=== PATIENT | female | born 1955 | race Two or more races ===

== ENCOUNTER 2020-09-06 08:04 | Outpatient (REF) | payer OTHER, SELFPAY ==
[2020-09-06 08:43] LABS: MANUAL DIFF FLAG NO
[2020-09-06 08:47] LABS: Basophils Percent Auto 0.6 % (0-2); Eosinophils Absolute Auto 0.3 X10*3/uL (0.0-0.4); Eosinophils Percent Auto 6.9 % (0-4); Hematocrit 36.6 % (37-47); Hemoglobin 11.8 g/dl (12.0-16.0); Imm Gran Abs Auto 0.01 X10*3/uL (0.00-0.03); Imm Gran Pct Auto 0.2 % (0.0-0.4); Immature Retic Fraction 4.6 % (3.0-15.9); Lymphocytes Absolute Auto 1.9 X10*3/uL (1.2-4.9); Mean Corpuscular HGB Conc 32.2 g/dl (31.0-35.0); Mean Corpuscular Hemoglobin 29.6 pg (27.0-33.0); Mean Corpuscular Volume 91.7 fL (80-98); Mean Platelet Volume 10.8 fL (9.4-12.3); Monocytes Absolute Auto 0.5 X10*3/uL (0.1-1.2); Monocytes Percent Auto 10.7 % (2-11); Neutrophils Percent Auto 41.6 % (45-73); Platelet Count 240 X10*3/uL (160-400); Red Blood Count 3.99 X10*6/uL (4.20-5.50); Red Cell Distribution Width 13.8 % (11.0-16.0); Reticulocyte Percent 1.2 % (0.5-1.8); Reticulocytes Absolute 0.046 X10*6/uL (0.026-0.095); White Blood Count 4.8 X10*3/uL (4.8-10.8)
[2020-09-06 09:09] LABS: Iron 84 mcg/dL (30-160); Percent Iron Saturation 24 % (15-50); Total Iron Binding Capacity 346 mcg/dL (228-428); Unsaturated Iron Binding 262 ug/dL
[2020-09-06 09:29] LABS: Ferritin 17 ng/mL (10-250)
== END 2020-09-06 08:05 | disposition home or self-care (01) ==
LOC: HO.LAB 08:04
PROVIDERS: Visit Provider Internal Medicine
DX: Z00.00 Encounter for general adult medical examination without abnormal findings (principal); D64.9 Anemia, unspecified
CPT/HCPCS: 36415; 82728; 83540; 85025; 85045

== ENCOUNTER 2021-01-22 08:38 | Outpatient (REF) | payer OTHER, SELFPAY | END 2021-01-22 08:39 | disposition home or self-care (01) | LOC: HO.LAB 08:38 | PROVIDERS: Visit Provider Internal Medicine | DX: Z20.822 Contact with and (suspected) exposure to COVID-19 (principal) | CPT/HCPCS: C9803; U0003; U0005 ==

== ENCOUNTER 2021-03-20 09:09 | Emergency (ER) | payer OTHER, SELFPAY ==
--- NOTE | ~2021-03-20 | CT_ITS ---
EXAMINATION: CT HEAD WITHOUT CONTRAST CLINICAL INFORMATION: Headache, right eye vision changes COMPARISON: None TECHNIQUE: Contiguous axial imaging was performed from the skull base to vertex without intravenous administration of contrast. This CT examination was performed using dose optimization techniques as appropriate, variously including the following: *Automated exposure control *Adjustment of mA and/or kV according to patient size (this includes techniques or standardized protocols for targeted exams where dose is matched to indication/reason for exam; i.e. extremities or head) *Use of iterative reconstruction technique DLP: 540 mGy-cm FINDINGS: There is no evidence of acute intracranial hemorrhage or territorial infarction. No abnormal mass effect or midline shift is seen. Broderick to white matter differentiation is well preserved. No extra-axial fluid collections are identified. The ventricles are normal in size. There is no abnormal attenuation within the brain parenchyma. The osseous structures and soft tissues are normal. The mastoid air cells and visualized portions of the paranasal sinuses are well aerated. CT/CT head/brain wo con IMPRESSION: No acute intracranial process seen.
[2021-03-20 09:37] VITALS: BP 141/71; PULSE 60; RESP 15; TEMP 36.6; O2SAT 99; BMI 41.6
[2021-03-20 09:56] LABS: MANUAL DIFF FLAG NO
[2021-03-20 10:05] LABS: Basophils Percent Auto 0.2 % (0-2); Eosinophils Absolute Auto 0.1 X10*3/uL (0.0-0.4); Eosinophils Percent Auto 2.7 % (0-4); Hematocrit 36.5 % (37-47); Hemoglobin 11.6 g/dl (12.0-16.0); Imm Gran Abs Auto 0.01 X10*3/uL (0.00-0.03); Imm Gran Pct Auto 0.2 % (0.0-0.4); Lymphocytes Percent Auto 37.5 % (20-40); Mean Corpuscular HGB Conc 31.8 g/dl (31.0-35.0); Mean Corpuscular Hemoglobin 28.4 pg (27.0-33.0); Mean Corpuscular Volume 89.2 fL (80-98); Mean Platelet Volume 10.6 fL (9.4-12.3); Monocytes Absolute Auto 0.5 X10*3/uL (0.1-1.2); Monocytes Percent Auto 9.3 % (2-11); Neutrophils Absolute Auto 2.7 X10*3/uL (2.0-8.3); Neutrophils Percent Auto 50.1 % (45-73); Platelet Count 255 X10*3/uL (160-400); Red Blood Count 4.09 X10*6/uL (4.20-5.50); Red Cell Distribution Width 14.6 % (11.0-16.0); White Blood Count 5.3 X10*3/uL (4.8-10.8)
[2021-03-20 10:22] VITALS: BP 157/76; PULSE 51; RESP 16; O2SAT 100
[2021-03-20 10:23] LABS: Anion Gap 9 (12-20); Blood Urea Nitrogen 14 mg/dL (9-16); Calcium 8.9 mg/dL (8.4-10.2); Carbon Dioxide 27 mmol/L (22-29); Chloride 108 mmol/L (96-108); Creatinine Clr Calc Pharmacy 89.3; Estimated Glomerular Filt Rate > 60; Glucose Random 89 mg/dL (60-115); Potassium 4.1 mmol/L (3.3-5.1); Sodium 140 mmol/L (135-145)
[2021-03-20 10:51] LABS: Erythrocyte Sedimentation Rate 9 MM/HR (0-20)
--- NOTE | 2021-03-20 11:42 | ED_ITS ---
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 She reports she has associated lightheadedness/headache to the right temporal aspect of her head. She reports that the lightheadedness/he adache and vision changes has been persistent since yesterday. She denies any trauma. She is not on any blood thinners. She reports this has never happened in the past. chief complaint: vision change Onset (ago): day(s) (2) Onset description: gradual Duration: constant Location: right eye Eye Symptoms: blurry vision Mechanism: none Severity: moderate Associated symptoms: none Treatments Prior to Arrival: none Related Data Home Medications Medication Instructions Recorded Confirmed calcium carbonate 500 mg calcium 1,000 mg PO DAILY 09/09/20 02/06/21 (1,250 mg) tablet cholecalciferol (vitamin D3) 25 25 mcg PO DAILY 09/09/20 02/06/21 mcg (1,000 unit) capsule cyanocobalamin (vitamin B-12) 1,000 mcg PO DAILY 09/09/20 02/06/21 1,000 mcg capsule Previous Rx's Medication Instructions Recorded meloxicam 15 mg tablet 15 mg PO DAILY #90 tab 02/06/21 omeprazole 20 mg capsule,delayed 20 mg PO DAILY #90 cap 02/06/21 release albuterol sulfate 90 mcg/actuation 2 puff PO Q4H PRN #6.7 g 03/08/21 aerosol inhaler Allergies Allergy/AdvReac Type Severity Reaction Status Date / Time morphine [MORPHINE] Allergy Unknown VOMITING Verified 08/30/20 14:03 AND SHAKING Review of Systems Review of Systems: Constitutional : No fevers, no chills, No changes in activity, No lethargy, No recent prior head injury, No agitation, No increased fussiness ENT/Mouth : No Ear Pain, No Nasal discharge/drainage Eyes: Positive Vision changes/blurry/decreased vision, No Eye Pain, No Swelling, No Redness, No Foreign Body, No Photophobia, no discharge, no drainage, no itching, no eyelid edema, no contact lens uses, no recent welding, no bleeding Cardiovascular : No Chest Pain, No SOB Respiratory : No Cough Gastrointestinal : No Nausea, No Vomiting, No abdominal Pain Genitourinary : No Dysuria, No Urinary Frequency, No Urinary Incontinence, No Urgency, No Flank Pain Musculoskeletal : No joint pain, No neck stiffness, No back pain/injury Skin : No lacerations Neuro : Positive headache/lightheadedness, No unsteady gait, No Paresthesias, No Loss of Consciousness, No altered mental status, No dizziness Denies past medical history of HIV, recent trauma, coagulopathy, recent spinal/ epidural procedure, new medication, URI symptoms, close contacts with similar symptoms, tick bite, or known CO2 exposure. Yes all other systems are reviewed and are negative PMFSH Past Medical History Attestation statement: The following information was validated with the patient. Medical History Asthma COVID-19 GERD (gastroesophageal reflux disease) Obesity Osteoarthritis Osteopenia Syphilis Vitamin B12 deficiency Vitamin D deficiency Surgical History H/O gastric bypass History of abdominoplasty History of appendectomy History of section History of cholecystectomy Family History Family History Father No problems noted. Mother No problems noted. Social History Social History Advance Directives: No Advance Directives Information Provided: No Patient : No Physical Exam Vital Signs: Vital Signs: Last Vital Signs Temp 98 F 03/20/21 09:37 Pulse 84 03/20/21 11:54 Resp 16 03/20/21 11:54 BP 136/69 03/20/21 11:54 Pulse Ox 100 03/20/21 11:54 Body Mass Index 41.6 vital signs have been reviewed as normal and appeared to be correct. Blood pressure hypertensive 141/71. Heart rate normal. Respiration rate normal. Temperature normal. Oxygen saturation normal. Appearance: Alert. Oriented X3. No acute distress. Head: Normal external exam. Normocephalic. Atraumatic. No Bragg signs noted. No raccoon eyes noted Eyes: PERRLA. EOMI. Conjunctiva are normal. Cornea are normal. Funduscopic exam within normal limits. Sclera normal. Eyelids normal. No papilledema noted. Anterior chamber normal. No photophobia noted. Pressure to right eye is 12. Pressure to left eye is 10. Visual acuity to right eye 20/50. Visual acuity to left eye 20/40. ENT: EAC normal. TM's Normal. Pharynx normal. Uvula midline. Moist mucous membranes. Neck: Normal inspection. Neck supple. FROM. No adenopathy. Thyroid Normal. No meningeal signs. No neck mass noted. CVS: Normal heart rate and rhythm. Heart sound normal. No murmurs noted. Pulses normal throughout. Respiratory: No respiratory distress. Painless inspiration. Breath sounds normal. Back: Full range of motion noted. Skin: Skin warm and dry. Normal skin color. Normal skin turgor. No rashes/ lesions/lacerations noted. Extremities: No lower extremity edema. Extremities exhibit normal range of motion. Extremities nontender. Neuro: Oriented X 3. No motor deficit. No sensory deficit. Reflexes normal. 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 She reports she has associated lightheadedness/headache to the right temporal aspect of her head. She reports that the lightheaded ness/headache and vision changes has been persistent since yesterday. She denies any trauma. She is not on any blood thinners. She reports this has never happened in the past. - labs obtained which include a CBC, ESR and a chemistry which were all within normal limits. - CT scan of brain without contrast within normal limits no acute processes were noted. - therefore consulted with [address] [place] [address] ophthalmology and they are willing to see the patient today for further evaluation treatment at 13:10. Will fax over the paperwork to [phone] and patient will go directly to [address] [place] [address] drive at this time. Patient understands agrees with this plan. MDM - Eye Problem Medical Records Attestation: I reviewed the patient's medical records. Lab Data Attestation: I reviewed the patient's lab results. Result diagrams: 03/20/21 09:52 03/20/21 09:52 Labs: Lab Results 03/20/21 03/20/21 03/20/21 Range/Units 09:52 09:52 09:52 WBC 5.3 (4.8-10.8) X10*3/uL RBC 4.09 L (4.20-5.50) X10*6/uL Hgb 11.6 L (12.0-16.0) g/dl Hct 36.5 L (37-47) % MCV 89.2 (80-98) fL MCH 28.4 (27.0-33.0) pg MCHC 31.8 (31.0-35.0) g/dl RDW 14.6 (11.0-16.0) % Plt Count 255 (160-400) X10*3/uL MPV 10.6 (9.4-12.3) fL Immature Gran % (Auto) 0.2 (0.0-0.4) % Neut % (Auto) 50.1 (45-73) % Lymph % (Auto) 37.5 (20-40) % Storey % (Auto) 9.3 (2-11) % Eos % (Auto) 2.7 (0-4) % Baso % (Auto) 0.2 (0-2) % Lymph # (Auto) 2.0 (1.2-4.9) X10*3/uL Storey # (Auto) 0.5 (0.1-1.2) X10*3/uL Eos # (Auto) 0.1 (0.0-0.4) X10*3/uL Baso # (Auto) 0.0 (0.0-0.2) X10*3/uL Abs Immat Gran (auto) 0.01 (0.00-0.03) X10*3/uL Absolute Neuts (auto) 2.7 (2.0-8.3) X10*3/uL Absolute Nucleated RBC 0.000 (0.0-0.012) X10*3/uL Nucleated RBC % (auto) 0.0 (0.0-0.2) /100WBC ESR 9 (0-20) MM/HR Sodium 140 (135-145) mmol/L Potassium 4.1 (3.3-5.1) mmol/L Chloride 108 (96-108) mmol/L Carbon Dioxide 27 (22-29) mmol/L Anion Gap 9 L (12-20) BUN 14 (9-16) mg/dL Creatinine 0.69 (0.5-1.4) mg/dL Estim Creat Clear Calc 89.3 Estimated GFR > 60 Random Glucose 89 (60-115) mg/dL Calcium 8.9 (8.4-10.2) mg/dL Imaging Data CT scan of brain without contrast: Attestation: I personally reviewed and interpreted this imaging study as follows: Radiologist's impression: FINDINGS: There is no evidence of acute intracranial hemorrhage or territorial infarction. No abnormal mass effect or midline shift is seen. Broderick to white matter differentiation is well preserved. No extra-axial fluid collections are identified. The ventricles are normal in size. There is no abnormal attenuation within the brain parenchyma. The osseous structures and soft tissues are normal. The mastoid air cells and visualized portions of the paranasal sinuses are well aerated. CT/CT head/brain wo con IMPRESSION: No acute intracranial process seen. Critical Care Time Critical Care Time Critical Care Time: Yes Total Critical Care Time: 60 Attestation: I personally attest to this time spent taking care of the patient Discharge Plan Discharge Clinical Impression: Changes in vision Patient Disposition: Home, Self-Care Instructions: Blurred Vision (ED) Additional Instructions: Please go directly to [address] on [address] 1st [address] ophthalmology you have an appointment at 01:10 this afternoon. Go directly there from here. Do not miss this appointment. Por favor, vaya directamente a [address] en el 1er piso de oftalmolog?a que tiene kiki angela a la 01:10 de esta tarde. Ir directamente all? desde aqu?. No te pierdas esta angela. Prescriptions: No Action albuterol sulfate 90 mcg/actuation HFA aerosol inhaler 2 puff PO Q4H PRN (Reason: bronchospasm) Qty: 6.7 RF: 0 calcium carbonate [Calcium 500] 500 mg calcium (1,250 mg) tablet 1,000 mg PO DAILY RF: 0 cholecalciferol (vitamin D3) 25 mcg (1,000 unit) capsule 25 mcg PO DAILY RF: 0 cyanocobalamin (vitamin B-12) 1,000 mcg capsule 1,000 mcg PO DAILY RF: 0 omeprazole 20 mg capsule,delayed release(DR/EC) 20 mg PO DAILY Qty: 90 RF: 2 meloxicam [Mobic] 15 mg tablet 15 mg PO DAILY Qty: 90 RF: 1 Print Language: Burmese
[2021-03-20 11:54] VITALS: BP 136/69; PULSE 84; RESP 16; O2SAT 100
[2021-03-20] MEDS: Acetaminophen 325 MG TABLET 975 MG PO (11:54)
== END 2021-03-20 12:28 | disposition home or self-care (01) ==
PROVIDERS: Emergency Provider Emergency Medicine Emergency Medical Services; PCP Internal Medicine
DX: H53.8 Other visual disturbances (principal); R51.9 Headache, unspecified
CPT/HCPCS: 36415; 70450; 80048; 85025; 85652; 99284

== ENCOUNTER 2021-05-06 09:11 | Outpatient (REF) | payer OTHER, SELFPAY | END 2021-05-06 09:12 | disposition home or self-care (01) | LOC: HO.LAB 09:11 | PROVIDERS: PCP Internal Medicine; Visit Provider Internal Medicine | DX: Z20.822 Contact with and (suspected) exposure to COVID-19 (principal) | CPT/HCPCS: C9803; U0003; U0005 ==

== ENCOUNTER 2021-05-22 09:13 | Outpatient (REF) | payer OTHER, SELFPAY ==
--- NOTE | ~2021-05-22 | MM_ITS ---
EXAMINATION: MM SCREENING DIGITAL BREAST TOMOSYNTHESIS, BILATERAL CLINICAL INFORMATION: Screening. Asymptomatic. The lifetime risk of breast cancer based on the Tyrer-Cuzick Model is 4%. COMPARISON: Mammography: 05/16/2020, outside mammography 07/19/2019, 07/12/2018 ([place]). TECHNIQUE: Digital breast tomosynthesis is performed in both the craniocaudal and mediolateral oblique views along with computer-aided detection (CAD). Synthesized 2D images are generated from the tomosynthesis. FINDINGS: There are scattered areas of fibroglandular density (ACR BI-RADS breast composition Category b). There are no significant masses, abnormal calcifications, or other abnormalities. Scattered bilateral fibroglandular asymmetries in the anterior breasts was unable from prior studies. No developing density. The skin contours are smooth. No significant changes. MM/MM tomosynthesis screening BI IMPRESSION: No mammographic evidence of malignancy. ASSESSMENT: BI-RADS 2: Benign RECOMMENDATION: Routine annual mammography screening. This patient's information was entered into a reminder system with a target due date for their next mammogram.
== END 2021-05-22 09:14 | disposition home or self-care (01) ==
LOC: HO.MAMMO 09:13
PROVIDERS: Visit Provider Internal Medicine
DX: Z12.31 Encounter for screening mammogram for malignant neoplasm of breast (principal)
CPT/HCPCS: 77063; 77067

== ENCOUNTER 2021-05-24 08:07 | Outpatient (REF) | payer OTHER, SELFPAY ==
[2021-05-24 08:55] LABS: MANUAL DIFF FLAG NO
[2021-05-24 09:00] LABS: Basophils Percent Auto 0.2 % (0-2); Eosinophils Absolute Auto 0.2 X10*3/uL (0.0-0.4); Eosinophils Percent Auto 3.3 % (0-4); Hematocrit 39.2 % (37-47); Hemoglobin 12.3 g/dl (12.0-16.0); Imm Gran Abs Auto 0.01 X10*3/uL (0.00-0.03); Imm Gran Pct Auto 0.2 % (0.0-0.4); Immature Retic Fraction 6.9 % (3.0-15.9); Lymphocytes Absolute Auto 2.4 X10*3/uL (1.2-4.9); Lymphocytes Percent Auto 36.3 % (20-40); Mean Corpuscular HGB Conc 31.4 g/dl (31.0-35.0); Mean Corpuscular Hemoglobin 28.6 pg (27.0-33.0); Mean Corpuscular Volume 91.2 fL (80-98); Mean Platelet Volume 11.1 fL (9.4-12.3); Monocytes Absolute Auto 0.7 X10*3/uL (0.1-1.2); Monocytes Percent Auto 10.1 % (2-11); Neutrophils Absolute Auto 3.3 X10*3/uL (2.0-8.3); Neutrophils Percent Auto 49.9 % (45-73); Platelet Count 295 X10*3/uL (160-400); Red Cell Distribution Width 15.3 % (11.0-16.0); Retic HGB Equivalent 32.3 pg (30.0-35.0); Reticulocyte Percent 1.2 % (0.5-1.8); White Blood Count 6.6 X10*3/uL (4.8-10.8)
[2021-05-24 09:08] LABS: Glucose Urine UA NEG (NEG); Leukocyte Esterase Urine TRACE (NEG); Nitrite Urine NEG (NEG); PH 6.5 (5.0-8.0); Specific Gravity - Urine 1.015 (1.005-1.025); Urine Blood TRACE (NEG); Urine Ketones NEG (NEG); Urine Protein NEG (NEG-TRACE)
[2021-05-24 09:15] LABS: Appearance Urine HAZY; Color Urine YELLOW
[2021-05-24 09:19] LABS: Mucus Urine 1+ /LPF; RBC Urine 0-2 /HPF (0); Squamous Epithelial Cell Urine 1+ /LPF
[2021-05-24 09:24] LABS: Alanine Aminotransferase 22 U/L (0-31); Alkaline Phosphatase 77 U/L (39-117); Anion Gap 13 (12-20); Aspartate Amino Transferase 25 U/L (5-31); Bilirubin Total 0.5 mg/dL (0.0-1.0); Blood Urea Nitrogen 22 mg/dL (9-16); Calcium 8.9 mg/dL (8.4-10.2); Carbon Dioxide 27 mmol/L (22-29); Chloride 108 mmol/L (96-108); Cholesterol 147 mg/dL; Estimated Glomerular Filt Rate > 60; Glucose Random 88 mg/dL (60-115); HDL Cholesterol 52 mg/dL; Iron 59 mcg/dL (30-160); LDL Cholesterol Calculated 82 mg/dl; Percent Iron Saturation 16 % (15-50); Sodium 143 mmol/L (135-145); Total Iron Binding Capacity 363 mcg/dL (228-428); Triglycerides 66 mg/dL; Unsaturated Iron Binding 304 ug/dL
[2021-05-24 09:45] LABS: Erythrocyte Sedimentation Rate 7 MM/HR (0-20)
[2021-05-24 09:51] LABS: Free T4 (Free Thyroxine) 1.04 ng/dL (0.71-1.85); Thyroid Stimulating Hormone 0.39 uIU/mL (0.32-4.0); Vitamin D 25-OH Total 33.6 ng/mL (>30)
[2021-05-24 10:03] LABS: Ferritin 17 ng/mL (10-250)
[2021-05-24 14:19] LABS: Folate 7.3 ng/mL (> or = 4.0); Vitamin B12 1142 pg/mL (200-900)
== END 2021-05-24 08:08 | disposition home or self-care (01) ==
LOC: HO.LAB 08:07
PROVIDERS: PCP Internal Medicine; Visit Provider Internal Medicine
DX: R43.2 Parageusia (principal); K21.9 Gastro-esophageal reflux disease without esophagitis; E78.00 Pure hypercholesterolemia, unspecified
CPT/HCPCS: 36415; 80053; 80061; 81001; 82306; 82607; 82728; 82746; 83540; 84439; 84443; 85025; 85045; 85652

== ENCOUNTER 2022-05-29 08:49 | Outpatient (REF) | payer OTHER, SELFPAY ==
--- NOTE | ~2022-05-29 | MM_ITS ---
EXAMINATION: MM SCREENING DIGITAL BREAST TOMOSYNTHESIS, BILATERAL CLINICAL INFORMATION: Screening. Asymptomatic. The lifetime risk of breast cancer based on the Tyrer-Cuzick Model is 4%. COMPARISON: Mammography: May 22, 2021 and studies dating back to August 24, 2012 TECHNIQUE: Digital breast tomosynthesis is performed in both the craniocaudal and mediolateral oblique views along with computer-aided detection (CAD). Synthesized 2D images are generated from the tomosynthesis. FINDINGS: There are scattered areas of fibroglandular density (ACR BI-RADS breast composition Category b). There are no significant masses, abnormal calcifications, or other abnormalities. MM/MM tomosynthesis screening BI IMPRESSION: No mammographic evidence of malignancy. ASSESSMENT: BI-RADS 1: Negative RECOMMENDATION: Routine annual mammography screening. This patient's information was entered into a reminder system with a target due date for their next mammogram.
== END 2022-05-29 08:50 | disposition home or self-care (01) ==
LOC: HO.MAMMO 08:49
PROVIDERS: PCP Internal Medicine; Visit Provider Internal Medicine
DX: Z12.31 Encounter for screening mammogram for malignant neoplasm of breast (principal)
CPT/HCPCS: 77063; 77067

== ENCOUNTER 2022-10-13 09:11 | Outpatient (REF) | payer OTHER, SELFPAY ==
[2022-10-13 09:25] LABS: MANUAL DIFF FLAG NO
[2022-10-13 10:07] LABS: Basophils Percent Auto 0.3 % (0-2); Eosinophils Absolute Auto 0.2 X10*3/uL (0.0-0.4); Eosinophils Percent Auto 2.8 % (0-4); Hematocrit 38.3 % (37.0-47.0); Hemoglobin 12.1 g/dl (12.0-16.0); Imm Gran Abs Auto 0.01 X10*3/uL (0.00-0.03); Imm Gran Pct Auto 0.2 % (0.0-0.4); Lymphocytes Absolute Auto 2.1 X10*3/uL (1.2-4.9); Lymphocytes Percent Auto 32.1 % (20-40); Mean Corpuscular HGB Conc 31.6 g/dl (31.0-35.0); Mean Corpuscular Hemoglobin 28.7 pg (27.0-33.0); Mean Corpuscular Volume 90.8 fL (80.0-98.0); Mean Platelet Volume 10.6 fL (9.4-12.3); Monocytes Absolute Auto 0.5 X10*3/uL (0.1-1.2); Monocytes Percent Auto 7.8 % (2-11); Neutrophils Absolute Auto 3.6 x10*3/uL (2.0-8.3); Neutrophils Percent Auto 56.8 % (45-73); Platelet Count 244 X10*3/uL (160-400); Red Blood Count 4.22 X10*6/uL (4.20-5.50); Red Cell Distribution Width 14.6 % (11.0-16.0); White Blood Count 6.4 X10*3/uL (4.8-10.8)
[2022-10-13 12:07] LABS: Folate 7.3 ng/mL (> or = 4.0); Vitamin B12 > 2000 pg/mL (200-900)
[2022-10-13 13:17] LABS: Alanine Aminotransferase 15 U/L (0-31); Albumin Level 4.2 g/dL (3.5-5.0); Alkaline Phosphatase 75 U/L (39-117); Anion Gap 10 (12-20); Aspartate Amino Transferase 24 U/L (5-31); Bilirubin Total 0.9 mg/dL (0.0-1.0); Blood Urea Nitrogen 22 mg/dL (9-16); Calcium 9.2 mg/dL (8.4-10.2); Carbon Dioxide 28 mmol/L (22-29); Chloride 109 mmol/L (96-108); Cholesterol 165 mg/dL; Estimated Glomerular Filt Rate > 60; Glucose Random 90 mg/dL (60-115); HDL Cholesterol 66 mg/dL; LDL Cholesterol Calculated 91 mg/dl; Sodium 142 mmol/L (135-145); Triglycerides 44 mg/dL
[2022-10-13 13:41] LABS: Free T4 (Free Thyroxine) 0.99 ng/dL (0.71-1.85); Thyroid Stimulating Hormone 0.44 uIU/mL (0.32-4.0)
== END 2022-10-13 09:12 | disposition home or self-care (01) ==
LOC: HO.LAB 09:11
PROVIDERS: PCP Internal Medicine; Visit Provider Internal Medicine
DX: E78.00 Pure hypercholesterolemia, unspecified (principal); Z98.84 Bariatric surgery status
CPT/HCPCS: 36415; 80053; 80061; 82607; 82746; 84439; 84443; 85025

== ENCOUNTER 2022-11-04 13:44 | Outpatient (REF) | payer OTHER, SELFPAY ==
--- NOTE | ~2022-11-04 | MM_ITS ---
EXAMINATION: BONE DENSITOMETRY CLINICAL INDICATION: Age-related osteoporosis without current pathological fracture. COMPARISON: Baseline BD dated 05/16/2020. TECHNIQUE: Using a Transbiomed DXA System (software version: 13.1) manufactured by [employer], dual-energy x-ray absorptiometry was performed of the lumbar spine and left hip. The images are of good technical quality. Summary results are attached. FINDINGS: AP SPINE L1-L4: Current: BMD 0.993 g/cm2, Z-score -1.1, T-score -1.6, osteopenia, 4.2% increase from baseline (<5% change is not significant). Baseline: BMD 0.953 g/cm2. LEFT FEMUR, NECK: Current: BMD 0.906 g/cm2, Z-score -0.2, T-score -0.9, normal. Baseline: BMD 0.804 g/cm2. LEFT FEMUR, TOTAL: Current: BMD 0.872 g/cm2, Z-score -0.7, T-score -1.1, osteopenia, 14.3% increase from baseline (<5% change is not significant). Baseline: BMD 0.763 g/cm2. IDENTIFIED RISK FACTORS: History of adult fracture. Secondary osteoporosis (part of stomach removed). Menopause. HISTORY OF FRACTURE: Wrist. MEDICATIONS: Calcium supplement and/or multivitamin. Vitamin D. MM/XR DEXA axial skeleton IMPRESSION: 1. DIAGNOSIS: Osteopenia based on the lowest T-score value of -1.6 in the lumbar spine applying World Health Organization criteria. 2. 10-YEAR FRACTURE RISK PREDICTION, FRAX: Major osteoporotic fracture (clinical spine, forearm, hip or shoulder) 6.6%. Hip fracture 0.4%. 3. Treatment Recommendations: NOF guidelines recommend consideration for treatment in postmenopausal women and men age 50 and older presenting with the following: -A hip or vertebral (clinical or morphometric) fracture. -T-score less than or equal to -2.5 at the femoral neck or spine after appropriate evaluation to exclude secondary causes. -Low bone mass at the hip or spine and a 10-year fracture probability by FRAX of greater than or equal to 3% for hip fracture or greater than or equal to 20% for major osteoporotic fracture based on the [place] adapted WHO algorithm. 4. Other Recommendations: All treatment decisions require clinical judgment and consideration of individual patient factors, including patient preferences, comorbidities, previous drug use, risk factors not captured in the FRAX model (e.g. frailty, falls, vitamin D deficiency, increased bone turnover, interval significant decline in bone density) and possible under or overestimation of fracture risk by FRAX. Additional medical evaluation for secondary cause of low bone mineral density may be appropriate. FUTURE SCAN RECOMMENDATION: People with diagnosed cases of osteoporosis or at high risk for fracture should have regular bone mineral density tests. For patients eligible for Medicare, routine testing is allowed once every 2 years. The testing frequency can be increased to one year for patients who have rapidly progressing disease, those who are receiving or discontinuing medical therapy to restore bone mass, or have additional risk factors.
== END 2022-11-04 13:45 | disposition home or self-care (01) ==
LOC: HO.MAMMO 13:44
PROVIDERS: PCP Internal Medicine; Visit Provider Internal Medicine
DX: Z13.820 Encounter for screening for osteoporosis (principal); Z78.0 Asymptomatic menopausal state; M81.0 Age-related osteoporosis without current pathological fracture
CPT/HCPCS: 77080

== ENCOUNTER 2023-04-20 10:39 | Outpatient (AMB) | payer OTHER, SELFPAY ==
[2023-04-20 10:43] VITALS: BP 116/78; PULSE 58; O2SAT 99; BMI 42.8
--- NOTE | 2023-04-20 10:43 | A.OFFPC_ITS ---
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 Required: No Accompanied by: Self / Same As Patient Allergies morphine [MORPHINE] Allergy (Unknown, Verified 04/20/23 10:43) VOMITING AND SHAKING Medication List - Last Reconciled 04/20/23 by Harry Chun MD albuterol sulfate 90 mcg/actuation 2 puffs PO Q4H PRN calcium carbonate (Calcium 500) 1,000 mg PO DAILY cholecalciferol (vitamin D3) 25 mcg PO DAILY cyanocobalamin (vitamin B-12) 1,000 mcg orally once a week; melatonin 20 mg PO DAILY meloxicam 15 mg PO DAILY omeprazole 20 mg PO DAILY Tobacco use date assessed: 04/20/23 Fall risk assessment: No Falls in past year Last assessed Fall Risk: 04/20/23 Dental Screening Dental Screen Date: 04/20/23 Did you have a dental visit in the last 12 months?: No Did you have a dental problem in the last 6 months where you did not have access to dental care?: No Was dental information given to patient?: No HPI OA, gerd HPI Details 67-year-old obese female with GERD asthma osteoarthritis osteoporosis patient has a history of gastric bypass coming in for follow-up. Last seen in October 2022. Colonoscopy is up-to-date mammogram is due next month bone density done in October. [facility] Medical History (Updated 04/20/23 @ 11:11 by Harry Chun MD) Age-related osteoporosis without current pathological fracture Asthma COVID-19 GERD (gastroesophageal reflux disease) Obesity Osteoarthritis Osteopenia Syphilis Vitamin B12 deficiency Vitamin D deficiency Surgical History H/O gastric bypass History of abdominoplasty History of appendectomy History of section History of cholecystectomy Family History Father No problems noted. Mother No problems noted. Social History (Updated 10/21/22 @ 11:26 by Harry Chun MD) Housing: Apartment Alcohol intake: current Patient Tobacco Use Status: Never used Tobacco e-Cigarette/Vaping Use: Never Used Second Hand Smoke Exposure: No service: No Current occupational status: employed Cognitive needs: No Hearing needs: No Vision needs: Yes Questionnaire PHQ-9 Over the last 2 weeks, how often have you been bothered by any of the following problems? 1. Little interest or pleasure in doing things: not at all 2. Feeling down, depressed, or hopeless: not at all 3. Trouble falling or staying asleep, or sleeping too much: not at all 4. Feeling tired or having little energy: not at all 5. Poor appetite or overeating: not at all 6. Feeling bad about yourself - or that you are a failure or have let yourself or your family down: not at all 7. Trouble concentrating on things, such as reading the newspaper or watching television: not at all 8. Moving or speaking so slowly that other people could have noticed. Or the opposite - being so fidgety or restless that you have been moving around a lot more than usual: not at all 9. Thoughts that you would be better off or of hurting yourself in some way: not at all Total score: 0 Depression Screening Interpretation: Negative Source: Developed by Drs. Timbo Nazario, Ivanna Sol, Kip العراقي and colleagues, with an educational jai from [employer]. Thrive Questionnaire Date Thrive assessed: 04/20/23 I am a: Patient What is your living situation today?: I have a steady place to live Within the past 12 months, did the food you bought not last and you didn't have the money to get more?: Never true Within the past 12 months, did you worry whether your food would run out before you got money to buy more?: Never true Do you have trouble paying for medicines?: No Do you have trouble getting transportation to medical appointments?: No Do you have trouble paying your heating and electricity bill?: No Do you have trouble taking care of your child, family member or friend?: No Do you have trouble with day-to-day activities such as bathing, preparing meals, shopping, managing finances, etc.?: No Are you currently unemployed and looking for a job?: No Are you interested in more education?: No Currently or been in a relationship where the following occur: no concerns reported AUDIT C Alcohol Use Questionnaire (AUDIT-C) 1. How often do you have a drink containing alcohol?: Monthly or less 2. How many drinks containing alcohol do you have on a typical day when you are drinking?: 1 or 2 3. How often do you have six or more drinks on one occasion?: Never Total Score: 1 DANY-7 AMB Questionnaire DANY-7 Date DANY - 7 assessed: 04/20/23 Feeling nervous, anxious, or on edge: 0 = Not at all Not being able to stop or control worryin = Not at all Worrying too much about different things: 0 = Not at all Trouble relaxin = Not at all Being so restless that it is hard to sit still: 0 = Not at all Becoming easily annoyed or irritable: 0 = Not at all Feeling afraid as if something awful might happen: 0 = Not at all Total DANY-7 score (0-4 normal; 5-9 mild; 10-14 moderate; 15-21 severe): 0 Source: Developed by Drs. Timbo Nazario, Ivanna Sol, Kip العراقي and colleagues, with an educational jai from [employer]. Physical exam (Primary Care) Vital Signs: Last Vital Signs Pulse 58 04/20/23 10:43 BP 116/78 04/20/23 10:43 Pulse Ox 99 04/20/23 10:43 Oxygen Delivery Method Room Air 04/20/23 10:43 BMI result Body Mass Index 42.8 Tobacco/Smoking Status: Tobacco use Status Tobacco use date assessed 04/20/23 04/20/23 10:46 Patient Tobacco Use Status Never used Tobacco 04/20/23 10:46 Tobacco use type 06/11/21 10:31 e-Cigarette/Vaping Use Never Used 04/20/23 10:46 PHQ-9: PHQ-9 Score PHQ-9: Total score 0 04/20/23 10:46 Depression Screening Interpretation: Negative Thrive Assessment: Date of Thrive Assessment Date Thrive assessed 04/20/23 04/20/23 10:46 Currently or been in a relationship where the following occur: no concerns reported Const General: alert; No acute distress Eyes Conjunctivae: conjunctivae normal Resp Auscultation: clear to auscultation bilaterally Cardio Rate: regular rate Rhythm: regular rhythm GI Inspection: Yes normal to inspection Extrem General: Yes normal to inspection and No edema Assessment and Plan Assessment & Plan (1) Osteopenia: Comment: October 2022 Code(s): M85.80 - Other specified disorders of bone density and structure, unspecified site Plan: Bone density October 2022. Discussed about calcium and vitamin-D (2) H/O gastric bypass: Comment: 2002 Code(s): Z98.84 - Bariatric surgery status (3) Obesity: Code(s): E66.9 - Obesity, unspecified Qualifiers: Obesity type: due to excess calories Obesity classification: adult class 3 (BMI >= 40) Serious obesity comorbidity presence: with serious comorbidity Body mass index: BMI 40.0-44.9 Qualified Code(s): E66.01 - Morbid (severe) obesity due to excess calories; Z68.41 - Body mass index [BMI]40.0- 44.9, adult Plan: Diet and exercise (4) Asthma: Code(s): J45.909 - Unspecified asthma, uncomplicated Qualifiers: Asthma severity: mild Asthma persistence: intermittent Asthma complication type: uncomplicated Qualified Code(s): J45.20 - Mild intermittent asthma, uncomplicated Plan: Continue with inhaler as needed (5) GERD (gastroesophageal reflux disease): Code(s): K21.9 - Gastro-esophageal reflux disease without esophagitis Qualifiers: Esophagitis presence: without esophagitis Qualified Code(s): K21.9 - Gastro-esophageal reflux disease without esophagitis Plan: Avoid the foods that causes that usually spicy foods, tomato products, juices, coffee, soda and foods that your sensitive to. After eating do not lie down, allow 3-4 hours before in lie down. And keep the head of bed above 30 degrees to avoid the acid from going up. (6) Insomnia: Code(s): G47.00 - Insomnia, unspecified Medications: New melatonin 5 mg PO .QD 30 caps 0RF trazodone 25 mg (1/2 x 50 mg) PO BEDTIME PRN 30 tabs 0RF sleep G47.00 - Insomnia, unspecified Discontinued melatonin Discontinued Reason: Change Referral Type 20 mg PO DAILY Coding Level of Care Code Est Pt Level 4 (25251) Diagnoses Osteopenia M85.80 H/O gastric bypass Z98.84 Obesity E66.01; Z68.41 Obesity type: due to excess calories Obesity classification: adult class 3 (BMI >= 40) Serious obesity comorbidity presence: with serious comorbidity Body mass index: BMI 40.0-44.9 Asthma J45.20 Asthma severity: mild Asthma persistence: intermittent Asthma complication type: uncomplicated GERD (gastroesophageal reflux disease) K21.9 Esophagitis presence: without esophagitis Insomnia G47.00
== END 2023-04-20 11:18 | disposition home or self-care (01) ==
PROVIDERS: Visit Provider Internal Medicine
DX: J45.20 Mild intermittent asthma, uncomplicated (principal); E66.01 Morbid (severe) obesity due to excess calories; Z68.41 Body mass index [BMI] 40.0-44.9, adult; Z98.84 Bariatric surgery status; M85.80 Other specified disorders of bone density and structure, unspecified site; K21.9 Gastro-esophageal reflux disease without esophagitis; G47.00 Insomnia, unspecified
CPT/HCPCS: 99214

== ENCOUNTER → 2023-06-08 10:59 | Outpatient (BNVA) | payer MEDICARE, SELFPAY | PROVIDERS: PCP Internal Medicine; Visit Provider Physician Assistant Surgical ==

== ENCOUNTER 2023-07-15 10:55 | Outpatient (AMB) | payer OTHER, SELFPAY ==
--- NOTE | 2023-07-15 10:57 | MHC.OFFVISWM ---
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 Operative report scanned into her chart. Pre op weight was 410 lbs and lowest weight was 150 lbs. Started regaining weight about 4 years ago from changing her eating habits. She lives alone. 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 Will vomit if eats too much. She wakes at: 5am, bed at 11 pm Breakfast: 6am coffee 1 large with cream no sugar 9:30 am - 2 eggs with 2 toast dry, more coffee Lunch: 1pm - restaurant soup with Sprite Dinner: 7 pm - 1 serving spoon of rice and beans, 1 pork chop. Vegetables once per week. Sweetened Iced tea After dinner: 9- 10 pm - yogurt or OJ or fruit Other snacks: snack bars and fruit at 2pm. Liquids: Drink soda and fruit juice and sweetened drinks every day Alcohol intake: weekends 2-3 beers 2 d/ week, tobacco: none, marijuana: none Exercise:no gym membership, has treadmill and elliptical at home, last used 6 months ago. Last mammogram: up to date Last pap smear: not anymore control method: post menopausal SONIA: 0 ESS:4 GERD: m21 QOL:98 [facility] Medical History (Updated 07/15/23 @ 11:13 by Mitali Garcia PA-C) Age-related osteoporosis without current pathological fracture Osteopenia COVID-19 Vitamin D deficiency Vitamin B12 deficiency Syphilis Obesity Asthma GERD (gastroesophageal reflux disease) Osteoarthritis Surgical History (Updated 07/15/23 @ 11:23 by Mitali Garcia PA-C) Hx of cholecystectomy Hx of gastric bypass Hx of section History of abdominoplasty H/O gastric bypass History of section History of appendectomy History of cholecystectomy Family History Father No problems noted. Mother No problems noted. Social History (System 06/08/23 @ 12:29 by Emi Valencia) Housing: Apartment Alcohol intake: current Alcohol intake frequency: holidays/special occasions only Patient Tobacco Use Status: Never used Tobacco e-Cigarette/Vaping Use: Never Used Second Hand Smoke Exposure: No service: No Current occupational status: employed Cognitive needs: No Hearing needs: No Vision needs: Yes Physical Exam Vital Signs: Last Vital Signs Temp 97.2 F 07/15/23 11:05 Pulse 70 07/15/23 11:05 BP 135/63 07/15/23 11:05 Pulse Ox 99 07/15/23 11:05 Oxygen Delivery Method Room Air 07/15/23 11:05 BMI result Body Mass Index 43.5 Const General: cooperative, no acute distress and well developed Nutritional Appearance: obese Orientation/consciousness: patient oriented x3 HEENT Head: Yes normal to inspection Neck Neck: Yes normal visual inspection Thyroid: Thyroid normal Resp Effort & Inspection: normal respiratory effort Auscultation: clear to auscultation bilaterally Cardio Rate: regular rate Rhythm: regular rhythm Heart sounds: S1 normal heart sound present, S2 normal heart sound present and no murmurs GI Inspection: No distended, Yes incision (well healed mid abd U inciison and panniculectomy incisioan) and Yes obesity Palpation (GI): Soft to palpation, nontender and no guarding Skin General skin exam: no rashes or lesions noted and other (warm and dry) Wounds: no wounds Hair: normal Neuro General: patient oriented x3 Extrem General: Yes no pedal edema and Yes no calf tenderness Psych Attitude: cooperative Thought process: Normal thought process present Thought content: Normal thought content present Insight: Good insight present (Psych) Judgement: Good judgement present (Psych) Assessment & Plan Assessment & Plan (1) Morbid obesity: Code(s): E66.01 - Morbid (severe) obesity due to excess calories Plan: This is a 67 yo woman with morbid obesity s/p GBP who will start SWL program to prepare for bariatric surgery. Blood work, h pylori , CXR, ECG, Abd ULS and UGI have been ordered. She is being scheduled for RD and BH initial consultations. She will start SWL classes and watch at 3 classes before her next appt with Viola. Operative report in chart. 1. Adequate sleep of 7-8 hours per night discussed, 10 pm - 6am 2. Healthy meal plan - stop fst food, snacking and stop all sweetened drinks All meals/MR's need to take 20 minutes to complete coffee with 1% milk only 9am - 30 gram shake 1 pm - yogurt (no fruit, raisins, granola) or bar 4 pm- shake 7 pm- dinner of 3 oz (6 forks) lean protein, 3 oz (6 forks) vegetable, 1/2 serving fruit Exercise - treadmill at home daily. spped 2.5, incline 1-4 for 250 calories. Pt will purchase body composition analyzer (recommended list given to patient) and weight herself weekly. Next appt with me in 3 weeks. Text me with any questions and weekly weights. Patient is morbidly obese and is not considered stable at this time.?I spent a total of 60 minutes reviewing/updating records, examining the patient and counseling the patient on weight management as detailed above. (2) H/O gastric bypass: Comment: 2002 - open procedure Code(s): Z98.84 - Bariatric surgery status (3) GERD (gastroesophageal reflux disease): Code(s): K21.9 - Gastro-esophageal reflux disease without esophagitis Qualifiers: Esophagitis presence: without esophagitis Qualified Code(s): K21.9 - Gastro-esophageal reflux disease without esophagitis Coding Level of Care Code New Pt Level 5 (01201) Diagnoses Morbid obesity E66.01 H/O gastric bypass Z98.84 Gastroesophageal reflux disease without esophagitis K21.9 Esophagitis presence: without esophagitis
[2023-07-15 11:05] VITALS: BP 135/63; PULSE 70; TEMP 36.2; O2SAT 99; BMI 43.5
== END 2023-07-15 12:02 | disposition home or self-care (01) ==
LOC: HO.HBS 10:55
PROVIDERS: PCP Internal Medicine; Referring Provider Internal Medicine; Visit Provider Physician Assistant
DX: E66.01 Morbid (severe) obesity due to excess calories (principal); Z68.41 Body mass index [BMI] 40.0-44.9, adult; Z98.84 Bariatric surgery status; K21.9 Gastro-esophageal reflux disease without esophagitis
CPT/HCPCS: 99205

== ENCOUNTER → 2023-07-15 10:55 | Outpatient (BNVA) | payer OTHER, SELFPAY | PROVIDERS: PCP Internal Medicine; Referring Provider Internal Medicine; Visit Provider Physician Assistant ==

== ENCOUNTER 2023-07-18 13:08 | Emergency (ER) | payer OTHER, SELFPAY ==
[2023-07-18 13:14] VITALS: BP 141/85; PULSE 62; RESP 20; TEMP 36.6; O2SAT 98; BMI 43.7
--- NOTE | 2023-07-18 13:15 | ED.GENADULT ---
HPI - General Adult General Chief complaint: Abdominal Pain Stated complaint: Abd pain Time Seen by Provider: 07/18/23 13:50 Source: patient Mode of arrival: ambulatory Limitations: no limitations History of Present Illness HPI narrative: Patient is a 67-year-old female who presents emergency department for evaluation of epigastric pain with sudden onset this morning at 08:30 about 30 minutes after drinking her coffee and having a bagel. It radiates towards the belly button and she has associated nausea but no vomiting. She also endorses diarrhea with 4 episodes today 1st loose stools now watery and brown in color. Denies hematochezia or melena. She denies chest pain, shortness of breath, difficulty breathing, dysuria, urinary frequency/urgency/hesitancy. Related Data Home Medications Medication Instructions Recorded Confirmed calcium carbonate 500 mg calcium 1,000 mg PO DAILY 09/09/20 04/20/23 (1,250 mg) tablet (Calcium 500) cholecalciferol (vitamin D3) 25 25 mcg PO DAILY 09/09/20 04/20/23 mcg (1,000 unit) capsule cyanocobalamin (vitamin B-12) 1,000 mcg PO .COMPLEX 10/21/22 04/20/23 1,000 mcg capsule melatonin 5 mg capsule 5 mg PO BEDTIME 06/08/23 omeprazole 20 mg capsule,delayed 20 mg PO DAILY 06/08/23 release Previous Rx's Medication Instructions Recorded albuterol sulfate 90 mcg/actuation 2 puff PO Q4H PRN bronchospasm 03/08/21 aerosol inhaler #6.7 grams omeprazole 20 mg capsule,delayed 20 mg PO DAILY #90 caps 11/19/22 release meloxicam 15 mg tablet 15 mg PO DAILY #90 tabs 06/07/23 ondansetron 4 mg disintegrating 4 mg PO Q8H PRN nausea and 07/18/23 tablet vomiting #20 tabs tramadol 50 mg tablet 50 mg PO Q8H PRN severe pain 07/18/23 (scale score 7-10) #12 tabs Allergies Allergy/AdvReac Type Severity Reaction Status Date / Time morphine [MORPHINE] Allergy Unknown VOMITING Verified 07/15/23 11:01 AND SHAKING MORPHINE Allergy Mild Nausea and Uncoded 06/08/23 12:29 Vomiting Review of Systems Review of Systems: Yes all other systems are reviewed and are negative PMFSH Past Medical History Attestation statement: The following information was validated with the patient. Source: old records reviewed Medical History Arthritis Age-related osteoporosis without current pathological fracture Osteopenia COVID-19 Vitamin D deficiency Vitamin B12 deficiency Syphilis Obesity Asthma GERD (gastroesophageal reflux disease) Osteoarthritis Surgical History Hx of cholecystectomy Hx of gastric bypass Hx of section History of abdominoplasty H/O gastric bypass History of section History of appendectomy History of cholecystectomy Family History Family History Father No problems noted. Mother No problems noted. Social History Social History (System 06/08/23 @ 12:29 by Emi Valencia) Housing: Apartment Alcohol intake: current Alcohol intake frequency: holidays/special occasions only Patient Tobacco Use Status: Never used Tobacco Smoked in Last 30 Days: No e-Cigarette/Vaping Use: Never Used Second Hand Smoke Exposure: No Use of substances other than those prescribed or required for medical reasons: No Advance Directives: No Advance Directives Information Provided: Yes service: No Current occupational status: employed Cognitive needs: No Hearing needs: No Vision needs: Yes Physical Exam ED Vital Signs: Vital Signs - 24 hr 07/18/23 13:14 07/18/23 14:03 07/18/23 16:00 Temperature 97.8 F 97.6 F 98.0 F Pulse Rate 62 59 57 Respiratory Rate 20 18 16 Blood Pressure 141/85 H 146/85 H 111/49 L Pulse Oximetry 98 100 99 Oxygen Delivery Method Room Air Room Air Room Air 07/18/23 18:47 07/18/23 21:16 Temperature 98.2 F Pulse Rate 72 67 Respiratory Rate 16 16 Blood Pressure 129/56 L 122/54 L Pulse Oximetry 98 98 Oxygen Delivery Method Room Air Room Air BMI result Body Mass Index 43.7 Appearance: Alert.?Oriented to person, place and time. No acute distress.?Normal affect. Eyes: Pupils equal, round and reactive to light.? ENT: Pharynx normal.?? Neck: Normal inspection.? Neck supple.?? CVS: Heart sounds normal. Normal heart rate and rhythm.? Pulses normal.?? Respiratory: No respiratory distress.? Lung sounds clear to auscultation bilaterally?? Abdomen: Soft with diffuse upper abdominal tenderness upon light palpation and tenderness just above the umbilicus. No rigidity. No guarding. Normoactive bowel sounds. Skin: Skin warm and dry.? Normal skin color.? Extremities: No lower extremity edema.? Neuro: Moves all extremities spontaneously. Sensation intact bilaterally. . No focal neuro deficits. Ambulates with normal steady gait. Course Course Course Narrative: RME: 67 yold female presents to the ED For epigastrc abdominal pain with diarrhea. Patient states no fever or chills. patient states no recent trauam. labs, EKG ordered Reevaluation(s) Reevaluation #1: CBC reveals no leukocytosis or anemia. CMP is overall unremarkable. Lipase within normal limits. High sensitive troponin negative, EKG revealing sinus bradycardia with ventricular rate of 55, normal NH interval, QTC 419, elevation, ST depression, T-wave inversion. Urinalysis pending at this time. Patient to receive GI cocktail, CT of the abdomen and pelvis pending at this time. Time: 14:51 Reevaluation #2: She reports improvement in symptoms after receiving GI cocktail, not complete resolution. CT abdomen and pelvis with impression significant malrotation? (dilation per CT narrative) of CBD gallbladder and cystic duct with areas receiving narrowing in the mid segment and likely distally differential to include cholangitis or underlying pancreatic lesion with recommendations for ERCP or MRCP. There is also diffuse dilated small bowel loops and colon with air-fluid levels likely a generalized ileus without any identifiable transition point. Time: 16:10 Reevaluation #3: I consulted with GI, no indication for emergent ERCP or MRCP at this time, if pain is continued to be well managed she can follow up outpatient. Advised by nursing staff that she is endorsing persistent nausea, and increase in her abdominal pain. At this time will trial Zofran IV, and toradol IV. Will sign out to evening provider; Aliyah LANDEROS Time: 17:10 Additional Reevaluation(s): Patient reports pain is still somewhat present but significantly improved after receiving medication. Will discharge the patient with tramadol and Zofran and she will follow-up with GI as well as her previous bariatric surgeon. She has not yet provided a urine sample. However she has no lower abdominal pain or urinary discomfort, she would like to be discharged without providing urine sample which I feel is appropriate. I canceled the UA ordered Medications Administered Discontinued Medications Generic Name Dose Route Start Last Admin Trade Name Reginald PRN Reason Stop Dose Admin Iohexol 85 ml 07/18/23 15:42 07/18/23 15:42 Iohexol 350 Mg/Ml 100 Ml Infus..Btl IV 07/18/23 15:43 85 ml ONCE ONE Administration Ketorolac Tromethamine 30 mg 07/18/23 17:12 07/18/23 18:47 Ketorolac Tromethamine 30 Mg/Ml Vial IVPUSH 07/18/23 17:13 30 mg ONCE ONE Administration Lidocaine/Diphenhydr/Alum/Mg/Simeth 10 ml 07/18/23 15:03 07/18/23 15:43 Mag&Al/Sim/Diphenhyd/Lidocaine 10 Ml Oral.Susp PO 07/18/23 15:04 10 ml ONCE ONE Administration Protocol Ondansetron HCl 4 mg 07/18/23 17:12 07/18/23 18:47 Ondansetron Hcl 4 Mg/2 Ml Vial IVPUSH 07/18/23 17:13 4 mg ONCE ONE Administration Medical Decision Making Medical Decision Making [facility] Narrative: Patient is a 67-year-old female with past medical history of gastric bypass in 2003, GERD, asthma, osteoarthritis, anemia, obesity presenting to emergency department for evaluation of abdominal pain with nausea and diarrhea as per HPI. Abdominal examination with notable tenderness to the upper abdominal/periumbilical region which. Will obtain CBC to evaluate for leukocytosis/ anemia, CMP and lipase to evaluate for abnormal electrolytes /abnormal renal function/ abnormal hepatic/biliary function, EKG and troponin to evaluate for ischemia/ACS. CT of the abdomen and pelvis and Urinalysis. Differential Diagnosis Differential Diagnoses: The differential diagnosis associated with the presentation includes (Gastritis, PUD, cholecystitis, cholelithiasis, pancreatitis, diverticulitis, bowel obstruction) Admission/Observation Consideration of admission/observation: Escalation of care including admission/observation considered (Considered admission for abdominal pain, pending CT abdomen and pelvis for further determination acute etiology) Consult Healthcare Provider Management of the patient was discussed with: Oncology Physician (Gastroenterology) Lab Data [facility] Lab Attestation statement: I reviewed the patient's lab results. CBC is overall unremarkable, CMP overall unremarkable, lipase within normal limits. Troponin negative 07/18/23 13:27 07/18/23 13:27 Labs: Lab Results 07/18/23 Range/Units 13:27 WBC 8.1 (4.8-10.8) X10*3/uL RBC 4.55 (4.20-5.50) X10*6/uL Hgb 12.8 (12.0-16.0) g/dl Hct 40.0 (37.0-47.0) % MCV 87.9 (80.0-98.0) fL MCH 28.1 (27.0-33.0) pg MCHC 32.0 (31.0-35.0) g/dl RDW 16.2 H (11.0-16.0) % Plt Count 241 (160-400) X10*3/uL MPV 10.4 (9.4-12.3) fL Immature Gran % (Auto) 0.4 (0.0-0.4) % Neut % (Auto) 79.5 H (45-73) % Lymph % (Auto) 17.4 L (20-40) % Rosebud % (Auto) 2.3 (2-11) % Eos % (Auto) 0.2 (0-4) % Baso % (Auto) 0.2 (0-2) % Lymph # (Auto) 1.4 (1.2-4.9) X10*3/uL Rosebud # (Auto) 0.2 (0.1-1.2) X10*3/uL Eos # (Auto) 0.0 (0.0-0.4) X10*3/uL Baso # (Auto) 0.0 (0.0-0.2) X10*3/uL Abs Immat Gran (auto) 0.03 (0.00-0.03) X10*3/uL Absolute Neuts (auto) 6.4 (2.0-8.3) x10*3/uL Absolute Nucleated RBC 0.000 (0.0-0.012) X10*3/uL Nucleated RBC % (auto) 0.0 (0.0-0.2) /100WBC Sodium 141 (135-145) mmol/L Potassium 4.2 (3.3-5.1) mmol/L Chloride 109 H (96-108) mmol/L Carbon Dioxide 22 (22-29) mmol/L Anion Gap 14 (12-20) BUN 15 (9-16) mg/dL Creatinine 0.71 (0.5-1.4) mg/dL Estim Creat Clear Calc 87.0 Estimated GFR > 60 Random Glucose 106 (60-115) mg/dL Calcium 9.4 (8.4-10.2) mg/dL Total Bilirubin 0.8 (0.0-1.0) mg/dL AST 21 (5-31) U/L ALT 13 (0-31) U/L Alkaline Phosphatase 80 (39-117) U/L Troponin I High Sens < 2.7 (<3.5-17.0) ng/L Total Protein 7.5 (6.5-8.0) g/dL Albumin 4.2 (3.5-5.0) g/dL Lipase 15 (8-78) U/L Independent Interpretation I performed an independent interpretation of an: EKG Interpretation: Rate: 55 Rhythm:? Sinus bradycardia Normal P waves.? Normal JOBY.?? Normal QRS complex.?? ST T wave :??No ST elevation, no ST depression, qTC:419 The study has been interpreted contemporaneously by me. Radiology Impression Discussion of test interpretation with radiology: I have reviewed the radiologist's reading. Radiologist Impression: CT/CT abdomen pelvis w IV con IMPRESSION: Significant malrotation of CBD, gallbladder, cystic duct with with areas of CBD narrowing in the mid segment and likely distally. Differential diagnosis, cholangitis or underlying pancreatic lesion. Recommend ERCP or MRCP. Diffuse dilated small bowel loops and colon with air-fluid levels likely generalized ileus. No transition point seen No free air or free fluid. Small right renal cyst. External Record Review External record reviewed: Outpatient record and Prior outpatient labs Discharge Plan Discharge Clinical Impression: Abdominal pain Patient Disposition: Home, Self-Care Instructions: Abdominal Pain (ED) Additional Instructions: Your CT scan showed an abnormality of your common bile duct as it appears rotated with some degree of common bile duct narrowing This is likely the cause of your discomfort Return to the ER immediately you develop any fevers, severe, intractable pain or unable to tolerate any food or fluids You should have a liquid diet for the next 2 days until your pain improved Avoid spicy, greasy, fatty foods Follow-up with GI at the number provided You should also follow-up with General surgery if you cannot follow-up with your previous bariatric surgeon, you may follow-up with the general surgeon provided Prescriptions: New tramadol 50 mg tablet 50 mg PO Q8H PRN (Reason: severe pain (scale score 7-10)) Qty: 12 0RF ondansetron 4 mg tablet,disintegrating 4 mg PO Q8H PRN (Reason: nausea and vomiting) Qty: 20 0RF No Action albuterol sulfate 90 mcg/actuation HFA aerosol inhaler 2 puff PO Q4H PRN (Reason: bronchospasm) Qty: 6.7 0RF omeprazole 20 mg capsule,delayed release(DR/EC) 20 mg PO DAILY Qty: 90 2RF meloxicam 15 mg tablet 15 mg PO DAILY Qty: 90 1RF calcium carbonate [Calcium 500] 500 mg calcium (1,250 mg) tablet 1,000 mg PO DAILY cholecalciferol (vitamin D3) 25 mcg (1,000 unit) capsule 25 mcg PO DAILY cyanocobalamin (vitamin B-12) 1,000 mcg capsule 1,000 mcg PO .COMPLEX Rx Instructions: 1,000 mcg orally once a week; omeprazole 20 mg capsule,delayed release(DR/EC) 20 mg PO DAILY melatonin 5 mg capsule 5 mg PO BEDTIME Referrals: Kerwin Damian MD [Physician] - (malrotated CBD) Naomi Martinez MD [Physician] - (malrotated CBD) Interventions: ED Discharge Assessment Last Done: 07/18/23 21:17 Discharge Date/Time: 07/18/23 21:18
[2023-07-18 14:03] VITALS: BP 146/85; PULSE 59; RESP 18; TEMP 36.4; O2SAT 100
--- NOTE | 2023-07-18 14:35 | PC.NURSE ---
patient a&ox3, vss, pt c/o abd pain 10/, + bs in all quadrants- pt tender upon palp, labs and ekg previously performed, pt awaiting provider, warm blankets given, will continue to monitor
--- NOTE | 2023-07-18 15:39 | PC.NURSE ---
pt in ct will medicate upon their return
--- NOTE | 2023-07-18 15:44 | PC.NURSE ---
pt medicated per order
[2023-07-18 16:00] VITALS: BP 111/49; PULSE 57; RESP 16; TEMP 36.7; O2SAT 99
--- NOTE | 2023-07-18 16:01 | MHC.EDTECH ---
THIS PCT ASSUMED CARE OF PATIENT AT 1500 ,VITALS SIGN TAKEN ,PT AWARE WE NEED A URINE SAMPLE ,PT COMFORTABLE AT THIS TIME ,WILL CONTINUE TO MONITOR .
[2023-07-18 18:47] VITALS: BP 129/56; PULSE 72; RESP 16; TEMP 36.8; O2SAT 98
[2023-07-18 21:16] VITALS: BP 122/54; PULSE 67; RESP 16; O2SAT 98
== END 2023-07-18 21:18 | disposition home or self-care (01) ==
PROVIDERS: Emergency Provider Emergency Medicine; PCP Internal Medicine
DX: R10.13 Epigastric pain (principal); R11.0 Nausea; R00.1 Bradycardia, unspecified; Z79.899 Other long term (current) drug therapy
CPT/HCPCS: 36415; 74177; 80053; 83690; 84484; 85025; 93005; 96374; 96375; 99284; 99285; J1885; J2405; Q9967

== ENCOUNTER 2023-07-19 16:40 | Outpatient (AMB) | payer OTHER, SELFPAY ==
[2023-07-19 16:45] VITALS: BP 132/70; PULSE 56; O2SAT 100; BMI 43.5
--- NOTE | 2023-07-19 16:45 | MHC.PC.OV ---
Vital Signs 07/19/23 16:45 Height 5 ft 1 in Weight 230 lb BMI 43.5 BP 132/70 Blood Pressure Location Lt brachial Position Sitting Pulse 56 Pulse Source Pulse Oximeter Temp Source Skin Pulse Oximetry (%) 100 Oxygen Delivery Method Room Air Intake Visit Reasons: insomnia Student Financial Aid Manager Required: No Allergies morphine [MORPHINE] Allergy (Unknown, Verified 07/19/23 16:45) VOMITING AND SHAKING MORPHINE Allergy (Mild, Uncoded 07/19/23 16:45) Nausea and Vomiting Tobacco use date assessed: 07/19/23 Fall risk assessment: No Falls in past year Last assessed Fall Risk: 07/19/23 Dental Screening Dental Screen Date: 07/19/23 Did you have a dental visit in the last 12 months?: Yes Did you have a dental problem in the last 6 months where you did not have access to dental care?: No Was dental information given to patient?: Patient has dentist HPI insomnia HPI Details 67-year-old obese female with a history of gastric bypass osteopenia asthma GERD and insomnia last seen in April 2023. Patient's colonoscopy is up-to-date. Mammogram is due. Patient's bone density is up-to-date. Review of the notes patient was in the emergency room for abdominal pain epigastric radiating towards the belly button with nausea had diarrhea patient had a CT scan done.Significant malrotation of CBD, gallbladder, cystic duct with with areas of CBD narrowing in the mid segment and likely distally. Differential diagnosis, cholangitis or underlying pancreatic lesion. Recommend ERCP or MRCP. Diffuse dilated small bowel loops and colon with air-fluid levels likely generalized ileus. No transition point seen No free air or free fluid. Small right renal cyst. [facility] Medical History Arthritis Age-related osteoporosis without current pathological fracture Osteopenia COVID-19 Vitamin D deficiency Vitamin B12 deficiency Syphilis Obesity Asthma GERD (gastroesophageal reflux disease) Osteoarthritis Surgical History Hx of cholecystectomy Hx of gastric bypass Hx of section History of abdominoplasty H/O gastric bypass History of section History of appendectomy History of cholecystectomy Family History Father No problems noted. Mother No problems noted. Social History (System 06/08/23 @ 12:29 by Emi Valencia) Housing: Apartment Alcohol intake: current Alcohol intake frequency: holidays/special occasions only Patient Tobacco Use Status: Never used Tobacco e-Cigarette/Vaping Use: Never Used Second Hand Smoke Exposure: No service: No Current occupational status: employed Cognitive needs: No Hearing needs: No Vision needs: Yes Questionnaire Thrive Questionnaire Date Thrive assessed: 04/20/23 AUDIT C Alcohol Use Questionnaire (AUDIT-C) 1. How often do you have a drink containing alcohol?: Monthly or less 2. How many drinks containing alcohol do you have on a typical day when you are drinking?: 1 or 2 3. How often do you have six or more drinks on one occasion?: Never Total Score: 1 DANY-7 AMB Questionnaire DANY-7 Date DANY - 7 assessed: 04/20/23 Source: Developed by Drs. Timbo Nazario, Ivanna Sol, Kip العراقي and colleagues, with an educational jai from [employer]. Physical exam (Primary Care) Vital Signs: Last Vital Signs Pulse 56 07/19/23 16:45 BP 132/70 07/19/23 16:45 Pulse Ox 100 07/19/23 16:45 Oxygen Delivery Method Room Air 07/19/23 16:45 BMI result Body Mass Index 43.5 Tobacco/Smoking Status: Tobacco use Status Tobacco use date assessed 07/19/23 07/19/23 16:53 Patient Tobacco Use Status Never used Tobacco 07/19/23 16:53 Tobacco use type 06/11/21 10:31 e-Cigarette/Vaping Use Never Used 07/19/23 16:53 Thrive Assessment: Date of Thrive Assessment Date Thrive assessed 04/20/23 07/19/23 16:53 Const General: alert; No acute distress Eyes Conjunctivae: conjunctivae normal Resp Auscultation: clear to auscultation bilaterally Cardio Rate: regular rate Rhythm: regular rhythm GI Inspection: Yes normal to inspection Extrem General: Yes normal to inspection and No edema Assessment and Plan Assessment & Plan (1) Narrowing of bile duct after surgery: Code(s): K91.89 - Other postprocedural complications and disorders of digestive system; K83.1 - Obstruction of bile duct Plan: CT scan showing common bile duct narrowing today ER visit. ? GB still there as patient was told cholecystectomy (2) H/O gastric bypass: Comment: 2002 - open procedure Code(s): Z98.84 - Bariatric surgery status (3) Obesity: Code(s): E66.9 - Obesity, unspecified Qualifiers: Body mass index: BMI 40.0-44.9 Obesity classification: adult class 3 (BMI >= 40) Obesity type: due to excess calories Serious obesity comorbidity presence: with serious comorbidity Qualified Code(s): E66.01 - Morbid (severe) obesity due to excess calories; Z68.41 - Body mass index [BMI]40.0-44.9, adult Plan: Diet and exercise (4) GERD (gastroesophageal reflux disease): Code(s): K21.9 - Gastro-esophageal reflux disease without esophagitis Qualifiers: Esophagitis presence: without esophagitis Qualified Code(s): K21.9 - Gastro-esophageal reflux disease without esophagitis Plan: Avoid the foods that causes that usually spicy foods, tomato products, juices, coffee, soda and foods that your sensitive to. After eating do not lie down, allow 3-4 hours before in lie down. And keep the head of bed above 30 degrees to avoid the acid from going up. Orders: Referrals Gastroenterology Referral K83.1 - Obstruction of bile duct, K91.89 - Other postprocedural complications and disorders of digestive system Coding Level of Care Code Est Pt Level 4 (29386) Diagnoses Narrowing of bile duct after surgery K91.89; K83.1 H/O gastric bypass Z98.84 Class 3 severe obesity due to excess calories with serious comorbidity and body mass index (BMI) of 40.0 to 44.9 in adult E66.01; Z68.41 Body mass index: BMI 40.0-44.9 Obesity classification: adult class 3 (BMI >= 40) Obesity type: due to excess calories Serious obesity comorbidity presence: with serious comorbidity Gastroesophageal reflux disease without esophagitis K21.9 Esophagitis presence: without esophagitis
== END 2023-07-19 17:13 | disposition home or self-care (01) ==
PROVIDERS: PCP Internal Medicine; Visit Provider Internal Medicine
DX: K21.9 Gastro-esophageal reflux disease without esophagitis (principal); K83.1 Obstruction of bile duct; E66.01 Morbid (severe) obesity due to excess calories; Z68.41 Body mass index [BMI] 40.0-44.9, adult; K91.89 Other postprocedural complications and disorders of digestive system; Z98.84 Bariatric surgery status
CPT/HCPCS: 99214

== ENCOUNTER 2023-07-21 10:57 | Outpatient (AMB) | payer OTHER, SELFPAY ==
--- NOTE | 2023-07-21 11:09 | MHC.OFFVIS ---
Intake Intake Visit Reasons: Abnormality of common bile duct Intake Note: Patient here f/u ER visit Wednesday (3 days ago). Patient c/o severe pain on mid abd. Hasn't been able to have a bm X4d. Had CT scan. Was prescribed zofran for nausea and tramadol for pain. 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 Patient had extensive workup and there were abnormal anatomic findings on the CT scan. Immune at have been known at the time but 20 years ago patient had a gastro biliary pancreatic bypass surgery which would account for the ill appearing anatomy. In the meantime, patient is hungry, has limited her diet, and has been scared to take any intake. Patient was seen approximately week and half ago by the bariatric section of the hospital for scheduling of a gastric sleeve resection. Chart was reviewed patient evaluated. [facility] Medical History Arthritis Age-related osteoporosis without current pathological fracture Osteopenia COVID-19 Vitamin D deficiency Vitamin B12 deficiency Syphilis Obesity Asthma GERD (gastroesophageal reflux disease) Osteoarthritis Surgical History Hx of cholecystectomy Hx of gastric bypass Hx of section History of abdominoplasty H/O gastric bypass History of section History of appendectomy History of cholecystectomy Family History Father No problems noted. Mother No problems noted. Social History (Updated 07/21/23 @ 11:13 by JAKOB Hussein) Housing: Apartment Alcohol intake: current Alcohol intake frequency: holidays/special occasions only Patient Tobacco Use Status: Never used Tobacco e-Cigarette/Vaping Use: Never Used Second Hand Smoke Exposure: No service: No Current occupational status: employed Cognitive needs: No Hearing needs: No Vision needs: Yes Physical Exam Const Other: Very corpulent patient. GI Other: Show around incision. Very obese abdomen. Well-healed chevron incision. Assessment & Plan Assessment & Plan (1) Morbid obesity: Code(s): E66.01 - Morbid (severe) obesity due to excess calories (2) H/O gastric bypass: Comment: 2002 - open procedure Code(s): Z98.84 - Bariatric surgery status Plan I discussed with the patient and her daughter that the CT scan findings are consistent with her prior gastric pancreatic biliary diversion surgery. At present, there are no surgical interventions required. Patient can undertake the dietary recommendations by Bariatric Department. At present, no acute surgical issues. Patient will follow-up p.r.n.. All questions were answered. Coding Level of Care Code New Pt Level 4 (48510) Diagnoses Morbid obesity E66.01 H/O gastric bypass Z98.84
== END 2023-07-21 11:33 | disposition home or self-care (01) ==
PROVIDERS: PCP Internal Medicine; Visit Provider Surgery
DX: E66.01 Morbid (severe) obesity due to excess calories (principal); Z98.84 Bariatric surgery status
CPT/HCPCS: 99204

== ENCOUNTER → 2023-07-21 10:57 | Outpatient (BNVA) | payer OTHER, SELFPAY | PROVIDERS: PCP Internal Medicine; Visit Provider Surgery ==

== ENCOUNTER 2023-08-12 06:03 | Outpatient (REF) | payer MEDICARE, OTHER, SELFPAY ==
--- NOTE | ~2023-08-12 | XR_ITS ---
EXAMINATION: XR CHEST CLINICAL INFORMATION: Morbid (severe) obesity due to excess calories COMPARISON: None available. TECHNIQUE: 2 views of the chest were obtained. FINDINGS: No significant abnormality is noted involving the heart, lungs, mediastinum or soft tissues. There is mild elevation of the right hemidiaphragm. There is kyphosis with multilevel degenerative change of the thoracic spine. XR/XR chest 2V IMPRESSION: No acute cardiopulmonary disease.
[2023-08-12 06:21] LABS: MANUAL DIFF FLAG NO
[2023-08-12 06:55] LABS: Basophils Percent Auto 0.4 % (0-2); Eosinophils Absolute Auto 0.2 X10*3/uL (0.0-0.4); Eosinophils Percent Auto 3.9 % (0-4); Hematocrit 35.8 % (37.0-47.0); Hemoglobin 11.5 g/dl (12.0-16.0); Imm Gran Abs Auto 0.01 X10*3/uL (0.00-0.03); Imm Gran Pct Auto 0.2 % (0.0-0.4); Lymphocytes Percent Auto 40.9 % (20-40); Mean Corpuscular HGB Conc 32.1 g/dl (31.0-35.0); Mean Corpuscular Hemoglobin 28.2 pg (27.0-33.0); Mean Corpuscular Volume 87.7 fL (80.0-98.0); Monocytes Absolute Auto 0.6 X10*3/uL (0.1-1.2); Monocytes Percent Auto 11.2 % (2-11); Neutrophils Absolute Auto 2.1 x10*3/uL (2.0-8.3); Neutrophils Percent Auto 43.4 % (45-73); Platelet Count 230 X10*3/uL (160-400); Red Blood Count 4.08 X10*6/uL (4.20-5.50); Red Cell Distribution Width 15.9 % (11.0-16.0); White Blood Count 4.9 X10*3/uL (4.8-10.8)
[2023-08-12 07:06] LABS: Estimated Average Glucose 97 mg/dL
[2023-08-12 07:21] LABS: Alanine Aminotransferase 12 U/L (0-31); Albumin Level 3.6 g/dL (3.5-5.0); Alkaline Phosphatase 62 U/L (39-117); Anion Gap 9 (12-20); Aspartate Amino Transferase 19 U/L (5-31); Bilirubin Total 0.7 mg/dL (0.0-1.0); Blood Urea Nitrogen 16 mg/dL (9-16); C Reactive Protein < 0.10 mg/dL (< or = 0.50); Calcium 8.4 mg/dL (8.4-10.2); Carbon Dioxide 27 mmol/L (22-29); Chloride 112 mmol/L (96-108); Cholesterol 151 mg/dL (<200); Estimated Glomerular Filt Rate > 60; Glucose Random 85 mg/dL (60-115); HDL Cholesterol 60 mg/dL (>40); Iron 67 mcg/dL (30-160); LDL Cholesterol Calculated 80 mg/dL (<100); Percent Iron Saturation 23 % (15-50); Potassium 4.1 mmol/L (3.3-5.1); Sodium 144 mmol/L (135-145); Total Iron Binding Capacity 297 mcg/dL (228-428); Total Protein 6.4 g/dL (6.5-8.0); Triglycerides 58 mg/dL (<150); Unsaturated Iron Binding 230 ug/dL
[2023-08-12 07:52] LABS: Ferritin 13 ng/mL (10-250); TSH reflex Free T4 0.72 uIU/mL (0.32-4.0); Vitamin D 25-OH Total 38.3 ng/mL (>30)
[2023-08-12 07:56] LABS: Folate 7.7 ng/mL (> or = 4.0); Vitamin B12 1648 pg/mL (200-900)
[2023-08-12 07:58] LABS: Insulin 6 uU/mL (2-29)
--- NOTE | 2023-08-12 09:07 | ECG_ITS ---
Test Reason : pre op Blood Pressure : / mmHG Vent. Rate : 051 BPM Atrial Rate : 051 BPM P-R Int : 170 ms QRS Dur : 100 ms QT Int : 442 ms P-R-T Axes : 046 -25 032 degrees QTc Int : 407 ms Sinus bradycardia Intra-ventricular conduction delay Left axis deviation Abnormal ECG When compared with ECG of 18-JUL-2023 13:22, No significant change was found Referred By: Mitali Garcia Electronically Signed By:SHASTA MCKEON MD
[2023-08-13 17:49] LABS: Calcium (PTHI) 8.7 mg/dL (8.6-10.4); PTHI 72 pg/mL (16-77)
[2023-08-15 22:24] LABS: Zinc 39 mcg/dL (60-130)
[2023-08-17 00:47] LABS: Vitamin B1 12 nmol/L (8-30)
[2023-08-17 08:54] LABS: Vitamin A 40 mcg/dL (38-98)
== END 2023-08-12 06:04 | disposition home or self-care (01) ==
LOC: HO.XRAY 06:03
PROVIDERS: PCP Internal Medicine; Visit Provider Physician Assistant
DX: Z01.818 Encounter for other preprocedural examination (principal); E66.01 Morbid (severe) obesity due to excess calories; K21.9 Gastro-esophageal reflux disease without esophagitis; M18.0 Bilateral primary osteoarthritis of first carpometacarpal joints; E55.9 Vitamin D deficiency, unspecified; Z98.84 Bariatric surgery status; Z71.3 Dietary counseling and surveillance
CPT/HCPCS: 36415; 71046; 80053; 80061; 82306; 82607; 82728; 82746; 83036; 83525; 83540; 83970; 84425; 84443; 84590; 84630; 85025; 86140; 93005; 97802

== ENCOUNTER 2023-08-13 10:21 | Outpatient (AMB) | payer OTHER, SELFPAY ==
--- NOTE | 2023-08-13 10:36 | A.OFFVIS_ITS ---
Intake VS Expanded 08/13/23 10:42 BP 139/67 Blood Pressure Location Rt brachial Blood Pressure Position Sitting Pulse 68 Pulse Source Pulse Oximeter Temp 97.3 F Temperature Source Tympanic Pulse Oximetry 97 Oxygen Delivery Method Room Air Height 5 ft 1 in Weight 224 lb 12.8 oz BMI 42.5 Body Fat % 44.8 Body Fat Mass 100.8 Fat Free Mass 123.8 Visceral Fat Rating 16.0 Body Water % 39.0 Body Water Mass 87.6 Muscle Mass/Score 117.8 Basal Metabolic Rate/Score 1,723 Intake Visit Reasons: (OV) F/U SWL Allergies morphine [MORPHINE] Allergy (Unknown, Verified 08/13/23 10:47) VOMITING AND SHAKING MORPHINE Allergy (Mild, Uncoded 08/13/23 10:47) Nausea and Vomiting HPI HPI Comments History of Present Illness Details This is the patients second appt for revision of open GBP. Starting weight was 230.3 lbs on 07/15/23. TBWL is 5.5 lbs or 2.4% TBWL. Patient with her daughter Florencia. Seen in ED at [facility] on 07/18 for epigastirc pain and had abd CT done: LIVER, GALLBLADDER, AND BILIARY TREE: The liver is normal in size, shape, and attenuation. There is no focal hepatic lesion. There is significant dilation of common bile duct and moderate prominence of intrahepatic ducts. There is areas of mild narrowing in the mid mid to distal CBD and coronal image 46/7 and likely in the distal CBD at of pancreas. No radiopaque calculi seen. The gallbladder is distended with no radiopaque stones or wall thickening. GASTROINTESTINAL TRACT: There are multiple dilated proximal and mid small bowel loops with air-fluid levels. Also visualized is mild prominent fluid-filled: Likely generalized ileus. No free fluid or free air seen. Appendix is not seen. Few scattered diverticuli are seen in the sigmoid colon. Postsurgical sutures are seen along the lesser curvature of stomach with a small hiatal hernia. CT/CT abdomen pelvis w IV con IMPRESSION: Significant malrotation of CBD, gallbladder, cystic duct with with areas of CBD narrowing in the mid segment and likely distally. Differential diagnosis, cholangitis or underlying pancreatic lesion. Recommend ERCP or MRCP. Diffuse dilated small bowel loops and colon with air-fluid levels likely generalized ileus. No transition point seen No free air or free fluid. Small right renal cyst. Fleischner guidelines were followed. Had follow up with Dr Soriano on 07/21 - told to restart bariatric meal plan, and no treatment needed. Pt was also given an appointment with Dr Damian for follow up by her PCP. He ordered EGD and MRI of biliary tree Meal plan: coffee with 2 cream and no sugar 9:30 - Orgain powder with water, with pi neapple apple or other fruit at 12 pm 2pm - [place] bar 6pm - chicken and vegetable - not measur ing sometimes yogurt after dinner- Actvia 4d/wk - Treadmill - 2.5, incline 0, x 20 minutes, ?calories Pre op work up completed as follows: SWL classes - - never given access appts - 08/19 appts - needs follow up scheduled H pylori - not done yet Labs - anemia, low protien CXR -not read yet ECG - Sinus bradycardia Intra-ventricular conduction delay Left axis deviation Abnormal ECG When compared with ECG of 18-JUL-2023 13:22, No significant change was found Cards testing to be ordered--- ULS and UGI - 08/24 and 09/14 EGD scheduled for 09/17 - Dr Damian, will discuss with him and cancel if he is OK with this for Dr Freeman to do to assess pouch. I left a message for him in his office today. She is also scheduled for MRI of biliary tract. [facility] Medical History Arthritis Age-related osteoporosis without current pathological fracture Osteopenia COVID-19 Vitamin D deficiency Vitamin B12 deficiency Syphilis Obesity Asthma GERD (gastroesophageal reflux disease) Osteoarthritis Surgical History Hx of cholecystectomy Hx of gastric bypass Hx of section History of abdominoplasty H/O gastric bypass History of section History of appendectomy History of cholecystectomy Family History Father No problems noted. Mother No problems noted. Social History Housing: Apartment Alcohol intake: current Alcohol intake frequency: holidays/special occasions only Patient Tobacco Use Status: Never used Tobacco e-Cigarette/Vaping Use: Never Used Second Hand Smoke Exposure: No service: No Current occupational status: employed Cognitive needs: No Hearing needs: No Vision needs: Yes Physical Exam Vital Signs: Last Vital Signs Temp 97.3 F 08/13/23 10:42 Pulse 68 08/13/23 10:42 BP 139/67 08/13/23 10:42 Pulse Ox 97 08/13/23 10:42 Oxygen Delivery Method Room Air 08/13/23 10:42 BMI result Body Mass Index 42.5 Assessment & Plan Assessment & Plan (1) Morbid obesity: Code(s): E66.01 - Morbid (severe) obesity due to excess calories Plan: Not following our meal or exercise plans. Pt comes to all appts with her daughter, I am not sure that patient understands the meaning of our instudtctions. We reviewed the instructions from our first appt in both Greek and Wallisian and she was not able to repeat it back to me. I had her write them down this time. All upcoming appts reviewed with her. I have contacted Dr Damian regarding EGD - will be done by Dr Freeman once patient shows adherence to our plans and has progressive weight loss. Pt will have MRI of biliary tree. Given access to classes today, we will see if she is able to adhere to our plans. I told her again to start texting me weekly with her weights. Next appt with me in 3 weeks. Patient is morbidly obese and is not considered stable at this time. I spent 30 minutes in total with patient reviewing/updating records, examining the patient and counseling the patient on weight management as detailed above. (2) H/O gastric bypass: Comment: 2002 - open procedure Code(s): Z98.84 - Bariatric surgery status (3) Narrowing of bile duct after surgery: Code(s): K91.89 - Other postprocedural complications and disorders of digestive system; K83.1 - Obstruction of bile duct Orders: Orders CA echo transthorac w con Today E66.01 - Morbid (severe) obesity due to excess calories, K83.1 - Obstruction of bile duct, K91.89 - Other postprocedural complications and disorders of digestive system, Z98.84 - Bariatric surgery status NM cardiolite stress test Today E66.01 - Morbid (severe) obesity due to excess calories, K83.1 - Obstruction of bile duct, K91.89 - Other postprocedural complications and disorders of digestive system, Z98.84 - Bariatric surgery status CA lexiscan stress w isabel Today E66.01 - Morbid (severe) obesity due to excess calories, K83.1 - Obstruction of bile duct, K91.89 - Other postprocedural complications and disorders of digestive system, Z98.84 - Bariatric surgery status Medications: New psyllium mix into at least 8 oz of water or juice before administering 1 packet PO DAILY 30 ea 5RF iron,carbonyl-vitamin C 65 mg iron- 125 mg (Vitron-C) 1 tab PO BEDTIME 30 tabs 6RF Discontinued omeprazole Discontinued Reason: Patient Completed Course 20 mg PO DAILY 90 caps 2RF K21.9 - Gastro-esophageal reflux disease without esophagitis Coding Level of Care Code Est Pt Level 4 (38841) Diagnoses Morbid obesity E66.01 H/O gastric bypass Z98.84 Narrowing of bile duct after surgery K91.89; K83.1
[2023-08-13 10:42] VITALS: BP 139/67; PULSE 68; TEMP 36.3; O2SAT 97; BMI 42.5
== END 2023-08-13 13:43 | disposition home or self-care (01) ==
PROVIDERS: PCP Internal Medicine; Visit Provider Physician Assistant
DX: E66.01 Morbid (severe) obesity due to excess calories (principal); Z98.84 Bariatric surgery status; K91.89 Other postprocedural complications and disorders of digestive system; K83.1 Obstruction of bile duct
CPT/HCPCS: 99214

== ENCOUNTER → 2023-08-13 10:21 | Outpatient (BNVA) | payer OTHER, SELFPAY | PROVIDERS: PCP Internal Medicine; Visit Provider Physician Assistant ==

== ENCOUNTER 2023-08-19 09:52 | Outpatient (AMB) | payer OTHER, SELFPAY ==
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
== END 2023-08-19 11:04 | disposition home or self-care (01) ==
PROVIDERS: PCP Internal Medicine; Visit Provider Counselor Mental Health
DX: F50.9 Eating disorder, unspecified (principal)
CPT/HCPCS: 90791

== ENCOUNTER → 2023-08-19 09:52 | Outpatient (BNVA) | payer OTHER, SELFPAY | PROVIDERS: PCP Internal Medicine; Visit Provider Counselor Mental Health ==

== ENCOUNTER 2023-08-24 08:35 | Outpatient (REF) | payer OTHER, SELFPAY ==
--- NOTE | ~2023-08-24 | US_ITS ---
EXAMINATION: US COMPLETE ABDOMEN WITH LIVER ELASTOGRAPHY CLINICAL INFORMATION: Morbid obesity. COMPARISON: CT abdomen and pelvis dated 07/18/2023 and 07/12/2010. TECHNIQUE: Real-time imaging of the abdominal viscera. Noninvasive ultrasound liver fibrosis assessment is performed using Julieta ElastPQ point quantification shear wave elastography (2D-SWE) with a C5-2 MHz transducer. Multiple elastography samples are obtained. FINDINGS: PANCREAS: Largely obscured by overlapping bowel gas. ABDOMINAL AORTA: The proximal and distal aortic segments are normal in caliber. The mid segment is obscured by overlapping bowel gas. INFERIOR VENA CAVA: Visualized portions are normal. LIVER: The liver demonstrates normal size, contour and increased echogenicity. No focal lesion. There is mild to moderate intrahepatic biliary duct dilatation. The right lobe measures 13.7 cm in length. The left lobe measures 9.0 cm in length. Portal flow is towards the liver (hepatopetal). Shear wave liver elastography median stiffness is 1.57 m/s (reference: normal median stiffness is 1.3 m/s or less). IQR/median stiffness to assess sampling precision is 0.11 (reference: good quality data set is IQR/median stiffness of 0.15 or less). GALLBLADDER: There is ringdown artifact, consistent with adenomyomatosis. The gallbladder is physiologically distended without evidence of stones, sludge, polyps, wall thickening or pericholecystic fluid. COMMON BILE DUCT: Increased in caliber, measuring 2.2 cm in diameter. RIGHT KIDNEY: Normal. No hydronephrosis. No renal calculi or focal parenchymal lesions. The kidney measures 9.9 cm in maximum dimension. At the interpolar aspect, a 1.6 cm benign, simple cyst is seen, which requires no imaging follow-up. LEFT KIDNEY: Normal. No hydronephrosis. No renal calculi or focal parenchymal lesions. The kidney measures 10.1 cm in maximum dimension. SPLEEN: Normal. The spleen measures 8.7 cm in maximum dimension. FREE FLUID: None. US/US abdomen comp w elastography IMPRESSION: 1. There is generalized increase in hepatic echotexture, consistent with fatty infiltration or hepatocellular disease. Please correlate clinically. No focal hepatic mass or intrahepatic biliary dilatation is seen. 2. Liver elastography: In the absence of other known clinical signs, measurements rule out compensated advanced chronic liver disease. If there are known clinical signs, further testing may be needed for confirmation. 3. There is marked dilatation of the common bile duct to 2.2 cm. As well, there is mild to moderate intrahepatic biliary ductal dilatation. These are chronic findings which were seen on the CT examinations of 07/18/2023 and 07/12/2010. Please correlate with clinical findings. 4. 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 5. Technically limited ultrasound examination of the pancreas and abdominal great vessels. REFERENCE: Society of Radiologists in Ultrasound Liver Stiffness Thresholds (2019): LIVER STIFFNESS THRESHOLDS: *Liver Stiffness equal or less than 1.3 m/s: High probability of being normal. *Liver Stiffness less than 1.7 m/s: In the absence of other known clinical signs, rules out compensated advanced chronic liver disease. *Liver Stiffness 1.7-2.1 m/s: Suggestive of compensated advanced chronic liver disease but need further test for confirmation. *Liver Stiffness over 2.1 m/s: Rules in compensated advanced chronic liver disease. *Liver Stiffness over 2.4 m/s: Suggestive of clinically significant portal hypertension. QUALITY OF DATA SET: *IQR/Median value equal or less than 0.15 implies a quality data set. *IQR/Median value over 0.15 implies a poor quality data set. SIGNIFICANT CHANGE FROM PRIOR EXAM: Significant change if liver stiffness measurement is 10% or greater from prior exam. OTHER CONSIDERATIONS: The stage of liver fibrosis may be overestimated in the setting of acute hepatitis, liver inflammation, elevated liver function tests, hepatic vascular congestion, obstructive cholestasis, non-fasting state, and infiltrative diseases such as amyloidosis and lymphoma. In some patients with NAFLD, the liver stiffness thresholds for compensated advanced chronic liver disease may be lower. In causes other than viral hepatitis and NAFLD, liver stiffness thresholds are not well established.
== END 2023-08-24 08:36 | disposition home or self-care (01) ==
LOC: HO.US 08:35
PROVIDERS: PCP Internal Medicine; Visit Provider Physician Assistant
DX: E66.01 Morbid (severe) obesity due to excess calories (principal); K21.9 Gastro-esophageal reflux disease without esophagitis; Z98.84 Bariatric surgery status
CPT/HCPCS: 76705; 76981

== ENCOUNTER 2023-09-14 07:46 | Outpatient (REF) | payer OTHER, SELFPAY ==
--- NOTE | ~2023-09-14 | FL_ITS ---
EXAMINATION: XR FLUOROSCOPY UPPER GI WITH AIR CLINICAL INFORMATION: Preop evaluation prior to bariatric surgery. History of gastric bypass. COMPARISON: None TECHNIQUE: Fluoroscopic air contrast upper GI examination was performed utilizing standard techniques with thin and thick barium and effervescent granules. Numerous spot images were obtained. FINDINGS: Dual and single contrast images of the esophagus demonstrate normal caliber, contour, and mucosal pattern. No evidence of stricture, mass, or ulcerations identified. Nonpropulsive tertiary contractions are noted in the mid and distal esophagus A small type I hiatal hernia is present. Gastroesophageal reflux is seen up to the thoracic inlet. Dual contrast and single contrast images of the stomach demonstrated postsurgical changes consistent with previous history of a gastric bypass. The gastric pouch mucosa appears normal without any evidence of mass, ulcerations or other abnormality. The gastrojejunostomy is widely patent. Contrast freely passed from the pouch and into the alimentary limb. The imaged jejunum has a normal fold pattern and caliber. FLUOROSCOPY TIME: 3 minutes 49 seconds Number of Spot Images: 12 Number of Cine: 6 DOSE AREA PRODUCT: 2109 uGy-m2 (microgray-meter squared) FL/FL upper GI w air IMPRESSION: 1. Postsurgical changes consistent with prior gastric bypass 2. Small type I hiatal hernia 3. Presbyesophagus 4. Significant gastroesophageal reflux This procedure was performed by Jeremias Hernandez PA-C, and supervised by Dr. Gonzalez
== END 2023-09-14 07:47 | disposition home or self-care (01) ==
LOC: HO.XRAY 07:46
PROVIDERS: PCP Internal Medicine; Visit Provider Physician Assistant
DX: E66.01 Morbid (severe) obesity due to excess calories (principal); K21.9 Gastro-esophageal reflux disease without esophagitis; Z98.84 Bariatric surgery status
CPT/HCPCS: 74246

== ENCOUNTER → 2023-09-14 07:47 | Outpatient (BNV) | payer OTHER, SELFPAY | PROVIDERS: PCP Internal Medicine; Visit Provider Radiology Diagnostic Radiology | DX: E66.01 Morbid (severe) obesity due to excess calories (principal); K21.9 Gastro-esophageal reflux disease without esophagitis; Z01.818 Encounter for other preprocedural examination | CPT/HCPCS: 74246 ==

== ENCOUNTER 2023-09-16 09:56 | Outpatient (AMB) | payer OTHER, SELFPAY ==
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
== END 2023-09-16 10:45 | disposition home or self-care (01) ==
PROVIDERS: PCP Internal Medicine; Visit Provider Counselor Mental Health
DX: F43.20 Adjustment disorder, unspecified (principal)
CPT/HCPCS: 90837

== ENCOUNTER → 2023-09-16 09:56 | Outpatient (BNVA) | payer OTHER, SELFPAY | PROVIDERS: PCP Internal Medicine; Visit Provider Counselor Mental Health ==

== ENCOUNTER 2023-09-21 08:06 | Outpatient (REF) | payer MEDICARE, SELFPAY | END 2023-09-21 08:07 | disposition home or self-care (01) | LOC: HO.MRI 08:06 | PROVIDERS: PCP Internal Medicine; Visit Provider Internal Medicine Gastroenterology | DX: Z13.89 Encounter for screening for other disorder (principal) ==

== ENCOUNTER 2023-09-22 06:36 | Day surgery (SDC) | payer MEDICARE, OTHER, SELFPAY ==
--- NOTE | 2023-09-18 12:24 | MHC.SHP ---
Pre-Procedural Eval Section A Date of Service: 09/18/23 The patient is an INPATIENT: No The History & Physical has been completed within 30 days and I have reviewed it.: No Section B Chief Complaint: Bariatric surgery status Details of Present Illness: GERD Relevant Family History (Specify if Yes): No Relevant Social History: None Present Medications: None Medical History: No relevant PMH History of Previous Operations: Relevant previous surgery/procedure and date(s) (open gastric bypass) Allergies: Allergies Allergy/AdvReac Type Severity Reaction Status Date / Time morphine [MORPHINE] Allergy Unknown VOMITING Verified 08/13/23 10:47 AND SHAKING MORPHINE Allergy Mild Nausea and Uncoded 08/13/23 10:47 Vomiting Review of Systems Sugical H&P ROS: Negative: Constitution, Cardiovascular, Respiratory, Neurological, Psychiatric, Hem-Onc, Allergic/Immunologic, Gastrointestinal, Genitourinary, Musculoskeletal, Integumentary, Endocrine and Eyes/Ears/Nose/Throat Exam Surgical H&P Exam: Normal: HEENT, Normal: Heart, Normal: Lungs, Normal: Extremities, Normal: Abdomen, Normal: Skin and Normal: Neurological Plan Diagnosis/Plan: Unchanged (EGD to assess for esophagitis. Risks for perforation and bleeding were discussed with patient. She is in agreement with the plan) I have reviewed the history and physical and performed a pertinent physical examination on my patient. No changes have occurred unless specified. Time Spent With Patient Time: Total time managing care of this patient today ____ minutes.
[2023-09-22 07:38] VITALS: BMI 41.2
[2023-09-22 07:49] VITALS: BP 146/69; PULSE 52; RESP 16; TEMP 36.9; O2SAT 99
--- NOTE | 2023-09-22 07:57 | P.BOP_ITS ---
Brief Operative Note Date of Service: 09/22/23 Pre-op diagnosis: abdominal pain, s/p gastric bypass Post-op diagnosis: same Procedure: PROCEDURE DATE: ?09/22/2023 PREOPERATIVE DIAGNOSIS: abdominal pain, s/p gastric bypass POSTOPERATIVE DIAGNOSIS: ?Same as above. 1) Redundant gastric pouch, 2) small hiatal hernia PROCEDURE: [id number] with biopsies Surgeon: ?Alexx Duque M.D.. Ph.D. Professor Of Archaeology: ?None ? Anesthesia: IV sedation Estimated blood loss: ?Minimal FINDINGS AND PROCEDURE: ? OPERATIVE INDICATIONS: ?The patient is a 68 year old female known to me who underwent a laparoscopic gastric bypass elsewhere. The patient had inadequate weight loss so far and has GERD.? Based on this information I recommended an upper endoscopy to evaluate the patient's symptoms.? Risks and complications of the surgery were discussed with the patient in advance particularly the possibility of perforation or bleeding that may require surgical intervention. The patient understood the risks and was in agreement with the plan. ? PROCEDURE: After informed consent was obtained by the patient, the patient was ?transferred to the Operating Room and was placed in the supine position.? After successful induction of IV sedation, a mouth block was placed and the patient was placed in the left lateral decubitus position. An upper endoscopy was performed next, the oropharynx and esophagus appeared within the normal limits. There was a 2cm hiatal hernia.? The z-line was smooth. Two biopsies were obtained from the distal esophagus 2-3 cm proximal to the GE junction and two biopsies from the GE junction. The gastric pouch was entered. There was a proximal wider segment with mild to moderate lateral redundancy which was leading to a more narrow, tubular segment. the total length of the stephanie ch was 10cm (GEJ at 34cm and GJ anastomosis at 44cm). There was no gastritis and the gastrojejunostomy was patent. A biopsy was obtained from the gastric pouch. No significant bleeding was noted from any of the biopsy sites. There was no anastomotic ulcer.? At that point the scope was advanced into the proximal small intestine (proximal Francesco limb) to 50cm from incisors, which appeared to be normal as well. The Francesco limb and the pouch were decompressed and the scope was withdrawn from the patient's mouth. The patient was awaken and was transferred in stable condition to the Recovery Room for further care. I was present and performed all steps of the procedure. There were no residents to assist with this case. Alexx Duque M.D., Ph.D. Surgeon: Chalino Duque MD Anesthesia: MAC and other Was an Professor Of Archaeology used for this Procedure?: No Estimated blood loss (mL): 0 IV fluids (mL): 400 Urine output (mL): 0 Pathology: other (1) GEJ x2, distal esophagus x2, pouch x1) Condition: stable Disposition: PACU
[2023-09-22] MEDS: Lactated Ringers 1,000 ML 80 ML IVCONT (07:59)
--- NOTE | 2023-09-22 08:00 | HO.ANESPROP2 ---
Documented by User: Radha Richardson NP 09/21/23 10:27 HPI - Anesthesia Eval Consult details Narrative: 68yo F for Upper Endoscopy PMFSH Active Problems Active Problems: All Active Problems (Updated 09/10/23 @ 12:33 by Mitali Garcia PA-C) Common bile duct dilatation (Acute) Narrowing of bile duct after surgery (Acute) Morbid obesity (Acute) Insomnia (Acute) Annual physical exam (Acute) Dysgeusia (Acute) Anemia (Acute) History of abdominoplasty (Acute) Osteopenia (Acute) H/O gastric bypass (Acute) Osteoarthritis (Acute) Obesity (Acute) Asthma (Acute) GERD (gastroesophageal reflux disease) (Acute) Past Medical History Medical History Arthritis Age-related osteoporosis without current pathological fracture Osteopenia COVID-19 Vitamin D deficiency Vitamin B12 deficiency Syphilis Obesity Asthma GERD (gastroesophageal reflux disease) Osteoarthritis Family History Family History Father No problems noted. Mother No problems noted. Surgical History Surgical History Hx of cholecystectomy Hx of gastric bypass Hx of section History of abdominoplasty H/O gastric bypass History of section History of appendectomy History of cholecystectomy Social History Social History Housing: Apartment Alcohol intake: current Alcohol intake frequency: holidays/special occasions only Patient Tobacco Use Status: Never used Tobacco e-Cigarette/Vaping Use: Never Used Second Hand Smoke Exposure: No Use of substances other than those prescribed or required for medical reasons: No Are you DNR?: No Advance Directives: No Advance Directives Information Provided: Yes service: No Current occupational status: employed Cognitive needs: No Hearing needs: No Vision needs: Yes Meds Allergies Allergy/AdvReac Type Severity Reaction Status Date / Time morphine [MORPHINE] Allergy Unknown VOMITING Verified 08/13/23 10:47 AND SHAKING MORPHINE Allergy Mild Nausea and Uncoded 08/13/23 10:47 Vomiting Home Medications Medication Instructions Recorded Confirmed Last Taken Type calcium carbonate 500 mg calcium 1,000 mg PO DAILY 09/09/20 04/20/23 Unknown History (1,250 mg) tablet (Calcium 500) cholecalciferol (vitamin D3) 25 25 mcg PO DAILY 09/09/20 04/20/23 Unknown History mcg (1,000 unit) capsule cyanocobalamin (vitamin B-12) 1,000 mcg PO .COMPLEX 10/21/22 04/20/23 Unknown History 1,000 mcg capsule melatonin 5 mg capsule 5 mg PO BEDTIME 06/08/23 Unknown History omeprazole 20 mg capsule,delayed 20 mg PO DAILY 06/08/23 Unknown History release Exam Pertinent Lab Results Pertinent Lab Results: Laboratory Tests 08/12/23 06:18 WBC 4.9 Hgb 11.5 L Hct 35.8 L Plt Count 230 Sodium 144 Potassium 4.1 Chloride 112 H Carbon Dioxide 27 BUN 16 Creatinine 0.66 Narrative Narrative: EKG 08/2023 Vent. Rate : 051 BPM Atrial Rate : 051 BPM P-R Int : 170 ms QRS Dur : 100 ms QT Int : 442 ms P-R-T Axes : 046 -25 032 degrees QTc Int : 407 ms Sinus bradycardia Intra-ventricular conduction delay Left axis deviation Abnormal ECG When compared with ECG of 18-JUL-2023 13:22, No significant change was found Assessment and Plan Assessment Anesthesia Assessment: Chart Reviewed Documented by User: Viola Vazquez DO 09/22/23 08:15 FORMERLY [facility], [facility] Past Medical History Medical History Arthritis Age-related osteoporosis without current pathological fracture Osteopenia COVID-19 Vitamin D deficiency Vitamin B12 deficiency Syphilis Obesity Asthma GERD (gastroesophageal reflux disease) Osteoarthritis Family History Family History Father No problems noted. Mother No problems noted. Family history of problems with anesthesia: No Surgical History Surgical History Hx of cholecystectomy Hx of gastric bypass Hx of section History of abdominoplasty H/O gastric bypass History of section History of appendectomy History of cholecystectomy History of Problems with Anesthesia: No Social History Social History Housing: Apartment Alcohol intake: current Alcohol intake frequency: holidays/special occasions only Patient Tobacco Use Status: Never used Tobacco e-Cigarette/Vaping Use: Never Used Second Hand Smoke Exposure: No Use of substances other than those prescribed or required for medical reasons: No Are you DNR?: No Advance Directives: No Advance Directives Information Provided: Yes service: No Current occupational status: employed Cognitive needs: No Hearing needs: No Vision needs: Yes Meds Allergies Allergy/AdvReac Type Severity Reaction Status Date / Time morphine [MORPHINE] Allergy Unknown VOMITING Verified 08/13/23 10:47 AND SHAKING MORPHINE Allergy Mild Nausea and Uncoded 08/13/23 10:47 Vomiting Home Medications Medication Instructions Recorded Confirmed Last Taken Type calcium carbonate 500 mg calcium 1,000 mg PO DAILY 09/09/20 04/20/23 Unknown History (1,250 mg) tablet (Calcium 500) cholecalciferol (vitamin D3) 25 25 mcg PO DAILY 09/09/20 04/20/23 Unknown History mcg (1,000 unit) capsule cyanocobalamin (vitamin B-12) 1,000 mcg PO .COMPLEX 10/21/22 04/20/23 Unknown History 1,000 mcg capsule melatonin 5 mg capsule 5 mg PO BEDTIME 06/08/23 Unknown History omeprazole 20 mg capsule,delayed 20 mg PO DAILY 06/08/23 Unknown History release Exam Exam Date and Time: September 22, 2023 0758 Height,Weight and Vital Signs: Height 5 ft 1 in Weight 98.883 kg Vital Signs Temperature 98.4 F 09/22/23 07:49 Pulse Rate 52 09/22/23 07:49 Respiratory Rate 16 09/22/23 07:49 Blood Pressure 146/69 H 09/22/23 07:49 Pulse Oximetry 99 09/22/23 07:49 Oxygen Delivery Method Room Air 09/22/23 07:49 Temperature 98.4 F 09/22/23 07:49 Pulse Rate 52 09/22/23 07:49 Respiratory Rate 16 09/22/23 07:49 Blood Pressure 146/69 H 09/22/23 07:49 Pulse Oximetry 99 09/22/23 07:49 Oxygen Delivery Method Room Air 09/22/23 07:49 Airway Mallampati Class: I TM Dist: >3cm Neck ROM: Full Loose/Missing/Broken Teeth: No Heart: S1S2 Lungs: CTAB Assessment and Plan Assessment Anesthesia Assessment: Anesthesia Plan Discussed and Chart Reviewed Final Anesthetic Review Family History of Problems with Anesthesia: No History of Problems with Anesthesia: No NPO: Yes ASA Class: III Final Preanesthetic Review: No Changes in Pt Med Stat, Meds/Allgs Chart Reviewed, Consent Obtained/Reviewed and Anes Risks/Benef Reviewed Patient Risk: Low Procedure Risk: Low Anesthetic Plan Anesthetic Plan: MAC: and Agree w/ Assess. and Plan Disposition: Standard PACU
[2023-09-22 08:25] VITALS: BP 109/63; PULSE 63; RESP 23; TEMP 36.1; O2SAT 99
[2023-09-22 08:40] VITALS: BP 102/75; PULSE 50; RESP 16; TEMP 36.1; O2SAT 99
== END 2023-09-22 09:11 | disposition home or self-care (01) ==
PROVIDERS: PCP Internal Medicine; Visit Provider Surgery
PROC: 0DJ08ZZ Inspection of Upper Intestinal Tract, Via Natural or Artificial Opening Endoscopic (ICD-10-PCS; CPT 43235; principal; 2023-09-22 08:20)
DX: K91.89 Other postprocedural complications and disorders of digestive system (principal); R10.9 Unspecified abdominal pain; K83.1 Obstruction of bile duct; E66.01 Morbid (severe) obesity due to excess calories; Z68.41 Body mass index [BMI] 40.0-44.9, adult; K44.9 Diaphragmatic hernia without obstruction or gangrene; K21.9 Gastro-esophageal reflux disease without esophagitis; Z98.84 Bariatric surgery status; K57.30 Diverticulosis of large intestine without perforation or abscess without bleeding; M81.0 Age-related osteoporosis without current pathological fracture; J45.909 Unspecified asthma, uncomplicated; E55.9 Vitamin D deficiency, unspecified; A53.9 Syphilis, unspecified; Z88.5 Allergy status to narcotic agent; Z90.49 Acquired absence of other specified parts of digestive tract; Z79.899 Other long term (current) drug therapy
CPT/HCPCS: 43239; 88305; 88342; J2704

== ENCOUNTER → 2023-09-22 06:36 | Outpatient (BNV) | payer MEDICARE, SELFPAY | PROVIDERS: PCP Internal Medicine; Visit Provider Surgery | DX: K95.89 Other complications of other bariatric procedure (principal) | CPT/HCPCS: 43239 ==

== ENCOUNTER 2023-09-23 09:55 | Outpatient (AMB) | payer OTHER, SELFPAY ==
--- NOTE | 2023-09-23 10:08 | A.OFFVIS_ITS ---
Intake VS Expanded 09/23/23 10:23 BP 130/60 Blood Pressure Location Rt brachial Blood Pressure Position Sitting Pulse 63 Pulse Source Pulse Oximeter Temp 97.5 F Temperature Source Tympanic Pulse Oximetry 100 Oxygen Delivery Method Room Air Height 5 ft 1 in Weight 216 lb 6.4 oz BMI 40.9 Body Fat % 45.2 Body Fat Mass 97.6 Fat Free Mass 118.6 Visceral Fat Rating 16.0 Body Water % 38.7 Body Water Mass 83.8 Muscle Mass/Score 112.6 Basal Metabolic Rate/Score 1,651 Intake Visit Reasons: (OV) F/U SWL Allergies morphine [MORPHINE] Allergy (Unknown, Verified 09/23/23 10:25) VOMITING AND SHAKING MORPHINE Allergy (Mild, Uncoded 09/23/23 10:25) Nausea and Vomiting Medication List - Last Reconciled 09/23/23 by Mitali Garcia PA-C albuterol sulfate 90 mcg/actuation 2 puffs PO Q4H PRN calcium carbonate (Calcium 500) 1,000 mg PO DAILY cholecalciferol (vitamin D3) 25 mcg PO DAILY cyanocobalamin (vitamin B-12) 1,000 mcg orally once a week; iron,carbonyl-vitamin C 65 mg iron- 125 mg (Vitron-C) 1 tab PO BEDTIME melatonin 5 mg PO BEDTIME meloxicam 15 mg PO DAILY omeprazole 20 mg PO DAILY ondansetron 4 mg PO Q8H PRN psyllium 1 packet PO DAILY tramadol 50 mg PO Q8H PRN zinc gluconate 30 mg PO DAILY 90 days HPI HPI Comments History of Present Illness Details SWL follow up for revision of previous GBP. 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 Meal plan- 6am - coffee with cream 9am - 1boiled egg and Orgain powder with water 12 pm - Oikos yogurt 5pm - salad and chicken and shake 8pm - yogurt or fruit Exercise - treadmill 3 d/week, speed 3.0, 1-2 for 10 minutes interval 3 times, ? calories Pre op work up completed as follows: SWL classes - - never given access appts - 08/19, cleared by Lilli CONNELL appts - needs follow up scheduled --- H pylori - not needed had EGD yesterday Labs - anemia, low protein CXR -normal ECG - Sinus bradycardia Intra-ventricular conduction delay Left axis deviation Abnormal ECG When compared with ECG of 18-JUL-2023 13:22, No significant change was found Cards testing to be ordered---Oct 08 and October 14 ULS - fatty liver, R 13.7, L 9.0. There is marked dilatation of the common bile duct to 2.2 cm. As well, there is mild to moderate intrahepatic biliary ductal dilatation. These are chronic findings which were seen on the CT examinations of 07/18/2023 and 07/12/2010. Please correlat e with clinical findings. -- MRI scheduled for 09/21 - had panic attack and could not complete exam, MRCP ordered today with 0.5 mg Lorazepam prior. 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 UGI - type 1 HH, presbyesophagus, significant reflux EGD by Dr Freeman 09/22 - small HH, redundant gastric pouch, biopsies pending [facility] Medical History Arthritis Age-related osteoporosis without current pathological fracture Osteopenia COVID-19 Vitamin D deficiency Vitamin B12 deficiency Syphilis Obesity Asthma GERD (gastroesophageal reflux disease) Osteoarthritis Surgical History Hx of cholecystectomy Hx of gastric bypass Hx of section History of abdominoplasty H/O gastric bypass History of section History of appendectomy History of cholecystectomy Family History Father No problems noted. Mother No problems noted. Social History Housing: Apartment Alcohol intake: current Alcohol intake frequency: holidays/special occasions only Patient Tobacco Use Status: Never used Tobacco e-Cigarette/Vaping Use: Never Used Second Hand Smoke Exposure: No service: No Current occupational status: employed Cognitive needs: No Hearing needs: No Vision needs: Yes Assessment & Plan Assessment & Plan (1) Morbid obesity: Code(s): E66.01 - Morbid (severe) obesity due to excess calories Plan: Meal plan 6a coffee 2% milk 9am- shake only 12pm - yougrt 5pm - 8 forks each protein and veg 8pm- shake only Exercis e- treadmill 15 minutes bid 5 d/week. speed 3.0, incline 1-4 Will text me weekly weights. Cards and MRCP testing reviewed. Next aptp with me TV in 3 weeks. Patient is morbidly obese and is not considered stable at this time. I spent30 minutes in total with patient and her daughrterreviewing/updating records, examining the patient and counseling the patient on weight management as d etailed above. (2) Common bile duct dilatation: Code(s): K83.8 - Other specified diseases of biliary tract Plan see above Orders: Orders MR MRCP Today E66.01 - Morbid (severe) obesity due to excess calories, K83.1 - Obstruction of bile duct, K83.8 - Other specified diseases of biliary tract, K91.89 - Other postprocedural complications and disorders of digestive system, Z98.84 - Bariatric surgery status Medications: New lorazepam (Ativan) 1 hour before MRCP 0.5 mg PO ONCE PRN 1 tab 0RF anxiety Coding Level of Care Code Est Pt Level 4 (50532) Diagnoses Morbid obesity E66.01 Common bile duct dilatation K83.8
[2023-09-23 10:23] VITALS: BP 130/60; PULSE 63; TEMP 36.4; O2SAT 100; BMI 40.9
== END 2023-09-23 10:51 | disposition home or self-care (01) ==
PROVIDERS: PCP Internal Medicine; Visit Provider Physician Assistant
DX: E66.01 Morbid (severe) obesity due to excess calories (principal); K83.8 Other specified diseases of biliary tract
CPT/HCPCS: 99214

== ENCOUNTER → 2023-09-23 09:55 | Outpatient (BNVA) | payer OTHER, SELFPAY | PROVIDERS: PCP Internal Medicine; Visit Provider Physician Assistant ==

== ENCOUNTER 2023-09-30 10:10 | Outpatient (AMB) | payer OTHER, SELFPAY ==
--- NOTE | 2023-09-30 10:04 | A.OFFVIS_ITS ---
Intake Intake Visit Reasons: TV F/U SWL Costumed Character Entertainer Required: No Allergies morphine [MORPHINE] Allergy (Unknown, Verified 09/23/23 10:25) VOMITING AND SHAKING MORPHINE Allergy (Mild, Uncoded 09/23/23 10:25) Nausea and Vomiting HPI Nutrition Presentation Details [employer] weight 230# Reason for consult elevated BMI Diet Assmnt Details coffee - 2 cream and no sugar 9am shake Orgain 1 scoop with water mix es with 4 pieces of strawberries 2pm atkins bar 5-6pm meal 8pm shake SWL online classes: completed, scored well. Reviewed today but not sure if she understands. She declined the use of a hospital chief financial officer Dietary counseling reduction Diagnosis Nutrition problem #1 overweight/obesity As related to (etiology) #1 excess energy intake and physical inactivity As evidenced by (sign/symptom) #1 high BMI Monitoring/Goals Outcome progress progressing Learning/Education Readiness to learn good Stages of change action Educational materials provided Yes Most Recent Diabetes Results: No Data to Display FORMERLY [facility] Medical History Arthritis Age-related osteoporosis without current pathological fracture Osteopenia COVID-19 Vitamin D deficiency Vitamin B12 deficiency Syphilis Obesity Asthma GERD (gastroesophageal reflux disease) Osteoarthritis Surgical History Hx of cholecystectomy Hx of gastric bypass Hx of section History of abdominoplasty H/O gastric bypass History of section History of appendectomy History of cholecystectomy Family History Father No problems noted. Mother No problems noted. Social History Housing: Apartment Alcohol intake: current Alcohol intake frequency: holidays/special occasions only Patient Tobacco Use Status: Never used Tobacco e-Cigarette/Vaping Use: Never Used Second Hand Smoke Exposure: No service: No Current occupational status: employed Cognitive needs: No Hearing needs: No Vision needs: Yes Assessment & Plan Assessment & Plan (1) Morbid (severe) obesity due to excess calories: Code(s): E66.01 - Morbid (severe) obesity due to excess calories Plan Would benefit from more time in program and further reiteration of post op nutrition recs. would benefit from in office appt Telehealth Telehealth Location of provider rendering services: practice address Location of patient: address on file Patient Identification confirmed using: Name, : Yes Telehealth method: voice only Patient verbally consented to treatment: Yes Patient verbally consented to billing insurance company: Yes Patient informed of any privacy concerns related to visit: Yes Minutes spent on Phone/Video with Pt.: 15 Coding Level of Care Code Nutr Indiv Subseq (97148) Diagnoses Morbid (severe) obesity due to excess calories E66.01 Time Spent (min) 15
== END 2023-09-30 10:12 | disposition home or self-care (01) ==
LOC: HO.HBS 10:10
PROVIDERS: PCP Internal Medicine; Visit Provider Dietitian, Registered
DX: E66.01 Morbid (severe) obesity due to excess calories (principal)

== ENCOUNTER → 2023-09-30 10:10 | Outpatient (BNVA) | payer OTHER, SELFPAY | PROVIDERS: PCP Internal Medicine; Visit Provider Dietitian, Registered | DX: E66.01 Morbid (severe) obesity due to excess calories (principal); Z98.84 Bariatric surgery status; Z71.3 Dietary counseling and surveillance | CPT/HCPCS: 97803 ==

== ENCOUNTER → 2023-10-12 10:53 | Outpatient (REF) | payer OTHER, SELFPAY ==
--- NOTE | 2023-10-12 10:56 | CA_ITS ---
Transthoracic Echocardiogram Patient (Last, First, Middle): Shawna Chow, Gender: Female Date of : 1955 Age: 68 Procedure Date: 10/12/2023 Procedure Type: Transthoracic Echocardiogram Location: OP Height: 154.94 cm Weight: 95.26 kg BSA: 1.93 m2 Heart Rate: bpm BP: 130 / 80 mmHg Cloth Finishing Range Operator Chief: LUCRECIA Referring MD: Mitali Garcia PA-C Symptoms: E66.01 - Morbid (severe) obesity due to excess calories Study Quality: Adequate, contrast ECG Rhythm: Sinus Conclusions: - The left ventricular systolic function is normal. The visually estimated ejection fraction is between 55-60%. - No obvious valvular pathology seen on this study. Findings Procedure Information Contrast agent, definity, is being given per protocol without apparent complications. Left Ventricle Normal left ventricular cavity size. There is normal left ventricular wall thickness. The left ventricular systolic function is normal. The visually estimated ejection fraction is between 55-60%. There is no evidence of regional wall motion abnormalities. Diastolic function is normal for age. LV peak GLS -22.5%(normal). Right Ventricle Normal right ventricular cavity size. There is low normal right ventricular systolic function. Atria Both atria are normal in size. Aortic Valve There is a normal trileaflet aortic valve. There is no aortic valve stenosis. There is no aortic valve regurgitation. Mitral Valve The mitral valve appears normal. There is no mitral valve regurgitation. There is no mitral valve stenosis. Pulmonic Valve The pulmonic valve is likely normal. Tricuspid Valve Normal tricuspid valve structure. There is mild tricuspid valve regurgitation. There is no evidence of pulmonary hypertension. Great Vessels The asc aorta is normal in size. Venous The inferior vena cava is normal in size and collapses greater than 50% with inspiration. Pericardium/Pleural There is no evidence of pericardial effusion. Prior Study Comparison No significant change compared to prior study dated: 11/02/2007. Recommendations, Care & Conclusions No obvious valvular pathology seen on this study. Measurements 2D Linear Measurements IVSd: 0.86 0.6-0.9/0.6-1.0 cm LVIDd: 5.56 3.9-5.3/4.2-5.9 cm LVIDd Index: 2.88 2.4-3.2/2.2-3.1 cm/m2 LVIDs: 3.41 2.0-3.6 cm LVPWd: 1.02 0.7-1.1 cm LA Diam: 4.10 2.7-3.8/3.0-4.0 cm LAIDs Index: 2.12 1.5-2.3 cm/m2 LV Mass: 249.03 67-162/88-224 g LV Mass Index: 129.03 43-95/49-115 g/m2 LVOT Diam: 2.00 3.0+(-)1.3 cm 2D Systolic Function EF 4C: 61.40 >55% EF 2C: 58.90 >55% EF BiP: 60.00 >55% Mitral Valve MV Pk E: 0.69 MV PK A: 0.68 MV Decel Time: 236.00 E/A: 1.00 E'Lateral: 12.90 E'Medial: 7.83 E/E' Med: 8.80 E/E' Lat: 5.30 PHT: 69.00 MVA PHT: 3.19 Decel Screven: 2.92 Aortic Valve AoV Pk Jose Enrique: 1.23 AoV Mn Jose Enrique: 0.87 AoV VTI: 0.34 AoV Pk Grad: 6.00 Aov Mn Grad: 3.00 BRIANNA Cont.VTI: 2.20 LVOT LVOT Pk Jose Enriuqe: 0.86 LVOT Mn Jose Enrique: 0.61 LVOT VTI: 0.24 LVOT Pk Grad: 3.00 LVOT Mn Grad: 2.00 LVOT Diam: 2.00 LVOT Area: 3.14 Diastolic Function MV Pk E: 0.69 MV Pk A: 0.68 E/A: 1.00 E'Medial: 7.83 E/E' Med: 8.80 E' Laterial: 12.90 E/E' Lat: 5.30 Right Ventricle TAPSE (mm): 17.50 TVS' Jose Enrique: 9.79 Tricuspid Valve TR Pk Jose Enrique: 2.02 TR Pk Grad: 16.00 RA Press: 3.00 RVSP: 19.00 Great Vessels Aorta Sinus of Valsalva: 3.53 2.0-3.[address] Ridge: 2.83 1.7-3.4 cm Ao Asc: 3.60 2.1-3.4 cm Updated in Other Vendor System with Status of Final Niko Gill MD electronically signed on 10/12/2023 2:34:05 PM with status of Final
== END ==
LOC: HO.CARD 10:53
PROVIDERS: PCP Internal Medicine; Visit Provider Physician Assistant
DX: E66.01 Morbid (severe) obesity due to excess calories (principal); K91.89 Other postprocedural complications and disorders of digestive system; K83.1 Obstruction of bile duct; Z98.84 Bariatric surgery status
CPT/HCPCS: 93306; 93356; Q9957

== ENCOUNTER → 2023-10-12 10:56 | Outpatient (BNV) | payer OTHER, SELFPAY | PROVIDERS: PCP Internal Medicine; Visit Provider Internal Medicine | DX: I36.1 Nonrheumatic tricuspid (valve) insufficiency (principal) | CPT/HCPCS: 93306 ==

== ENCOUNTER 2023-10-13 09:15 | Outpatient (REF) | payer OTHER, SELFPAY | END 2023-10-13 09:16 | disposition home or self-care (01) | LOC: HO.HOSX 09:15 | PROVIDERS: PCP Internal Medicine; Visit Provider Physical Medicine & Rehabilitation | DX: Z13.89 Encounter for screening for other disorder (principal) ==

== ENCOUNTER 2023-10-13 09:15 | Outpatient (AMB) | payer OTHER, SELFPAY ==
--- NOTE | 2023-10-13 09:19 | MHC.OFFVIS ---
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 Pt states the pain and swelling started 2 months. Pt denies any known injury to the foot. Pt has tried ice and heat with no relief. Pt states when she elevates her leg it does go down a little but not much. Allergies morphine [MORPHINE] Allergy (Unknown, Verified 10/13/23 09:19) VOMITING AND SHAKING MORPHINE Allergy (Mild, Uncoded 10/13/23 09:19) Nausea and Vomiting Medication List - Last Reconciled 10/13/23 by Lissy Hernandez MD albuterol sulfate 90 mcg/actuation 2 puffs PO Q4H PRN calcium carbonate (Calcium 500) 1,000 mg PO DAILY cholecalciferol (vitamin D3) 25 mcg PO DAILY cyanocobalamin (vitamin B-12) 1,000 mcg orally once a week; iron,carbonyl-vitamin C 65 mg iron- 125 mg (Vitron-C) 1 tab PO BEDTIME lorazepam (Ativan) 0.5 mg PO ONCE PRN melatonin 5 mg PO BEDTIME meloxicam 15 mg PO DAILY omeprazole 20 mg PO DAILY ondansetron 4 mg PO Q8H PRN psyllium 1 packet PO DAILY zinc gluconate 30 mg PO DAILY 90 days HPI HPI Comments History of Present Illness Details Here with daughter. Mary gomez. Was previously seen by Rheumatology, Dr. Clark, 2-3 years ago, for same issue. Had injection. Does not remember the diagnosis. Was doing well until 3 months, started as swelling, medial foot. When she stands for a prolonged periods, the swelling gets worse. Then noticed bunion is new and says toes look different. Seem higher arched nowadays. Denies numbness. Denies weakness. Can't afford to miss work. Taking meloxicam daily for arthritis. Has history of gastritis. On Omeprazole. PFSH Medical History Arthritis Age-related osteoporosis without current pathological fracture Osteopenia COVID-19 Vitamin D deficiency Vitamin B12 deficiency Syphilis Obesity Asthma GERD (gastroesophageal reflux disease) Osteoarthritis Surgical History Hx of cholecystectomy Hx of gastric bypass Hx of section History of abdominoplasty H/O gastric bypass History of section History of appendectomy History of cholecystectomy Family History Father No problems noted. Mother No problems noted. Social History Housing: Apartment Alcohol intake: current Alcohol intake frequency: holidays/special occasions only Patient Tobacco Use Status: Never used Tobacco e-Cigarette/Vaping Use: Never Used Second Hand Smoke Exposure: No service: No Current occupational status: employed Cognitive needs: No Hearing needs: No Vision needs: Yes Review of Systems Const All systems reviewed & are unremarkable except as noted in HPI and below Physical Exam Constitutional: Patient appears to be in no acute distress, well nourished and well developed. MSK: Slightly warm left foot/ankle and swollen, compared to right. No redness. Tender posterior to left medial malleolus. None tender on lateral malleolus, Achillis tendon, plantar fascia. No calf tenderness. No ankle instability. No footdrop. Neurological: Neurologic examination of the upper and lower extremities was nonfocal with intact sensation, muscle stretch reflexes and without focal motor deficits . Carballo?s negative bilaterally. Babinski was down going bilaterally. Clonus was negative. Results Reviewed Results Reviewed: MM/XR DEXA axial skeleton IMPRESSION: 1. DIAGNOSIS: Osteopenia based on the lowest T-score value of -1.6 in the lumbar spine applying World Health Organization criteria. I reviewed records from the following: PCP Assessment & Plan Assessment & Plan (1) Ankle pain, left: Code(s): M25.572 - Pain in left ankle and joints of left foot Qualifiers: Chronicity: acute Qualified Code(s): M25.572 - Pain in left ankle and joints of left foot (2) Sprain involving medial aspect of ankle: Code(s): S93.429A - Sprain of deltoid ligament of unspecified ankle, initial encounter Qualifiers: Encounter type: initial encounter Laterality: left Qualified Code(s): S93.422A - Sprain of deltoid ligament of left ankle, initial encounter Plan Suspect she sustained a left medial ankle sprain. Sending for x-rays today but low suspicion for fracture. She says she cannot afford to be off work and she does not want any bulky braces. 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 Taught her how to Baldemar wrap in figure of 8. We are also giving her an ankle sock for support and to alternate with the Baldemar wrap. Elevate during lunch break, rest breaks and after work. Ice 3 times a day. Already on meloxicam. If not improved in 2 weeks, she may need to be off work and off her feet. Patient and daughter advised to call us. Assessment and plan discussed with patient, and patient was agreeable. All questions were answered thoroughly. Follow-up 4 weeks. Total of 45 minutes spent today including chart review, results review, history taking, physical examination, discussion of assessment and plan, and coordination of care. Lissy Hernandez MD, AMIE Board Certified, [place] [employer] and Rehabilitation (ABPMR) Board Certified, [place] Board [employer] Electrodiagnostic [employer] (ABEM) Orders: Orders XR foot LT 2V Today M25.572 - Pain in left ankle and joints of left foot Coding Level of Care Code New Pt Level 4 (92399) Diagnoses Acute left ankle pain M25.572 Chronicity: acute Sprain of left medial ankle joint, initial encounter S93.422A Encounter type: initial encounter Laterality: left
== END 2023-10-13 09:47 | disposition home or self-care (01) ==
PROVIDERS: PCP Internal Medicine; Visit Provider Physical Medicine & Rehabilitation
DX: M25.572 Pain in left ankle and joints of left foot (principal); S93.422A Sprain of deltoid ligament of left ankle, initial encounter
CPT/HCPCS: 99204

== ENCOUNTER → 2023-10-14 09:36 | Outpatient (REF) | payer OTHER, SELFPAY ==
--- NOTE | ~2023-10-14 | XR_ITS ---
EXAMINATION: XR FOOT, LEFT CLINICAL INFORMATION: Left ankle and foot pain. COMPARISON: None available. TECHNIQUE: AP, lateral, and oblique views of the left foot. FINDINGS: There is bony demineralization. No fracture, dislocation or left ankle joint effusion is seen. Boehler's angle is normal. There are small posterior and large plantar calcaneal spurs. There is degenerative change of the first tarsometatarsal joint. There is a mild metatarsus adductus and hallux valgus configuration. There is moderate bunion formation of the first metatarsal head. There is no focal soft tissue swelling, gas or foreign body. There are medial ankle soft tissue calcifications, which may be related to venous insufficiency. XR/XR foot LT 2V IMPRESSION: 1. No fracture, dislocation or left ankle joint effusion is seen. 2. There are calcaneal spurs. 3. There is degenerative change of the first tarsometatarsal joint. 4. There is moderate bunion formation.
== END ==
LOC: HO.CARD 09:36
PROVIDERS: Absent Provider Physical Medicine & Rehabilitation; PCP Internal Medicine; Visit Provider Physician Assistant
DX: E66.01 Morbid (severe) obesity due to excess calories (principal); K91.89 Other postprocedural complications and disorders of digestive system; K83.1 Obstruction of bile duct; M25.572 Pain in left ankle and joints of left foot; Z98.84 Bariatric surgery status
CPT/HCPCS: 73620; 78452; 93017; A9500; J0280; J2785

== ENCOUNTER → 2023-10-14 09:39 | Outpatient (BNV) | payer OTHER, SELFPAY | PROVIDERS: Absent Provider Physical Medicine & Rehabilitation; PCP Internal Medicine; Visit Provider Nurse Practitioner | DX: R94.31 Abnormal electrocardiogram [ECG] [EKG] (principal); R06.02 Shortness of breath | CPT/HCPCS: 78452; 93016; 93018 ==

== ENCOUNTER 2023-10-15 11:16 | Outpatient (AMB) | payer OTHER, SELFPAY ==
--- NOTE | 2023-10-15 10:04 | MHC.OFFVISWM ---
Intake VS Expanded 10/15/23 11:35 BP 147/71 H Blood Pressure Location Rt brachial Blood Pressure Position Sitting Pulse 56 Pulse Source Pulse Oximeter Temp 98.0 F Temperature Source Temporal Artery Scan Pulse Oximetry 100 Oxygen Delivery Method Room Air Height 5 ft 1 in Weight 209 lb 9.6 oz BMI 39.6 Body Fat % 45.6 Body Fat Mass 95.4 Fat Free Mass 114.0 Visceral Fat Rating 15.0 Body Water % 38.4 Body Water Mass 80.4 Muscle Mass/Score 108.2 Basal Metabolic Rate/Score 1,590 Intake Visit Reasons: TV F/U SWL Allergies morphine [MORPHINE] Allergy (Unknown, Verified 10/15/23 11:28) VOMITING AND SHAKING MORPHINE Allergy (Mild, Uncoded 10/13/23 09:19) Nausea and Vomiting HPI HPI Comments History of Present Illness Details SWL follow up for revision of previo us GBP. 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 7 lbs or 9 %. Breana l plan- 6:30 am - coffee with light cream 9am - Orgai n powder with wate r 12 pm - [place] yo gurt 2pm- half nicole le 5pm - - not breana suring portions sa lad and chicken 8 pm -shake Exercis e - Sprained her l eft ankle, wearing brace. treadmill 5 d/week, speed 3. 0, 0 incline for 1 5 minutes bid, gerry baldwin Pre op wor k up completed as follows: SWL class es - 03/18 appt s - 08/19, cleared by Lilli CONNELL appts - needs foll ow up scheduled -- - H pylori - not needed had EGD yes terday, no h pylor i on pathology Lab s - anemia, low pr otein CXR -normal ECG - Sinus bradyc ardia Intra-ventri cular conduction d elay Left axis dev iation Abnormal EC G When compared wi ECG of 023 13:22, No sign ificant change was found Cards test ing to be ordered- ECHO- normal, EF 55 - 60% Cardiac s tresstest today UL S - fatty liver, R 13.7, L 9.0. Th ere is marked dila tation of the comm on bile duct to 2. 2 cm. As well, the re is mild to mode rate intrahepatic biliary ductal dil atation. These are chronic findings which were seen on the CT examinatio ns of 07/18/2023 a nd 07/12/2010. Plea se correlate with clinical findings. -- MRI scheduled for 09/21 - had pa surinder attack and cou ld not complete ex am, MRCP ordered t марина with 0.5 mg L orazepam prior. 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 no evidence f or obstruction. R esults scanned int o chart. UGI - t ype 1 HH, presbyes ophagus, significa nt reflux EGD by Mignon Freeman 09/22 - small HH, redundant isa mima pouch, biopsie s pending [facility] Medical History Arthritis Age-related osteoporosis without current pathological fracture Osteopenia COVID-19 Vitamin D deficiency Vitamin B12 deficiency Syphilis Obesity Asthma GERD (gastroesophageal reflux disease) Osteoarthritis Surgical History Hx of cholecystectomy Hx of gastric bypass Hx of section History of abdominoplasty H/O gastric bypass History of section History of appendectomy History of cholecystectomy Family History Father No problems noted. Mother No problems noted. Social History Housing: Apartment Alcohol intake: former Patient Tobacco Use Status: Never used Tobacco e-Cigarette/Vaping Use: Never Used Second Hand Smoke Exposure: No service: No Current occupational status: employed Cognitive needs: No Hearing needs: No Vision needs: Yes Assessment & Plan Assessment & Plan (1) Obesity: Code(s): E66.9 - Obesity, unspecified Qualifiers: Obesity type: due to excess calories Obesity classification: adult class 3 (BMI >= 40) Serious obesity comorbidity presence: with serious comorbidity Body mass index: BMI 40.0-44.9 Qualified Code(s): E66.01 - Morbid (severe) obesity due to excess calories; Z68.41 - Body mass index [BMI]40.0-44.9, adult Plan: TBWL is now 9%, needs to finish SWL classes and have follow up Viola. She was reminded again to send me weekly weight electronically. Meal plan: 6am coffee with 2% milk 9am - shake 12pm - Zone bar 5 pm - 8 forks of protien and 8 forks vegetable (or 4 forks veg and 4 forks fruit) 8pm- second shake Exercise - treadmill - 7 days per week - 15 minutes bid - 150 calories Next appt with me in 3 weeks. Patient is morbidly obese and is not considered stable at this time. I spent 30 minutes in total with patient reviewing/updating records, examining the patient and counseling the patient on weight management as detailed above. (2) H/O gastric bypass: Comment: 2002 - open procedure Code(s): Z98.84 - Bariatric surgery status Plan see above Coding Level of Care Code Est Pt Level 4 (89857) Diagnoses Class 3 severe obesity due to excess calories with serious comorbidity and body mass index (BMI) of 40.0 to 44.9 in adult E66.01; Z68.41 Obesity type: due to excess calories Obesity classification: adult class 3 (BMI >= 40) Serious obesity comorbidity presence: with serious comorbidity Body mass index: BMI 40.0-44.9 H/O gastric bypass Z98.84
[2023-10-15 11:35] VITALS: BP 147/71; PULSE 56; TEMP 36.7; O2SAT 100; BMI 39.6
== END 2023-10-15 12:06 | disposition home or self-care (01) ==
PROVIDERS: PCP Internal Medicine; Visit Provider Physician Assistant
DX: E66.01 Morbid (severe) obesity due to excess calories (principal); Z68.41 Body mass index [BMI] 40.0-44.9, adult; Z98.84 Bariatric surgery status
CPT/HCPCS: 99214

== ENCOUNTER → 2023-10-15 11:16 | Outpatient (BNVA) | payer OTHER, SELFPAY | PROVIDERS: PCP Internal Medicine; Visit Provider Physician Assistant | DX: K83.8 Other specified diseases of biliary tract (principal); E66.01 Morbid (severe) obesity due to excess calories; K91.89 Other postprocedural complications and disorders of digestive system; K83.1 Obstruction of bile duct; Z98.84 Bariatric surgery status ==

== ENCOUNTER 2023-10-25 10:43 | Outpatient (AMB) | payer OTHER, SELFPAY ==
--- NOTE | 2023-10-25 10:56 | MHC.AMNUTRGE ---
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 consult elevated BMI Diet Assmnt Details coffee - 2 cream and no sugar 9am shake Orgain 1 scoop with water mixes with 4 pieces of strawberries 2pm atkins bar 5-6pm meal 8pm shake SWL online classes: completed, reviewed , seen w her daughter who asked questions Dietary counseling reduction Diagnosis Nutrition problem #1 overweight/obesity As related to (etiology) #1 excess energy intake and physical inactivity As evidenced by (sign/symptom) #1 high BMI Monitoring/Goals Outcome progress progressing Learning/Education Readiness to learn good Stages of change action Educational materials provided Yes Most Recent Diabetes Results: No Data to Display [facility] Medical History Arthritis Age-related osteoporosis without current pathological fracture Osteopenia COVID-19 Vitamin D deficiency Vitamin B12 deficiency Syphilis Obesity Asthma GERD (gastroesophageal reflux disease) Osteoarthritis Surgical History Hx of cholecystectomy Hx of section History of section History of appendectomy History of cholecystectomy Hx of gastric bypass History of abdominoplasty H/O gastric bypass Family History Father No problems noted. Mother No problems noted. Social History (Updated 10/15/23 @ 11:29 by Maryanen Sepulveda CMA) Housing: Apartment Alcohol intake: former Patient Tobacco Use Status: Never used Tobacco e-Cigarette/Vaping Use: Never Used Second Hand Smoke Exposure: No service: No Current occupational status: employed Cognitive needs: No Hearing needs: No Vision needs: Yes Assessment & Plan Assessment & Plan (1) Morbid obesity: Code(s): E66.01 - Morbid (severe) obesity due to excess calories Plan pt is cleared from a nutrition standpoint for bariatric surgery Coding Level of Care Code Nutr Indiv Subseq (76164) Diagnoses Morbid obesity E66.01 Time Spent (min) 15
== END 2023-10-25 13:29 | disposition home or self-care (01) ==
PROVIDERS: PCP Internal Medicine; Visit Provider Dietitian, Registered
DX: E66.01 Morbid (severe) obesity due to excess calories (principal)

== ENCOUNTER → 2023-10-25 10:43 | Outpatient (BNVA) | payer OTHER, SELFPAY | PROVIDERS: PCP Internal Medicine; Visit Provider Dietitian, Registered | DX: E66.01 Morbid (severe) obesity due to excess calories (principal); Z98.84 Bariatric surgery status; Z71.3 Dietary counseling and surveillance | CPT/HCPCS: 97803 ==

== ENCOUNTER 2023-10-28 09:56 | Outpatient (AMB) | payer OTHER, SELFPAY ==
[2023-10-28 10:05] VITALS: BP 138/70; PULSE 53; O2SAT 100; BMI 39.7
--- NOTE | 2023-10-28 10:05 | MHC.PC.OV ---
Vital Signs 10/28/23 10:05 Height 5 ft 1 in Weight 210 lb 0.4 oz BMI 39.7 BP 138/70 Blood Pressure Location Lt brachial Position Sitting Pulse 53 Pulse Source Pulse Oximeter Pulse Oximetry (%) 100 Oxygen Delivery Method Room Air Intake Visit Reasons: Annual Exam Intake Note: Patient is here today for a physical. 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 Allergies morphine [MORPHINE] Allergy (Unknown, Verified 10/28/23 10:40) VOMITING AND SHAKING MORPHINE Allergy (Mild, Uncoded 10/28/23 10:40) Nausea and Vomiting Medication List - Last Reconciled 10/28/23 by Harry Chun MD albuterol sulfate 90 mcg/actuation 2 puffs PO Q4H PRN calcium carbonate (Calcium 500) 1,000 mg PO DAILY cholecalciferol (vitamin D3) 25 mcg PO DAILY cyanocobalamin (vitamin B-12) 1,000 mcg orally once a week; iron,carbonyl-vitamin C 65 mg iron- 125 mg (Vitron-C) 1 tab PO BEDTIME melatonin 5 mg PO BEDTIME meloxicam 15 mg PO DAILY omeprazole 20 mg PO DAILY psyllium 1 packet PO DAILY zinc gluconate 30 mg PO DAILY 90 days Tobacco use date assessed: 10/28/23 Fall risk assessment: No Falls in past year Last assessed Fall Risk: 10/28/23 Dental Screening Dental Screen Date: 10/28/23 Did you have a dental visit in the last 12 months?: Yes Did you have a dental problem in the last 6 months where you did not have access to dental care?: No Was dental information given to patient?: Patient has dentist HPI Annual Exam HPI Details 68-year-old obese female with a history of gastric bypass GERD coming in for physical exam. Patient had a narrowing of the bile duct and concern about cholecystectomy. Colonoscopy was done in 2019, mammogram is due bone density up-to-date. Review of the notes had a stress test done nondiagnostic EKG. Patient also met with orthopedics October for the left ankle pain swelling x-ray requested can not use braces advise Baldemar wrap elevate legs on meloxicam patient was advised may need off of work. bypass revision 11/2023 Dr. Dougherty [facility] Medical History Arthritis Age-related osteoporosis without current pathological fracture Osteopenia COVID-19 Vitamin D deficiency Vitamin B12 deficiency Syphilis Obesity Asthma GERD (gastroesophageal reflux disease) Osteoarthritis Surgical History Hx of cholecystectomy Hx of section History of section History of appendectomy History of cholecystectomy Hx of gastric bypass History of abdominoplasty H/O gastric bypass Family History Father No problems noted. Mother No problems noted. Social History (Updated 10/15/23 @ 11:29 by Maryanne Sepulveda CMA) Housing: Apartment Alcohol intake: former Patient Tobacco Use Status: Never used Tobacco e-Cigarette/Vaping Use: Never Used Second Hand Smoke Exposure: No service: No Current occupational status: employed Cognitive needs: No Hearing needs: No Vision needs: Yes Questionnaire PHQ-9 Over the last 2 weeks, how often have you been bothered by any of the following problems? 1. Little interest or pleasure in doing things: not at all 2. Feeling down, depressed, or hopeless: not at all 3. Trouble falling or staying asleep, or sleeping too much: not at all 4. Feeling tired or having little energy: not at all 5. Poor appetite or overeating: not at all 6. Feeling bad about yourself - or that you are a failure or have let yourself or your family down: not at all 7. Trouble concentrating on things, such as reading the newspaper or watching television: not at all 8. Moving or speaking so slowly that other people could have noticed. Or the opposite - being so fidgety or restless that you have been moving around a lot more than usual: not at all 9. Thoughts that you would be better off or of hurting yourself in some way: not at all Total score: 0 Depression Screening Interpretation: Negative Depression Screening Done: Yes Source: Developed by Drs. Timbo Nazario, Ivanna Sol, Kip العراقي and colleagues, with an educational jai from [employer]. Thrive Questionnaire Date Thrive assessed: 10/28/23 I am a: Patient What is your living situation today?: I have a steady place to live Within the past 12 months, did the food you bought not last and you didn't have the money to get more?: Never true Within the past 12 months, did you worry whether your food would run out before you got money to buy more?: Never true Do you have trouble paying for medicines?: No Do you have trouble getting transportation to medical appointments?: No Do you have trouble paying your heating and electricity bill?: No Do you have trouble taking care of your child, family member or friend?: No Do you have trouble with day-to-day activities such as bathing, preparing meals, shopping, managing finances, etc.?: No Are you currently unemployed and looking for a job?: No Are you interested in more education?: No AUDIT C Alcohol Use Questionnaire (AUDIT-C) 1. How often do you have a drink containing alcohol?: Monthly or less 2. How many drinks containing alcohol do you have on a typical day when you are drinking?: 1 or 2 3. How often do you have six or more drinks on one occasion?: Never Total Score: 1 DANY-7 AMB Questionnaire DANY-7 Date DANY - 7 assessed: 10/28/23 Source: Developed by Drs. Timbo Nazario, Ivanna Sol, Kip العراقي and colleagues, with an educational jai from [employer]. Review of Systems Const Denies poor appetite and Denies weakness Eyes Denies no additional complaints ENT Reports Normal hearing present, Denies dizziness, Denies nasal congestion, Denies tinnitus and Denies sore throat Card Denies chest pain, Denies syncope, Denies rapid heart rate and Denies dyspnea Resp Denies cough and Denies dyspnea GI Denies change in stool character, Reports constipation, Denies diarrhea, Denies nausea and Denies vomiting Denies urinary frequency, Denies difficulty voiding and Denies dysuria Neuro Reports Normal hearing present, Denies confusion, Denies dizziness, Denies syncope and Denies weakness Psych Denies confusion Physical exam (Primary Care) Vital Signs: Last Vital Signs Pulse 53 10/28/23 10:05 BP 138/70 10/28/23 10:05 Pulse Ox 100 10/28/23 10:05 Oxygen Delivery Method Room Air 10/28/23 10:05 BMI result Body Mass Index 39.7 Tobacco/Smoking Status: Tobacco use Status Tobacco use date assessed 10/28/23 10/28/23 10:06 Patient Tobacco Use Status Never used Tobacco 10/28/23 10:06 Tobacco use type 06/11/21 10:31 e-Cigarette/Vaping Use Never Used 10/28/23 10:06 PHQ-9: PHQ-9 Score PHQ-9: Total score 0 10/28/23 10:42 Depression Screening Interpretation: Negative Thrive Assessment: Date of Thrive Assessment Date Thrive assessed 10/28/23 10/28/23 10:06 Const General: No confusion Orientation/consciousness: No confusion HENMT Head: Yes normocephalic Ears: external ears normal and TM's normal bilaterally Face and sinus: Yes normal facial exam Mouth: moist mucous membranes Throat: Yes tonsils normal Eyes Conjunctivae: conjunctivae normal Pupils: Equal, round and reactive pupils present and Pupil accommodation reflex normal Direct Ophthalmoscopy: normal light reflex Neck Neck: No lymphadenopathy Thyroid: Thyroid normal Chest Chest palpation & inspection: normal inspection of the chest Resp Effort & Inspection: normal respiratory effort and no audible wheezes Auscultation: clear to auscultation bilaterally, no crackles, no wheezes and lung sounds not diminished Cardio Rate: regular rate Rhythm: regular rhythm Peripheral pulses: radial pulses present and dorsalis pedis present GI Other: guaiac negative Palpation (GI): no masses Auscultation: normal bowel sounds and normoactive bowel sounds Skin General skin exam: no rashes or lesions noted Rashes: no rashes Neuro General: No confusion Cranial nerves: Yes Equal, round and reactive pupils present and Yes Normal hearing present Cognition (Neuro): normal cognition Gait exam (Neuro): Normal gait present Motor exam (neuro): 5/5 motor strength present throughout Deep tendon reflexes (DTR's): Right brachioradialis reflex intensity grade: 2+, Left brachioradialis reflex intensity grade: 2+, Right patellar reflex intensity grade: 2+ and Left patellar reflex intensity grade: 2+ Extrem General: No edema Assessment and Plan Assessment & Plan (1) Annual physical exam: Code(s): Z00.00 - Encounter for general adult medical examination without abnormal findings (2) H/O gastric bypass: Comment: 2002 - open procedure Code(s): Z98.84 - Bariatric surgery status Plan: Patient continue to follow-up with the bariatric surgeon (3) Obesity: Code(s): E66.9 - Obesity, unspecified Qualifiers: Obesity type: due to excess calories Obesity classification: adult class 3 (BMI >= 40) Serious obesity comorbidity presence: with serious comorbidity Body mass index: BMI 40.0-44.9 Qualified Code(s): E66.01 - Morbid (severe) obesity due to excess calories; Z68.41 - Body mass index [BMI]40.0-44.9, adult Plan: Diet and exercise continue to follow-up with weight management (4) Asthma: Code(s): J45.909 - Unspecified asthma, uncomplicated Qualifiers: Asthma severity: mild Asthma persistence: intermittent Asthma complication type: uncomplicated Qualified Code(s): J45.20 - Mild intermittent asthma, uncomplicated Plan: Continue with inhaler as needed (5) GERD (gastroesophageal reflux disease): Code(s): K21.9 - Gastro-esophageal reflux disease without esophagitis Qualifiers: Esophagitis presence: without esophagitis Qualified Code(s): K21.9 - Gastro-esophageal reflux disease without esophagitis Plan: Avoid the foods that causes that usually spicy foods, tomato products, juices, coffee, soda and foods that your sensitive to. After eating do not lie down, allow 3-4 hours before in lie down. And keep the head of bed above 30 degrees to avoid the acid from going up. (6) Sprain involving medial aspect of ankle: Code(s): S93.429A - Sprain of deltoid ligament of unspecified ankle, initial encounter Qualifiers: Encounter type: initial encounter Laterality: left Qualified Code(s): S93.422A - Sprain of deltoid ligament of left ankle, initial encounter Plan: Patient has seen orthopedics and has advised Baldemar bandage but if not getting better will need to be off of work. (7) Breast cancer screening by mammogram: Code(s): Z12.31 - Encounter for screening mammogram for malignant neoplasm of breast Orders: Orders MM tomosynthesis screening BI Today Z12.31 - Encounter for screening mammogram for malignant neoplasm of breast Coding Level of Care Code Est Pt Prev Care >65y(88607) Diagnoses Annual physical exam Z00.00 H/O gastric bypass Z98.84 Class 3 severe obesity due to excess calories with serious comorbidity and body mass index (BMI) of 40.0 to 44.9 in adult E66.01; Z68.41 Obesity type: due to excess calories Obesity classification: adult class 3 (BMI >= 40) Serious obesity comorbidity presence: with serious comorbidity Body mass index: BMI 40.0-44.9 Mild intermittent asthma without complication J45.20 Asthma severity: mild Asthma persistence: intermittent Asthma complication type: uncomplicated Gastroesophageal reflux disease without esophagitis K21.9 Esophagitis presence: without esophagitis Sprain of left medial ankle joint, initial encounter S93.422A Encounter type: initial encounter Laterality: left Breast cancer screening by mammogram Z12.31
== END 2023-10-28 11:24 | disposition home or self-care (01) ==
PROVIDERS: PCP Internal Medicine; Visit Provider Internal Medicine
DX: Z00.00 Encounter for general adult medical examination without abnormal findings (principal); Z98.84 Bariatric surgery status; E66.01 Morbid (severe) obesity due to excess calories; Z68.41 Body mass index [BMI] 40.0-44.9, adult; J45.20 Mild intermittent asthma, uncomplicated; K21.9 Gastro-esophageal reflux disease without esophagitis; S93.422A Sprain of deltoid ligament of left ankle, initial encounter; Z12.31 Encounter for screening mammogram for malignant neoplasm of breast
CPT/HCPCS: 99397

== ENCOUNTER 2023-11-04 10:27 | Outpatient (REF) | payer MEDICARE, SELFPAY | END 2023-11-04 10:28 | disposition home or self-care (01) | LOC: HO.MAMMO 10:27 | PROVIDERS: PCP Internal Medicine; Visit Provider Internal Medicine | DX: Z12.31 Encounter for screening mammogram for malignant neoplasm of breast (principal) | CPT/HCPCS: 77063; 77067 ==

== ENCOUNTER → 2023-11-04 10:45 | Outpatient (BNV) | payer MEDICARE, SELFPAY | PROVIDERS: PCP Internal Medicine; Visit Provider Radiology Diagnostic Radiology | DX: Z12.31 Encounter for screening mammogram for malignant neoplasm of breast (principal) | CPT/HCPCS: 77063; 77067 ==

== ENCOUNTER 2023-11-05 10:21 | Outpatient (AMB) | payer OTHER, SELFPAY ==
--- NOTE | 2023-11-05 10:33 | MHC.OFFVISWM ---
Intake VS Expanded 11/05/23 10:46 BP 133/74 Blood Pressure Location Rt brachial Blood Pressure Position Sitting Pulse 60 Pulse Source Pulse Oximeter Temp 98.3 F Temperature Source Temporal Artery Scan Pulse Oximetry 99 Oxygen Delivery Method Room Air Height 5 ft 1 in Weight 208 lb 3.2 oz BMI 39.3 Body Fat % 43.0 Body Fat Mass 89.6 Fat Free Mass 118.6 Visceral Fat Rating 14.0 Body Water % 40.3 Body Water Mass 83.8 Muscle Mass/Score 112.6 Basal Metabolic Rate/Score 1,637 Intake Visit Reasons: (TV) F/U SWL Allergies morphine [MORPHINE] Allergy (Unknown, Verified 11/05/23 10:44) VOMITING AND SHAKING MORPHINE Allergy (Mild, Uncoded 10/28/23 10:40) Nausea and Vomiting HPI HPI Comments History of Present Illness Details SWL follow up for revision of previous GBP. 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 Meal plan- 6:30 am - coffee with whole milk 9am - Orgain powder with water 1pm- yogurt 6 pm - 6-8 spoons of vegetables and (not measuring) chicken breast 8pm - Orgain shake Exercise -15 minutes bid - walking on treadmill - speed 2.2, incline 1 (ankle still in brace for 1 more week. - follow up on Nov 11). Pre op work up completed as follows: SWL classes - 05/18 appts - 08/19, cleared by Lilli CONNELL appts - needs follow up scheduled --cleared H pylori - not needed had EGD yesterday, no h pylori on pathology Labs - anemia, low protein CXR -normal ECG - Sinus bradycardia Intra-ventricular conduction delay Left axis deviation Abnormal ECG When compared with ECG of 18-JUL-2023 13:22,No significant change was found Cards testing- ECHO- normal, EF 55 - 60% Cardiac stress test ULS - fatty liver, R 13.7, L 9.0. There is marked dilatation of the common bile duct to 2.2 cm. Aswell, there is mild to moderate intrahepatic biliary ductal dilatation.These are chronic findings which were seen on the CT examinations of and 07/12/2010. Please correlate with clinical findings. -- MRI scheduledfor 09/21 - had panic attack and could not complete exam, MRCP ordered today with 0.5 mg Lorazepam prior. Procedure was done at [facility] - has chronic dilitation of bile ducts -no change since 2005. no evidence for obstruction. Results scanned into chart. UGI - type 1 HH, presbyesophagus, significant reflux EGD by Dr Freeman 09/22 - small HH, redundant gastric pouch, biopsies - no h pylori. She is a candidate for revision [facility] Medical History Arthritis Age-related osteoporosis without current pathological fracture Osteopenia COVID-19 Vitamin D deficiency Vitamin B12 deficiency Syphilis Obesity Asthma GERD (gastroesophageal reflux disease) Osteoarthritis Surgical History Hx of cholecystectomy Hx of section History of section History of appendectomy History of cholecystectomy Hx of gastric bypass History of abdominoplasty H/O gastric bypass Family History Father No problems noted. Mother No problems noted. Social History Housing: Apartment Alcohol intake: former Patient Tobacco Use Status: Never used Tobacco e-Cigarette/Vaping Use: Never Used Second Hand Smoke Exposure: No service: No Current occupational status: employed Cognitive needs: No Hearing needs: No Vision needs: Yes Physical Exam Vital Signs: Last Vital Signs Temp 98.3 F 11/05/23 10:46 Pulse 60 11/05/23 10:46 BP 133/74 11/05/23 10:46 Pulse Ox 99 11/05/23 10:46 Oxygen Delivery Method Room Air 11/05/23 10:46 BMI result Body Mass Index 39.3 Assessment & Plan Assessment & Plan (1) Obesity: Code(s): E66.9 - Obesity, unspecified Qualifiers: Body mass index: BMI 40.0-44.9 Obesity classification: adult class 3 (BMI >= 40) Obesity type: due to excess calories Serious obesity comorbidity presence: with serious comorbidity Qualified Code(s): E66.01 - Morbid (severe) obesity due to excess calories; Z68.41 - Body mass index [BMI]40.0-44.9, adult Plan: Pt has not lost any weight recently, I am not sure that she is an appropriate candidate for revision surgery. I spoke again today with the francia and her daughter (apps are set up as video - but she comes to office anyway). She is still not measuring meal well, does not know the names of the protien products that she uses and is still not texting me her weekly weights. We discussed all of this again, and that she must do all of these things in preparation for surgery. Exercise - increase exercise to 30 minutes bid, speed 3.0, can not use incline due to ankel brace. Hopefully, we be cleared next week by ortho. Cardiology referral due to some symptomatic changes during nuclear stress test. Next appt via video in 3 weeks, must send me weekly weights. Patient is obese and is not considered stable at this time. I spent 30 minutes in total with patient reviewing/updating records, examining the patient and counseling the patient on weight management as detailed above. (2) H/O gastric bypass: Comment: 2002 - open procedure Code(s): Z98.84 - Bariatric surgery status (3) Narrowing of bile duct after surgery: Code(s): K91.89 - Other postprocedural complications and disorders of digestive system; K83.1 - Obstruction of bile duct (4) GERD (gastroesophageal reflux disease): Code(s): K21.9 - Gastro-esophageal reflux disease without esophagitis Qualifiers: Esophagitis presence: without esophagitis Qualified Code(s): K21.9 - Gastro-esophageal reflux disease without esophagitis Plan see above Orders: Referrals Cardiology Referral E66.9 - Obesity, unspecified, R94.39 - Abnormal result of other cardiovascular function study, Z98.84 - Bariatric surgery status Coding Level of Care Code Est Pt Level 4 (60308) Diagnoses Class 3 severe obesity due to excess calories with serious comorbidity and body mass index (BMI) of 40.0 to 44.9 in adult E66.01; Z68.41 Body mass index: BMI 40.0-44.9 Obesity classification: adult class 3 (BMI >= 40) Obesity type: due to excess calories Serious obesity comorbidity presence: with serious comorbidity H/O gastric bypass Z98.84 Narrowing of bile duct after surgery K91.89; K83.1 Gastroesophageal reflux disease without esophagitis K21.9 Esophagitis presence: without esophagitis
[2023-11-05 10:46] VITALS: BP 133/74; PULSE 60; TEMP 36.8; O2SAT 99; BMI 39.3
== END 2023-11-05 12:59 | disposition home or self-care (01) ==
PROVIDERS: PCP Internal Medicine; Visit Provider Physician Assistant
DX: E66.01 Morbid (severe) obesity due to excess calories (principal); Z68.41 Body mass index [BMI] 40.0-44.9, adult; Z98.84 Bariatric surgery status; K91.89 Other postprocedural complications and disorders of digestive system; K83.1 Obstruction of bile duct; K21.9 Gastro-esophageal reflux disease without esophagitis
CPT/HCPCS: 99214

== ENCOUNTER → 2023-11-05 10:21 | Outpatient (BNVA) | payer OTHER, SELFPAY | PROVIDERS: PCP Internal Medicine; Visit Provider Physician Assistant ==

== ENCOUNTER 2023-11-11 09:03 | Outpatient (AMB) | payer OTHER, SELFPAY ==
[2023-11-11 09:09] VITALS: BMI 39.3
--- NOTE | 2023-11-11 09:09 | A.OFFVIS_ITS ---
Intake Vital Signs 11/11/23 09:09 Height 5 ft 1 in Weight 208 lb BMI 39.3 Intake Visit Reasons: ov- Left ankle pain/ Swelling Intake Note: Shawna 68 yr old female presents today for her follow up visit for her Left ankle pain/ Swelling. States since last seen, she has been wearing her josef wraps with good pain relief. 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 Was previously seen by Rheumatology, Dr. Clark, 2-3 years ago, for same issue. Had injection. Does not remember the diagnosis. Was doing well until 3-4 months, started as swelling, medial foot. When she stands for a prolonged periods, the swelling gets worse. Then noticed bunion is new and says toes look different. Seem higher arched nowadays. Denies numbness. Denies weakness. Can't afford to miss work. Taking meloxicam daily for arthritis. Has history of gastritis. On Omeprazole. Suspected she sustained a left medial ankle sprain. Placed on josef wrap, she didn't want to use boot as she cannot drive [employer] with it. Since she was last seen, she has been wearing the lace-up ankle brace. Feeling much better. Denies any pain. Swelling has gone down. She has continued to work with the braces. [facility] Medical History Arthritis Age-related osteoporosis without current pathological fracture Osteopenia COVID-19 Vitamin D deficiency Vitamin B12 deficiency Syphilis Obesity Asthma GERD (gastroesophageal reflux disease) Osteoarthritis Surgical History Hx of cholecystectomy Hx of section History of section History of appendectomy History of cholecystectomy Hx of gastric bypass History of abdominoplasty H/O gastric bypass Family History Father No problems noted. Mother No problems noted. Social History Housing: Apartment Alcohol intake: former Patient Tobacco Use Status: Never used Tobacco e-Cigarette/Vaping Use: Never Used Second Hand Smoke Exposure: No service: No Current occupational status: employed Cognitive needs: No Hearing needs: No Vision needs: Yes Physical Exam Vital Signs: BMI result Body Mass Index 39.3 Constitutional: Patient appears to be in no acute distress, well nourished and well developed. MSK: No more warmth or redness or tenderness. No more tenderness. No calf tenderness. No ankle instability. No footdrop. Able to stand on foot or heel without pain. Neurological: Neurologic examination of the upper and lower extremities was nonfocal with intact sensation, muscle stretch reflexes and without focal motor deficits . Carballo?s negative bilaterally. Babinski was down going bilaterally. Clonus was negative. Results Reviewed Results Reviewed: XR FOOT, LEFT CLINICAL INFORMATION: Left ankle and foot pain. COMPARISON: None available. TECHNIQUE: AP, lateral, and oblique views of the left foot. FINDINGS: There is bony demineralization. No fracture, dislocation or left ankle joint effusion is seen. Boehler's angle is normal. There are small posterior and large plantar calcaneal spurs. There is degenerative change of the first tarsometatarsal joint. There is a mild metatarsus adductus and hallux valgus configuration. There is moderate bunion formation of the first metatarsal head. There is no focal soft tissue swelling, gas or foreign body. There are medial ankle soft tissue calcifications, which may be related to venous insufficiency. XR/XR foot LT 2V IMPRESSION: 1. No fracture, dislocation or left ankle joint effusion is seen. 2. There are calcaneal spurs. 3. There is degenerative change of the first tarsometatarsal joint. 4. There is moderate bunion formation. Assessment & Plan Assessment & Plan (1) Sprain involving medial aspect of ankle: Code(s): S93.429A - Sprain of deltoid ligament of unspecified ankle, initial encounter Qualifiers: Encounter type: initial encounter Laterality: left Qualified Code(s): S93.422A - Sprain of deltoid ligament of left ankle, initial encounter (2) Bunion, left foot: Code(s): M21.612 - Bunion of left foot Plan Discussed x-ray images with patient and daughter. She has no pain on plantar fascia and despite calcaneal spur. She does have a bunion and she wants to see a buyer intern for this. Referral given. Left medial ankle sprain is much improved. Advised to continue lace-up ankle brace until she is completely pain-free. If symptoms or swelling return, she was advised to call and see me. Assessment and plan discussed with patient, and patient was agreeable. All questions were answered thoroughly. Follow-up as needed or if symptoms return. Lissy Hernandez MD, AMIE Board Certified, [place] Board [employer] and Rehabilitation (ABPMR) Board Certified, [place] Board [employer] Electrodiagnostic Medicine (ABEM) Lissy Hernandez MD, AMIE Board Certified, [place] [employer] and [employer] (ABPMR) Board Certified, [place] Board [employer] Electrodiagnostic [employer] (ABEM) Orders: Referrals Podiatry Referral M21.612 - Bunion of left foot Coding Level of Care Code Est Pt Level 3 (28007) Diagnoses Sprain of left medial ankle joint, initial encounter S93.422A Encounter type: initial encounter Laterality: left Bunion, left foot M21.612
== END 2023-11-11 09:28 | disposition home or self-care (01) ==
PROVIDERS: PCP Internal Medicine; Visit Provider Physical Medicine & Rehabilitation
DX: S93.422A Sprain of deltoid ligament of left ankle, initial encounter (principal); M21.612 Bunion of left foot
CPT/HCPCS: 99213

== ENCOUNTER → 2023-11-11 09:03 | Outpatient (BNVA) | payer OTHER, SELFPAY | PROVIDERS: PCP Internal Medicine; Visit Provider Physical Medicine & Rehabilitation ==

== ENCOUNTER 2023-11-26 10:00 | Outpatient (AMB) | payer OTHER, SELFPAY ==
--- NOTE | 2023-11-26 10:01 | MHC.OFFVISWM ---
Intake VS Expanded 11/26/23 10:03 Height 5 ft 1 in Weight 206 lb BMI 38.9 Intake Visit Reasons: (TV) F/U SWL Allergies morphine [MORPHINE] Allergy (Unknown, Verified 11/11/23 09:12) VOMITING AND SHAKING MORPHINE Allergy (Mild, Uncoded 11/11/23 09:12) Nausea and Vomiting HPI HPI Comments History of Present Illness Details SWL follow up for revision of previo us GBP. 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 3 lbs or 10.5%. M eal plan- 6:30 am - coffee with 2%m ilk, no sugar 9 am - Orgain powder w ith water 12 pm- y ogurt 5 pm - 8 for ks of vegetables a nd 8 forks chicken 8pm - Orgain sha ke Exercise - sti ll has ankle brace on. 15 minutes bi d - walking on deandre admill - speed 3.0 , incline 3 - does n't know calories burned. Pre op w ork up completed a s follows: SWL cla sses - 05/18 BH ap pts - 08/19, cleare d by Lilli Crow appts - needs fo llow up scheduled --cleared H pylor i - not needed had EGD yesterday, no h pylori on patho logy Labs - anemia , low protein CXR -normal ECG - Sinu s bradycardia Intr a-ventricular cond uction delay Left axis deviation Abn ormal ECG When com pared with ECG of 18-JUL-2023 13:22, No significant johana nge was found Car ds testing- ECHO- normal, EF 55 - 60 % Cardiac stress t est -Pharmacoloigc al stress test wit h Lexiscan injecti on while walking s lowly on the [employer] mill then tredmill stopped due to he art rate of 121 bp m and she marched in place, with mil d SOB, mo chest di scomfort, with iso lated PVC, with no rmotensive respons e injection, with nondiagnostic EKGs . Nuclear images p ending. Testreview ed with Dr. Tammy crow. On Nov 06 - Dr Beasley stated --The stress test is normal, Echo is also normal. She is low to intermed iate risk for surg marialuisa. ULS - fatty liver, R 13.7, L 9 .0. There is mar ked dilatation of the common bile du ct to 2.2 cm. Aswe ll, there is mild to moderate intrah epatic biliary du ctal dilatation.Th dorota are chronic fi ndings which were seen on the CT exa minations 3 and 07/12/2010. P lease correlate wi th clinical findin gs. -- MRI schedu led for 09/21 - recio d panic attack and could not complet e exam, MRCP re or dered today with 0 .5 mg Lorazepam pr ior. Procedure wa s done at [facility] - has chronic di litation of bile d ucts -no change si nce 2005. no evide nce for obstructio n. Results scanne d into chart. U GI - type 1 HH, pr esbyesophagus, sig nificant reflux EG D by Dr Freeman 09/22 - small HH, redundan t gastric pouch, b iopsies - no h pyl lisa. She is a cand idate for revision [facility] Medical History Arthritis Age-related osteoporosis without current pathological fracture Osteopenia COVID-19 Vitamin D deficiency Vitamin B12 deficiency Syphilis Obesity Asthma GERD (gastroesophageal reflux disease) Osteoarthritis Surgical History Hx of cholecystectomy Hx of section History of section History of appendectomy History of cholecystectomy Hx of gastric bypass History of abdominoplasty H/O gastric bypass Family History Father No problems noted. Mother No problems noted. Social History Housing: Apartment Alcohol intake: former Patient Tobacco Use Status: Never used Tobacco e-Cigarette/Vaping Use: Never Used Second Hand Smoke Exposure: No service: No Current occupational status: employed Cognitive needs: No Hearing needs: No Vision needs: Yes Assessment & Plan Assessment & Plan (1) Obesity: Code(s): E66.9 - Obesity, unspecified Qualifiers: Obesity type: due to excess calories Obesity classification: adult class 3 (BMI >= 40) Serious obesity comorbidity presence: with serious comorbidity Body mass index: BMI 40.0-44.9 Qualified Code(s): E66.01 - Morbid (severe) obesity due to excess calories; Z68.41 - Body mass index [BMI]40.0-44.9, adult Plan: Pt has now lost over 10% TBWL in preparation for revision of GBP approved by Dr Freeman via EGD. Pre op work up completed and patient now knows how to text her weights. Meal plan - stop yogurt and have Atkins bar - 16 g - instead. Exercise - treadmill 7 d/ week - speed 3.0, incline 3 - 20 minutes bid. Record calories burned and text me. Will have Cindy schedule appt with Dr Freeman for discussion of revision surgery. Patient is still obese and is not considered stable at this time. I spent 25 minutes in total speaking with the patient via video conference counseling , reviewing records and charting in patients chart. . (2) H/O gastric bypass: Comment: 2002 - open procedure Code(s): Z98.84 - Bariatric surgery status Plan: see above Telehealth Telehealth Location of provider rendering services: practice address Location of patient: address on file Patient Identification confirmed using: Name, : Yes Telehealth method: video Patient verbally consented to treatment: Yes Patient verbally consented to billing insurance company: Yes Patient informed of any privacy concerns related to visit: Yes Coding Level of Care Code Tele Est Pt Level 4 (69246) Diagnoses Class 3 severe obesity due to excess calories with serious comorbidity and body mass index (BMI) of 40.0 to 44.9 in adult E66.01; Z68.41 Obesity type: due to excess calories Obesity classification: adult class 3 (BMI >= 40) Serious obesity comorbidity presence: with serious comorbidity Body mass index: BMI 40.0-44.9 H/O gastric bypass Z98.84
[2023-11-26 10:03] VITALS: BMI 38.9
== END 2023-11-26 10:52 | disposition home or self-care (01) ==
LOC: HO.HBS 10:25
PROVIDERS: PCP Internal Medicine; Visit Provider Physician Assistant
DX: E66.01 Morbid (severe) obesity due to excess calories (principal); Z68.41 Body mass index [BMI] 40.0-44.9, adult; Z98.84 Bariatric surgery status
CPT/HCPCS: 99214

== ENCOUNTER → 2023-11-26 10:00 | Outpatient (BNVA) | payer OTHER, SELFPAY | PROVIDERS: PCP Internal Medicine; Visit Provider Physician Assistant | DX: E66.01 Morbid (severe) obesity due to excess calories (principal); Z68.41 Body mass index [BMI] 40.0-44.9, adult; Z98.84 Bariatric surgery status ==

== ENCOUNTER 2023-12-01 13:55 | Outpatient (AMB) | payer OTHER, SELFPAY ==
--- NOTE | 2023-12-01 13:57 | A.OFFVIS_ITS ---
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 Required: No Accompanied by: Son Allergies morphine [MORPHINE] Allergy (Unknown, Verified 12/01/23 14:00) VOMITING AND SHAKING MORPHINE Allergy (Mild, Uncoded 12/01/23 14:00) Nausea and Vomiting Medication List - Last Reconciled 12/01/23 by Niko Gill MD albuterol sulfate 90 mcg/actuation 2 puffs PO Q4H PRN calcium carbonate (Calcium 500) 1,000 mg PO DAILY cholecalciferol (vitamin D3) 25 mcg PO DAILY cyanocobalamin (vitamin B-12) 1,000 mcg orally once a week; iron,carbonyl-vitamin C 65 mg iron- 125 mg (Vitron-C) 1 tab PO BEDTIME melatonin 5 mg PO BEDTIME meloxicam 15 mg PO DAILY omeprazole 20 mg PO DAILY psyllium 1 packet PO DAILY zinc gluconate 30 mg PO DAILY 90 days HPI HPI Comments History of Present Illness Details Shawna is here for consultation regarding preoperative risk stratification for bariatric surgery. She states that she used to weigh more than 400 lb many years ago. Then she had gastric bypass surgery and lost lot of weight. Now there is a plan to go for surgery again. Patient herself does not have any cardiac history including coronary disease or myocardial infarction or cardiomyopathy. Within limits of her activity, she does not have any anginal- type symptoms or in fact anything cardiac sounding. She is already undergone cardiac workup including echocardiogram and stress test. Son is also here for the appointment. [facility] Medical History Arthritis Age-related osteoporosis without current pathological fracture Osteopenia COVID-19 Vitamin D deficiency Vitamin B12 deficiency Syphilis Obesity Asthma GERD (gastroesophageal reflux disease) Osteoarthritis Surgical History Hx of cholecystectomy Hx of section History of section History of appendectomy History of cholecystectomy Hx of gastric bypass History of abdominoplasty H/O gastric bypass Family History Father No problems noted. Mother No problems noted. Social History Housing: Apartment Alcohol intake: former Patient Tobacco Use Status: Never used Tobacco e-Cigarette/Vaping Use: Never Used Second Hand Smoke Exposure: No service: No Current occupational status: employed Cognitive needs: No Hearing needs: No Vision needs: Yes Review of Systems Const Denies chills, Denies daytime sleepiness, Denies fatigue, Denies fever(s), Denies frequent falls, Denies night sweats, Denies snoring, Denies weakness, Denies weight gain and Denies weight loss Eyes Denies loss of vision ENT Denies dizziness and Denies hearing loss Card Denies chest pain, Denies chest pain with activity, Denies syncope, Denies rapid heart rate, Denies edema, Denies claudication, Denies leg edema, Denies lightheadedness, Denies palpitations, Denies dyspnea, Denies dyspnea on exertion and Denies orthopnea Resp Denies cough, Denies excessive phlegm production, Denies dyspnea, Denies dyspnea on exertion, Denies snoring and Denies wheezing GI Denies abdominal pain, Denies hematochezia, Denies change in bowel habits, Denies change in stool character, Denies heartburn, Denies nausea and Denies vomiting Denies hematuria, Denies urinary frequency and Denies dysuria Musc Denies arthralgias, Denies muscle weakness, Denies numbness and Denies tingling Skin/Breast Denies nail changes and Denies rash Neuro Denies Abnormal speech present, Denies dizziness, Denies syncope, Denies frequent falls, Denies loss of vision, Denies memory loss, Denies numbness, Denies tingling and Denies weakness Psych Denies depression and Denies memory loss Endo Denies fatigue and Denies palpitations Aller/Immun Denies wheezing Physical Exam Vital Signs: Last Vital Signs Pulse 55 12/01/23 13:58 BP 128/80 12/01/23 13:58 BMI result Body Mass Index 38.3 Const General: comfortable and no acute distress Orientation/consciousness: patient oriented x3 HEENT Other: Unremarkable Head: Yes normal to inspection Neck Neck: Yes normal visual inspection Chest Chest palpation & inspection: normal inspection of the chest Resp Auscultation: clear to auscultation bilaterally Cardio Palpation: normal PMI Heart sounds: S1 normal heart sound present, S2 normal heart sound present, no gallops, no murmurs and no rubs GI Palpation (GI): Soft to palpation Back/Spine/Pelvis Other: unremarkable Skin General skin exam: no rashes or lesions noted Neuro General: patient oriented x3 Speech: No Abnormal speech present Extrem General: Yes normal to inspection Psych Mental Status: mental status grossly normal Assessment & Plan Assessment & Plan (1) Preoperative cardiovascular examination: Code(s): Z01.810 - Encounter for preprocedural cardiovascular examination (2) Morbid obesity: Code(s): E66.01 - Morbid (severe) obesity due to excess calories Plan EKG shows sinus bradycardia 51/Min; no ischemic findings and otherwise unremarkable. Echocardiogram with LVEF of 55-60%; normal peak global longitudinal strain; no significant valvular issues. Myocardial perfusion imaging study showed normal perfusion. Overall, low cardiac risk for bariatric surgery. May proceed. Coding Level of Care Code New Pt Level 3 (67370) Diagnoses Preoperative cardiovascular examination Z01.810 Morbid obesity E66.01
[2023-12-01 13:58] VITALS: BP 128/80; PULSE 55; BMI 38.3
== END 2023-12-01 14:14 | disposition home or self-care (01) ==
PROVIDERS: PCP Internal Medicine; Visit Provider Internal Medicine
DX: E66.01 Morbid (severe) obesity due to excess calories (principal); Z01.810 Encounter for preprocedural cardiovascular examination
CPT/HCPCS: 99203; 99213

== ENCOUNTER → 2023-12-01 13:55 | Outpatient (BNVA) | payer OTHER, SELFPAY | PROVIDERS: PCP Internal Medicine; Visit Provider Internal Medicine ==

== ENCOUNTER 2023-12-23 08:12 | Outpatient (AMB) | payer OTHER, SELFPAY ==
--- NOTE | 2023-12-23 16:47 | MHC.OFFVISWM ---
Intake VS Expanded 12/23/23 16:50 Height 5 ft 1 in Weight 202 lb 6 oz BMI 38.2 Body Fat % 51.8 Body Fat Mass 104.9 Fat Free Mass 97.6 Visceral Fat Rating 19 Body Water % 33 Body Water Mass 66.8 Basal Metabolic Rate/Score 1,519 Intake Visit Reasons: TV Consult/Transfer [facility] Allergies morphine [MORPHINE] Allergy (Unknown, Verified 12/23/23 16:54) VOMITING AND SHAKING MORPHINE Allergy (Mild, Uncoded 12/23/23 16:54) Nausea and Vomiting Medication List - Last Reconciled 12/23/23 by Chalino Duque MD albuterol sulfate 90 mcg/actuation 2 puffs PO Q4H PRN calcium carbonate (Calcium 500) 1,000 mg PO DAILY cholecalciferol (vitamin D3) 25 mcg PO DAILY cyanocobalamin (vitamin B-12) 1,000 mcg orally once a week; iron,carbonyl-vitamin C 65 mg iron- 125 mg (Vitron-C) 1 tab PO BEDTIME melatonin 5 mg PO BEDTIME meloxicam 15 mg PO DAILY omeprazole 20 mg PO DAILY psyllium 1 packet PO DAILY zinc gluconate 30 mg PO DAILY 90 days HPI TV Consult/Transfer [facility] HPI Details Start time: 4.02pm, End time: 5.02pm ?I spent 40 speaking with the patient on the phone plus an additional 20 minutes reviewing and updating records for a total of 60 minutes HPI Comments History of Present Illness Details Overall weight loss: 27.7lbs, or 12% TBWL Is doing 2 Orgain protein shakes, one Gabonese yogurt and one meal (8 forks of protein and 8 forks of salad or vegetables) Exercise: treadmill x4/wk for 100 calories PFSH Medical History Arthritis Age-related osteoporosis without current pathological fracture Osteopenia COVID-19 Vitamin D deficiency Vitamin B12 deficiency Syphilis Obesity Asthma GERD (gastroesophageal reflux disease) Osteoarthritis Surgical History Hx of cholecystectomy Hx of section History of section History of appendectomy History of cholecystectomy Hx of gastric bypass History of abdominoplasty H/O gastric bypass Family History Father No problems noted. Mother No problems noted. Social History Housing: Apartment Alcohol intake: former Patient Tobacco Use Status: Never used Tobacco e-Cigarette/Vaping Use: Never Used Second Hand Smoke Exposure: No service: No Current occupational status: employed Cognitive needs: No Hearing needs: No Vision needs: Yes Assessment & Plan Assessment & Plan (1) Obesity: Code(s): E66.9 - Obesity, unspecified Qualifiers: Obesity type: due to excess calories Obesity classification: adult class 3 (BMI >= 40) Serious obesity comorbidity presence: with serious comorbidity Body mass index: BMI 40.0-44.9 Qualified Code(s): E66.01 - Morbid (severe) obesity due to excess calories; Z68.41 - Body mass index [BMI]40.0-44.9, adult Plan: 1. Change nutritional plan to one Orgain protein shake (ONE scoop in 8oz water), another Orgain protein shake (2 scoops in water), one Gabonese yogurt and one meal (8 forks of protein and 8 forks of salad or vegetables) 2. Change treadmill with an incline of 2.0 and speed of 2.0. Increase incline by 1 every 3 min to a max incline of 8.0, stay 3min at 8.0 and then return to 2.0 and repeat same steps until calorie goal is met. Goal is to burn 2000 calories per week on exercise, which means either 300 calories daily. Try to do 2 sessions per day for 150 calories each. 3. Send me weight measurements weekly on Telehealth Telehealth Location of provider rendering services: practice address Location of patient: address on file Patient Identification confirmed using: Name, : Yes Telehealth method: voice only Patient verbally consented to treatment: Yes Patient verbally consented to billing insurance company: Yes Patient informed of any privacy concerns related to visit: Yes Minutes spent on Phone/Video with Pt.: 60 Coding Level of Care Code Tele Est Pt Level 5 (67577) Diagnoses Class 3 severe obesity due to excess calories with serious comorbidity and body mass index (BMI) of 40.0 to 44.9 in adult E66.01; Z68.41 Obesity type: due to excess calories Obesity classification: adult class 3 (BMI >= 40) Serious obesity comorbidity presence: with serious comorbidity Body mass index: BMI 40.0-44.9 Time Spent (min) 60
[2023-12-23 16:50] VITALS: BMI 38.2
== END 2023-12-23 17:03 | disposition home or self-care (01) ==
LOC: HO.HBS 08:12
PROVIDERS: PCP Internal Medicine; Visit Provider Surgery
DX: E66.01 Morbid (severe) obesity due to excess calories (principal); Z68.38 Body mass index [BMI] 38.0-38.9, adult; Z98.84 Bariatric surgery status
CPT/HCPCS: G2252

== ENCOUNTER → 2023-12-23 08:12 | Outpatient (BNVA) | payer OTHER, SELFPAY | PROVIDERS: PCP Internal Medicine; Visit Provider Surgery ==

== ENCOUNTER 2024-04-27 09:41 | Outpatient (AMB) | payer OTHER, SELFPAY ==
[2024-04-27 09:44] VITALS: BP 152/92; PULSE 77; O2SAT 98; BMI 38.0
--- NOTE | 2024-04-27 09:44 | MHC.PC.OV ---
Vital Signs 04/27/24 09:44 Height 5 ft 1 in Weight 201 lb BMI 38.0 BP 152/92 H Blood Pressure Location Lt brachial Position Sitting Pulse 77 Pulse Source Pulse Oximeter Pulse Oximetry (%) 98 Oxygen Delivery Method Room Air Intake Visit Reasons: gerd Intake Note: Patient stated that she had 2 cups of coffee before coming into the appt today. Allergies morphine [MORPHINE] Allergy (Unknown, Verified 04/27/24 09:44) VOMITING AND SHAKING MORPHINE Allergy (Mild, Uncoded 04/27/24 09:44) Nausea and Vomiting Medication List - Last Reconciled 04/27/24 by Harry Chun MD albuterol sulfate 90 mcg/actuation 2 puffs PO Q4H PRN calcium carbonate (Calcium 500) 1,000 mg PO DAILY cholecalciferol (vitamin D3) 25 mcg PO DAILY cyanocobalamin (vitamin B-12) 1,000 mcg orally once a week; iron,carbonyl-vitamin C 65 mg iron- 125 mg (Vitron-C) 1 tab PO BEDTIME melatonin 5 mg PO BEDTIME omeprazole 20 mg PO DAILY psyllium 1 packet PO DAILY tramadol 50 mg PO .QD PRN zinc gluconate 30 mg PO DAILY 90 days Tobacco use date assessed: 10/28/23 Fall risk assessment: No Falls in past year Last assessed Fall Risk: 04/27/24 Dental Screening Dental Screen Date: 10/28/23 HPI gerd HPI Details 68-year-old obese female with a history of gastric bypass asthma GERD coming in for follow-up. Last seen in October 2023. Patient is colonoscopy last done in 2017 10 years mammogram up-to-date 10/30/2023 bone density up-to-date 10/30/2022.. Patient continues to follow-up with weight management. Patient has met with Cardiology in November 2023 for preoperative risk stratification for bariatric surgery. EKG bradycardia at 51 echocardiogram EF 55-60 with normal global longitudinal strain no valvular issues. Myocardial perfusion normal. Low cardiac risk. Patient was seen by the Orthopedics also for the left ankle sprain which is doing better. Patient does have a bunion. [facility] Medical History Arthritis Age-related osteoporosis without current pathological fracture Osteopenia COVID-19 Vitamin D deficiency Vitamin B12 deficiency Syphilis Obesity Asthma GERD (gastroesophageal reflux disease) Osteoarthritis Surgical History Hx of cholecystectomy Hx of section History of section History of appendectomy History of cholecystectomy Hx of gastric bypass History of abdominoplasty H/O gastric bypass Family History Father No problems noted. Mother No problems noted. Social History Housing: Apartment Alcohol intake: former Patient Tobacco Use Status: Never used Tobacco e-Cigarette/Vaping Use: Never Used Second Hand Smoke Exposure: No service: No Current occupational status: employed Cognitive needs: No Hearing needs: No Vision needs: Yes Questionnaire PHQ-9 Over the last 2 weeks, how often have you been bothered by any of the following problems? 1. Little interest or pleasure in doing things: not at all 2. Feeling down, depressed, or hopeless: not at all 3. Trouble falling or staying asleep, or sleeping too much: not at all 4. Feeling tired or having little energy: not at all 5. Poor appetite or overeating: not at all 6. Feeling bad about yourself - or that you are a failure or have let yourself or your family down: not at all 7. Trouble concentrating on things, such as reading the newspaper or watching television: not at all 8. Moving or speaking so slowly that other people could have noticed. Or the opposite - being so fidgety or restless that you have been moving around a lot more than usual: not at all 9. Thoughts that you would be better off or of hurting yourself in some way: not at all Total score: 0 Depression Screening Interpretation: Negative Depression Screening Done: Yes Source: Developed by Drs. Timbo Nazario, Ivanna Sol, Kip العراقي and colleagues, with an educational jai from [email or web address]. Thrive Questionnaire Date Thrive assessed: 10/28/23 AUDIT C Alcohol Use Questionnaire (AUDIT-C) 1. How often do you have a drink containing alcohol?: Monthly or less 2. How many drinks containing alcohol do you have on a typical day when you are drinking?: 1 or 2 3. How often do you have six or more drinks on one occasion?: Never Total Score: 1 DANY-7 AMB Questionnaire DANY-7 Date DANY - 7 assessed: 10/28/23 Source: Developed by Drs. Timbo Nazario, Ivanna Sol, Kip العراقي and colleagues, with an educational jai from [email or web address]. Physical exam (Primary Care) Vital Signs: Last Vital Signs Pulse 77 04/27/24 09:44 BP 152/92 H 04/27/24 09:44 Pulse Ox 98 04/27/24 09:44 Oxygen Delivery Method Room Air 04/27/24 09:44 BMI result Body Mass Index 38.0 Tobacco/Smoking Status: Tobacco use Status Tobacco use date assessed 10/28/23 04/27/24 09:52 Patient Tobacco Use Status Never used Tobacco 04/27/24 09:52 Tobacco use type 12/01/23 10:17 e-Cigarette/Vaping Use Never Used 04/27/24 09:52 PHQ-9: PHQ-9 Score PHQ-9: Total score 0 04/27/24 09:52 Depression Screening Interpretation: Negative Thrive Assessment: Date of Thrive Assessment Date Thrive assessed 10/28/23 04/27/24 09:52 Const General: alert; No acute distress Eyes Conjunctivae: conjunctivae normal Resp Auscultation: clear to auscultation bilaterally Cardio Rate: regular rate Rhythm: regular rhythm GI Inspection: Yes normal to inspection Extrem General: Yes normal to inspection and No edema Assessment and Plan Assessment & Plan (1) H/O gastric bypass: Comment: 2002 - open procedure Code(s): Z98.84 - Bariatric surgery status Plan: Patient continues to follow-up with bariatric surgeon and planned another surgery. Did have cardiac risk stratification low risk has had extensive workup. (2) Obesity: Code(s): E66.9 - Obesity, unspecified Qualifiers: Obesity type: due to excess calories Obesity classification: adult class 3 (BMI >= 40) Serious obesity comorbidity presence: with serious comorbidity Body mass index: BMI 40.0-44.9 Qualified Code(s): E66.01 - Morbid (severe) obesity due to excess calories; Z68.41 - Body mass index [BMI]40.0-44.9, adult Plan: Continue with diet and exercise (3) Asthma: Code(s): J45.909 - Unspecified asthma, uncomplicated Qualifiers: Asthma severity: mild Asthma persistence: intermittent Asthma complication type: uncomplicated Qualified Code(s): J45.20 - Mild intermittent asthma, uncomplicated Plan: Continue with albuterol inhaler as needed (4) GERD (gastroesophageal reflux disease): Code(s): K21.9 - Gastro-esophageal reflux disease without esophagitis Qualifiers: Esophagitis presence: without esophagitis Qualified Code(s): K21.9 - Gastro-esophageal reflux disease without esophagitis Plan: Avoid the foods that causes that usually spicy foods, tomato products, juices, coffee, soda and foods that your sensitive to. After eating do not lie down, allow 3-4 hours before in lie down. And keep the head of bed above 30 degrees to avoid the acid from going up. (5) Ankle pain, left: Code(s): M25.572 - Pain in left ankle and joints of left foot Qualifiers: Chronicity: acute Qualified Code(s): M25.572 - Pain in left ankle and joints of left foot Plan: Patient has met with Orthopedics and conservative management. (6) Bunion, left foot: Code(s): M21.612 - Bunion of left foot (7) Blood pressure elevated without history of HTN: Code(s): R03.0 - Elevated blood-pressure reading, without diagnosis of hypertension Plan: continue to monitor. BP at home is good Orders: Orders Comprehensive Met. Panel 3 Months K2. - Gastro-esophageal reflux disease without esophagitis Vitamin B12 and Folate 3 Months K21. - Gastro-esophageal reflux disease without esophagitis Vitamin D 25-OH Total 3 Months K2. - Gastro-esophageal reflux disease without esophagitis Complete Blood Count Auto Diff 3 Months K21. - Gastro-esophageal reflux disease without esophagitis Free T4 (Free Thyroxine) 3 Months K21.9 - Gastro-esophageal reflux disease without esophagitis Thyroid Stimulating Hormone 3 Months K21.9 - Gastro-esophageal reflux disease without esophagitis Lipid Panel 3 Months E78.00 - Pure hypercholesterolemia, unspecified, K21.9 - Gastro-esophageal reflux disease without esophagitis Medications: Changed From tramadol 50 mg PO Q8H PRN 12 tabs 0RF severe pain (scale score 7-10) M89.49 - Other hypertrophic osteoarthropathy, multiple sites To tramadol 50 mg PO .QD PRN 30 tabs 1RF severe pain (scale score 7-10) M89.49 - Other hypertrophic osteoarthropathy, multiple sites Refilled albuterol sulfate 90 mcg/actuation 2 puffs PO Q4H PRN 6.7 grams 0RF bronchospasm M89.49 - Other hypertrophic osteoarthropathy, multiple sites omeprazole 20 mg PO DAILY 90 caps 3RF Discontinued meloxicam Discontinued Reason: Doctor's Order 15 mg PO DAILY 90 tabs 1RF M19.90 - Unspecified osteoarthritis, unspecified site Coding Level of Care Code Est Pt Level 4 (42480) Diagnoses H/O gastric bypass Z98.84 Class 3 severe obesity due to excess calories with serious comorbidity and body mass index (BMI) of 40.0 to 44.9 in adult E66.01; Z68.41 Obesity type: due to excess calories Obesity classification: adult class 3 (BMI >= 40) Serious obesity comorbidity presence: with serious comorbidity Body mass index: BMI 40.0-44.9 Mild intermittent asthma without complication J45.20 Asthma severity: mild Asthma persistence: intermittent Asthma complication type: uncomplicated Gastroesophageal reflux disease without esophagitis K21.9 Esophagitis presence: without esophagitis Acute left ankle pain M25.572 Chronicity: acute Bunion, left foot M21.612 Blood pressure elevated without history of HTN R03.0
== END 2024-04-27 10:13 | disposition home or self-care (01) ==
PROVIDERS: PCP Internal Medicine; Visit Provider Internal Medicine
DX: Z98.84 Bariatric surgery status (principal); E66.01 Morbid (severe) obesity due to excess calories; Z68.41 Body mass index [BMI] 40.0-44.9, adult; J45.20 Mild intermittent asthma, uncomplicated; K21.9 Gastro-esophageal reflux disease without esophagitis; M25.572 Pain in left ankle and joints of left foot; M21.612 Bunion of left foot; R03.0 Elevated blood-pressure reading, without diagnosis of hypertension
CPT/HCPCS: 99214

== ENCOUNTER 2024-07-15 07:37 | Outpatient (REF) | payer MEDICARE, SELFPAY ==
[2024-07-15 07:44] LABS: MANUAL DIFF FLAG NO
[2024-07-15 08:20] LABS: Basophils Percent Auto 0.8 % (0-2); Eosinophils Absolute Auto 0.2 X10*3/uL (0.0-0.4); Eosinophils Percent Auto 3.4 % (0-4); Hematocrit 35.9 % (37.0-47.0); Hemoglobin 11.5 g/dl (12.0-16.0); Lymphocytes Absolute Auto 2.3 X10*3/uL (1.2-4.9); Lymphocytes Percent Auto 43.5 % (20-40); Mean Corpuscular Hemoglobin 28.6 pg (27.0-33.0); Mean Corpuscular Volume 89.3 fL (80.0-98.0); Mean Platelet Volume 11.1 fL (9.4-12.3); Monocytes Absolute Auto 0.7 X10*3/uL (0.1-1.2); Monocytes Percent Auto 12.2 % (2-11); Neutrophils Absolute Auto 2.1 x10*3/uL (2.0-8.3); Neutrophils Percent Auto 40.1 % (45-73); Platelet Count 249 X10*3/uL (160-400); Red Blood Count 4.02 X10*6/uL (4.20-5.50); Red Cell Distribution Width 15.2 % (11.0-16.0); White Blood Count 5.3 X10*3/uL (4.8-10.8)
[2024-07-15 08:32] LABS: Alanine Aminotransferase 13 U/L (0-31); Albumin Level 3.9 g/dL (3.5-5.0); Alkaline Phosphatase 75 U/L (39-117); Anion Gap 11 (12-20); Aspartate Amino Transferase 20 U/L (5-31); Bilirubin Total 0.6 mg/dL (0.0-1.0); Blood Urea Nitrogen 28 mg/dL (9-16); Calcium 9.1 mg/dL (8.4-10.2); Carbon Dioxide 28 mmol/L (22-29); Chloride 110 mmol/L (96-108); Cholesterol 159 mg/dL (<200); Estimated Glomerular Filt Rate > 60; Glucose Random 85 mg/dL (60-115); HDL Cholesterol 66 mg/dL (>40); LDL Cholesterol Calculated 87 mg/dL (<100); Potassium 4.5 mmol/L (3.3-5.1); Sodium 144 mmol/L (135-145); Total Protein 7.1 g/dL (6.5-8.0); Triglycerides 34 mg/dL (<150)
[2024-07-15 08:49] LABS: Free T4 (Free Thyroxine) 1.01 ng/dL (0.71-1.85); Thyroid Stimulating Hormone 0.32 uIU/mL (0.32-4.0); Vitamin D 25-OH Total 39.6 ng/mL (>30)
[2024-07-15 09:00] LABS: Folate 6.5 ng/mL (> or = 4.0); Vitamin B12 737 pg/mL (200-900)
== END 2024-07-15 07:38 | disposition home or self-care (01) ==
LOC: HO.LAB 07:37
PROVIDERS: PCP Internal Medicine; Visit Provider Internal Medicine
DX: K21.9 Gastro-esophageal reflux disease without esophagitis (principal); E78.00 Pure hypercholesterolemia, unspecified
CPT/HCPCS: 36415; 80053; 80061; 82306; 82607; 82746; 84439; 84443; 85025

== ENCOUNTER 2024-07-27 10:25 | Outpatient (AMB) | payer OTHER, SELFPAY ==
[2024-07-27 10:30] VITALS: BP 130/72; PULSE 57; O2SAT 99; BMI 38.7
--- NOTE | 2024-07-27 10:30 | MHC.PC.OV ---
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 Allergies morphine [MORPHINE] Allergy (Unknown, Verified 07/27/24 10:30) VOMITING AND SHAKING MORPHINE Allergy (Mild, Uncoded 07/27/24 10:30) Nausea and Vomiting Medication List - Last Reconciled 07/27/24 by Bing Rivers PA-C albuterol sulfate 90 mcg/actuation 2 puffs PO Q4H PRN calcium carbonate (Calcium 500) 1,000 mg PO DAILY cholecalciferol (vitamin D3) 25 mcg PO DAILY cyanocobalamin (vitamin B-12) 1,000 mcg orally once a week; iron,carbonyl-vitamin C 65 mg iron- 125 mg (Vitron-C) 1 tab PO BEDTIME melatonin 5 mg PO BEDTIME omeprazole 20 mg PO DAILY psyllium 1 packet PO DAILY tramadol 50 mg PO .QD PRN zinc gluconate 30 mg PO DAILY 90 days Tobacco use date assessed: 10/28/23 Fall risk assessment: No Falls in past year Last assessed Fall Risk: 07/27/24 Dental Screening Dental Screen Date: 10/28/23 HPI 3 Month F/U HPI Details 68-year-old female with history of gastric bypass, asthma, GERD last seen by Dr. Chun coming in for follow up. 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 She still continues to have pain in the left ankle as well as diffuse joint pain. [facility] Medical History Arthritis Age-related osteoporosis without current pathological fracture Osteopenia COVID-19 Vitamin D deficiency Vitamin B12 deficiency Syphilis Obesity Asthma GERD (gastroesophageal reflux disease) Osteoarthritis Surgical History Hx of cholecystectomy Hx of section History of section History of appendectomy History of cholecystectomy Hx of gastric bypass History of abdominoplasty H/O gastric bypass Family History Father No problems noted. Mother No problems noted. Social History Housing: Apartment Alcohol intake: former Patient Tobacco Use Status: Never used Tobacco e-Cigarette/Vaping Use: Never Used Second Hand Smoke Exposure: No service: No Current occupational status: employed Cognitive needs: No Hearing needs: No Vision needs: Yes Questionnaire Thrive Questionnaire Date Thrive assessed: 10/28/23 AUDIT C Alcohol Use Questionnaire (AUDIT-C) 1. How often do you have a drink containing alcohol?: Monthly or less 2. How many drinks containing alcohol do you have on a typical day when you are drinking?: 1 or 2 3. How often do you have six or more drinks on one occasion?: Never Total Score: 1 DANY-7 AMB Questionnaire DANY-7 Date DANY - 7 assessed: 10/28/23 Source: Developed by Drs. Timbo Nazario, Ivanna Sol, Kip العراقي and colleagues, with an educational jai from [employer]. Review of Systems Const Denies body aches, Denies chills and Denies fever(s) Eyes Reports no additional complaints ENT Reports no additional complaints Card Denies chest pain, Denies leg edema, Denies lightheadedness and Denies dyspnea Resp Denies dyspnea GI Denies abdominal pain, Denies melena and Denies hematochezia Musc Details: Left ankle pain and diffuse joint pain Skin/Breast Reports system reviewed and no additional complaints, except as documented Physical exam (Primary Care) Vital Signs: Last Vital Signs Pulse 57 07/27/24 10:30 BP 130/72 07/27/24 10:30 Pulse Ox 99 07/27/24 10:30 Oxygen Delivery Method Room Air 07/27/24 10:30 BMI result Body Mass Index 38.7 Tobacco/Smoking Status: Tobacco use Status Tobacco use date assessed 10/28/23 07/27/24 10:31 Patient Tobacco Use Status Never used Tobacco 07/27/24 10:31 Tobacco use type 12/01/23 10:17 e-Cigarette/Vaping Use Never Used 07/27/24 10:31 Thrive Assessment: Date of Thrive Assessment Date Thrive assessed 10/28/23 07/27/24 10:31 Const General: cooperative, healthy appearing, comfortable and no acute distress Orientation/consciousness: patient oriented x3 HENMT Head: Yes normocephalic Ears: hearing grossly normal bilaterally General nose exam: Normal external nose present Eyes General: appearance normal, both eyes and all related structures Conjunctivae: conjunctivae normal Neck Neck: Yes full ROM and Yes no lymphadenopathy Resp Effort & Inspection: normal respiratory effort Auscultation: clear to auscultation bilaterally, no crackles, no rales, no rhonchi and no wheezes Cardio Rate: regular rate Rhythm: regular rhythm Skin General skin exam: no rashes or lesions noted Neuro General: patient oriented x3 Gait exam (Neuro): Normal gait present Extrem General: Yes normal to inspection, Yes full ROM and No edema Psych Affect: normal affect Attitude: cooperative Insight: Good insight present (Psych) Judgement: Good judgement present (Psych) Coding Level of Care Code Est Pt Level 3 (74209) Diagnoses Blood pressure elevated without history of HTN R03.0 Mild intermittent asthma without complication J45.20 Asthma complication type: uncomplicated Asthma persistence: intermittent Asthma severity: mild Gastroesophageal reflux disease without esophagitis K21.9 Esophagitis presence: without esophagitis Morbid obesity E66.01 Acute left ankle pain M25.572 Chronicity: acute Assessment & Plan Assessment & Plan (1) Blood pressure elevated without history of HTN: Code(s): R03.0 - Elevated blood-pressure reading, without diagnosis of hypertension Category: Medical Plan: Blood pressure normal today 130/72. Avoid salt intake and encourage healthy diet and regular exercise. (2) Asthma: Code(s): J45.909 - Unspecified asthma, uncomplicated Category: Medical Qualifiers: Asthma complication type: uncomplicated Asthma persistence: intermittent Asthma severity: mild Qualified Code(s): J45.20 - Mild intermittent asthma, uncomplicated Plan: Asthma currently controlled on present medications. Continue on present medication. Avoid triggers such as allergies. (3) GERD (gastroesophageal reflux disease): Code(s): K21.9 - Gastro-esophageal reflux disease without esophagitis Category: Medical Qualifiers: Esophagitis presence: without esophagitis Qualified Code(s): K21.9 - Gastro-esophageal reflux disease without esophagitis Plan: Avoid trigger foods such as citrus, tomato products, soda, caffeine, spicy foods and other foods that may be irritating to your stomach. Avoid laying flat 3-4 hours after eating and elevate the head of the bed 30 degrees to prevent acid from moving into the esophagus. (4) Morbid obesity: Code(s): E66.01 - Morbid (severe) obesity due to excess calories Category: Surgical Plan: Healthy diet and regular exercise is encouraged. History of gastric bypass. (5) Ankle pain, left: Code(s): M25.572 - Pain in left ankle and joints of left foot Category: Medical Qualifiers: Chronicity: acute Qualified Code(s): M25.572 - Pain in left ankle and joints of left foot Plan: Patient having chronic left ankle pain still in pain today. At last visit was given tramadol and advised to avoid NSAIDs. 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 Patient requesting meloxicam once again. Discussed with patient that NSAIDs increase the risk of bleed and ulceration and patient understands this risk. Discussed we will give her short supply of Celebrex to be used only for breakthrough pain and this medication will not be refilled. Plan This note was constructed using voice recognition software. While every effort has been made to ensure accuracy and manager medical affairs, still areas may have been included sometimes these areas may affect the content or meeting of the given symptoms. Total time spent caring for the patient today was 30 minutes. This includes time spent before the visit reviewing the chart, time spent during the visit, and time spent after the visit and documentation. Medications: New celecoxib 50 mg PO DAILY PRN 14 caps 0RF pain
== END 2024-07-27 10:52 | disposition home or self-care (01) ==
PROVIDERS: PCP Internal Medicine
DX: R03.0 Elevated blood-pressure reading, without diagnosis of hypertension (principal); E66.812 Obesity, class 2; Z68.38 Body mass index [BMI] 38.0-38.9, adult; J45.20 Mild intermittent asthma, uncomplicated; K21.9 Gastro-esophageal reflux disease without esophagitis; M25.572 Pain in left ankle and joints of left foot

== ENCOUNTER → 2024-07-27 10:25 | Outpatient (BNVA) | payer OTHER, SELFPAY | PROVIDERS: PCP Internal Medicine ==

== ENCOUNTER 2024-10-31 09:55 | Outpatient (AMB) | payer OTHER, SELFPAY ==
--- NOTE | 2024-10-31 10:15 | MHC.PC.OV ---
Vital Signs 10/31/24 10:16 Height 5 ft 1 in Weight 209 lb BMI 39.5 BP 136/84 Blood Pressure Location Lt brachial Position Sitting Pulse 57 Pulse Source Pulse Oximeter Pulse Oximetry (%) 96 Oxygen Delivery Method Room Air Intake Visit Reasons: Annual Exam Marketing Operations Consultant Required: No Accompanied by: Self / Same As Patient Allergies morphine [MORPHINE] Allergy (Unknown, Verified 10/31/24 10:17) VOMITING AND SHAKING MORPHINE Allergy (Mild, Uncoded 10/31/24 10:17) Nausea and Vomiting Medication List - Last Reconciled 10/31/24 by Harry Chun MD albuterol sulfate 90 mcg/actuation 2 puffs PO Q4H PRN calcium carbonate (Calcium 500) 1,000 mg PO DAILY celecoxib 50 mg PO DAILY PRN cholecalciferol (vitamin D3) 25 mcg PO DAILY cyanocobalamin (vitamin B-12) 1,000 mcg orally once a week; iron,carbonyl-vitamin C 65 mg iron- 125 mg (Vitron-C) 1 tab PO BEDTIME melatonin 5 mg PO BEDTIME omeprazole 20 mg PO DAILY psyllium 1 packet PO DAILY zinc gluconate 30 mg PO DAILY 90 days Tobacco use date assessed: 10/31/24 Fall risk assessment: No Falls in past year Last assessed Fall Risk: 10/31/24 Dental Screening Dental Screen Date: 10/31/24 Did you have a dental visit in the last 12 months?: Yes Did you have a dental problem in the last 6 months where you did not have access to dental care?: No Was dental information given to patient?: Patient has dentist HPI Annual Exam HPI Details The patient is a 69-year-old female presenting with osteoarthritis of the left ankle for which she has been experiencing persistent discomfort. The issue first became apparent following imaging that confirmed the presence of arthritis and a concurrent bunion. Pain management has been primarily through Celecoxib, which she reports as helpful but not curative. Tramadol was prescribed but discontinued due to adverse effects impacting her ability to drive. She infrequently uses Voltaren gel for pain relief. Anemia was identified in previous lab work, characterized by a hemoglobin count of 11.5 g/dL, slightly below the normal threshold, though the condition remains stable. 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 GERD symptoms are reportedly managed with Omeprazole, with occasional heartburn when dietary triggers are consumed. 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, which impacts hydration due to limited bathroom access during work hours - Occasionally consumes alcohol, approximately three times a year during holidays - Denies cigarette use - Reports driving as a hindrance to medication adherence - Musculoskeletal: Reports pain in the left ankle - Gastrointestinal: Denies nausea; reports heartburn with dietary triggers - Genitourinary: Reports waking up once at night to urinate - Dermatological: Denies rashes or lesions - Neurological: Denies changes in vision or hearing - General: Denies fatigue or fever - Labs: - Hemoglobin: 11.5 g/dL indicating mild anemia - BUN: 28 indicating dehydration PFSH Medical History (Updated 10/31/24 @ 10:42 by Harry Chun MD) Dysgeusia Arthritis Age-related osteoporosis without current pathological fracture Osteopenia COVID-19 Vitamin D deficiency Vitamin B12 deficiency Syphilis Obesity Asthma GERD (gastroesophageal reflux disease) Osteoarthritis Surgical History Hx of cholecystectomy Hx of section History of section History of appendectomy History of cholecystectomy Hx of gastric bypass History of abdominoplasty H/O gastric bypass Family History Father No problems noted. Mother No problems noted. Social History (Updated 10/31/24 @ 10:48 by Harry Chun MD) Housing: Apartment Alcohol intake: current Comment: holidays 2 beers Patient Tobacco Use Status: Never used Tobacco e-Cigarette/Vaping Use: Never Used Second Hand Smoke Exposure: No service: No Current occupational status: employed Cognitive needs: No Hearing needs: No Vision needs: Yes Questionnaire PHQ-9 Over the last 2 weeks, how often have you been bothered by any of the following problems? 1. Little interest or pleasure in doing things: not at all 2. Feeling down, depressed, or hopeless: not at all 3. Trouble falling or staying asleep, or sleeping too much: not at all 4. Feeling tired or having little energy: not at all 5. Poor appetite or overeating: not at all 6. Feeling bad about yourself - or that you are a failure or have let yourself or your family down: not at all 7. Trouble concentrating on things, such as reading the newspaper or watching television: not at all 8. Moving or speaking so slowly that other people could have noticed. Or the opposite - being so fidgety or restless that you have been moving around a lot more than usual: nearly every day 9. Thoughts that you would be better off or of hurting yourself in some way: not at all Total score: 3 Source: Developed by Drs. Timbo Nazario, Ivanna Sol, Kip العراقي and colleagues, with an educational jai from [employer]. Thrive Questionnaire Date Thrive assessed: 10/31/24 I am a: Patient What is your living situation today?: I choose not to answer this question Within the past 12 months, did the food you bought not last and you didn't have the money to get more?: I choose not to answer this question Within the past 12 months, did you worry whether your food would run out before you got money to buy more?: I choose not to answer this question Do you have trouble paying for medicines?: No Do you have trouble getting transportation to medical appointments?: Yes Do you have trouble paying your heating and electricity bill?: No Do you have trouble taking care of your child, family member or friend?: No Do you have trouble with day-to-day activities such as bathing, preparing meals, shopping, managing finances, etc.?: No Are you currently unemployed and looking for a job?: No Are you interested in more education?: No Please select the resources that you would like help with: None Currently or been in a relationship where the following occur: No concerns reported THRIVE Score: 1 AUDIT C Alcohol Use Questionnaire (AUDIT-C) 1. How often do you have a drink containing alcohol?: Monthly or less 2. How many drinks containing alcohol do you have on a typical day when you are drinking?: 1 or 2 3. How often do you have six or more drinks on one occasion?: Never Total Score: 1 DANY-7 AMB Questionnaire DANY-7 Date DANY - 7 assessed: 10/31/24 Feeling nervous, anxious, or on edge: 0 = Not at all Not being able to stop or control worryin = Not at all Worrying too much about different things: 0 = Not at all Trouble relaxin = Not at all Being so restless that it is hard to sit still: 0 = Not at all Becoming easily annoyed or irritable: 0 = Not at all Feeling afraid as if something awful might happen: 0 = Not at all Total DANY-7 score (0-4 normal; 5-9 mild; 10-14 moderate; 15-21 severe): 0 Source: Developed by Drs. Timbo Nazario, Ivanna Sol, Kip العراقي and colleagues, with an educational jai from [employer]. Review of Systems Const Denies poor appetite and Denies weakness Eyes Denies no additional complaints ENT Reports Normal hearing present, Denies dizziness, Denies nasal congestion, Denies tinnitus and Denies sore throat Card Denies chest pain, Denies syncope, Denies rapid heart rate and Denies dyspnea Resp Denies cough and Denies dyspnea GI Denies change in stool character, Reports constipation, Denies diarrhea, Denies nausea and Denies vomiting Denies urinary frequency, Denies difficulty voiding and Denies dysuria Neuro Reports Normal hearing present, Denies confusion, Denies dizziness, Denies syncope and Denies weakness Psych Denies confusion Physical exam (Primary Care) Vital Signs: Last Vital Signs Pulse 57 10/31/24 10:16 BP 136/84 10/31/24 10:16 Pulse Ox 96 10/31/24 10:16 Oxygen Delivery Method Room Air 10/31/24 10:16 BMI result Body Mass Index 39.5 Tobacco/Smoking Status: Tobacco use Status Tobacco use date assessed 10/31/24 10/31/24 10:23 Patient Tobacco Use Status Never used Tobacco 10/31/24 10:15 Tobacco use type 12/01/23 10:17 e-Cigarette/Vaping Use Never Used 10/31/24 10:15 PHQ-9: PHQ-9 Score PHQ-9: Total score 3 10/31/24 10:23 Thrive Assessment: Date of Thrive Assessment Date Thrive assessed 10/31/24 10/31/24 10:15 Currently or been in a relationship where the following occur: No concerns reported Const General: No confusion Orientation/consciousness: No confusion HENMT Head: Yes normocephalic Ears: external ears normal and TM's normal bilaterally Face and sinus: Yes normal facial exam Mouth: moist mucous membranes Throat: Yes tonsils normal Eyes Conjunctivae: conjunctivae normal Pupils: Equal, round and reactive pupils present and Pupil accommodation reflex normal Direct Ophthalmoscopy: normal light reflex Neck Neck: No lymphadenopathy Thyroid: Thyroid normal Chest Chest palpation & inspection: normal inspection of the chest Resp Effort & Inspection: normal respiratory effort and no audible wheezes Auscultation: clear to auscultation bilaterally, no crackles, no wheezes and lung sounds not diminished Cardio Rate: regular rate Rhythm: regular rhythm Peripheral pulses: radial pulses present and dorsalis pedis present GI Palpation (GI): no masses Auscultation: normal bowel sounds and normoactive bowel sounds Rectal Exam - Female: deferred Skin General skin exam: no rashes or lesions noted Rashes: no rashes Neuro General: No confusion Cranial nerves: Yes Equal, round and reactive pupils present and Yes Normal hearing present Cognition (Neuro): normal cognition Gait exam (Neuro): Normal gait present Motor exam (neuro): 5/5 motor strength present throughout Deep tendon reflexes (DTR's): Right brachioradialis reflex intensity grade: 2+, Left brachioradialis reflex intensity grade: 2+, Right patellar reflex intensity grade: 2+ and Left patellar reflex intensity grade: 2+ Extrem General: No edema Coding Level of Care Code Est Pt Prev Care >65y(58883) Diagnoses Annual physical exam Z00.00 Anemia, unspecified type D64.9 Anemia type: unspecified type Osteopenia M85.80 H/O gastric bypass Z98.84 Gastroesophageal reflux disease without esophagitis K21.9 Esophagitis presence: without esophagitis Mild intermittent asthma without complication J45.20 Asthma severity: mild Asthma persistence: intermittent Asthma complication type: uncomplicated Class 3 severe obesity due to excess calories with serious comorbidity and body mass index (BMI) of 40.0 to 44.9 in adult E66.01; Z68.41 Obesity type: due to excess calories Obesity classification: adult class 3 (BMI >= 40) Serious obesity comorbidity presence: with serious comorbidity Body mass index: BMI 40.0-44.9 Breast cancer screening by mammogram Z12. Acute left ankle pain M25.572 Chronicity: acute Assessment & Plan Assessment & Plan (1) Annual physical exam: Code(s): Z00.00 - Encounter for general adult medical examination without abnormal findings Category: Medical (2) Anemia: Code(s): D64.9 - Anemia, unspecified Category: Medical Qualifiers: Anemia type: unspecified type Qualified Code(s): D64.9 - Anemia, unspecified (3) Osteopenia: Comment: October 2022 Code(s): M85.80 - Other specified disorders of bone density and structure, unspecified site Category: Medical (4) H/O gastric bypass: Comment: 2002 - open procedure Code(s): Z98.84 - Bariatric surgery status Category: Surgical (5) GERD (gastroesophageal reflux disease): Code(s): K21.9 - Gastro-esophageal reflux disease without esophagitis Category: Medical Qualifiers: Esophagitis presence: without esophagitis Qualified Code(s): K21.9 - Gastro-esophageal reflux disease without esophagitis (6) Asthma: Code(s): J45.909 - Unspecified asthma, uncomplicated Category: Medical Qualifiers: Asthma severity: mild Asthma persistence: intermittent Asthma complication type: uncomplicated Qualified Code(s): J45.20 - Mild intermittent asthma, uncomplicated (7) Obesity: Code(s): E66.9 - Obesity, unspecified Category: Medical Qualifiers: Obesity type: due to excess calories Obesity classification: adult class 3 (BMI >= 40) Serious obesity comorbidity presence: with serious comorbidity Body mass index: BMI 40.0-44.9 Qualified Code(s): E66.01 - Morbid (severe) obesity due to excess calories; Z68.41 - Body mass index [BMI]40.0-44.9, adult (8) Breast cancer screening by mammogram: Code(s): Z12.31 - Encounter for screening mammogram for malignant neoplasm of breast Category: Medical (9) Ankle pain, left: Code(s): M25.572 - Pain in left ankle and joints of left foot Category: Medical Qualifiers: Chronicity: acute Qualified Code(s): M25.572 - Pain in left ankle and joints of left foot Plan - Continue Celecoxib for osteoarthritis pain management. - Recommend Voltaren gel for additional symptomatic relief. - Referral to podiatry for evaluation and management of bunion. - Ensure adequate hydration to address mild dehydration. - Continue surveillance of anemia through regular blood work. - Encourage adherence to GERD dietary modifications to mitigate symptom flare-ups. - Schedule mammogram and bone density screening as indicated. We reviewed the patient's current treatment plan for osteoarthritis, including ongoing use of Celecoxib, its benefits, and the addition of Voltaren gel for pain relief. Risks and benefits of medications were discussed, especially avoiding Tramadol due to adverse effects. We confirmed plans for consultation with podiatry regarding the bunion. The importance of hydration was emphasized to prevent further dehydration. Routine follow-up lab tests for anemia and subsequent management were also highlighted. Preventative screenings including mammography and bone density were addressed, ensuring the patient is aware of her due dates for these screenings. We revisited dietary habits impacting GERD management and ensured vaccination status was up to date. Follow-up discussions included instructions to contact the office with any arising concerns, especially regarding her pain management or medication side effects. - Continue taking Celecoxib as prescribed. - Apply Voltaren gel as directed for left ankle discomfort. - Maintain hydration, aiming for increased daily water intake. - Follow GERD dietary recommendations to prevent heartburn incidents. - Arrange scheduled mammogram and bone density test appointments. - Monitor for any new or worsening symptoms and report them promptly. Orders: Orders XR DEXA axial skeleton Today M81.0 - Age-related osteoporosis without current pathological fracture, M85.80 - Other specified disorders of bone density and structure, unspecified site Comprehensive Met. Panel 6 Months K21.9 - Gastro-esophageal reflux disease without esophagitis Thyroid Stimulating Hormone 6 Months K21.9 - Gastro-esophageal reflux disease without esophagitis Vitamin B12 and Folate 6 Months K21.9 - Gastro-esophageal reflux disease without esophagitis Complete Blood Count Auto Diff 6 Months K21.9 - Gastro-esophageal reflux disease without esophagitis Free T4 (Free Thyroxine) 6 Months K21.9 - Gastro-esophageal reflux disease without esophagitis Ferritin 6 Months K21.9 - Gastro-esophageal reflux disease without esophagitis Reticulocyte Count 6 Months K21.9 - Gastro-esophageal reflux disease without esophagitis Lipid Panel 6 Months E78.00 - Pure hypercholesterolemia, unspecified, K21.9 - Gastro-esophageal reflux disease without esophagitis Vitamin D 25-OH Total 6 Months K21.9 - Gastro-esophageal reflux disease without esophagitis IRON PROFILE 6 Months K21.9 - Gastro-esophageal reflux disease without esophagitis Referrals Podiatry Referral M25.572 - Pain in left ankle and joints of left foot
[2024-10-31 10:16] VITALS: BP 136/84; PULSE 57; O2SAT 96; BMI 39.5
--- OUTSIDE RECORDS SUMMARY | 2024-10-31 11:09 | XMS_ITS | Patient Health Record ---
Author Organization [facility] Address [address] [place] [address] Care Team Providers Care Learning And Development Manager Name Role Phone Harry Chun MD Primary Care Provider Unavailabl e Kerwin Damian Jr Unavailable ALLERGIES Allergen (clinical drug ingredient) Drug/Non Drug Allergy documented on EMR Reaction Allergy Type Onset Date Status morphine Morphine Unknown Drug Allergy Active REASON FOR REFERRAL No Information MEDICATIONS Medication SIG (Take, Route, Frequency, Duration) Notes Start Date End Date Status Meloxicam 15 MG TAKE 1 TABLET BY SHE TH DAILY Oral for 90 M1990,Unavailabl e Active traMADol HCl 50 MG Oral for 4 Active Ondansetron 4 MG DISSOLVE 1 TABLET ON THE TONGUE EVERY 8 HOURS NEEDED FOR NAUSEA OR VOMITING Oral for 6 Active Melatonin 5 MG Oral for 30 Act rogerio Omeprazole 20 MG Oral for 90 A ctive traZODone HCl 50 MG TAKE 1/2 TABLET BY MOUTH AT BEDTIME NEEDED FOR SLEEP Oral for 60 G4700,Unavailabl e Active IMMUNIZATIONS Vaccine Route Administration Date Status Comme nts Influenza Unknown 07/17/2023 Administered SOCIAL HISTORY Tobacco Use: Social History Observation Description Date Details (start date - stop date) Never Smoker NA - NA Sex Assigned At : Social History Observation Description Sex Assigned At Unknown Tobacco Use/Smoking Question Answer Notes Patient is a nonsmoker Alcohol Screen Question Answer Notes Did you have a drink contain ing alcohol in the past year? Yes How often did you have a dri nk containing alcohol in the past year? Monthly or less (1 point) How many drinks did you have on a typical day when you were drinking in the past year? 1 or 2 drinks (0 point) How often did you have 6 or more drinks on one occasion in the past year? 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 [address] [place] [address] [id number] BERRY LEE Self - patient is the insured MEDICAL (GENERAL) HISTORY Medical History History ICD Code Elevated body mass index Osteoarthritis Gastroesophageal reflux disease Osteoporosis History of syphilis Insomnia Colonoscopy several years ago, records a re not available Surgical History Surgery Date(Month/Year) Gastric bypass surgery section Appendectomy Panniculectomy
--- OUTSIDE RECORDS SUMMARY | 2024-10-31 11:09 | XMS_ITS ---
Author Organization [facility] Address [address] [place] [phone] Care Team Providers Care Teacher Drama Name Role Phone Harry Chun MD Primary Care Provider Kerwin Tang Jr REASON FOR VISIT MRI Encounters Encounter Location Date Provider Diagnosis [facility] [address] [place] [phone] 10/13/2023 Kerwin Damian Jr PLAN OF TREATMENT No Information
--- OUTSIDE RECORDS SUMMARY | 2024-10-31 11:09 | XMS_ITS ---
Author Organization [facility] Address [address] [place] [phone] Care Team Providers Care Men'S Golf Coach Name Role Phone Po Harry ROD Primary Care Provider Kerwin Tang Jr REASON FOR VISIT didn't do test Encounters Encounter Location Date Provider Diagnosis [facility] [address] [place] [phone] 09/21/2023 Kerwin Damian Jr PLAN OF TREATMENT No Information
--- OUTSIDE RECORDS SUMMARY | 2024-10-31 11:09 | XMS_ITS ---
Author Organization [facility] Address [address] [place] [address] Care Team Providers Care Terminal Worker Name Role Phone Po Harry ROD Primary Care Provider Kerwin Tang Jr [phone] REASON FOR VISIT mario, epigastric pain Encounters Encounter Location Date Provider Diagnosis [facility] [address] [place], [place] [phone] 2023 Kerwin Damian Jr PLAN OF TREATMENT No Information
== END 2024-10-31 11:03 | disposition home or self-care (01) ==
PROVIDERS: PCP Internal Medicine; Visit Provider Internal Medicine
DX: Z00.00 Encounter for general adult medical examination without abnormal findings (principal); E66.01 Morbid (severe) obesity due to excess calories; D64.9 Anemia, unspecified; Z68.41 Body mass index [BMI] 40.0-44.9, adult; M85.80 Other specified disorders of bone density and structure, unspecified site; Z98.84 Bariatric surgery status; K21.9 Gastro-esophageal reflux disease without esophagitis; J45.20 Mild intermittent asthma, uncomplicated; Z12.31 Encounter for screening mammogram for malignant neoplasm of breast; M25.572 Pain in left ankle and joints of left foot

== ENCOUNTER → 2024-10-31 09:55 | Outpatient (BNVA) | payer OTHER, SELFPAY | PROVIDERS: PCP Internal Medicine; Visit Provider Internal Medicine ==

== ENCOUNTER 2024-12-13 11:18 | Outpatient (REF) | payer OTHER, SELFPAY ==
--- NOTE | ~2024-12-13 | MM_ITS ---
EXAMINATION: DXA BONE DENSITY AXIAL HISTORY: Estrogen deficiency TECHNIQUE: Helpa Dual energy absorptiometry (DEXA) of the lumbar spine, total left hip, and femoral neck was performed. COMPARISON: Comparison is made with the prior examination dated 11/04/2022. FINDINGS: The bone mineral density of the lumbar spine is 0.939 with a T-score of -2.2, and a Z-score of -1.5. This represents a BMD change of -4.4% compared to the prior exam. This is statistically significant. The bone mineral density of the left total hip is 0.750 with a T-score of -2.0, and a Z-score of -1.4. This represents BMD change of -14.0% compared to the prior exam. This is statistically significant. The bone mineral density of the left femoral neck is 0.798 with a T-score of -1.7, and a Z-score of -0.8. This represents BMD change of -11.9% compared to the prior exam. FRACTURE RISK: The FRAX index suggests a ten year probability of major osteoporotic fracture of 8.5%, and of hip fracture 1.1%. MM/XR DEXA axial skeleton IMPRESSION: Based on bone mineral density, and according to World Health Organization (WHO) criteria, the diagnosis is consistent with osteopenia. All bone density values are in grams per centimeter squared (g/cm2). Statistically, 68% of repeat scans fall within 1 SD (+/- 0.010 g/cm2 for AP spine L1-L4) and 1 SD (+/- 0.012 g/cm2 for femur total) FRAX is a trademark of the [employer]'s [place] for Metabolic Bone Disease, a World Health Organization (WHO) Collaborating Center. Electronically signed by: Timbo Farris MD 12/15/2024 07:37 AM EST
--- OUTSIDE RECORDS SUMMARY | 2024-12-13 13:43 | XMS_ITS | Patient Health Record ---
Author Organization [facility] Address [address] [place] [address] Care Team Providers Care Weaver Hand Name Role Phone Harry Chun MD Primary Care Provider Unavailabl e Kerwin Damian Jr Unavailable Allergies Allergen (clinical drug ingredient) Drug/Non Drug Allergy documented on EMR Reaction Allergy Type Onset Date Status morphine Morphine Unknown Drug Allergy Active Reason For Referral No Information Medications Medication SIG (Take, Route, Frequency, Duration) Notes [...] SLEEP Oral for 60 G4700,Unavailabl e Active Immunizations Vaccine Route Administration Date Status Comme nts Influenza Unknown 07/17/2023 Administered Social History Tobacco Use: Social History Observation Description Date Details (start date - stop date) Never Smoker NA - NA Tobacco Use/Smoking Question Answer Notes Patient is [...] Never (0 point) Points 1 Interpretation Negative Problems Problem Type SNOMED Code ICD Code Onset Dates Problem Status W/U Status Risk Notes Problem 64693449 Epigastric pain (R10.13) Active confirmed Problem 399401138 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 [address] [place] [address] [id number] BERRY LEE Self - patient is the insured Medical (General) History Medical History History ICD Code Elevated body mass index Osteoarthritis Gastroesophageal reflux disease Osteoporosis History of syphilis Insomnia Colonoscopy several years ago, records a re not available Surgical History Surgery Date(Month/Year) Gastric bypass surgery section Appendectomy Panniculectomy
--- OUTSIDE RECORDS SUMMARY | 2024-12-13 13:43 | XMS_ITS ---
Author Organization [facility] Address [address] [place] [phone] Care Team Providers Care Engineering Test Specialist Name Role Phone Harry Chun MD Primary Care Provider Luis Damian Jr, Kerwin Cano REASON FOR VISIT didn't do test Encounters Encounter Location Date Provider Diagnosis [facility] [address] [place] [phone] 09/21/2023 Kerwin Damian Jr Plan Of Treatment No Information Progress Notes * ARUN LEEJASONOB: 6 (68 yo F)Acc No.[id number]:09/21/2023 Patient:?BERRY LEE :1955???Age:68 Y???Sex:Female Address:[address] [place] [phone] * true * Date:? Generated for Umesh grant/Toni/eTransmitting on:?12/13/2024 01:42 PM EST
--- OUTSIDE RECORDS SUMMARY | 2024-12-13 13:43 | XMS_ITS ---
Author Organization [facility] Address [address] [place] [address] Care Team Providers Care Park Services Specialist Name Role Phone Harry Chun MD Primary Care Provider Luis Damian Jr, Kerwin Cano REASON FOR VISIT mario, epigastric pain Encounters Encounter Location Date Provider Diagnosis [facility] [place] [facility] [address] [place] [id number] 2023 Kerwin Damian Jr Plan Of Treatment No Information Progress Notes * LETTY LEEOB: 6 (69 yo F)Acc No.[id number] EGD/MAC Patient:?BERRY LEE Provider:?Kerwin Damian MD :[id number]???Age:68 Y???Sex:Female D ate:2023 Address:[address] [place], [place] [id number] Pcp:Harry Chun MD Subjective: * Chief Complaints: * ???1. Mario, epigastric pain. * Medical History:? Objective: * Vitals:? Assessment: Plan: * Treatment: * * The named appointment provid er may or may not be the originator of this progress note, and it is not deemed complete until electronically signed by the appointment provider. Sign off status: Pending * Provider:?Kerwin Damian MD Date:?1 11/18/2022 Generated for Monicai rudy/Toni/eTransmitting on:?12/13/2024 01:42 PM EST
== END 2024-12-13 11:19 | disposition home or self-care (01) ==
LOC: HO.MAMMO 11:18
PROVIDERS: PCP Internal Medicine; Visit Provider Internal Medicine
DX: Z12.31 Encounter for screening mammogram for malignant neoplasm of breast (principal); M81.0 Age-related osteoporosis without current pathological fracture; M85.80 Other specified disorders of bone density and structure, unspecified site
CPT/HCPCS: 77063; 77067; 77080

== ENCOUNTER → 2024-12-13 11:30 | Outpatient (BNV) | payer OTHER, SELFPAY | PROVIDERS: PCP Internal Medicine; Visit Provider Radiology Diagnostic Radiology | DX: Z12.31 Encounter for screening mammogram for malignant neoplasm of breast (principal) | CPT/HCPCS: 77063; 77067 ==

== ENCOUNTER 2025-04-24 07:50 | Outpatient (REF) | payer OTHER, SELFPAY ==
--- OUTSIDE RECORDS SUMMARY | 2025-04-24 07:54 | XMS_ITS | Patient Health Record ---
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 [address] [place] [address] [id number] BERRY LEE Self - patient is the insured Medical (General) History Medical History History ICD Code Elevated body mass index Osteoarthritis Gastroesophageal reflux disease Osteoporosis History of syphilis Insomnia Colonoscopy several years ago, records a re not available Surgical History Surgery Date(Month/Year) Gastric bypass surgery section Appendectomy Panniculectomy
[2025-04-24 08:04] LABS: MANUAL DIFF FLAG NO
[2025-04-24 08:51] LABS: Hematocrit 37.8 % (37.0-47.0); Hemoglobin 11.8 g/dl (12.0-16.0); Imm Gran Abs Auto 0.01 X10*3/uL (0.00-0.03); Imm Gran Pct Auto 0.2 % (0.0-0.4); Lymphocytes Absolute Auto 1.9 X10*3/uL (1.2-4.9); Mean Corpuscular HGB Conc 31.2 g/dl (31.0-35.0); Mean Corpuscular Hemoglobin 27.5 pg (27.0-33.0); Mean Corpuscular Volume 88.1 fL (80.0-98.0); NRBC Abs Auto 0.000 X10*3/uL (0.0-0.012); NRBC Pct Auto 0.0 /100WBC (0.0-0.2); Platelet Count 261 X10*3/uL (160-400); Red Blood Count 4.29 X10*6/uL (4.20-5.50); Reticulocytes Absolute 0.055 X10*6/uL (0.026-0.095); White Blood Count 5.5 X10*3/uL (4.8-10.8)
[2025-04-24 09:25] LABS: Alanine Aminotransferase 16 U/L (0-31); Albumin Level 4.0 g/dL (3.5-5.0); Alkaline Phosphatase 82 U/L (39-117); Anion Gap 8 (12-20); Aspartate Amino Transferase 25 U/L (5-31); Blood Urea Nitrogen 22 mg/dL (9-16); Calcium 8.8 mg/dL (8.4-10.2); Carbon Dioxide 29 mmol/L (22-29); Chloride 112 mmol/L (96-108); Cholesterol 165 mg/dL (<200); Estimated Glomerular Filt Rate > 60; HDL Cholesterol 71 mg/dL (>40); Iron 88 mcg/dL (30-160); Percent Iron Saturation 26 % (15-50); Potassium 4.3 mmol/L (3.3-5.1); Sodium 145 mmol/L (135-145); Total Iron Binding Capacity 340 mcg/dL (228-428); Total Protein 6.9 g/dL (6.5-8.0); Triglycerides 41 mg/dL (<150); Unsaturated Iron Binding 252 ug/dL
[2025-04-24 09:44] LABS: Folate 8.6 ng/mL (> or = 4.0); Vitamin B12 828 pg/mL (200-900)
[2025-04-24 09:47] LABS: Ferritin 12 ng/mL (10-250); Free T4 (Free Thyroxine) 1.06 ng/dL (0.71-1.85); Thyroid Stimulating Hormone 0.57 uIU/mL (0.32-4.0)
== END 2025-04-24 07:51 | disposition home or self-care (01) ==
LOC: HO.LAB 07:50
PROVIDERS: PCP Internal Medicine; Visit Provider Internal Medicine
DX: K21.9 Gastro-esophageal reflux disease without esophagitis (principal); E78.00 Pure hypercholesterolemia, unspecified
CPT/HCPCS: 36415; 80053; 80061; 82306; 82607; 82728; 82746; 83540; 84439; 84443; 85025; 85045

== ENCOUNTER 2025-04-30 09:14 | Outpatient (AMB) | payer OTHER, SELFPAY ==
[2025-04-30 09:27] VITALS: BP 128/70; PULSE 75; TEMP 36.4; O2SAT 98; BMI 40.5
--- NOTE | 2025-04-30 09:27 | A.OFFPC_ITS ---
Vital Signs 04/30/25 09:27 Height 5 ft 1 in Weight 214 lb 4 oz BMI 40.5 BP 128/70 Blood Pressure Location Lt brachial Position Sitting Pulse 75 Pulse Source Pulse Oximeter Temp 97.5 F Temp Source Temporal Artery Scan Pulse Oximetry (%) 98 Oxygen Delivery Method Room Air Intake Visit Reasons: gerd, asthma Allergies morphine (MORPHINE) Allergy (Unknown, Verified 04/30/25 09:30) VOMITING AND SHAKING MORPHINE Allergy (Mild, Uncoded 04/30/25 09:30) Nausea and Vomiting Medication List - Last Reconciled 04/30/25 by Harry Chun MD albuterol sulfate 90 mcg/actuation 2 puffs PO Q4H PRN calcium carbonate (Calcium 500) 1,000 mg PO DAILY cholecalciferol (vitamin D3) 25 mcg PO DAILY cyanocobalamin (vitamin B-12) 1,000 mcg orally once a week; iron,carbonyl-vitamin C 65 mg iron- 125 mg (Vitron-C) 1 tab PO BEDTIME melatonin 5 mg PO BEDTIME omeprazole 20 mg PO DAILY psyllium 1 packet PO DAILY zinc gluconate 30 mg PO DAILY 90 days Tobacco use date assessed: 04/30/25 Fall risk assessment: No Falls in past year Last assessed Fall Risk: 04/30/25 Dental Screening Dental Screen Date: 04/30/25 Did you have a dental visit in the last 12 months?: Yes Did you have a dental problem in the last 6 months where you did not have access to dental care?: No Was dental information given to patient?: Patient has dentist [facility] Medical History Dysgeusia Arthritis Age-related osteoporosis without current pathological fracture Osteopenia COVID-19 Vitamin D deficiency Vitamin B12 deficiency Syphilis Obesity Asthma GERD (gastroesophageal reflux disease) Osteoarthritis Surgical History Hx of cholecystectomy Hx of section History of section History of appendectomy History of cholecystectomy Hx of gastric bypass History of abdominoplasty H/O gastric bypass Family History Father No problems noted. Mother No problems noted. Social History Housing: Apartment Alcohol intake: current Comment: holidays 2 beers Patient Tobacco Use Status: Never used Tobacco e-Cigarette/Vaping Use: Never Used Second Hand Smoke Exposure: No service: No Current occupational status: employed Cognitive needs: No Hearing needs: No Vision needs: Yes Questionnaire PHQ-9 Over the last 2 weeks, how often have you been bothered by any of the following problems? 1. Little interest or pleasure in doing things: not at all 2. Feeling down, depressed, or hopeless: not at all 3. Trouble falling or staying asleep, or sleeping too much: not at all 4. Feeling tired or having little energy: not at all 5. Poor appetite or overeating: not at all 6. Feeling bad about yourself - or that you are a failure or have let yourself or your family down: not at all 7. Trouble concentrating on things, such as reading the newspaper or watching television: not at all 8. Moving or speaking so slowly that other people could have noticed. Or the opposite - being so fidgety or restless that you have been moving around a lot more than usual: nearly every day 9. Thoughts that you would be better off or of hurting yourself in some way: not at all Total score: 3 Source: Developed by Drs. Timbo Nazario, Ivanna Sol, Kip العراقي and colleagues, with an educational jai from [employer]. Thrive Questionnaire Date Thrive assessed: 10/31/24 I am a: Patient What is your living situation today?: I choose not to answer this question Within the past 12 months, did the food you bought not last and you didn't have the money to get more?: I choose not to answer this question Within the past 12 months, did you worry whether your food would run out before you got money to buy more?: I choose not to answer this question Do you have trouble paying for medicines?: No Do you have trouble getting transportation to medical appointments?: Yes Do you have trouble paying your heating and electricity bill?: No Do you have trouble taking care of your child, family member or friend?: No Do you have trouble with day-to-day activities such as bathing, preparing meals, shopping, managing finances, etc.?: No Are you currently unemployed and looking for a job?: No Are you interested in more education?: No Please select the resources that you would like help with: None THRIVE Score: 1 AUDIT C Alcohol Use Questionnaire (AUDIT-C) 1. How often do you have a drink containing alcohol?: Monthly or less 2. How many drinks containing alcohol do you have on a typical day when you are drinking?: 1 or 2 3. How often do you have six or more drinks on one occasion?: Never Total Score: 1 DANY-7 AMB Questionnaire DANY-7 Date DANY - 7 assessed: 10/31/24 Feeling nervous, anxious, or on edge: 0 = Not at all Not being able to stop or control worryin = Not at all Worrying too much about different things: 0 = Not at all Trouble relaxin = Not at all Being so restless that it is hard to sit still: 0 = Not at all Becoming easily annoyed or irritable: 0 = Not at all Feeling afraid as if something awful might happen: 0 = Not at all Total DANY-7 score (0-4 normal; 5-9 mild; 10-14 moderate; 15-21 severe): 0 Source: Developed by Drs. Timbo Nazario, Ivanna Sol, Kip العراقي and colleagues, with an educational jai from [employer]. Physical exam (Primary Care) Vital Signs: Last Vital Signs Temp 97.5 F 04/30/25 09:27 Pulse 75 04/30/25 09:27 BP 128/70 04/30/25 09:27 Pulse Ox 98 04/30/25 09:27 Oxygen Delivery Method Room Air 04/30/25 09:27 BMI result Body Mass Index 40.5 Tobacco/Smoking Status: Tobacco use Status Tobacco use date assessed 04/30/25 04/30/25 09:32 Patient Tobacco Use Status Never used Tobacco 04/30/25 09:32 Tobacco use type 12/01/23 10:17 e-Cigarette/Vaping Use Never Used 04/30/25 09:32 PHQ-9: PHQ-9 Score PHQ-9: Total score 3 04/30/25 09:39 Thrive Assessment: Date of Thrive Assessment Date Thrive assessed 10/31/24 04/30/25 09:32 Const General: alert; No acute distress Eyes Conjunctivae: conjunctivae normal Resp Auscultation: clear to auscultation bilaterally Cardio Rate: regular rate Rhythm: regular rhythm GI Inspection: Yes normal to inspection Extrem General: Yes normal to inspection and No edema Coding Level of Care Code Est Pt Level 4 (35703) Complex EM visit Add On G2211 Diagnoses H/O gastric bypass Z98.84 Morbid obesity E66.01 Anemia, unspecified type D64.9 Anemia type: unspecified type Mild intermittent asthma without complication J45.20 Asthma complication type: uncomplicated Asthma persistence: intermittent Asthma severity: mild Gastroesophageal reflux disease without esophagitis K21.9 Esophagitis presence: without esophagitis Assessment & Plan Assessment & Plan (1) H/O gastric bypass: Comment: 2002 - open procedure Code(s): Z98.84 - Bariatric surgery status Category: Surgical Plan: Continue to follow-up with bariatric (2) Morbid obesity: Code(s): E66.01 - Morbid (severe) obesity due to excess calories Category: Surgical Plan: Diet and exercise (3) Anemia: Code(s): D64.9 - Anemia, unspecified Category: Medical Qualifiers: Anemia type: unspecified type Qualified Code(s): D64.9 - Anemia, unspecified Plan: Discussed the need of iron to help with blood count (4) Asthma: Code(s): J45.909 - Unspecified asthma, uncomplicated Category: Medical Qualifiers: Asthma complication type: uncomplicated Asthma persistence: intermittent Asthma severity: mild Qualified Code(s): J45.20 - Mild intermittent asthma, uncomplicated Plan: Patient on albuterol inhaler as needed (5) GERD (gastroesophageal reflux disease): Code(s): K21.9 - Gastro-esophageal reflux disease without esophagitis Category: Medical Qualifiers: Esophagitis presence: without esophagitis Qualified Code(s): K21.9 - Gastro-esophageal reflux disease without esophagitis Plan: Avoid the foods that causes that usually spicy foods, tomato products, juices, coffee, soda and foods that your sensitive to. After eating do not lie down, allow 3-4 hours before in lie down. And keep the head of bed above 30 degrees to avoid the acid from going up. Plan History of Present Illness The patient is a 69-year-old female presenting for a follow-up visit. The patient has a history of morbid obesity and has noted a 5-pound weight gain since October. She underwent gastric bypass surgery in 2002 and continues to follow up with bariatrics, focusing on diet and exercise. The patient has gastroesophageal reflux disease (GERD) and continues to manage it with Prilosec taken every morning. The patient has a history of asthma and uses an albuterol inhaler as needed. The patient has osteopenia, with the last bone density test in December 2024 showing a 4% decrease in spine density and a 14% decrease in hip density. Calcium and vitamin D are emphasized for bone health, and the patient is aware of medication options to strengthen bones, though they have potential side effects. The patient has mild anemia with a hemoglobin level of 11.8 g/dL and a hematocrit of 37.8%. Iron levels are low, with a ferritin level of 12 ng/mL, and the patient is advised to take Vitron C to aid in iron absorption. Health Maintenance - Mammogram up to date as of December 2024 - Last colonoscopy in 2016 Social History - Continues to follow up with bariatrics for weight management, focusing on diet and exercise Review of Systems - General: Reports 5-pound weight gain since October - Respiratory: Reports use of albuterol inhaler as needed - Gastrointestinal: Reports management of GERD with Prilosec Physical Exam Results - Labs: Hemoglobin 11.8 g/dL, Hematocrit 37.8%, Ferritin 12 ng/mL - Bone Density Test: 4% decrease in spine density, 14% decrease in hip density Plan The patient will continue to follow up with bariatrics for weight management, focusing on diet and exercise to address morbid obesity. For GERD, the patient will continue taking Prilosec daily. Asthma management includes the use of an albuterol inhaler as needed. For ost eopenia, the patient is advised to maintain calcium and vitamin D intake and consider medication options after consulting with a dentist due to potential side effects. The patient is advised to take Vitron C to improve iron absorption and address mild anemia. Follow-up is recommended in three months to reassess weight management and anemia status. Patient was informed and verbally consented to the use of an ambient scribe for clinic note documentation during this visit. Discussion Notes I discussed with the patient the importance of continuing with bariatric follow- up for weight management, emphasizing diet and exercise. We reviewed the management of GERD with Prilosec and the use of an albuterol inhaler for asthma as needed. For osteopenia, I explained the significance of calcium and vitamin D intake and the potential side effects of medications, recommending a dental consultation before starting any new medication. We also discussed the need for Vitron C to aid in iron absorption for mild anemia and planned a follow-up in three months to reassess her condition. Patient Instructions - Continue following up with bariatrics for weight management, focusing on diet and exercise. - Take Prilosec daily for GERD management. - Use albuterol inhaler as needed for asthma symptoms. - Maintain calcium and vitamin D intake for bone health. - Consider medication options for osteopenia after consulting with a dentist. - Take Vitron C to aid in iron absorption for anemia. - Schedule a follow-up appointment in three months. Medications: New tirzepatide (weight loss) (Zepbound) for 4 weeks 2.5 mg (0.5 mL) subcut QWEEK 2 mL 2RF E66.01 - Morbid (severe) obesity due to excess calories Refilled celecoxib 50 mg PO DAILY PRN 30 caps 0RF pain
--- OUTSIDE RECORDS SUMMARY | 2025-04-30 09:38 | XMS_ITS | Patient Health Record ---
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 [address] [place] [address] [phone] [id number] BERRY LEE Self - patient is the insured Medical (General) History Medical History History ICD Code Elevated body mass index Osteoarthritis Gastroesophageal reflux disease Osteoporosis History of syphilis Insomnia Colonoscopy several years ago, records a re not available Surgical History Surgery Date(Month/Year) Gastric bypass surgery section Appendectomy Panniculectomy
== END 2025-04-30 09:55 | disposition home or self-care (01) ==
LOC: HO.HMCH 09:15
PROVIDERS: PCP Internal Medicine; Visit Provider Internal Medicine
DX: D64.9 Anemia, unspecified (principal); E66.01 Morbid (severe) obesity due to excess calories; Z68.41 Body mass index [BMI] 40.0-44.9, adult; Z98.84 Bariatric surgery status; J45.20 Mild intermittent asthma, uncomplicated; K21.9 Gastro-esophageal reflux disease without esophagitis

== ENCOUNTER 2025-05-23 20:41 | Inpatient (IN) | payer MEDICARE, SELFPAY ==
--- NOTE | ~2025-05-23 | CT_ITS ---
CLINICAL HISTORY: pancratitis, hx antionette, gastric bypass CT abdomen and pelvis with contrast Comparison: US/SR - US ABDOMEN COMPLETE WITH LIVER ELASTOGRAPHY - 08/24/23 09:[address] - CT ABDOMEN PELVIS WITH IV CONTRAST - 07/18/23 15:32 EDT Findings: Small hiatal hernia. No consolidation or effusion. Distended gallbladder with wall thickening and pericholecystic fluid. Intrahepatic biliary duct dilatation and dilated CBD measuring up to 2.5 cm, previously 2.3 cm. Liver, pancreas, spleen, and adrenal glands are within normal limits. No hydronephrosis. Symmetric contrast enhancement of the kidneys. Right renal cyst. Status post gastric bypass. No bowel obstruction, pneumatosis or pneumoperitoneum. Colonic diverticulosis without acute inflammation. Mild wall thickening versus underdistention of the right hemicolon. Pelvic contents unremarkable. Degenerative changes of the spine. No acute fracture. IMPRESSION: Distended gallbladder with wall thickening and pericholecystic fluid concerning for acute cholecystitis. No evidence of pancreatitis. Dilated biliary ducts with CBD measuring up to 2.5 cm, slightly increased from prior. This document has been electronically signed by: Júnior Duckworth MD on 05/24/2025 01:04:45
--- NOTE | ~2025-05-23 | MR_ITS ---
EXAMINATION: MRCP HISTORY: Cholelithiasis COMPARISON: Correlation is made with CT scans of the abdomen dated 05/23/2025 and 07/18/2023. TECHNIQUE: Axial gradient echo in and out of phase T1, axial T2 and fat suppressed T2, and coronal haste T2 with fat saturation images were obtained through the abdomen. 3D MRCP Reconstructed images and thick slab imaging of the biliary tree were obtained. FINDINGS: There is no significant loss of signal intensity within the liver on opposed phase imaging to suggest steatosis. The gallbladder is distended and demonstrates layering intraluminal dense bile. There is mild gallbladder wall thickening and pericholecystic fluid. There is moderate to marked intrahepatic and extrahepatic biliary ductal dilatation. The common bile duct measures up to 2.7 cm in diameter. On the CT scan dated 07/18/2023, the common bile duct measures up to 2.4 cm in diameter. There is a focal narrowing of the common bile duct in the pancreatic head consistent with a stricture. No intraluminal filling defects are identified to suggest choledocholithiasis. The pancreatic duct in the body and tail are normal in caliber. There is mild prominence of the pancreatic duct in the pancreatic head. There is a 5 mm cystic focus in the pancreatic head. The spleen and adrenals are unremarkable. There is a 1.8 cm right renal cyst. A subcentimeter left renal cyst is noted. No retroperitoneal lymphadenopathy is identified in the upper abdomen. The visualized bones demonstrate normal marrow signal intensity. MR/MR MRCP IMPRESSION: 1. Distended gallbladder with intraluminal layering dense bile. Mild gallbladder wall thickening and pericholecystic fluid. If there is clinical concern for acute cholecystitis, HIDA scan could be performed. 2. Moderate to marked intra and extrahepatic biliary ductal dilatation, similar to prior studies. No evidence of choledocholithiasis. Focal stricture in the pancreatic head. This could be further evaluated with ERCP. Electronically signed by: Timbo Farris MD 05/24/2025 01:06 PM EDT
[2025-05-23 20:46] VITALS: BP 122/69; PULSE 68; RESP 20; TEMP 36.2; O2SAT 98; BMI 90.4
--- NOTE | 2025-05-23 20:47 | ED_ITS ---
HPI - General Adult General Chief complaint: Abdominal Pain Stated complaint: pancreatis, urine really dark Time Seen by Provider: 05/23/25 21:59 Source: patient Mode of arrival: ambulatory Limitations: no limitations History of Present Illness ED Provider: Dr. Karen Narvaez HPI narrative: Patient comes to the emergency room complaining of abdominal pain, distention, nausea, diarrhea. Patient states that yesterday she started having abdominal pain, which eventually got much worse. Patient was in the [place] when this happened. Patient went to the hospital and she was diagnosed with pancreatitis. They wanted to admit her in their hospital but patient declined, packed her suitcases and came [place] the [place]. Patient states this is the 1st time that she has pancreatitis. Patient denies heavy alcohol intake or template/triglyceride problems. Related Data Home Medications ?Medication ?Instructions ?Recorded ?Confirmed calcium carbonate (Calcium 500) 1,000 mg PO DAILY 08/1304/30/25 cholecalciferol (vitamin D3) 25 25 mcg PO DAILY 04/30/25 mcg (1,000 unit) capsule cyanocobalamin (vitamin B-12) 1,000 mcg PO .COMPLEX 04/30/25 1,000 mcg capsule melatonin 5 mg capsule 5 mg PO BEDTIME 06/08/23 Previous Rx's ?Medication ?Instructions ?Recorded iron,carbonyl 65 mg-vitamin C 125 1 tab PO BEDTIME #30 tabs 08/13/23 mg tablet,delayed release (Vitron-C) psyllium 1 packet PO DAILY #30 ea 12/31 zinc gluconate 30 mg tablet 30 mg PO DAILY 90 days #90 tabs 08/19/23 omeprazole 20 mg capsule,delayed 20 mg PO DAILY #90 ca ps 04/27/24 release albuterol sulfate 90 mcg/actuation 2 puff PO Q4H PRN b ronchospasm 09/29/24 aerosol inhaler #6.7 grams celecoxib 50 mg capsule 50 mg PO DAILY PRN pain #30 caps 04/30/25 tirzepatide (weight loss) 2.5 2.5 mg (0.5 mL) subcut Q WEEK #2 mL 04/30/25 mg/0.5 mL subcutaneous pen injector (Zepbound) Allergies Allergy/AdvReac Type Severity Reaction Status Date / Time morphine (MORPHINE) Allergy Unknown VOMITING Verified 05/23/25 20:51 AND SHAKING MORPHINE Allergy Mild Nausea and Uncoded 04/30/25 09:30 Vomiting Review of Systems 2 Review of Systems: Constitutional : No Weight loss, No Fever, No Chills, No Night Sweats, No Fatigue, No Malaise ENT/Mouth : No Hearing loss, No Ear Pain, No Nasal Congestion, No Sinus Pain, No Hoarseness, No sore throat, No Rhinorrhea, No Swallowing Difficulty Eyes: No Eye Pain, No Swelling, No Redness, No Foreign Body, No Discharge, No Vision Changes Cardiovascular : No Chest Pain, No SOB, No Dyspnea on Exertion, No Orthopnea, No Edema, No Palpitations Respiratory : No Cough, No Sputum, No Wheezing, No Smoke Exposure, No Dyspnea Gastrointestinal : Complaining of nausea, no vomiting, complaining of diarrhea and epigastric pain Genitourinary : no irregular bleeding, No Dysuria, No Urinary Frequency, No Hematuria, No Urinary Incontinence, No Urgency, No Flank Pain, No Urinary Flow Changes, No Hesitancy Musculoskeletal : No joint pain, No Myalgias, No Joint Swelling Skin : No Skin Lesions, No rash Neuro : No Weakness, No Numbness, No Paresthesias, No Loss of Consciousness, No Dizziness, No Headache Psych : No Anxiety/Panic, No Depression, No SI/HI/AH/VH, No Social Issues, Heme/Lymph: No Bruising, No Bleeding,No Lymphadenopathy Endocrine : No Polyuria, No Polydipsia, No Temperature Intolerance PMFSH Past Medical History Medical History Dysgeusia Arthritis Age-related osteoporosis without current pathological fracture Osteopenia COVID-19 Vitamin D deficiency Vitamin B12 deficiency Syphilis Obesity Asthma GERD (gastroesophageal reflux disease) Osteoarthritis Surgical History Hx of cholecystectomy Hx of section History of section History of appendectomy History of cholecystectomy Hx of gastric bypass History of abdominoplasty H/O gastric bypass Family History Family History Father No problems noted. Mother No problems noted. Social History Social History Housing: Apartment Alcohol intake: current Comment: holidays 2 beers Patient Tobacco Use Status: Never used Tobacco e-Cigarette/Vaping Use: Never Used Second Hand Smoke Exposure: No Advance Directives: Yes Advance Directives on File: Yes Advance Directives Date on File: 11/04/23 Do you have a plan to hurt others: No Plan service: No Current occupational status: employed Cognitive needs: No Hearing needs: No Vision needs: Yes Physical Exam ED Exam Exam: Appearance: Alert. Oriented X3. Patient's seems uncomfortable Eyes: Pupils equal, round and reactive to light. ENT: Pharynx normal. Neck: Normal inspection. Neck supple. No lymph nodes noted. No crepitus CVS: Normal heart rate and rhythm. Pulses normal. Normal S1 and S2 Respiratory: No respiratory distress. Breath sounds normal. No Wheezing. No rales Abdomen: Soft distended, tenderness to palpation in epigastric area, with mild rebound and guarding Skin: Skin warm and dry. Normal skin color. Normal skin turgor. Extremities: No lower extremity edema. No Lacerations. No Rash Neuro: Oriented X 3. No motor deficit. No sensory deficit. Moving all extremities. No slurred speech. CN 2 through 12 grossly intact Psych: calm, cooperative, normal affect Vital Signs: Vital Signs - 24 hr 05/23/25 20:46 05/23/25 23:39 Temperature 97.1 F Pulse Rate 68 Respiratory Rate 20 16 Blood Pressure 122/69 Pulse Oximetry 98 Oxygen Delivery Method Room Air BMI result Body Mass Index 90.4 Course Course Course Narrative: This is a rapid medical exam performed by Leslee Uriostegui NP: Additional HPI, ROS, PE not included below will be deferred to primary provider. Patient is a 69-year-old female with history of gastric bypass, cholecystectomy, GERD, asthma presenting to ED with abdominal pain and diarrhea. Presents with family who states that they just got off a 4 hour flight. Just returned from [facility], they wanted to admit her there for pancreatitis, had elevated amylase and lipase, but patient wanted to come home for treatment. Plan: Labs Medications Administered Discontinued Medications Generic Name Dose Route Start Last Admin Trade Name Freq PRN Reason Stop Dose Admin Hydromorphone HCl 0.5 mg 05/23/25 22:19 05/23/25 23:39 Hydromorphone Hcl 0.5 Mg/0.5 Ml Syringe IVPUSH 05/23/25 22:20 0.5 mg ONCE ONE Administration Protocol Sodium Chloride 2,000 mls @ 999 mls/hr 05/23/25 22:18 05/24/25 01:25 Ns IVCONT 05/24/25 00:18 Infused .Q2H1M ONE Infusion Iohexol 85 ml 05/23/25 23:35 05/23/25 23:35 Iohexol 350 Mg/Ml 100 Ml Infus..Btl IV 05/23/25 23:36 85 ml ONCE ONE Administration Ondansetron HCl 4 mg 05/23/25 23:06 05/23/25 23:39 Ondansetron Hcl 4 Mg/2 Ml Vial IVPUSH 05/23/25 23:07 4 mg ONCE ONE Administration Medical Decision Making Medical Decision Making [facility] Narrative: My interpretation of labs: Patient's hemoglobin hematocrit stable, white blood cell count 9.3, normal chemistry. LFTs are elevated, T bilirubin 4.3, AST 339, ALT 248, alk phos 212, triglycerides 34, lipase 1226. Patient has history of cholecystectomy and gastric bypass on it [facility] in 2002. Is likely the patient will need an ERCP or MRCP. In the meantime, we will start with a CT scan of the abdomen pelvis CT scan shows acute cholecystitis with no pancreatitis. Patient's lipase is elevated, patient lost had pancreatitis and epigastric pain. However, patient states that she has history of a cholecystectomy which was done in 2022 along with her gastric bypass. However, patient's CT scans shows that the gallbladder is there and now has acute cholecystitis along with pancreatitis Patient was made aware that her gallbladder is still present I discussed the patient with Dr. Ricks from the surgery team. Recommendations: Admit to medicine for ERCP I discussed the patient with Dr. Dominguez from the Medicine team, patient being admitted. Patient agrees with the above-mentioned plan Differential Diagnosis Differential Diagnoses: The differential diagnosis associated with the presentation includes (Pancreatitis, cholangitis, underlying pancreatic lesion) Admission/Observation Consideration of admission/observation: Escalation of care including admission/observation considered Consult Healthcare Provider Management of the patient was discussed with: Hospitalist and [employer] Att[employer] Lab Data MDM Lab Attestation statement: I reviewed the patient's lab results. 05/23/25 21:15 05/23/25 21:15 Labs: Lab Results 05/23/25 Range/Units 21:15 WBC 9.3 (4.8-10.8) X10*3/uL RBC 4.03 L (4.20-5.50) X10*6/uL Hgb 11.3 L (12.0-16.0) g/dl Hct 33.9 L (37.0-47.0) % MCV 84.1 (80.0-98.0) fL MCH 28.0 (27.0-33.0) pg MCHC 33.3 (31.0-35.0) g/dl RDW 15.9 (11.0-16.0) % Plt Count 188 D (160-400) X10*3/uL MPV 11.3 (9.4-12.3) fL Immature Gran % (Auto) Cancelled Neut % (Auto) Cancelled Lymph % (Auto) Cancelled [place] % (Auto) Cancelled Eos % (Auto) Cancelled Baso % (Auto) Cancelled Lymph # (Auto) Cancelled [place] # (Auto) Cancelled Eos # (Auto) Cancelled Baso # (Auto) Cancelled Abs Immat Gran (auto) Cancelled Absolute Neuts (auto) Cancelled Absolute Nucleated RBC 0.000 (0.0-0.012) X10*3/uL Nucleated RBC % (auto) 0.0 (0.0-0.2) /100WBC Neutrophils % (Manual) 58 (45-73) % Band Neutrophils % 22 H (3-5) % Lymphocytes % (Manual) 14 L (20-40) % Monocytes % (Manual) 5 (2-11) % Basophils % (Manual) 1 (0-2) % Abs Neuts (Manual) 7.4 (2.0-8.3) X10*3/uL Lymphocytes # (Manual) 1.3 (1.2-4.9) X10*3/uL Monocytes # (Manual) 0.5 (0.1-1.2) X10*3/uL Basophils # (Manual) 0.1 (0.0-0.2) X10*3/uL Platelet Estimate NORMAL (NORMAL) Plt Morphology Comment NORMAL RBC Morphology NOTED Ovalocytes 1+ (5-14) /OIF [place] Cells 1+ (0-2) /OIF PT 12.7 H (10.9-12.4) SEC INR 1.1 (0.9-1.1) Sodium 137 (135-145) mmol/L Potassium 4.3 (3.3-5.1) mmol/L Chloride 104 (96-108) mmol/L Carbon Dioxide 23 (22-29) mmol/L Anion Gap 14 (12-20) BUN 30 H (9-16) mg/dL Creatinine 0.99 (0.5-1.4) mg/dL Estim Creat Clear Calc 95.5 Estimated GFR 56 Random Glucose 98 (60-115) mg/dL Calcium 8.7 (8.4-10.2) mg/dL Magnesium 2.1 (1.6-2.6) mg/dL Total Bilirubin 4.3 H (0.0-1.0) mg/dL AST 339 H (5-31) U/L ALT 248 H (0-31) U/L Alkaline Phosphatase 212 H (39-117) U/L Total Protein 6.9 (6.5-8.0) g/dL Albumin 3.9 (3.5-5.0) g/dL Triglycerides 34 (<150) mg/dL Amylase 1329 H (28-100) U/L Lipase 1226 H (8-78) U/L Independent Interpretation I performed an independent interpretation of an: CT Scan Radiology Impression Discussion of test interpretation with radiology: I have reviewed the radiologist's reading. Radiologist Impression: Small hiatal hernia. No consolidation or effusion. Distended gallbladder with wall thickening and pericholecystic fluid. Intrahepatic biliary duct dilatation and dilated CBD measuring up to 2.5 cm, previously 2.3 cm. Liver, pancreas, spleen, and adrenal glands are within normal limits. No hydronephrosis. Symmetric contrast enhancement of the kidneys. Right renal cyst. Status post gastric bypass. No bowel obstruction, pneumatosis or pneumoperitoneum. Colonic diverticulosis without acute inflammation. Mild wall thickening versus underdistention of the right hemicolon. Pelvic contents unremarkable. Degenerative changes of the spine. No acute fracture. IMPRESSION: Distended gallbladder with wall thickening and pericholecystic fluid concerning for acute cholecystitis. No evidence of pancreatitis. Dilated biliary ducts with CBD measuring up to 2.5 cm, slightly increased from prior. Critical Care Time Critical Care Time Critical Care Time: Yes Total Critical Care Time: 60 Attestation: I have personally provided critical care time. Time includes review of lab data, radiology results, discussion with consultants, and monitoring for potential decompensation. Intervention performed as documented. Discharge Plan Discharge Clinical Impression: Acute cholecystitis, Pancreatitis Patient Disposition: Admitted As Inpatient Print Language: Indonesian
[2025-05-23 21:23] LABS: Hematocrit 33.9 % (37.0-47.0); Hemoglobin 11.3 g/dl (12.0-16.0); Mean Corpuscular HGB Conc 33.3 g/dl (31.0-35.0); Mean Corpuscular Hemoglobin 28.0 pg (27.0-33.0); Mean Corpuscular Volume 84.1 fL (80.0-98.0); NRBC Abs Auto 0.000 X10*3/uL (0.0-0.012); NRBC Pct Auto 0.0 /100WBC (0.0-0.2); Platelet Count 188 X10*3/uL (160-400); Red Blood Count 4.03 X10*6/uL (4.20-5.50); White Blood Count 9.3 X10*3/uL (4.8-10.8)
[2025-05-23 21:32] LABS: Amylase 1329 U/L (28-100)
[2025-05-23 21:42] LABS: Alanine Aminotransferase 248 U/L (0-31); Albumin Level 3.9 g/dL (3.5-5.0); Alkaline Phosphatase 212 U/L (39-117); Anion Gap 14 (12-20); Aspartate Amino Transferase 339 U/L (5-31); Blood Urea Nitrogen 30 mg/dL (9-16); Calcium 8.7 mg/dL (8.4-10.2); Carbon Dioxide 23 mmol/L (22-29); Chloride 104 mmol/L (96-108); Creatinine Clr Calc Pharmacy 95.5; Estimated Glomerular Filt Rate 56; INTERNATIONAL NORM RATIO 1.1 (0.9-1.1); Magnesium 2.1 mg/dL (1.6-2.6); Potassium 4.3 mmol/L (3.3-5.1); Prothrombin Time 12.7 SEC (10.9-12.4); Sodium 137 mmol/L (135-145); Total Protein 6.9 g/dL (6.5-8.0); Triglycerides 34 mg/dL (<150)
[2025-05-23 21:51] LABS: Neutrophils Percent Manual 58 % (45-73)
[2025-05-23 21:54] LABS: Band Neutrophils Percent 22 % (3-5); Basophils Abs Manual 0.1 X10*3/uL (0.0-0.2); Basophils Percent Manual 1 % (0-2); Lipase 1226 U/L (8-78); Lymphocytes Absolute Manual 1.3 X10*3/uL (1.2-4.9); Lymphocytes Percent Manual 14 % (20-40); Monocytes Absolute Manual 0.5 X10*3/uL (0.1-1.2); Monocytes Percent Manual 5 % (2-11); Neutrophils Absolute Manual 7.4 X10*3/uL (2.0-8.3); RBC Morphology NOTED
[2025-05-23 21:55] LABS: Burr Cells 1+ (0-2) /OIF; Ovalocytes 1+ (5-14) /OIF
[2025-05-23] MEDS: iohexoL 350 MG/ML 100 ML INFUS..BTL 85 ML IV (23:35)
[2025-05-23 23:39] VITALS: RESP 16
[2025-05-24 02:00] VITALS: BP 121/52; PULSE 62; O2SAT 99
--- NOTE | 2025-05-24 02:39 | PM.IMHP ---
History of Present Illness Date of Service: 05/24/25 Attending physician on admission: Ian Ames Chief Complaint: Abdominal pain Shawna Chow is a 69 years old woman with no significant past medical history presents to the emergency department complaining of severe epigastric pain that started yesterday. She described the pain as sharp without radiations. She has a associated nausea, nonbloody vomiting and a few episodes of diarrhea that resolved. She was recently on vacation [place]. She was seen in the emergency department and was told that she was having pancreatitis but she left against medical advice. Patient denied headache, chest pain, palpitations, dizziness, cough, fever or chills. She denied any acute urinary symptoms. Past surgical history is remarkable for C-sections x3, appendectomy and gastric bypass surgery. She denied alcohol abuse, however she drinks alcohol in occasions. She denied illicit drug use or tobacco smoking. She takes omeprazole for heartburn and takes Celebrex for arthritic pain. Patient had a colonoscopy in 2017 that showed diverticulitis and negative for cancer. In the ED, she was found to have stable vital signs. Blood workup showed no leukocytosis or lactic acidosis. He hemoglobin is 13.3 and platelets 188. There are no electrolyte imbalances. BUN is 30 and creatinine 0.99. LFTs, amylase and lipase are elevated. INR is 1.1. Abdomen pelvis CT scan with IV contrast showed distended gallbladder with wall thickening and pericolic fluid concerning for acute cholecystitis, no evidence of pancreatitis and dilated biliary ducts with CBD measuring 2.5 cm, slightly increased from prior. ED tx: NS 2 L bolus, Dilaudid 0.5 mg IV, Zofran 4 mg IV, Zosyn 3.375 g IV Review of Systems Review of Systems: All 12 systems were reviewed and normal except as noted in HPI. [facility] Medical History (Updated 05/24/25 @ 03:08 by Ian Ames MD) Dysgeusia Arthritis Age-related osteoporosis without current pathological fracture Osteopenia COVID-19 Vitamin D deficiency Vitamin B12 deficiency Syphilis Obesity Asthma GERD (gastroesophageal reflux disease) Osteoarthritis Family History Father No problems noted. Mother No problems noted. Surgical History (Updated 05/24/25 @ 03:08 by Ian Ames MD) Hx of section History of appendectomy History of cholecystectomy Hx of gastric bypass History of abdominoplasty H/O gastric bypass Social History Housing: Apartment Alcohol intake: current Comment: holidays 2 beers Patient Tobacco Use Status: Never used Tobacco e-Cigarette/Vaping Use: Never Used Second Hand Smoke Exposure: No Advance Directives: Yes Advance Directives on File: Yes Advance Directives Date on File: 11/04/23 Do you have a plan to hurt others: No Plan service: No Current occupational status: employed Cognitive needs: No Hearing needs: No Vision needs: Yes Meds Allergies Allergy/AdvReac Type Severity Reaction Status Date / Time morphine (MORPHINE) Allergy Unknown VOMITING Verified 05/23/25 20:51 AND SHAKING MORPHINE Allergy Mild Nausea and Uncoded 04/30/25 09:30 Vomiting Active Medications: Current Medications Enoxaparin Sodium (Enoxaparin Sodium 40 Mg/0.4 Ml Syringe) 40 mg SUBCUT Q24H YOBANI Lactated Ringer's (Lr) 1,000 mls @ 100 mls/hr IVCONT .Q10H YOBANI Stop: 05/24/25 12:44 Piperacillin Sod/Tazobactam (Sod 3.375 gm/ Sodium Chloride) 50 mls @ 100 mls/hr IV Q6H YOBANI Sodium Chloride (0.9 % Sodium Chloride Flush 3 Ml Syringe) 3 ml IVFLUSH QSHIFT YOBANI Home Medications ?Medication ?Instructions ?Recorded ?Confirmed ?Last Taken ?Type calcium carbonate (Calcium 500) 1,000 mg PO DAILY 09/09/20 04/30/25 Unknown History cholecalciferol (vitamin D3) 25 25 mcg PO DAILY 09/09/20 04/30/25 Unknown History mcg (1,000 unit) capsule cyanocobalamin (vitamin B-12) 1,000 mcg PO .COMPLEX 10/21/22 04/30/25 Unknown History 1,000 mcg capsule melatonin 5 mg capsule 5 mg PO BEDTIME 06/08/23 04/30/25 Unknown History Physical Exam Vital Signs and Narrative: Vital Signs: Last Vital Signs Temp 97.1 F 05/23/25 20:46 Pulse 62 05/24/25 02:00 Resp 16 05/23/25 23:39 BP 121/52 L 05/24/25 02:00 Pulse Ox 99 05/24/25 02:00 O2 Del Method Room Air 05/24/25 02:00 BMI result Body Mass Index 90.4 Constitutional - Awake and Alert, No apparent distress HEENT - PER, EOMI. Sclerae icterus. Heart - RRR, no murmurs Lung - Normal lung expansion, Normal respiratory effort, No respiratory distress, CTA bilaterally Abdomen - nondistended, epigastric tenderness to palpation without rebound or guarding. Increased bowel sounds. Extremities - no calf tenderness bilaterally, no swelling Musculoskeletal - Normal inspection, normal ROM Skin - Warm/Dry Neurological - Alert & oriented x3. Moving all extremities spontaneously. Normal speech. Psychological - Appropriate affect Results Labs 05/23/25 21:15 05/23/25 21:15 Labs: Laboratory Results - last 24 hr 05/23/25 05/24/25 21:15 01:58 MCV 84.1 MCH 28.0 MCHC 33.3 RDW 15.9 Plt Count 188 D MPV 11.3 Immature Gran % (Auto) Cancelled Neut % (Auto) Cancelled Lymph % (Auto) Cancelled [place] % (Auto) Cancelled Eos % (Auto) Cancelled Baso % (Auto) Cancelled Lymph # (Auto) Cancelled [place] # (Auto) Cancelled Eos # (Auto) Cancelled Baso # (Auto) Cancelled Abs Immat Gran (auto) Cancelled Absolute Neuts (auto) Cancelled Absolute Nucleated RBC 0.000 Nucleated RBC % (auto) 0.0 Neutrophils % (Manual) 58 Band Neutrophils % 22 H Lymphocytes % (Manual) 14 L Monocytes % (Manual) 5 Basophils % (Manual) 1 Abs Neuts (Manual) 7.4 Lymphocytes # (Manual) 1.3 Monocytes # (Manual) 0.5 Basophils # (Manual) 0.1 Platelet Estimate NORMAL Plt Morphology Comment NORMAL RBC Morphology NOTED Ovalocytes 1+ (5-14) Sai Cells 1+ (0-2) PT 12.7 H INR 1.1 Anion Gap 14 Estim Creat Clear Calc 95.5 Estimated GFR 56 Random Glucose 98 Lactic Acid 0.6 Calcium 8.7 Magnesium 2.1 Total Bilirubin 4.3 H AST 339 H ALT 248 H Alkaline Phosphatase 212 H Total Protein 6.9 Albumin 3.9 Triglycerides 34 Amylase 1329 H Lipase 1226 H Assessment and Plan (1) Pancreatitis: Qualifiers: Chronicity: acute Pancreatitis type: biliary Acute pancreatitis complication: unspecified Qualified Code(s): K85.10 - Biliary acute pancreatitis without necrosis or infection Status: Acute (2) GERD (gastroesophageal reflux disease): Qualifiers: Esophagitis presence: without esophagitis Qualified Code(s): K21.9 - Gastro-esophageal reflux disease without esophagitis Status: Acute Plan Shawna Chow is a 69 y/o woman with a PMHx significant for laparoscopic gastric bypass surgery in 2022, appendectomy and x3 presents with: ?Gallstone pancreatitis. NPO. Supportive therapy with IV fluids, IV pain meds and antiemetics. Continue to monitor LFTs and lipase. Continue empiric IV antibiotic therapy (bandemia 22%). Obtain RUQ abdominal ultrasound. Gastroenterology consult for possible ERCP. Surgery consult for cholecystectomy when appropriate. GERD. Continue PPI. Chronic anemia. Continue to monitor. Code status: Full. DVT prophylaxis: Lovenox Patient will need hospitalization for at least 2 midnights for gallstone pancreatitis treatment with IV fluids, IV pain meds and urgent evaluation by GI service for possible ERCP. Quality Stroke Does the patient have a stroke diagnosis?: No VTE Prior VTE?: No VTE Risk Level:: Medical - moderate - high VTE Device Contraindication: Treatment Not Indicated VTE Drug Contraindication: N/A - Med Ordered
[2025-05-24] MEDS: Lactated Ringers 1,000 ML 100 ML IVCONT (03:20)
[2025-05-24 04:42] VITALS: BMI 41.0
[2025-05-24 05:31] LABS: Hematocrit 31.9 % (37.0-47.0); Hemoglobin 10.4 g/dl (12.0-16.0); Mean Corpuscular HGB Conc 32.6 g/dl (31.0-35.0); Mean Corpuscular Hemoglobin 28.0 pg (27.0-33.0); Mean Corpuscular Volume 85.8 fL (80.0-98.0); NRBC Abs Auto 0.000 X10*3/uL (0.0-0.012); NRBC Pct Auto 0.0 /100WBC (0.0-0.2); Platelet Count 138 X10*3/uL (160-400); Red Blood Count 3.72 X10*6/uL (4.20-5.50); White Blood Count 7.7 X10*3/uL (4.8-10.8)
[2025-05-24 05:49] LABS: Alanine Aminotransferase 185 U/L (0-31); Albumin Level 3.2 g/dL (3.5-5.0); Alkaline Phosphatase 182 U/L (39-117); Anion Gap 14 (12-20); Aspartate Amino Transferase 211 U/L (5-31); Blood Urea Nitrogen 29 mg/dL (9-16); Calcium 8.0 mg/dL (8.4-10.2); Carbon Dioxide 18 mmol/L (22-29); Chloride 110 mmol/L (96-108); Creatinine Clr Calc Pharmacy 72.2; Estimated Glomerular Filt Rate > 60; Magnesium 2.2 mg/dL (1.6-2.6); Potassium 4.0 mmol/L (3.3-5.1); Sodium 138 mmol/L (135-145); Total Protein 5.8 g/dL (6.5-8.0)
[2025-05-24 05:59] LABS: Band Neutrophils Percent 29 % (3-5); Eosinophils Absolute Manual 0.1 X10*3/uL (0.0-0.4); Eosinophils Percent Manual 1 % (0-4); Lymphocytes Absolute Manual 0.5 X10*3/uL (1.2-4.9); Lymphocytes Percent Manual 7 % (20-40); Monocytes Absolute Manual 0.5 X10*3/uL (0.1-1.2); Monocytes Percent Manual 7 % (2-11); Neutrophils Absolute Manual 6.5 X10*3/uL (2.0-8.3); Neutrophils Percent Manual 56 % (45-73)
[2025-05-24 06:00] LABS: Ovalocytes 1+ (5-14) /OIF; RBC Morphology NOTED
[2025-05-24 06:03] LABS: Burr Cells 3+ (>5) /OIF
[2025-05-24 06:11] LABS: Lipase 705 U/L (8-78)
[2025-05-24 06:44] VITALS: BP 122/56; PULSE 56; RESP 16; TEMP 36.5; O2SAT 98
[2025-05-24 08:38] VITALS: BMI 42.9
--- NOTE | 2025-05-24 08:39 | PHA.MEDREC ---
Addendum entered by Andrea Rivas PharmD 05/24/25 08:40: reviewed Original Note: Pharmacy Consult ? Medication Reconciliation Pharmacy has completed the medication reconciliation. Patient confirmed all her medications. patient last had her medications yesterday.
[2025-05-24 08:45] VITALS: BP 139/65; PULSE 52; RESP 18; TEMP 36.1; O2SAT 99
--- NOTE | 2025-05-24 09:43 | HO.PM.IMPN ---
Subjective Subjective Date of Service: 05/24/25 Interval History: Patient was seen and examined, she reports that she is feeling better. Continues with abdominal pain in her epigastric region. No nausea, vomiting or diarrhea. NPO with Ice. Patient with history of gastric bypass, ERCP we will be unable to be done here we will necessitate transfer, patient is aware of this. MRCP completed Review of Systems Denies any shortness of breath, chest pain, dizziness, lightheadedness, Mild abdominal pain a 4 on pain scale. No nausea vomiting or diarrhea Physical Exam Exam: Exam: CONST: Alert and oriented, in NAD. Well nourished HEENT: Normocephalic, atraumatic, MMM, Eyes clear, Neck supple RESP: Lungs clear, RRR even and regular HEART:,RRR, S1, S2. No murmur, no edema GI:Abdomen Soft NT, ND. + BS times four pain with palpation to upper GI region :Deferred SKIN: Warm dry and intact, no visible lesions or rashes NEURO:CN II-XII Intact bilaterally, Sensation intact. Speech clear PSYCH: Normal affect Vital Signs: Vital Signs: Last Vital Signs Temp 96.9 F 05/24/25 08:45 Pulse 52 05/24/25 08:45 Resp 18 05/24/25 08:45 BP 139/65 05/24/25 08:45 Pulse Ox 99 05/24/25 08:45 O2 Del Method Room Air 05/24/25 08:45 BMI result Body Mass Index 42.9 Objective Data Active Medications Enoxaparin Sodium (Enoxaparin Sodium 40 Mg/0.4 Ml Syringe) 40 mg SUBCUT Q12H YOBANI Hydromorphone HCl (Hydromorphone Hcl 0.5 Mg/0.5 Ml Syringe) 0.5 mg IVPUSH Q3H PRN; Protocol PRN Reason: Pain, Severe (Pain Scale 7-10) Last Admin: 05/24/25 09:32 Dose: 0.5 mg Documented By: ANGIE Lactated Ringer's (Lr) 1,000 mls @ 100 mls/hr IVCONT .Q10H YOBANI Stop: 05/24/25 12:44 Last Admin: 05/24/25 03:20 Dose: 100 mls/hr Documented By: STEPHANIE Piperacillin Sod/Tazobactam (Sod 3.375 gm/ Sodium Chloride) 50 mls @ 100 mls/hr IV Q6H [facility] Last Infusion: 05/24/25 09:31 Dose: Infused Documented By: ANGIE Ondansetron HCl (Ondansetron Hcl 4 Mg/2 Ml Vial) 4 mg IVPUSH Q6H PRN PRN Reason: Nausea and Vomiting Pantoprazole Sodium (Pantoprazole Sodium 40 Mg/10 Ml Vial) 40 mg IVPUSH DAILY@0630 [facility] Last Admin: 05/24/25 04:44 Dose: 40 mg Documented By: ZANE Sodium Chloride (0.9 % Sodium Chloride Flush 3 Ml Syringe) 3 ml IVFLUSH QSHIFT [facility] Last Admin: 05/24/25 08:52 Dose: Not Given Documented By: SOLOMON Non-Admin Reason: IV Running Labs 05/24/25 05:04 05/24/25 05:04 Labs: Laboratory Results - last 24 hr 05/23/25 05/24/25 05/24/25 21:15 01:58 05:04 MCV 84.1 85.8 MCH 28.0 28.0 MCHC 33.3 32.6 RDW 15.9 16.1 H Plt Count 188 D 138 L D MPV 11.3 10.8 Immature Gran % (Auto) Cancelled Cancelled Neut % (Auto) Cancelled Cancelled Lymph % (Auto) Cancelled Cancelled Ashley % (Auto) Cancelled Cancelled Eos % (Auto) Cancelled Cancelled Baso % (Auto) Cancelled Cancelled Lymph # (Auto) Cancelled Cancelled Ashley # (Auto) Cancelled Cancelled Eos # (Auto) Cancelled Cancelled Baso # (Auto) Cancelled Cancelled Abs Immat Gran (auto) Cancelled Cancelled Absolute Neuts (auto) Cancelled Cancelled Absolute Nucleated RBC 0.000 0.000 Nucleated RBC % (auto) 0.0 0.0 Neutrophils % (Manual) 58 56 Band Neutrophils % 22 H 29 H Lymphocytes % (Manual) 14 L 7 L Monocytes % (Manual) 5 7 Eosinophils % (Manual) 1 Basophils % (Manual) 1 Abs Neuts (Manual) 7.4 6.5 Lymphocytes # (Manual) 1.3 0.5 L Monocytes # (Manual) 0.5 0.5 Eosinophils # (Manual) 0.1 Basophils # (Manual) 0.1 Platelet Estimate NORMAL DECREASED Plt Morphology Comment NORMAL NORMAL RBC Morphology NOTED NOTED Ovalocytes 1+ (5-14) 1+ (5-14) Schofield Cells 1+ (0-2) 3+ (>5) PT 12.7 H INR 1.1 Anion Gap 14 14 Estim Creat Clear Calc 95.5 72.2 Estimated GFR 56 > 60 Random Glucose 98 90 Lactic Acid 0.6 Calcium 8.7 8.0 L D Magnesium 2.1 2.2 Total Bilirubin 4.3 H 4.1 H Direct Bilirubin 3.1 H AST 339 H 211 H ALT 248 H 185 H Alkaline Phosphatase 212 H 182 H Total Protein 6.9 5.8 L Albumin 3.9 3.2 L Triglycerides 34 Amylase 1329 H Lipase 1226 H 705 H Assessment and Plan (1) Acute cholecystitis: Status: Acute (2) Pancreatitis: Status: Acute Plan 69 y/o female with a PMHx significant for laparoscopic gastric bypass surgery in 2022, appendectomy and x3 presents with abdominal pain, distention, nausea and diarrhea. Patient reports that she was on vacation in [facility], developed abdominal pain, presented to a hospital there wanted to admit her for pancreatitis but she opted to fly home to get treated here. Found to have acute cholecystitis and pancreatitis. Gallstone pancreatitis/acute cholecystitis Continues NPO. Supportive therapy with IV fluids, IV pain meds and antiemetics. Holding home medications for now. Continue to monitor LFTs and lipase. Trending down. Continue Zosyn. One of two Blood cultures positive for gram negative rods, No leukocytosis, has been afebrile. Patient with a history of gastric bypass surgery, unable to perform ERCP at this facility. MRCP ordered to confirm diagnosis pending transfer to tertiary care center for further care. Patient is aware of plan. MRCP shows 1. Distended gallbladder with intraluminal layering dense bile. Mild gallbladder wall thickening and pericholecystic fluid. If there is clinical concern for acute cholecystitis, HIDA scan could be performed. 2. Moderate to marked intra and extrahepatic biliary ductal dilatation, similar to prior studies. No evidence of choledocholithiasis. Focal stricture in the pancreatic head. This could be further evaluated with ERCP. GERD Continue PPI. Chronic anemia Continue to monitor. Code status: Full. DVT prophylaxis: Lovenox Patient will need hospitalization for at least 2 midnights for gallstone pancreatitis treatment with IV fluids, IV pain meds and urgent evaluation by GI service for possible ERCP. Quality Stroke Does the patient have a stroke diagnosis?: No VTE Prior VTE?: No VTE Risk Level:: Medical - moderate - high VTE Device Contraindication: Treatment Not Indicated VTE Drug Contraindication: N/A - Med Ordered
--- NOTE | 2025-05-24 10:31 | P.CNGI_ITS ---
History of Present Illness Data of Consult Service Date: 05/24/25 Requesting physician: Ian Ames Primary Care Provider: Harry Chun MD [facility] Reason for consult: Dilated CBD with elevated LFTs 69 YF with no significant past medical history seen [place] [facility] [place] with severe epigastric pain x 2 days. Pt was vacationing in [facility] when she noted 10/10 sharp pain without radiation. She was seen at an ER in and diagnosed with pancreatitis but she left against medical advice. She was [place] the [place] yesterday and came to the ED. Pt describes the pain as intermittent and gets worse after eating. She noted chills, nausea, nonbloody emesis, gas with burping and a few episodes of diarrhea that resolved. Patient denied headache, chest pain, palpitations, dizziness, cough, fever or chills or acute urinary symptoms. Past surgical history is remarkable for C-sections x3, appendectomy and gastric bypass surgery. She denies smoking or illicit drug useand drinks alcohol occasionally. She takes omeprazole for heartburn and takes Celebrex for arthritic pain. Patient had a colonoscopy in 2017 that showed diverticulosis and no polyps were detected. In the ED, she was found to have stable vital signs. Labs showed no leukocytosis or lactic acidosis, hemoglobin is 13.3 and platelets 188. BUN is 30 and creatinine 0.99. LFTs, amylase and lipase are elevated. INR is 1.1. Lipase was 1226, trending down 705 today. AST on admit 339-->211 today, ALT 248-->185 today. Total Bili 4.3 on admit Now 4.1 Amylase 1329 on admit. ED tx: NS 2 L bolus, Dilaudid 0.5 mg IV, Zofran 4 mg IV, Zosyn 3.375 g IV 05/24/[address] SCAN SHOWED: Distended gallbladder with wall thickening and pericholecystic fluid concerning for acute cholecystitis. No evidence of pancreatitis. Dilated biliary ducts with CBD measuring up to 2.5 cm, slightly increased from prior. MRCP SHOWED: 1. Distended gallbladder with intraluminal layering dense bile. Mild gallbladder wall thickening and pericholecystic fluid. If there is clinical concern for acute cholecystitis, HIDA scan could be performed. 2. Moderate to marked intra and extrahepatic biliary ductal dilatation, similar to prior studies. No evidence of choledocholithiasis. Focal stricture in the pancreatic head. This could be further evaluated with ERCP. Review of Systems 2 Review of Systems: Yes all other systems are reviewed and are negative [facility] Past Medical History Medical History (Updated 05/24/25 @ 16:36 by Natalia Blanton MD) Dysgeusia Arthritis Age-related osteoporosis without current pathological fracture Osteopenia COVID-19 Vitamin D deficiency Vitamin B12 deficiency Syphilis Obesity Asthma GERD (gastroesophageal reflux disease) Osteoarthritis Family History Family History Father No problems noted. Mother No problems noted. Surgical History Surgical History Hx of section History of appendectomy History of cholecystectomy Hx of gastric bypass History of abdominoplasty H/O gastric bypass Social History Social History Household Members: None Housing: House Do you presently have visiting nurse or other home services: No Alcohol intake: current Comment: holidays 2 beers Patient Tobacco Use Status: Never used Tobacco e-Cigarette/Vaping Use: Never Used Second Hand Smoke Exposure: No Advance Directives Date on File: 11/04/23 service: No Current occupational status: employed Cognitive needs: No Hearing needs: No Vision needs: Yes Meds Allergies Allergy/AdvReac Type Severity Reaction Status Date / Time morphine (MORPHINE) Allergy Unknown VOMITING Verified 05/23/25 20:51 AND SHAKING MORPHINE Allergy Mild Nausea and Uncoded 04/30/25 09:30 Vomiting Active Medications: Current Medications Enoxaparin Sodium (Enoxaparin Sodium 40 Mg/0.4 Ml Syringe) 40 mg SUBCUT Q12H [facility]OB[facility] Hydromorphone HCl (Hydromorphone Hcl 0.5 Mg/0.5 Ml Syringe) 0.5 mg IVPUSH Q3H PRN; Protocol PRN Reason: Pain, Severe (Pain Scale 7-10) Last Admin: 05/24/25 09:32 Dose: 0.5 mg Lactated Ringer's (Lr) 1,000 mls @ 100 mls/hr IVCONT .Q10H YOBANI Stop: 05/24/25 12:44 Last Admin: 05/24/25 03:20 Dose: 100 mls/hr Piperacillin Sod/Tazobactam (Sod 3.375 gm/ Sodium Chloride) 50 mls @ 100 mls/hr IV Q6H [facility] Last Infusion: 05/24/25 09:31 Dose: Infused Ondansetron HCl (Ondansetron Hcl 4 Mg/2 Ml Vial) 4 mg IVPUSH Q6H PRN PRN Reason: Nausea and Vomiting Pantoprazole Sodium (Pantoprazole Sodium 40 Mg/10 Ml Vial) 40 mg IVPUSH DAILY@0630 [facility] Last Admin: 05/24/25 04:44 Dose: 40 mg Sodium Chloride (0.9 % Sodium Chloride Flush 3 Ml Syringe) 3 ml IVFLUSH QSHIFT [facility] Last Admin: 05/24/25 08:52 Dose: Not Given Home Medications ?Medication ?Instructions ?Recorded ?Confirmed ?Last Taken ?Type calcium carbonate (Calcium 500) 1,000 mg PO DAILY 08/1305/24/25 05/22/25 History cholecalciferol (vitamin D3) 25 25 mcg PO DAILY 05/24/25 05/22/25 History mcg (1,000 unit) capsule melatonin 5 mg capsule 5 mg PO BEDTIME 06/08/2305/22/25 History omeprazole 20 mg capsule,delayed 20 mg PO DAILY@0630 0 05/24/25 05/24/25 05/22/25 History release Physical Exam 2 Vital Signs: Vital Signs: Last Vital Signs Temp 96.9 F 05/24/25 08:45 Pulse 52 05/24/25 08:45 Resp 18 05/24/25 08:45 BP 139/65 05/24/25 08:45 Pulse Ox 99 05/24/25 08:45 O2 Del Method Room Air 05/24/25 08:45 BMI result Body Mass Index 42.9 Const: General: healthy appearing and no acute distress Nutritional Appearance: obese Orientation/consciousness: patient oriented x3 L imitations: no limitations HEENT: Head: Yes normal to inspection Ears: hearing grossly normal bilaterally Eyes: Sclerae: sclerae normal Pupils: Equal, round and reactive pupils present Neck: Neck: Yes normal visual inspection Chest: Chest palpation & inspection: normal inspection of the chest Resp: Effort & Inspection: normal respiratory effort Auscultation: clear to auscultation bilaterally Cardio: Palpation: normal PMI Rate: regular rate Rhythm: regular rhythm Heart sounds: S1 normal heart sound present, S2 normal heart sound present and no murmurs GI: Palpation (GI): Soft to palpation, Tenderness to palpation present (GI) (Epigastric and RUQ tenderness) and No hepatosplenomegaly present A uscultation: normal bowel sounds Rectal Exam - Female: deferred Skin: General skin exam: no rashes or lesions noted Neuro: General: patient oriented x3, gait normal and moves all extremities Cranial nerves: Yes Equal, round and reactive pupils present Psych: Appearance: grossly normal Mental Status: mental status grossly normal Results Labs 05/24/25 05:04 05/24/25 05:04 Labs: Short CBC 05/23/25 05/24/25 Range/Units 21:15 05:04 WBC 9.3 7.7 (4.8-10.8) X10*3/uL Hgb 11.3 L 10.4 L (12.0-16.0) g/dl Hct 33.9 L 31.9 L (37.0-47.0) % Plt Count 188 D 138 L D (160-400) X10*3/uL BMP 05/23/25 05/24/25 21:15 05:04 Sodium 137 138 Potassium 4.3 4.0 Chloride 104 110 H Carbon Dioxide 23 18 L BUN 30 H 29 H Creatinine 0.99 0.77 Calcium 8.7 8.0 L D Liver Function 05/23/25 05/24/25 Range/Units 21:15 05:04 Total Bilirubin 4.3 H 4.1 H (0.0-1.0) mg/dL Direct Bilirubin 3.1 H (0.0-0.5) mg/dL AST 339 H 211 H (5-31) U/L ALT 248 H 185 H (0-31) U/L Alkaline Phosphatase 212 H 182 H (39-117) U/L Albumin 3.9 3.2 L (3.5-5.0) g/dL Assessment and Plan (1) Pancreatitis: Qualifiers: Acute pancreatitis complication: unspecified Chronicity: acute P ancreatitis type: biliary Qualified Code(s): K85.10 - Biliary acute pancreatitis without necrosis or infection Status: Acute (2) Common bile duct dilatation: Status: Acute (3) Elevated LFTs: Status: Acute Plan 69 YF with no significant past medical history seen [place] [facility] [place] with severe epigastric pain x 2 days. Pt describes the pain as intermittent and gets worse after eating. Past surgical history is remarkable for C-sections x3, appendectomy and gastric bypass surgery. In the ED, she was found to have stable vital signs. Labs showed no leukocytosis or lactic acidosis, hemoglobin is 13.3 and platelets 188. BUN is 30 and creatinine 0.99. LFTs, amylase and lipase are elevated. INR is 1.1. Lipase was 1226, trending down 705 today. AST on admit 339-->211 today, ALT 248-->185 today. Total Bili 4.3 on admit Now 4.1 Amylase 1329 on admit. Pt presented with acute pancreatitis with elevated LFTs, CBD dilation and acute cholecystitis. Pancreatitis is likely of biliary source due to passage of stones or sludge. Dilated CBD likely due to biliary obstruction from stone/sludge (not visible on MRCP) versus ampullary stricture associated with biliary microlithiasis. RECOMMENDATIONS: 1. Agree with IV PPI, antiemetic and antibiotics. 2. Pt needs ERCP for further management. Given gastric bypass status, ERCP cannot be preformed [place] [facility] [place] Pt needs to be transferred to a tertiary care facility for ERCP. 3. Lap or open cholecystectomy can be performed after ERCP Procedures Date of Service Date of Service: 05/24/25
--- NOTE | 2025-05-24 10:50 | P.CONGS_ITS ---
History of Present Illness Consult details Consult date: 05/24/25 <Lan Ricks MD - Last Filed: 05/24/25 12:04> Reason for consult: other (pancreatitis, choledocolithiasis) <Cuba Butterfield PA-C - Last Filed: 05/24/25 11:07> Narrative: 69 year old generally healthy female presenting with a 2 day history of upper abdominal pain, seen on consult for gallstone pancreatitis. Patient was on vacation in [place] [facility] [place] when she began having pain in the epigastric area with associated nausea and vomiting. She recalls an episode of chills but did not have a fever. On presentation to the ED she was stable, did not have leukocytosis. There was significantly elevated amylase lipase and liver enzymes. CT scan showing GB distention, pericolic fluid, suggestive of acute cholecystitis. There was biliary duct dilation up to 2.5 cm. She denies any previous episodes of this in the past. Her pain is currently controlled, and she is not nauseous at this time. surical history is significant for gastric bypass, 3 C sections, and an appendectomy. Daily medications inclue celebrex and omeprazole. <Cuba Butterfield PA-C - Last Filed: 05/24/25 11:07> Review of Systems 2 Review of Systems: Yes all other systems are reviewed and are negative < Cuba Butterfield PA-C - Last Filed: 05/24/25 11:07> [facility] Past Medical History Medical History: Medical History Dysgeusia Arthritis Age-related osteoporosis without current pathological fracture Osteopenia COVID-19 Vitamin D deficiency Vitamin B12 deficiency Syphilis Obesity Asthma GERD (gastroesophageal reflux disease) Osteoarthritis <Cuba Butterfield PA-C - Last Filed: 05/24/25 11:07> Family History Family History: Family History Father No problems noted. Mother No problems noted. <Cuba Butterfield PA-C - Last Filed: 05/24/25 11:07> Surgical History Surgical History: Surgical History Hx of section History of appendectomy History of cholecystectomy Hx of gastric bypass History of abdominoplasty H/O gastric bypass <Cuba Butterfield PA-C - Last Filed: 05/24/25 11:07> Social History Social History: Social History Household Members: None Housing: House Do you presently have visiting nurse or other home services: No Alcohol intake: current Comment: holidays 2 beers Patient Tobacco Use Status: Never used Tobacco e-Cigarette/Vaping Use: Never Used Second Hand Smoke Exposure: No Advance Directives Date on File: 11/04/23 service: No Current occupational status: employed Cognitive needs: No Hearing needs: No Vision needs: Yes <Cuba Butterfield PA-C - Last Filed: 05/24/25 11:07> Meds Allergies/Adverse reactions: Allergies Allergy/AdvReac Type Severity Reaction Status Date / Time morphine (MORPHINE) Allergy Unknown VOMITING Verified 05/23/25 20:51 AND SHAKING MORPHINE Allergy Mild Nausea and Uncoded 04/30/25 09:30 Vomiting <SUSAN Peña Last Filed: 05/24/25 11:07> Active Medications: Current Medications Enoxaparin Sodium (Enoxaparin Sodium 40 Mg/0.4 Ml Syringe) 40 mg SUBCUT Q12H YOBANI Hydromorphone HCl (Hydromorphone Hcl 0.5 Mg/0.5 Ml Syringe) 0.5 mg IVPUSH Q3H PRN; Protocol PRN Reason: Pain, Severe (Pain Scale 7-10) Last Admin: 05/24/25 09:32 Dose: 0.5 mg Lactated Ringer's (Lr) 1,000 mls @ 100 mls/hr IVCONT .Q10H [facility] Stop: 05/24/25 12:44 Last Admin: 05/24/25 03:20 Dose: 100 mls/hr Piperacillin Sod/Tazobactam (Sod 3.375 gm/ Sodium Chloride) 50 mls @ 100 mls/hr IV Q6H [facility] Last Infusion: 05/24/25 09:31 Dose: Infused Ondansetron HCl (Ondansetron Hcl 4 Mg/2 Ml Vial) 4 mg IVPUSH Q6H PRN PRN Reason: Nausea and Vomiting Pantoprazole Sodium (Pantoprazole Sodium 40 Mg/10 Ml Vial) 40 mg IVPUSH DAILY@0630 [facility] Last Admin: 05/24/25 04:44 Dose: 40 mg Sodium Chloride (0.9 % Sodium Chloride Flush 3 Ml Syringe) 3 ml IVFLUSH QSHIFT [facility] Last Admin: 05/24/25 08:52 Dose: Not Given <Cuba Butterfield PA-C - Last Filed: 05/24/25 11:07> Home medications: Home Medications ?Medication ?Instructions ?Recorded ?Confirmed ?Last Taken ?Type calcium carbonate (Calcium 500) 1,000 mg PO DAILY 08/1305/24/25 05/22/25 History cholecalciferol (vitamin D3) 25 25 mcg PO DAILY 05/24/25 05/22/25 History mcg (1,000 unit) capsule melatonin 5 mg capsule 5 mg PO BEDTIME 06/08/2305/22/25 History omeprazole 20 mg capsule,delayed 20 mg PO DAILY@0630 0 05/24/25 05/24/25 05/22/25 History release <Cuba Butterfield PA-C - Last Filed: 05/24/25 11:07> Physical Exam 2 Vital Signs: Vital Signs: Last Vital Signs Temp 96.9 F 05/24/25 08:45 Pulse 52 05/24/25 08:45 Resp 18 05/24/25 08:45 BP 139/65 05/24/25 08:45 Pulse Ox 99 05/24/25 08:45 O2 Del Method Room Air 05/24/25 08:45 BMI result Body Mass Index 42.9 <SUSAN Peña Last Filed: 05/24/25 11:07> Const: General: comfortable and no acute distress <Cuba Butterfield PA-C - Last Filed: 05/24/25 11:07> Orientation/consciousness: patient oriented x3 <SUSAN Peña Last Filed: 05/24/25 11:07> Resp: Effort & Inspection: normal respiratory effort and able to speak in complete sentences <SUSAN Peña Last Filed: 05/24/25 11:07> GI: Inspection: No distended <SUSAN Peña Last Filed: 05/24/25 11:07> Palpation (GI): Soft to palpation and Tenderness to palpation present (GI) in the epigastrum and Walker's sign positive; with no rebound tenderness <Cuba Butterfield PA-C - Last Filed: 05/24/25 11:07> Neuro: General: patient oriented x3 <Cuba Butterfield PA-C - Last Filed: 05/24/25 11:07> Results Labs Result diagrams: 05/24/25 05:04 05/24/25 05:04 <Cuba Butterfield PA-C - Last Filed: 05/24/25 11:07> Labs: Abnormal lab results 05/23/25 05/24/25 Range/Units 21:15 05:04 RBC 4.03 L 3.72 L (4.20-5.50) X10*6/uL Hgb 11.3 L 10.4 L (12.0-16.0) g/dl Hct 33.9 L 31.9 L (37.0-47.0) % RDW 16.1 H (11.0-16.0) % Plt Count 138 L D (160-400) X10*3/uL Band Neutrophils % 22 H 29 H (3-5) % Lymphocytes % (Manual) 14 L 7 L (20-40) % Lymphocytes # (Manual) 0.5 L (1.2-4.9) X10*3/uL PT 12.7 H (10.9-12.4) SEC Chloride 110 H (96-108) mmol/L Carbon Dioxide 18 L (22-29) mmol/L BUN 30 H 29 H (9-16) mg/dL Calcium 8.0 L D (8.4-10.2) mg/dL Total Bilirubin 4.3 H 4.1 H (0.0-1.0) mg/dL Direct Bilirubin 3.1 H (0.0-0.5) mg/dL AST 339 H 211 H (5-31) U/L ALT 248 H 185 H (0-31) U/L Alkaline Phosphatase 212 H 182 H (39-117) U/L Total Protein 5.8 L (6.5-8.0) g/dL Albumin 3.2 L (3.5-5.0) g/dL Amylase 1329 H (28-100) U/L Lipase 1226 H 705 H (8-78) U/L Short CBC 05/23/25 05/24/25 Range/Units 21:15 05:04 WBC 9.3 7.7 (4.8-10.8) X10*3/uL Hgb 11.3 L 10.4 L (12.0-16.0) g/dl Hct 33.9 L 31.9 L (37.0-47.0) % Plt Count 188 D 138 L D (160-400) X10*3/uL BMP 05/23/25 05/24/25 21:15 05:04 Sodium 137 138 Potassium 4.3 4.0 Chloride 104 110 H Carbon Dioxide 23 18 L BUN 30 H 29 H Creatinine 0.99 0.77 Calcium 8.7 8.0 L D Liver Function 05/23/25 05/24/25 Range/Units 21:15 05:04 Total Bilirubin 4.3 H 4.1 H (0.0-1.0) mg/dL Direct Bilirubin 3.1 H (0.0-0.5) mg/dL AST 339 H 211 H (5-31) U/L ALT 248 H 185 H (0-31) U/L Alkaline Phosphatase 212 H 182 H (39-117) U/L Albumin 3.9 3.2 L (3.5-5.0) g/dL All other labs normal. <Cuba Butterfield PA-C - Last Filed: 05/24/25 11:07> Assessment and Plan (1) Acute cholecystitis: Status: Acute <Cuba Butterfield PA-C - Last Filed: 05/24/25 11:07> (2) Common bile duct dilatation: Status: Acute <SUSAN Peña Last Filed: 05/24/25 11:07> (3) Pancreatitis: Qualifiers: Acute pancreatitis complication: unspecified Chronicity: a cute Pancreatitis type: biliary Qualified Code(s): K85.10 - Biliary acute pancreatitis without necrosis or infection <SUSAN Peña Last Filed: 05/24/25 11:07> Status: Acute <SUSAN Peña Last Filed: 05/24/25 11:07> Had epigastric pain for about 2-3 days CAT scan show findings suggestive of cholecystitis with thickening of the gallbladder wall Lipase is markedly elevated consistent with pancreatitis She has a history of gastric bypass surgery I am unable to see any gallstones in the gallbladder Would recommend ultrasound to document presence of gallstone Bilirubin markedly elevated suggestive of CBD obstruction GI eval for possible ERCP Treat for pancreatitis as well Abdomen is soft and benign She looks well clinically If gallstones documented down the line, elective cholecystectomy Seen and examined independently <Lan Ricks MD - Last Filed: 05/24/25 12:04> 69 year old generally healthy female presenting with a 2 day history of upper abdominal pain, seen in consult for gallstone pancreatitis. She has had a 2 day history of epigastric paina with associated n/v. She is currently stable, pain well controleld on current regimen. She was found to have no leukocytosis, there was elevation in the amylase and lipase and liver enzymes. Had CT showing acute cholecysitis, CBD dilation up to 2.5 cm. There was no evidence of pancreatitis on imaging. on exam she appears comfortale and stable, abdomen is soft, tender in the epigastric and RUQ with postiive walker sign, there were no peritoneal signs. GI was consulted, she will need ERCP prior to surgical intervention. we discussed that she will need a laparoscopic cholecystectomy possible open, ideally during this admission, patient understands and agrees to this plan. NPO GI consult pending, will need ERCP +/- MRCP prior to cholecystectomy continue IV abx trend lipase and LFTs abdominal US pending <Cuba Butterfield PA-C - Last Filed: 05/24/25 11:07> Procedures Date of Service Date of Service: 05/24/25 <Cuba Butterfield PA-C - Last Filed: 05/24/25 11:07> 05/24/25 <Lan Ricks MD - Last Filed: 05/24/25 12:04>
[2025-05-24 11:39] VITALS: BP 119/58; PULSE 54; RESP 18; TEMP 36.2; O2SAT 99
--- NOTE | 2025-05-24 14:06 | P.DS_ITS ---
DS: Providers Provider Date of Service: 05/24/25 Date of admission: 05/24/25 01:40 Date of discharge: 05/24/25 Primary care physician: Harry Chun MD Attending physician on admission: Ian Ames Consults: 05/24/25 01:41 Consult to General Surgery Routine Consulting Provider[place] [facility] Reason for consultation: Acute choledocholithiasis Has provider been notified: Yes 05/24/25 01:42 Consult to Gastroenterology Routine Consulting Provider: Natalia Blanton Reason for consultation: Acute choledocholithiasis Has provider been notified: No Discharging clinician: Carolyne Reid DS: Transfer Hospital Acceptance Reason for Transfer: Acute cholecystitis Name of Facility: [facility] Accepting Provider: Dr. Norris DS: Diagnosis Discharge Diagnosis (1) Acute cholecystitis: Start date: 05/23/25 Status: Acute (2) Pancreatitis: Start date: 05/23/25 Status: Acute DS: Summary Hospital Course Hospital Course: 69 y/o female with a PMHx significant for laparoscopic gastric bypass surgery in 2022, appendectomy and x3 presents with abdominal pain, distention, nausea and diarrhea. Patient reports that she was on vacation in [facility], developed abdominal pain, presented to a hospital there wanted to admit her for pancreatitis but she opted to fly home to get treated here. Found to have acute cholecystitis and pancreatitis. Patient underwent CT abdomen and pelvis which demonstrated distended gallbladder with wall thickening and tamanna cholecystic fluid in intrahepatic biliary duct dilatation measuring up to 2.5 cm consistent with acute cholecystitis. Patient underwent MRCP, with recommendations to further evaluated with ERCP due to moderate to marked intra and extrahepatic biliary ductal dilatation. Patient with a history of gastric bypass surgery unable to perform ERCP at this facility. Patient also noted to have 1 of 2 blood cultures positive for Gram-negative rods, she is currently on Zosyn, she has been NPO. She is hemodynamically stable. No leukocytosis. On admission her lipase was 1226, trending down 705 today. AST on admit 339-->211 today, ALT 248-->185 today. Total Bili 4.3 on admit Now 4.1 Amylase 1329 on admit. Mild anemia, likely dilutional 31.0/10.4. Continues NPO. Supportive therapy with IV fluids, IV pain meds and antiemetics. Holding home medications for now. Continue Zosyn. One of two Blood cultures positive for gram negative rods. Patient with a history of gastric bypass surgery, unable to perform ERCP necesitating transfer to tertiary [facility]. Status at Discharge Overall status at discharge: patient is not back to baseline Time Attestation Total time managing care of this patient today: 45 mintues. Discharge Coordination Time (in mins): Examining patient, collecting history, discussing with the accepting facility, review imaging. Quality: Safe Use of Opioids Does Pt have an Active Cancer Diagnosis on the Problem List?: No Quality: Stroke Does the patient have a stroke diagnosis?: No Physical Exam Vital Signs: Vital Signs: Last Vital Signs Temp 97.1 F 05/24/25 11:39 Pulse 54 05/24/25 11:39 Resp 18 05/24/25 11:39 BP 119/58 L 05/24/25 11:39 Pulse Ox 99 05/24/25 11:39 O2 Del Method Room Air 05/24/25 11:39 BMI result Body Mass Index 42.9 Const: General: comfortable and no acute distress Orientation/consciousness: patient oriented x3 Resp: Effort & Inspection: normal respiratory effort and able to speak in complete sentences GI: Inspection: No distended Palpation (GI): Soft to palpation and Tenderness to palpation present (GI) in the epigastrum and Walker's sign positive; with no rebound tenderness Neuro: General: patient oriented x3 DS: Data Data Completed and Pending Completed studies during hospitalization [Text1]: Abdomen/pelvis CT Cholangiopancreatography MRI Results uploaded to [employer] Pending studies at discharge: Final blood cultures pending Labs on day of discharge: Laboratory Results - last 24 hr 05/23/25 05/24/25 05/24/25 21:15 01:58 05:04 WBC 9.3 7.7 RBC 4.03 L 3.72 L Hgb 11.3 L 10.4 L Hct 33.9 L 31.9 L MCV 84.1 85.8 MCH 28.0 28.0 MCHC 33.3 32.6 RDW 15.9 16.1 H Plt Count 188 D 138 L D MPV 11.3 10.8 Immature Gran % (Auto) Cancelled Cancelled Neut % (Auto) Cancelled Cancelled Lymph % (Auto) Cancelled Cancelled [place] % (Auto) Cancelled Cancelled Eos % (Auto) Cancelled Cancelled Baso % (Auto) Cancelled Cancelled Lymph # (Auto) Cancelled Cancelled [place] # (Auto) Cancelled Cancelled Eos # (Auto) Cancelled Cancelled Baso # (Auto) Cancelled Cancelled Abs Immat Gran (auto) Cancelled Cancelled Absolute Neuts (auto) Cancelled Cancelled Absolute Nucleated RBC 0.000 0.000 Nucleated RBC % (auto) 0.0 0.0 Neutrophils % (Manual) 58 56 Band Neutrophils % 22 H 29 H Lymphocytes % (Manual) 14 L 7 L Monocytes % (Manual) 5 7 Eosinophils % (Manual) 1 Basophils % (Manual) 1 Abs Neuts (Manual) 7.4 6.5 Lymphocytes # (Manual) 1.3 0.5 L Monocytes # (Manual) 0.5 0.5 Eosinophils # (Manual) 0.1 Basophils # (Manual) 0.1 Platelet Estimate NORMAL DECREASED Plt Morphology Comment NORMAL NORMAL RBC Morphology NOTED NOTED Ovalocytes 1+ (5-14) 1+ (5-14) [place] Cells 1+ (0-2) 3+ (>5) PT 12.7 H INR 1.1 Sodium 137 138 Potassium 4.3 4.0 Chloride 104 110 H Carbon Dioxide 23 18 L Anion Gap 14 14 BUN 30 H 29 H Creatinine 0.99 0.77 Estim Creat Clear Calc 95.5 72.2 Estimated GFR 56 > 60 Random Glucose 98 90 Lactic Acid 0.6 Calcium 8.7 8.0 L D Magnesium 2.1 2.2 Total Bilirubin 4.3 H 4.1 H Direct Bilirubin 3.1 H AST 339 H 211 H ALT 248 H 185 H Alkaline Phosphatase 212 H 182 H Total Protein 6.9 5.8 L Albumin 3.9 3.2 L Triglycerides 34 Amylase 1329 H Lipase 1226 H 705 H Preliminary micro results at discharge 05/24/25 02:15 Blood Culture - Preliminary Blood - Venous Prelim: GNR Gram Stain only Imaging MRI - abdomen: Radiologist's impression: ITS Impressions Cholangiopancreatography MRI 05/24/25 12:12 IMPRESSION: 1. Distended gallbladder with intraluminal layering dense bile. Mild gallbladder wall thickening and pericholecystic fluid. If there is clinical concern for acute cholecystitis, HIDA scan could be performed. 2. Moderate to marked intra and extrahepatic biliary ductal dilatation, similar to prior studies. No evidence of choledocholithiasis. Focal stricture in the pancreatic head. This could be further evaluated with ERCP. Electronically signed by: Timbo Farris MD 05/24/2025 01:[address] scan - abdomen: Radiologist's impression: ITS Impressions Cholangiopancreatography MRI 05/24/25 12:12 IMPRESSION: 1. Distended gallbladder with intraluminal layering dense bile. Mild gallbladder wall thickening and pericholecystic fluid. If there is clinical concern for acute cholecystitis, HIDA scan could be performed. 2. Moderate to marked intra and extrahepatic biliary ductal dilatation, similar to prior studies. No evidence of choledocholithiasis. Focal stricture in the pancreatic head. This could be further evaluated with ERCP. Electronically signed by: Timbo Farris MD 05/24/2025 01:06 PM EDT RP Discharge Plan Discharge Anticipated Discharge Date/Time: 05/24/25 14:19 Patient Disposition: [facility] Discharge Diagnosis: Acute cholecystitis Referrals: Po,Harry Mayorga MD [Primary Care Provider, Internal Medicine] - 1 Week Discharge Medications: New piperacillin-tazobactam 3.375 gram Recon Soln 3.375 g IV Q6H Qty: 10 0RF hydromorphone 0.5 mg/0.5 mL Syringe 0.5 mg IVPUSH Q3H PRN (Reason: Pain, Severe (Pain Scale 7-10)) Qty: 5 0RF Protocol: Hold for RR < HOLD and contact provider for RR < (bpm): 12 Rx Instructions: Partial Fill upon patient request. Continued celecoxib 50 mg capsule 50 mg PO DAILY PRN (Reason: pain) Qty: 30 0RF omeprazole 20 mg capsule,delayed release(DR/EC) 20 mg PO DAILY@0630 calcium carbonate [Calcium 500] 500 mg calcium (1,250 mg) tablet 1,000 mg PO DAILY cholecalciferol (vitamin D3) 25 mcg (1,000 unit) capsule 25 mcg PO DAILY Vitron-C 65 mg iron- 125 mg tablet,delayed release (DR/EC) 1 tab PO BEDTIME Qty: 30 6RF melatonin 5 mg capsule 5 mg PO BEDTIME Discharge Orders: Discharge Order (Routine); Ordered 05/24/25 Ordered By: Carolyne Reid Diet: NPO Activity on Discharge: As tolerated Stand Alone Forms: Patient Portal Discharge page Print Language: Indonesian Care Plan Goals: Treatment of Acute cholecystitis/Pancreatitis Health Concerns: Recovery from acute cholecystitis, Pancreatitis Plan of Treatment: Transfer to Tertiary care center for further treatment Assessment: 69 y/o female with a PMHx significant for GERD, laparoscopic gastric bypass surgery in 2022, appendectomy and x3 presents with abdominal pain, distention, nausea and diarrhea. Patient reports that she was on vacation in [facility], developed abdominal pain, presented to a hospital there wanted to admit her for pancreatitis but she opted to fly home to get treated here. Found to have acute cholecystitis and pancreatitis. Gallstone pancreatitis/acute cholecystitis Continues NPO. Supportive therapy with IV fluids, IV pain meds and antiemetics. Holding home medications for now. Continue to monitor LFTs and lipase. Trending down. Continue Zosyn. One of two Blood cultures positive for gram negative rods, No leukocytosis, has been afebrile. Patient with a history of gastric bypass surgery, unable to perform ERCP at this facility. Images of abdominal CT and MRCP upladed to Powerchart GERD Continue PPI. Chronic anemia Continue to monitor. Code status: Full. DVT prophylaxis: Lovenox
[2025-05-24] MEDS: 0.9 % Sodium Chloride Flush 3 ML SYRINGE IVFLUSH (15:09)
[2025-05-24 15:17] VITALS: BP 136/62; PULSE 57; RESP 16; TEMP 36.4; O2SAT 99
--- NOTE | 2025-05-24 15:33 | MHC.CM.PN ---
Patient lives in a home alone. Functionally independent. Denies use of DME or services. PCP Harry Chun MD Reports she has an HCP listing her son, Armand Watson, as HCA. Copy requested. DP: Diann to [facility] @ 1600 per RN.
--- NOTE | 2025-05-24 15:34 | PC.NURSE ---
Report called to [facility] at [phone] at 15:35. Ambulance booked for 16:00. Per PA Pt does not need to travel with IVF. Pt aware of tx.
--- NOTE | 2025-05-25 11:19 | PC.NURSE ---
Earrings were left in room by pt 05/24. Heather Guadalupe came to bedside 05/25 11:15 retrieved earrings from nurses station, Son called and updated, states pt Shawna is aware.
== END 2025-05-24 16:15 | disposition short-term general hospital (02) | DRG 444 ==
LOC: HO.ED 05-24 01:41 → HO.EDOVER 05-24 02:14 → HO.S3 05-24 07:43
PROVIDERS: Registered Nurse Emergency; Admitting Provider Internal Medicine; Emergency Provider Emergency Medicine; PCP Internal Medicine; Visit Provider Nurse Practitioner Family
DX: K81.0 Acute cholecystitis (principal); K85.10 Biliary acute pancreatitis without necrosis or infection; R78.81 Bacteremia; K21.9 Gastro-esophageal reflux disease without esophagitis; D64.9 Anemia, unspecified; K83.8 Other specified diseases of biliary tract; Z98.84 Bariatric surgery status; Z79.899 Other long term (current) drug therapy
CPT/HCPCS: 36415; 74177; 74181; 80053; 82150; 82248; 83605; 83690; 83735; 84478; 85007; 85027; 85610; 87040; 87077; 87186; 87205; 99285; J1171; J2405; J2470; J2543; J7120; Q9967

== ENCOUNTER → 2025-05-23 22:15 | Outpatient (BNV) | payer OTHER, SELFPAY | PROVIDERS: Emergency Provider Emergency Medicine; PCP Internal Medicine; Visit Provider Radiology Diagnostic Radiology | DX: K82.8 Other specified diseases of gallbladder (principal) | CPT/HCPCS: 74177 ==

== ENCOUNTER 2025-05-24 01:40 | Outpatient (BNV) | payer OTHER, SELFPAY | END 2025-05-24 11:09 | PROVIDERS: Admitting Provider Internal Medicine; Emergency Provider Emergency Medicine; PCP Internal Medicine; Visit Provider Radiology Diagnostic Radiology | DX: K81.0 Acute cholecystitis (principal) | CPT/HCPCS: 74181 ==

== ENCOUNTER → 2025-05-24 01:40 | Outpatient (BNV) | payer OTHER, SELFPAY | PROVIDERS: Admitting Provider Internal Medicine; Emergency Provider Emergency Medicine; PCP Internal Medicine; Visit Provider Internal Medicine | DX: K81.0 Acute cholecystitis (principal); K85.10 Biliary acute pancreatitis without necrosis or infection; K21.9 Gastro-esophageal reflux disease without esophagitis | CPT/HCPCS: 99223; 99499 ==

== ENCOUNTER → 2025-05-24 01:40 | Outpatient (BNV) | payer OTHER, SELFPAY | PROVIDERS: Admitting Provider Internal Medicine; Emergency Provider Emergency Medicine; PCP Internal Medicine; Visit Provider Internal Medicine Gastroenterology | DX: K85.10 Biliary acute pancreatitis without necrosis or infection (principal); K83.8 Other specified diseases of biliary tract; R74.01 Elevation of levels of liver transaminase levels | CPT/HCPCS: 99232 ==

== ENCOUNTER → 2025-05-24 01:40 | Outpatient (BNV) | payer OTHER, SELFPAY | PROVIDERS: Admitting Provider Internal Medicine; Emergency Provider Emergency Medicine; PCP Internal Medicine | DX: K81.0 Acute cholecystitis (principal); K83.8 Other specified diseases of biliary tract; K85.10 Biliary acute pancreatitis without necrosis or infection | CPT/HCPCS: 99232 ==

== ENCOUNTER 2025-07-03 12:42 | Outpatient (AMB) | payer MEDICARE, SELFPAY ==
--- OUTSIDE RECORDS SUMMARY | 2025-07-02 08:30 | XMS_ITS | Encounter Summary ---
Author Organization [facility] Address [address] [place] [id number] Care Team Providers Care Teacher Education Instructor Name Role Phone Harry Chun MD Primary Care Provider [phone] Anita Kumar MD Unavailable [phone] Jeremy Rincon MD Unavailable [phone] Reason for Visit * Reason Comments Follow-up biliary stricture Encounter Details Date Type Department Care Team (Late st Contact Info) Description 07/02/2025 8:30 AM EDT Consult [facility] [address] [facility] [address] [place] [phone] Anita Kumar MD [address] [facility] [address] [place] [address] Gallstone pancreatitis (Primary Dx); Biliary stricture (HCC); History of Francesco-en-Y gastric bypass; Elevated CA 19-9 level Social History Tobacco Use Types Packs/Day Years Used Date Smoking Tobacco: Never Smokeless Tobacco: Never Alcohol Use Standard Drinks/Week Comments Yes 0 (1 standard drink = 0.6 oz pur e alcohol) drinks on weekends [facility] Utilities Answer Date Recorded In the past 12 months has e electric, gas, oil, or water company threatened to shut off services in your home? No 05/26/2025 AUDIT-C Answer Date Recorded Q1: How often do you have a drink containing alc ohol? 2-4 times a month 06/01/2025 Q2: How many drinks containi ng alcohol do you have on a typical day when you are drinking? 1 or 2 06/01/2025 Q3: How often do you have si x or more drinks on one occasion? Never 06/01/2025 Overall Financial Resource Strain (CARDIA) Answe r Date Recorded How hard is it for you to pa y for the very basics like food, housing, medical care, and heating? Not hard at all 05/26/2025 Hunger Vital Sign Answer Date Recorded Within the past 12 months, y ou worried that your food would run out before you got the money to buy more. Never true 05/26/20 25 Within the past 12 months, t he food you bought just didn't last and you didn't have money to get more. Never true 05/26/2025 PRAPARE - Transportation Answer Date Re corded In the past 12 months, has l ack of transportation kept you from medical appointments or from getting medications? No 05/11 In the past 12 months, has l ack of transportation kept you from meetings, work, or from getting things needed for daily living? No 05/26/2025 Housing Stability Vital Sign Answer Mika e Recorded In the last 12 months, was t here a time when you were not able to pay the mortgage or rent on time? No 05/26/2025 In the past 12 months, how m any times have you moved where you were living? 0 05/26/2025 At any time in the past 12 m [facility], were you homeless or living in a detention (including now)? 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 Not on file Not on file Not on radha e documented as of this encounter Last Filed Vital Signs Vital Sign Reading Time Taken Comments Blood Pressure 128/82 07/02/2025 8:22 AM EDT Pulse 61 07/02/2025 8:22 AM EDT Temperature - - Respiratory Rate - - Oxygen Saturation 99% 07/02/2025 8:22 AM EDT Inhaled Oxygen Concentration - - Weight 90.7 kg (200 lb) 07/02/2025 8:22 AM EDT Height 147.3 cm (4' 10 ) 07/02/2025 8:22 AM EDT Body Mass Index 41.8 07/02/2025 8:22 AM EDT documented in this encounter Plan of Treatment Upcoming Encounters Date Type Department Care Team (Latest Contact Info) Description 07/27/2025 1:45 PM EDT Hospital Encounter [facility] [address] [place] [address] Anita Kumar MD [address] [place] [address] 07/27/2025 1:45 PM EDT - 07/27/2025 4:30 PM EDT Surgery [facility] [address] [place] [phone] Anita Kumar MD [address] [place] [address] ROBOTIC CHOLECYSTECTOMY, POSSIBLE INTRAOPERATIVE CHOLANGIOGRAM (IOC), POSSIBLE OPEN (XI) 08/10/2025 10:30 AM EDT Office Visit [facility] Surgical Oncology [address] [phone] Consuelo Roberts APRN [address] [address] 09/20/2025 2:00 PM EST Hospital Encounter [facility] [address] [place] [phone] Jeremy Rincon MD [address] [place] [address] 09/20/2025 2:00 PM EST Appointment [facility] [place] [address] [facility] [address] [place] [address] Jeremy Rincon MD [address] [place] [phone] 09/20/2025 2:00 PM EST - 09/20/2025 3:00 PM EST Surgery [facility] [address] [place] [phone] Jeremy Rincon MD [address] [place] [phone] ERCP Scheduled Procedures Name Priority Associated Diagnoses Date/Ti me ROBOTIC ASSISTED CHOLECYSTECTOMY (XI) Gallstone pancreatitis Biliary stricture (HCC) 07/27/2025 1:45 PM EDT ERCP Choledocholithiasis Common bile duct (CBD) stricture (HCC) 09/20/2025 2:00 PM EST documented as of this encounter Goals Goal Patient Goal Type Associated Problems Recent Progress Patient-Stated? Author Autogenera сергей Goal Care Plan Autogenerated Problem No Ivette Barnett Autogenera сергей Goal Care Plan Autogenerated Problem No Prasad Amezquita documented as of this encounter Procedures Procedure Name Priority Date/Time Associated Diagnosis Comments CA 19-9 Routine 07/02/2025 12:45 PM EDT Biliary stricture (HCC) Elevated CA 19-9 level COMPLETE BLOOD COUNT, WITHOUT DIFFERENTIAL Routine 07/02/2025 12:45 PM EDT Gallstone pancreatitis Biliary stricture (HCC) History of Francesco-en-Y gastric bypass Elevated CA 19-9 level LIPASE Routine 07/02/2025 12:45 PM EDT Gallstone pancreatitis Biliary stricture (HCC) History of Francesco-en-Y gastric bypass Elevated CA 19-9 level HEPATIC FUNCTION PANEL Routine 07/02/2025 12:45 PM EDT Gallstone pancreatitis Biliary stricture (HCC) History of Francesco-en-Y gastric bypass Elevated CA 19-9 level BASIC METABOLIC PANEL Routine 07/02/2025 12:45 PM EDT Gallstone pancreatitis Biliary stricture (HCC) History of Francesco-en-Y gastric bypass Elevated CA 19-9 level documented in this encounter Results * (ABNORMAL) HEPATIC FUNCTION PANEL (07/02/2025 12:45 PM EDT) Protein, Total 6.8 6.1 - 8.1 g/dL [facility] Albumin 4.1 3.6 - 5.1 g/dL [facility] Globulin 2.7 1.9 - 3.7 g/dL (calc) [facility] Albumin/Globulin Ratio 1.5 1.0 - 2.5 (calc) [facility] Bilirubin, Total 0.9 0.2 - 1.2 mg/dL [facility] Bilirubin, Direct 0.3(H) < OR = 0.2 mg/dL [facility] Bilirubin, Indirect 0.6 0.2 - 1.2 mg/dL (calc) [facility] Alkaline Phosphatase 207(H) 37 - 153 U/L [facility] Aspartate Aminotrans (AST) 27 10 - 35 U/L [facility] Alanine Aminotrans (ALT) 22 6 - 29 U/L [facility] Blood Blood specimen / Unknown 07/02/2025 12:45 PM EDT 07/02/2025 12:46 PM EDT Narrative [facility] - 07/03/2025 9:18 AM EDT FASTING:NO FASTING: NO us Anita Kumar MD LAB BLOOD ORDERABLES Final Re sult [facility] [address] [place] [phone] * LIPASE (07/02/2025 12:45 PM EDT) Lipase 45 7 - 60 U/L [facility] Blood Blood specimen / Unknown 07/02/2025 12:45 PM EDT 07/02/2025 12:46 PM EDT Narrative [facility] - 07/03/2025 9:18 AM EDT FASTING:NO FASTING: NO Anita Kumar MD LAB BLOOD ORDERABLES Final Re sult Performing Organization Address [facility] de Phone Number [facility] [address] [place] [address] * CA 19-9 (07/02/2025 12:45 PM EDT) [facility] CA 19-9 10 <34 U/mL [facility] Comment: This test was performed using the Siemens chemiluminescent method. Values obtained from different assay methods cannot be used interchangeably. CA 19-9 levels, regardless of value, should not be interpreted as absolute evidence of the presence or absence of disease. Blood Blood specimen / Unknown 07/02/2025 12:45 PM EDT 07/02/2025 12:[address] [facility] - 07/03/2025 9:18 AM EDT FASTING:NO FASTING: NO Anita Kumar MD LAB BLOOD ORDERABLES Final Re sult Performing Organization Address [facility] de Phone Number [facility] [address] [place] [address] * COMPLETE BLOOD COUNT, WITHOUT DIFFERENTIAL (07/02/2025 12:45 PM EDT) [facility] White Blood Cell Count 7.6 3.8 - 10.8 Thousand/u L [facility] Red Blood Cell Count 4.21 3.80 - 5.10 Million/uL [facility] Hemoglobin 12.1 11.7 - 15.5 g/dL [facility] Hematocrit 37.5 35.0 - 45.0 % [facility] MCV 89.1 80.0 - 100.0 fL [facility] MCH 28.7 27.0 - 33.0 pg [facility] MCHC 32.3 32.0 - 36.0 g/dL [facility] Comment: For adults, a slight decrease in the calculated MCHC value (in the range of 30 to 32 g/dL) is most likely not clinically significant; however, it should be interpreted with caution in correlation with other red cell parameters and the patient's clinical condition. RDW 15.0 11.0 - 15.0 % [facility] Platelet Count 279 140 - 400 Thousand/u L [facility] MPV 11.6 7.5 - 12.5 fL [facility] Blood Blood specimen / Unknown 07/02/2025 12:45 PM EDT 07/02/2025 12:46 PM EDT Narrative [facility] - 07/03/2025 9:18 AM EDT FASTING:NO FASTING: NO us Anita Kumar MD LAB BLOOD ORDERABLES Final Re sult [facility] [address] [place] [phone] * Basic Metabolic Panel (07/02/2025 12:45 PM EDT) [facility] Glucose 95 65 - 139 mg/dL [facility] Comment: Non-fasting reference interval Blood Urea Nitrogen (BUN) 13 7 - 25 mg/dL [facility] Creatinine 0.56 0.50 - 1.05 mg/dL [facility] Creatinine w/ eGFR 99 > OR = 60 mL/min/1. 73m2 [facility] BUN/Creatinine Ratio SEE NOTE: (calc) [facility] Comment: Not Reported: BUN and Creatinine are within reference range. Sodium 142 135 - 146 mmol/L [facility] Potassium 3.9 3.5 - 5.3 mmol/L [facility] Chloride 107 98 - 110 mmol/L [facility] CO2 27 20 - 32 mmol/L [facility] Calcium 9.0 8.6 - 10.4 mg/dL [facility] Blood Blood specimen / Unknown 07/02/2025 12:45 PM EDT 07/02/2025 12:46 PM EDT Narrative [facility] - 07/03/2025 9:18 AM EDT FASTING:NO FASTING: NO Anita Kumar MD LAB BLOOD ORDERABLES Final Re sult [email or web address] [address] [place] [phone] documented in this encounter Visit Diagnoses Diagnosis Gallstone pancreatitis- Primary Acute pancreatitis Biliary stricture (HCC) Obstruction of bile duct History of Francesco-en-Y gastric bypass Elevated CA 19-9 level Gallstone pancreatitis Acute pancreatitis Biliary stricture (HCC) Obstruction of bile duct Choledocholithiasis Calculus of bile duct without mention of cholecystitis or obstruction Common bile duct (CBD) stricture (HCC) Obstruction of bile duct documented in this encounter Additional Health Concerns Active Problems Noted Date Diagnosed Date Autogenerated Problem 06/21/2025 Autogenerated Problem 07/02/2025 documented as of this encounter Care Teams Teacher Education Instructor Relationship Specialty Start Date End Date Po, Harry Mayorga MD [address] [place] [phone] PCP - General Internal Medicine 05/26/25 Anita Kumar MD [address] [place] [phone] Surgical Oncology 07/02/25 Jeremy Rincon MD [address] [place] [address] Gastroenterology 07/02/25 documented as of this encounter
--- NOTE | 2025-07-03 12:48 | MHC.PC.OV ---
Vital Signs 07/03/25 12:49 Height 5 ft Weight 199 lb 2 oz BMI 38.9 BP 112/66 Blood Pressure Location Lt brachial Position Sitting Pulse 71 Pulse Source Pulse Oximeter Temp 97.3 F Temp Source Temporal Artery Scan Pulse Oximetry (%) 98 Oxygen Delivery Method Room Air Intake Visit Reasons: follow up/referral Valuation Consultant Required: No Leaded Glass Installer: Not Required per policy Accompanied by: Self / Same As Patient Allergies morphine (MORPHINE) Allergy (Unknown, Verified 07/03/25 12:49) VOMITING AND SHAKING MORPHINE Allergy (Mild, Uncoded 07/03/25 12:49) Nausea and Vomiting Medication List - Last Reconciled 07/03/25 by Harry Chun MD albuterol sulfate 90 mcg/actuation (Ventolin HFA) 2 puffs inhalation Q6H PRN calcium carbonate (Calcium 500) 1,000 mg PO DAILY celecoxib 50 mg PO DAILY PRN cholecalciferol (vitamin D3) 25 mcg PO DAILY iron,carbonyl-vitamin C 65 mg iron- 125 mg (Vitron-C) 1 tab PO BEDTIME magnesium 250 mg PO DAILY melatonin 5 mg PO BEDTIME omeprazole 20 mg PO DAILY@0630 Tobacco use date assessed: 07/03/25 Fall risk assessment: No Falls in past year Last assessed Fall Risk: 07/03/25 Dental Screening Dental Screen Date: 04/30/25 HPI follow up/referral HPI Details PAtient is going to have a laparoscopic cholecystectomy July 28, 2025, patient was told to see the cardiology for clearance [facility] Medical History (Updated 07/03/25 @ 13:32 by Harry Chun MD) Dysgeusia Arthritis Age-related osteoporosis without current pathological fracture Osteopenia COVID-19 Vitamin D deficiency Vitamin B12 deficiency Syphilis Obesity Asthma GERD (gastroesophageal reflux disease) Osteoarthritis Surgical History Hx of section History of appendectomy History of cholecystectomy Hx of gastric bypass History of abdominoplasty H/O gastric bypass Family History Father No problems noted. Mother No problems noted. Social History Household Members: None Housing: House Do you presently have visiting nurse or other home services: No Alcohol intake: current Comment: holidays 2 beers Patient Tobacco Use Status: Never used Tobacco e-Cigarette/Vaping Use: Never Used Second Hand Smoke Exposure: No Advance Directives Date on File: 11/04/23 service: No Current occupational status: employed Cognitive needs: No Hearing needs: No Vision needs: Yes Questionnaire PHQ-9 Over the last 2 weeks, how often have you been bothered by any of the following problems? 1. Little interest or pleasure in doing things: nearly every day 2. Feeling down, depressed, or hopeless: not at all 3. Trouble falling or staying asleep, or sleeping too much: not at all 9. Thoughts that you would be better off or of hurting yourself in some way: not at all Source: Developed by Drs. Timbo Nazario, Ivanna Sol, Kip العراقي and colleagues, with an educational jai from [employer]. Thrive Questionnaire Date Thrive assessed: 10/31/24 I am a: Patient What is your living situation today?: I choose not to answer this question Within the past 12 months, did the food you bought not last and you didn't have the money to get more?: I choose not to answer this question Within the past 12 months, did you worry whether your food would run out before you got money to buy more?: I choose not to answer this question Do you have trouble paying for medicines?: No Do you have trouble getting transportation to medical appointments?: Yes Do you have trouble paying your heating and electricity bill?: No Do you have trouble taking care of your child, family member or friend?: No Do you have trouble with day-to-day activities such as bathing, preparing meals, shopping, managing finances, etc.?: No Are you currently unemployed and looking for a job?: No Are you interested in more education?: No Please select the resources that you would like help with: None Currently or been in a relationship where the following occur: No concerns reported THRIVE Score: 1 AUDIT C Alcohol Use Questionnaire (AUDIT-C) 1. How often do you have a drink containing alcohol?: Never Total Score: 0 DANY-7 AMB Questionnaire DANY-7 Date DANY - 7 assessed: 10/31/24 Feeling nervous, anxious, or on edge: 0 = Not at all Not being able to stop or control worryin = Not at all Worrying too much about different things: 0 = Not at all Source: Developed by Drs. Timbo Nazario, Ivanna Sol, Kip العراقي and colleagues, with an educational jai from [employer]. Physical exam (Primary Care) Vital Signs: Last Vital Signs Temp 97.3 F 07/03/25 12:49 Pulse 71 07/03/25 12:49 BP 112/66 07/03/25 12:49 Pulse Ox 98 07/03/25 12:49 Oxygen Delivery Method Room Air 07/03/25 12:49 BMI result Body Mass Index 38.9 Tobacco/Smoking Status: Tobacco use Status Tobacco use date assessed 07/03/25 07/03/25 12:56 Patient Tobacco Use Status Never used Tobacco 07/03/25 12:56 Tobacco use type 12/01/23 10:17 e-Cigarette/Vaping Use Never Used 07/03/25 12:56 Thrive Assessment: Date of Thrive Assessment Date Thrive assessed 10/31/24 07/03/25 12:56 Currently or been in a relationship where the following occur: No concerns reported Const General: alert; No acute distress Eyes Conjunctivae: conjunctivae normal Resp Auscultation: clear to auscultation bilaterally Cardio Rate: regular rate Rhythm: regular rhythm GI Inspection: Yes normal to inspection Extrem General: Yes normal to inspection and No edema Coding Level of Care Code Est Pt Level 4 (57547) Complex EM visit Add On G2211 Diagnoses 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 H/O gastric bypass Z98.84 Gastroesophageal reflux disease without esophagitis K21.9 Esophagitis presence: without esophagitis Elevated LFTs R79.89 Anemia, unspecified type D64.9 Anemia type: unspecified type Preop exam for internal medicine Z01.818 Assessment & Plan Assessment & Plan (1) 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: Code(s): A00.0 - Cholera due to Vibrio cholerae 01, biovar cholerae Category: Medical Plan: Patient was prescribed Levaquin treatment (2) H/O gastric bypass: Comment: 2002 - open procedure Code(s): Z98.84 - Bariatric surgery status Category: Surgical Plan: Continue to follow-up with bariatric (3) GERD (gastroesophageal reflux disease): Code(s): K21.9 - Gastro-esophageal reflux disease without esophagitis Category: Medical Qualifiers: Esophagitis presence: without esophagitis Qualified Code(s): K21.9 - Gastro-esophageal reflux disease without esophagitis Plan: Avoid the foods that causes that usually spicy foods, tomato products, juices, coffee, soda and foods that your sensitive to. After eating do not lie down, allow 3-4 hours before in lie down. And keep the head of bed above 30 degrees to avoid the acid from going up. (4) Elevated LFTs: Code(s): R79.89 - Other specified abnormal findings of blood chemistry Category: Medical (5) Anemia: Code(s): D64.9 - Anemia, unspecified Category: Medical Qualifiers: Anemia type: unspecified type Qualified Code(s): D64.9 - Anemia, unspecified (6) Preop exam for internal medicine: Code(s): Z01.818 - Encounter for other preprocedural examination Category: Medical Plan: Blood work and EKG requested but patient mentions that she was told to have a cardiac and pulmonary clearance. Referrals done Plan History of Present Illness The patient is a 69-year-old female presenting for follow-up after recent hospitalization and treatment for multiple conditions, including pancreatitis and bacteremia. The patient has a history of obesity and underwent gastric bypass surgery in 2002, which has contributed to a 15-pound weight loss recently. She also has a history of gastroesophageal reflux disease (GERD) and asthma, which are being managed with medications. The patient was diagnosed with osteopenia, with the last bone density test conducted in December 2024. In June 2025, an endoscopy was performed due to common bile duct dilatation, revealing sludge but no significant abnormalities in the pancreatic head. The patient was transferred to [facility] with concerns of cholecystitis, biliary dilatation, and bacteremia, and was diagnosed with pancreatitis. The patient had a positive blood culture for gram-negative rods, identified as Vibrio cholera, and was initially treated with Zosyn, later switched to levofloxacin. She had a stent placed in the sphincter of Oddi in May 2025. Laboratory tests in May 2025 showed anemia with hemoglobin at 10.4 g/dL and hematocrit at 31.9%, along with elevated liver enzymes. Health Maintenance - Bone density test conducted in December 2024 - Colonoscopy performed in 2016 - Mammogram conducted in December 2024 Social History - Recent travel to the [facility] Review of Systems - Gastrointestinal: Reports recent pancreatitis, common bile duct dilatation, and sludge in the bile duct. - Hematologic: Reports anemia with hemoglobin at 10.4 g/dL. - Infectious Disease: Reports bacteremia with Vibrio cholera. Physical Exam Results - Labs: Anemia with hemoglobin at 10.4 g/dL and hematocrit at 31.9%. - Labs: Elevated liver enzymes with AST at 211 U/L and ALT at 185 U/L. - Blood Culture: Positive for Vibrio cholera. Plan Patient was informed and verbally consented to the use of an ambient scribe for clinic note documentation during this visit. 1. Pancreatitis The patient was diagnosed with pancreatitis following concerns of cholecystitis and biliary dilatation. Management included hospitalization and monitoring of liver function tests, which were elevated. 2. Bacteremia With Vibrio Cholera The patient had a positive blood culture for Vibrio cholera, initially treated with Zosyn and later switched to levofloxacin. The patient was advised to maintain hydration and follow up with infectious disease specialists. 3. Anemia The patient presented with anemia, with hemoglobin at 10.4 g/dL and hematocrit at 31.9%. Further evaluation and management were recommended, including monitoring of blood counts and nutritional assessment. 4. Elevated Liver Function Tests The patient exhibited elevated liver enzymes, with AST at 211 U/L and ALT at 185 U/L. Follow-up testing and monitoring were advised to assess liver function and potential underlying causes. Discussion Notes During the visit, we discussed the patient's recent hospitalization for pancreatitis and bacteremia with Vibrio cholera. The importance of maintaining hydration and following up with specialists was emphasized. We also reviewed the need for monitoring anemia and elevated liver function tests, with plans for further evaluation and management. The patient was informed about the upcoming cholecystectomy and the need for cardiology and pulmonology clearance prior to surgery. Patient Instructions - Maintain adequate hydration and follow up with infectious disease specialists. - Monitor blood counts and liver function tests as advised. - Prepare for cholecystectomy by obtaining cardiology and pulmonology clearance. Orders: Orders Comprehensive Met. Panel Today R79.89 - Other specified abnormal findings of blood chemistry Complete Blood Count Auto Diff Today R79.89 - Other specified abnormal findings of blood chemistry ECG 12 lead EKG Today R79.89 - Other specified abnormal findings of blood chemistry Ferritin Today R79.89 - Other specified abnormal findings of blood chemistry IRON PROFILE Today R79.89 - Other specified abnormal findings of blood chemistry Reticulocyte Count Today R7 - Other specified abnormal findings of blood chemistry Vitamin B12 and Folate Today R7 - Other specified abnormal findings of blood chemistry Referrals Pulmonology Referral R7. - Other specified abnormal findings of blood chemistry Cardiology Referral R7 - Other specified abnormal findings of blood chemistry
[2025-07-03 12:49] VITALS: BP 112/66; PULSE 71; TEMP 36.3; O2SAT 98; BMI 38.9
--- OUTSIDE RECORDS SUMMARY | 2025-07-03 15:38 | XMS_ITS | Patient Health Record ---
Author Organization [facility] Address [address] [place] [address] Care Team Providers Care Hadoop Engineer Name Role Phone Harry Chun MD Primary [...] Problem Status W/U Status Risk Notes Problem [id number] Epigastric pain (R10.13) Active confirmed Problem [id number] Bile duct abnormality (K83.9) Active confirmed Problem [id number] Gastroesophageal reflux disease, unspecified whether esophagitis present [...] Date [employer] Medicare Advantage Plan [address] [address] [place] [address] [phone] [id number] BERRY LEE Self - patient is the insured Medical (General) History Medical History History ICD Code Elevated body mass index Osteoarthritis Gastroesophageal reflux disease Osteoporosis History of syphilis Insomnia Colonoscopy several years ago, records a re not available Surgical History Surgery Date(Month/Year) Gastric bypass surgery section Appendectomy Panniculectomy
--- OUTSIDE RECORDS SUMMARY | 2025-07-03 15:39 | XMS_ITS | Encounter Summary ---
Author Organization [facility] Address [address] [place] [id number] Care Team Providers Care Coater Hand Name Role Phone Harry Chun MD Primary Care Provider [phone] Anita Kumar MD Unavailable [phone] Jeremy Rincon MD Unavailable [phone] Encounter Details Date Type Department Care Team (Latest Contact Info) Description 07/02/2025 Travel Social History Tobacco Use Types Packs/Day Years Used Date Smoking Tobacco: Never Smokeless Tobacco: Never Alcohol Use Standard Drinks/Week Comments Yes 0 (1 standard drink = 0.6 oz pur e alcohol) drinks on weekends [facility] Utilities Answer Date Recorded In the past 12 months has [employer], gas, oil, or water company threatened to [...] any time in the past 12 m [facility], were you homeless or living in a group home (including now)? 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 Not on file Not on file Not on radha e documented as of this encounter Plan of Treatment Upcoming Encounters Date Type Department Care Team (Latest Contact Info) Description 07/27/2025 1:45 PM EDT Hospital Encounter [facility] [address] [place] [phone] Anita Kumar MD [address] [id number] 07/27/2025 1:45 PM EDT - 07/27/2025 4:30 PM EDT Surgery [facility] [address] [place] [phone] Anita Kumar MD [address] [address] ROBOTIC CHOLECYSTECTOMY, POSSIBLE INTRAOPERATIVE CHOLANGIOGRAM (IOC), POSSIBLE OPEN (XI) 08/10/2025 10:30 AM EDT Office Visit [facility] [address] [phone] Consuelo Roberts APRN [address] [address] 09/20/2025 2:00 PM EST Hospital Encounter [facility] [address] [place] [phone] Jeremy Rincon MD [address] [place] [phone] 09/20/2025 2:00 PM EST Appointment [facility] [address] [place] [address] Jeremy Rincon MD [address] [place] [phone] 09/20/2025 2:00 PM EST - 09/20/2025 3:00 PM EST Surgery [facility] [address] [place] [phone] Jeremy Rincon MD [address] [place] [address] ERCP Scheduled Procedures Name Priority Associated Diagnoses Date/Ti me ROBOTIC ASSISTED CHOLECYSTECTOMY (XI) Gallstone pancreatitis Biliary stricture (HCC) 07/27/2025 1:45 PM EDT ERCP Choledocholithiasis Common bile duct (CBD) stricture (HCC) 09/20/2025 2:00 PM EST documented as of this encounter Goals Goal Patient Goal Type Associated Problems Recent Progress Patient-Stated? Author [employer] Goal Care Plan Autogenerated Problem No Ivette Barnett A [employer] Goal Care Plan Autogenerated Problem No Prasad Amezquita documented as of this encounter Visit Diagnoses Not on filedocumented in this encounter Additional Health Concerns Active Problems Noted Date Diagnosed Date Autogenerated Problem 06/21/2025 Autogenerated Problem 07/02/2025 documented as of this encounter Care Teams Coater Hand Relationship Specialty Start Date End Date Harry Chun MD [address] [place] [address] [address] [place] [address] PCP - General Internal Medicine 05/26/25 Anita Kumar MD [address] [place] [address] [address] [place] [address] Surgical Oncology 07/02/25 Jeremy Rincon MD [address] [place] [address] [address] [place] [address] Gastroenterology 07/02/25 documented as of this encounter
--- OUTSIDE RECORDS SUMMARY | 2025-07-03 15:39 | XMS_ITS ---
Author Name [facility] Organization Unknown Results Test Name/Text Value Interpretation Date Range Source Sodium SerPl-sCnc 142.0 mmol/L 05/30/2025 136 - 14 5 [facility] Anion Gap Bld-sCnc 11.0 05/30/2025 7 - 17 [facility] BUN SerPl-mCnc 4.0 mg/dL Below low normal 05/30/2025 8 - 21 [facility] ALP SerPl-cCnc 285.0 U/L Above high normal 05/30/2025 32 - 1 22 [facility] Creat SerPl-mCnc 0.6 mg/dL 05/30/2025 0.4 - 1.1 HH CCT Albumin SerPl-mCnc 2.9 g/dL Below low normal 05/30/2025 3.4 - 4.8 H[facility]CT CO2 SerPl-sCnc 26.0 mmol/L 05/30/2025 22 - 33 HH CCT Bilirub SerPl-mCnc 1.7 mg/dL Above high normal 05/30/2025 0. 2 - 1 H[facility]CT Glucose SerPl-mCnc 97.0 mg/dL 05/30/2025 65 - 99 HHCCT ALT SerPl-cCnc 115.0 U/L Above high normal 05/30/2025 10 - 5 0 H[facility]CT Calcium SerPl-mCnc 8.5 mg/dL Below low normal 05/30/2025 8.7 - 10.5 HHCCT Prot SerPl-mCnc 5.8 g/dL Below low normal 05/30/2025 6.3 - 8.3 H[facility]CT Globulin Ser Calc-mCnc 2.9 g/dL 05/30/2025 1.5 - 3.9 H[facility]CT Chloride SerPl-sCnc 105.0 mmol/L 05/30/2025 98 - 1 07 HHCCT GFR/BSA.pred SerPlBld HDO-WTE-[id number] >90.0 05/30/2025 59 - HHCCT Potassium SerPl-sCnc 4.2 mmol/L 05/30/2025 3.4 - 5 .3 H[facility] Albumin/Glob SerPl 1.0 Ratio 05/30/2025 1 - 3 H[facility]CT BUN/Creat SerPl 7.0 Ratio Below low normal 05/30/2025 10 - 2 5 H[facility]CT AST SerPl-cCnc 95.0 U/L Above high normal 05/30/2025 10 - 5 0 H[facility]CT MCHC RBC Auto-mCnc 32.6 g/dL 05/30/2025 30 - 36 [facility] Platelet num Bld Auto 297.0 Thou/uL 05/30/2025 150 - 450 H[facility]CT WBC num Bld Auto 8.1 Thou/uL 05/30/2025 4 - 11 H[facility]CT Hct VFr Bld Auto 31.6 % Below low normal 05/30/2025 35 - 47 H[facility]CT RBC num Bld Auto 3.69 Mil/uL Below low normal 05/30/2025 4 - 5.4 HHCCT PMV Bld Auto 10.7 fL 05/30/2025 7.5 - 12.5 H[facility]CT RDW RBC Auto-Rto 16.1 % Above high normal 05/30/2025 11.5 - 14.5 HHCCT MCV RBC Auto 86.0 fL 05/30/2025 80 - 100 H[facility]CT MCH RBC Qn Auto 27.9 pg 05/30/2025 27 - [address] Hgb Bld-mCnc 10.3 g/dL Below low normal 05/30/2025 11.7 - 15 .7 HHCCT Eosinophil 3.0 % 05/29/2025 H[facility]CT Lymphocytes num Bld Auto 1.4 Thou/uL Below low normal 05/29/2025 1.5 - 4.5 HHCCT Normocytes Present 05/29/2025 H[facility]CT Neutrophils num Bld Auto 6.0 Thou/uL 05/29/2025 2 - 7.5 HHCCT Lymphocytes/leuk NFr Bld Auto 17.0 % 05/29/2025 H[facility]CT Monocyte, Absolute 0.5 Thou/uL 05/29/2025 0.2 - 1. 5 [facility]CT Monocytes/leuk NFr Bld Auto 6.0 % 05/29/2025 [facility] Segmented Neutrophil 73.0 % 05/29/2025 H[facility]CT Neuts Band num Bld Manual 1.0 % 05/29/2025 H[facility]CT Normochromic Bld Ql Smear Present 05/29/2025 H[facility]CT Eosinophil num Bld Auto 0.2 Thou/uL 05/29/2025 0 - 0.7 H[facility]CT MCV RBC Auto 83.0 fL 05/29/2025 80 - 100 [facility] Platelet num Bld Auto 251.0 Thou/uL 05/29/2025 150 - 450 [facility]CT WBC num Bld Auto 8.1 Thou/uL 05/29/2025 4 - 11 [facility]CT MCH RBC Qn Auto 27.8 pg 05/29/2025 27 - [address] PMV Bld Auto 10.3 fL 05/29/2025 7.5 - 12.5 H[facility]CT Hgb Bld-mCnc 10.0 g/dL Below low normal 05/29/2025 11.7 - 15 .7 H[facility]CT RDW RBC Auto-Rto 16.1 % Above high normal 05/29/2025 11.5 - 14.5 H[facility]CT RBC num Bld Auto 3.6 Mil/uL Below low normal 05/29/2025 4 - 5.4 H[facility]CT MCHC RBC Auto-mCnc 33.3 g/dL 05/29/2025 30 - 36 HHCCT Hct VFr Bld Auto 30.0 % Below low normal 05/29/2025 35 - 47 HHCCT Sodium SerPl-sCnc 140.0 mmol/L 05/29/2025 136 - 14 5 [facility]CT Globulin Ser Calc-mCnc 2.7 g/dL 05/29/2025 1.5 - 3.9 HHCCT Albumin SerPl-mCnc 2.8 g/dL Below low normal 05/29/2025 3.4 - 4.8 HHCCT BUN SerPl-mCnc 5.0 mg/dL Below low normal 05/29/2025 8 - 21 H[facility]CT Potassium SerPl-sCnc 3.7 mmol/L 05/29/2025 3.4 - 5 .3 HHCCT Bilirub SerPl-mCnc 2.1 mg/dL Above high normal 05/29/2025 0. 2 - 1 HHCCT Chloride SerPl-sCnc 106.0 mmol/L 05/29/2025 98 - 1 07 HHCCT AST SerPl-cCnc 102.0 U/L Above high normal 05/29/2025 10 - 5 0 H[facility]CT Albumin/Glob SerPl 1.0 Ratio 05/29/2025 1 - 3 [facility]CT Creat SerPl-mCnc 0.6 mg/dL 05/29/2025 0.4 - 1.1 HH CCT CO2 SerPl-sCnc 24.0 mmol/L 05/29/2025 22 - 33 HH CCT Prot SerPl-mCnc 5.5 g/dL Below low normal 05/29/2025 6.3 - 8.3 HHCCT Calcium SerPl-mCnc 8.3 mg/dL Below low normal 05/29/2025 8.7 - 10.5 HHCCT ALT SerPl-cCnc 119.0 U/L Above high normal 05/29/2025 10 - 5 0 H[facility]CT Glucose SerPl-mCnc 122.0 mg/dL Above high normal 05/29/2025 65 - 99 HHCCT GFR/BSA.pred SerPlBld ALX-WHI-[id number] >90.0 05/29/2025 59 - HHCCT ALP SerPl-cCnc 265.0 U/L Above high normal 05/29/2025 32 - 1 22 [facility]CT Anion Gap Bld-sCnc 10.0 05/29/2025 7 - 17 [facility]CT BUN/Creat SerPl 8.0 Ratio Below low normal 05/29/2025 10 - 2 5 [facility]CT CO2 SerPl-sCnc 27.0 mmol/L 05/28/2025 22 - 33 HH CCT Albumin/Glob SerPl 1.2 Ratio 05/28/2025 1 - 3 HHCCT Calcium SerPl-mCnc 8.3 mg/dL Below low normal 05/28/2025 8.7 - 10.5 HHCCT Anion Gap Bld-sCnc 7.0 05/28/2025 7 - 17 H[facility]CT Sodium SerPl-sCnc 142.0 mmol/L 05/28/2025 136 - 14 5 H[facility]CT Glucose SerPl-mCnc 123.0 mg/dL Above high normal 05/28/2025 65 - 99 HHCCT GFR/BSA.pred SerPlBld END-ZVJ-XiKVfg >90.0 05/28/2025 59 - HHCCT BUN/Creat SerPl 12.0 Ratio 05/28/2025 10 - 25 HH CCT ALP SerPl-cCnc 256.0 U/L Above high normal 05/28/2025 32 - 1 22 HHCCT Prot SerPl-mCnc 5.3 g/dL Below low normal 05/28/2025 6.3 - 8.3 HHCCT Potassium SerPl-sCnc 3.7 mmol/L 05/28/2025 3.4 - 5 .3 HHCCT Globulin Ser Calc-mCnc 2.4 g/dL 05/28/2025 1.5 - 3.9 HHCCT ALT SerPl-cCnc 126.0 U/L Above high normal 05/28/2025 10 - 5 0 HHCCT Bilirub SerPl-mCnc 2.7 mg/dL Above high normal 05/28/2025 0. 2 - 1 HHCCT Chloride SerPl-sCnc 108.0 mmol/L Above high normal 98 - 107 HHCCT AST SerPl-cCnc 114.0 U/L Above high normal 05/28/2025 10 - 5 0 HHCCT Albumin SerPl-mCnc 2.9 g/dL Below low normal 05/28/2025 3.4 - 4.8 HHCCT BUN SerPl-mCnc 7.0 mg/dL Below low normal 05/28/2025 8 - 21 HHCCT Creat SerPl-mCnc 0.6 mg/dL 05/28/2025 0.4 - 1.1 HH CCT Bilirub Direct SerPl-mCnc 2.0 mg/dL Above high normal 05/28/2025 0 - 0.2 HHCCT MCH RBC Qn Auto 27.8 pg 05/28/2025 27 - [address] Hgb Bld-mCnc 9.8 g/dL Below low normal 05/28/2025 11.7 - 15 .7 HHCCT MCV RBC Auto 85.0 fL 05/28/2025 80 - 100 HHCCT MCHC RBC Auto-mCnc 32.7 g/dL 05/28/2025 30 - 36 HHCCT Hct VFr Bld Auto 30.0 % Below low normal 05/28/2025 35 - 47 HHCCT RDW RBC Auto-Rto 16.1 % Above high normal 05/28/2025 11.5 - 14.5 HHCCT PMV Bld Auto 10.5 fL 05/28/2025 7.5 - 12.5 HHCCT RBC num Bld Auto 3.53 Mil/uL Below low normal 05/28/2025 4 - 5.4 HHCCT WBC num Bld Auto 7.2 Thou/uL 05/28/2025 4 - 11 [facility]CT Platelet num Bld Auto 243.0 Thou/uL 05/28/2025 150 - 450 H[facility]CT Bilirub Direct SerPl-mCnc 3.3 mg/dL Above high normal 05/27/2025 0 - 0.2 HHCCT BUN SerPl-mCnc 10.0 mg/dL 05/27/2025 8 - [address] Bilirub SerPl-mCnc 4.7 mg/dL Above high normal 05/27/2025 0. 2 - 1 HHCCT Chloride SerPl-sCnc 104.0 mmol/L 05/27/2025 98 - 1 07 H[facility]CT Globulin Ser Calc-mCnc 2.9 g/dL 05/27/2025 1.5 - 3.9 HHCCT Creat SerPl-mCnc 0.6 mg/dL 05/27/2025 0.4 - 1.1 HH CCT BUN/Creat SerPl 17.0 Ratio 05/27/2025 10 - 25 HH CCT Sodium SerPl-sCnc 140.0 mmol/L 05/27/2025 136 - 14 5 H[facility]CT Potassium SerPl-sCnc 3.3 mmol/L Below low normal 05/27/2025 3.4 - 5.3 HHCCT Prot SerPl-mCnc 6.1 g/dL Below low normal 05/27/2025 6.3 - 8.3 HHCCT Glucose SerPl-mCnc 89.0 mg/dL 05/27/2025 65 - 99 HHCCT GFR/BSA.pred SerPlBld MGW-YXF-BpNGoi >90.0 05/27/2025 59 - HHCCT Anion Gap Bld-sCnc 12.0 05/27/2025 7 - 17 [facility]CT Albumin/Glob SerPl 1.1 Ratio 05/27/2025 1 - 3 HHCCT AST SerPl-cCnc 161.0 U/L Above high normal 05/27/2025 10 - 5 0 HHCCT Albumin SerPl-mCnc 3.2 g/dL Below low normal 05/27/2025 3.4 - 4.8 HHCCT ALT SerPl-cCnc 153.0 U/L Above high normal 05/27/2025 10 - 5 0 HHCCT Calcium SerPl-mCnc 8.4 mg/dL Below low normal 05/27/2025 8.7 - 10.5 HHCCT CO2 SerPl-sCnc 24.0 mmol/L 05/27/2025 22 - 33 HH CCT ALP SerPl-cCnc 293.0 U/L Above high normal 05/27/2025 32 - 1 22 HHCCT PMV Bld Auto 10.7 fL 05/27/2025 7.5 - 12.5 HHCCT RBC num Bld Auto 3.93 Mil/uL Below low normal 05/27/2025 4 - 5.4 H[facility]CT MCHC RBC Auto-mCnc 32.6 g/dL 05/27/2025 30 - 36 HHCCT WBC num Bld Auto 9.1 Thou/uL 05/27/2025 4 - 11 HHCCT Hct VFr Bld Auto 33.4 % Below low normal 05/27/2025 35 - 47 HHCCT MCH RBC Qn Auto 27.7 pg 05/27/2025 27 - [address] Hgb Bld-mCnc 10.9 g/dL Below low normal 05/27/2025 11.7 - 15 .7 [facility]CT Platelet num Bld Auto 275.0 Thou/uL 05/27/2025 150 - 450 HHCCT MCV RBC Auto 85.0 fL 05/27/2025 80 - 100 H[facility]CT RDW RBC Auto-Rto 16.1 % Above high normal 05/27/2025 11.5 - 14.5 HHCCT Albumin/Glob SerPl 1.2 Ratio 05/26/2025 1 - 3 HHCCT Bilirub SerPl-mCnc 5.0 mg/dL Above high normal 05/26/2025 0. 2 - 1 HHCCT Sodium SerPl-sCnc 143.0 mmol/L 05/26/2025 136 - 14 5 H[facility]CT Anion Gap Bld-sCnc 12.0 05/26/2025 7 - 17 HHCCT AST SerPl-cCnc 112.0 U/L Above high normal 05/26/2025 10 - 5 0 HHCCT Creat SerPl-mCnc 0.6 mg/dL 05/26/2025 0.4 - 1.1 HH CCT ALP SerPl-cCnc 267.0 U/L Above high normal 05/26/2025 32 - 1 22 HHCCT Calcium SerPl-mCnc 8.5 mg/dL Below low normal 05/26/2025 8.7 - 10.5 HHCCT ALT SerPl-cCnc 118.0 U/L Above high normal 05/26/2025 10 - 5 0 HHCCT BUN SerPl-mCnc 10.0 mg/dL 05/26/2025 8 - [address] Albumin SerPl-mCnc 3.1 g/dL Below low normal 05/26/2025 3.4 - 4.8 HHCCT GFR/BSA.pred SerPlBld MPT-XWO-RmBOrn >90.0 05/26/2025 59 - HHCCT Potassium SerPl-sCnc 3.7 mmol/L 05/26/2025 3.4 - 5 .3 HHCCT Chloride SerPl-sCnc 110.0 mmol/L Above high normal 98 - 107 HHCCT Globulin Ser Calc-mCnc 2.5 g/dL 05/26/2025 1.5 - 3.9 HHCCT Glucose SerPl-mCnc 114.0 mg/dL Above high normal 05/26/2025 65 - 99 HHCCT CO2 SerPl-sCnc 21.0 mmol/L Below low normal 05/26/2025 22 - 33 HHCCT BUN/Creat SerPl 17.0 Ratio 05/26/2025 10 - 25 HH CCT Prot SerPl-mCnc 5.6 g/dL Below low normal 05/26/2025 6.3 - 8.3 HHCCT Lipase SerPl-cCnc 119.0 U/L Above high normal 05/26/2025 13 - 60 HHCCT Imm Granulocytes/leuk NFr Bld Auto 0.6 % 05/26/2025 HHCCT Basophils/leuk NFr Bld Auto 0.3 % 05/26/2025 HHCCT Neutrophils num Bld Auto 5.86 Thou/uL 05/26/2025 2 - 7.5 HHCCT PMV Bld Auto 11.4 fL 05/26/2025 7.5 - 12.5 HHCCT MCH RBC Qn Auto 27.3 pg 05/26/2025 27 - [address] MCHC RBC Auto-mCnc 32.3 g/dL 05/26/2025 30 - 36 HHCCT Lymphocytes/leuk NFr Bld Auto 9.0 % 05/26/2025 HHCCT Eosinophil/leuk NFr Bld Auto 0.0 % 05/26/2025 [facility]CT Platelet num Bld Auto 219.0 Thou/uL 05/26/2025 150 - 450 HHCCT Eosinophil num Bld Auto 0.0 Thou/uL 05/26/2025 0 - 0.7 HHCCT MCV RBC Auto 85.0 fL 05/26/2025 80 - 100 H[facility]CT Neutrophils/leuk NFr Bld Auto 83.3 % 05/26/2025 HHCCT Basophils num Bld Auto 0.02 Thou/uL 05/26/2025 0 - 0.2 HHCCT RBC num Bld Auto 3.95 Mil/uL Below low normal 05/26/2025 4 - 5.4 HHCCT Lymphocytes num Bld Auto 0.63 Thou/uL Below low normal 05/26/2025 1.5 - 4.5 HHCCT WBC num Bld Auto 7.0 Thou/uL 05/26/2025 4 - 11 HHCCT Monocytes/leuk NFr Bld Auto 6.8 % 05/26/2025 HHCCT Imm Granulocytes num Bld Auto 0.04 Thou/uL 05/26/2025 0 - 0.1 HHCCT Hct VFr Bld Auto 33.4 % Below low normal 05/26/2025 35 - 47 HHCCT Monocytes num Bld Auto 0.48 Thou/uL 05/26/2025 0.2 - 1.5 HHCCT Hgb Bld-mCnc 10.8 g/dL Below low normal 05/26/2025 11.7 - 15 .7 HHCCT RDW RBC Auto-Rto 15.9 % Above high normal 05/26/2025 11.5 - 14.5 HHCCT CA 19-9 143.0 U/mL Above high normal 05/29/2025 - 34 HHCCT Lipase SerPl-cCnc 453.0 U/L Above high normal 05/25/2025 13 - 60 H[facility]CT BUN/Creat SerPl 22.0 Ratio 05/25/2025 10 - 25 HH CCT ALP SerPl-cCnc 257.0 U/L Above high normal 05/25/2025 32 - 1 22 HHCCT Glucose SerPl-mCnc 80.0 mg/dL 05/25/2025 65 - 99 HHCCT Prot SerPl-mCnc 5.6 g/dL Below low normal 05/25/2025 6.3 - 8.3 HHCCT Globulin Ser Calc-mCnc 2.4 g/dL 05/25/2025 1.5 - 3.9 HHCCT AST SerPl-cCnc 109.0 U/L Above high normal 05/25/2025 10 - 5 0 HHCCT ALT SerPl-cCnc 127.0 U/L Above high normal 05/25/2025 10 - 5 0 HHCCT BUN SerPl-mCnc 13.0 mg/dL 05/25/2025 8 - [address] Albumin SerPl-mCnc 3.2 g/dL Below low normal 05/25/2025 3.4 - 4.8 HHCCT Calcium SerPl-mCnc 8.5 mg/dL Below low normal 05/25/2025 8.7 - 10.5 HHCCT Chloride SerPl-sCnc 109.0 mmol/L Above high normal 98 - 107 HHCCT Potassium SerPl-sCnc 3.6 mmol/L 05/25/2025 3.4 - 5 .3 HHCCT CO2 SerPl-sCnc 20.0 mmol/L Below low normal 05/25/2025 22 - 33 HHCCT Creat SerPl-mCnc 0.6 mg/dL 05/25/2025 0.4 - 1.1 HH CCT Sodium SerPl-sCnc 142.0 mmol/L 05/25/2025 136 - 14 5 HHCCT GFR/BSA.pred SerPlBld EYF-UAB-AwFPea >90.0 05/25/2025 59 - HHCCT Albumin/Glob SerPl 1.3 Ratio 05/25/2025 1 - 3 HHCCT Anion Gap Bld-sCnc 13.0 05/25/2025 7 - 17 HHCCT Bilirub SerPl-mCnc 4.4 mg/dL Above high normal 05/25/2025 0. 2 - 1 HHCCT Bilirub Direct SerPl-mCnc 3.4 mg/dL Above high normal 05/25/2025 0 - 0.2 HHCCT Magnesium SerPl-mCnc 2.0 mg/dL 05/25/2025 1.6 - 2. 7 HHCCT Hgb A1c MFr Bld 5.5 % 05/25/2025 - 5.[address] Est. average glucose Bld gHb Est-mCnc 111.0 mg/dL 05/25/2025 HHCCT CEA SerPl-mCnc 1.7 ng/mL 05/25/2025 0 - 3.8 [facility] T Lactate SerPl-sCnc 0.6 mmol/L 05/25/2025 0.5 - 1.9 HHCCT MCHC RBC Auto-mCnc 31.2 g/dL 05/25/2025 30 - 36 HHCCT WBC num Bld Auto 7.7 Thou/uL 05/25/2025 4 - 11 HHCCT Neutrophils/leuk NFr Bld Auto 75.0 % 05/25/2025 HHCCT PMV Bld Auto 11.6 fL 05/25/2025 7.5 - 12.5 HHCCT Lymphocytes/leuk NFr Bld Auto 11.7 % 05/25/2025 HHCCT Eosinophil num Bld Auto 0.11 Thou/uL 05/25/2025 0 - 0.7 HHCCT Eosinophil/leuk NFr Bld Auto 1.4 % 05/25/2025 HHCCT RDW RBC Auto-Rto 16.1 % Above high normal 05/25/2025 11.5 - 14.5 HHCCT Monocytes num Bld Auto 0.83 Thou/uL 05/25/2025 0.2 - 1.5 HHCCT Imm Granulocytes/leuk NFr Bld Auto 0.8 % 05/25/2025 HHCCT MCV RBC Auto 87.0 fL 05/25/2025 80 - 100 H[facility]CT RBC num Bld Auto 3.8 Mil/uL Below low normal 05/25/2025 4 - 5.4 HHCCT Hct VFr Bld Auto 33.0 % Below low normal 05/25/2025 35 - 47 HHCCT Neutrophils num Bld Auto 5.74 Thou/uL 05/25/2025 2 - 7.5 HHCCT Hgb Bld-mCnc 10.3 g/dL Below low normal 05/25/2025 11.7 - 15 .7 HHCCT Imm Granulocytes num Bld Auto 0.06 Thou/uL 05/25/2025 0 - 0.1 HHCCT Basophils/leuk NFr Bld Auto 0.3 % 05/25/2025 [facility] RBC Qn Auto 27.1 pg 05/25/2025 27 - [address] Monocytes/leuk NFr Bld Auto 10.8 % 05/25/2025 [facility] Platelet num Bld Auto 206.0 Thou/uL 05/25/2025 150 - 450 HHCCT Basophils num Bld Auto 0.02 Thou/uL 05/25/2025 0 - 0.2 HHCCT Lymphocytes num Bld Auto 0.9 Thou/uL Below low normal 05/25/2025 1.5 - 4.5 H[facility]CT Monocytes/leuk NFr Bld Auto 10.0 % 05/25/2025 [facility] Lymphocytes/leuk NFr Bld Auto 9.0 % 05/25/2025 CCT Normochromic Bld Ql Smear Present 05/25/2025 [facility] Neuts Band num Bld Manual 3.0 % 05/25/2025 [facility] Normocytes Present 05/25/2025 [facility] Lymphocytes num Bld Auto 0.8 Thou/uL Below low normal 05/25/2025 1.5 - 4.5 [facility]CT Sai Cells Bld Ql Smear Present 05/25/2025 [facility] Segmented Neutrophil 78.0 % 05/25/2025 [facility] Monocyte, Absolute 0.9 Thou/uL 05/25/2025 0.2 - 1. 5 [facility]CT Neutrophils num Bld Auto 7.0 Thou/uL 05/25/2025 2 - 7.5 HHCCT Hct VFr Bld Auto 37.6 % 05/25/2025 35 - 47 HH CCT MCHC RBC Auto-mCnc 31.4 g/dL 05/25/2025 30 - 36 HHCCT RBC num Bld Auto 4.19 Mil/uL 05/25/2025 4 - 5.4 HHCCT MCV RBC Auto 90.0 fL 05/25/2025 80 - 100 H[facility]CT Hgb Bld-mCnc 11.8 g/dL 05/25/2025 11.7 - 15.7 [facility] T WBC num Bld Auto 8.6 Thou/uL 05/25/2025 4 - 11 [facility]CT Platelet num Bld Auto 201.0 Thou/uL 05/25/2025 150 - 450 [facility]CT RDW RBC Auto-Rto 15.9 % Above high normal 05/25/2025 11.5 - 14.5 HHCCT PMV Bld Auto 10.9 fL 05/25/2025 7.5 - 12.5 H[facility]CT MCH RBC Qn Auto 28.2 pg 05/25/2025 27 - [address] Lactate SerPl-sCnc 1.5 mmol/L 05/25/2025 0.5 - 1.9 [facility]CT Prothrombin time 14.0 seconds Above high normal 05/25/2025 1 0 - 13.5 HHCCT INR PPP 1.2 05/25/2025 [facility] Anticoagulant NO ANTI COAGULANT MEDS 05/24/2025 H[facility] Lipase SerPl-cCnc 770.0 U/L Above high normal 05/25/2025 13 - 60 H[facility]CT Bilirub Direct SerPl-mCnc 3.2 mg/dL Above high normal 05/25/2025 0 - 0.2 HHCCT GFR/BSA.pred SerPlBld JPL-WCV-OoXHwo >90.0 05/25/2025 59 - HHCCT BUN/Creat SerPl 28.0 Ratio Above high normal 05/25/2025 10 - 25 HHCCT ALT SerPl-cCnc 155.0 U/L Above high normal 05/25/2025 10 - 5 0 HHCCT AST SerPl-cCnc 145.0 U/L Above high normal 05/25/2025 10 - 5 0 HHCCT ALP SerPl-cCnc 252.0 U/L Above high normal 05/25/2025 32 - 1 22 HHCCT Bilirub SerPl-mCnc 4.4 mg/dL Above high normal 05/25/2025 0. 2 - 1 HHCCT Globulin Ser Calc-mCnc 2.8 g/dL 05/25/2025 1.5 - 3.9 HHCCT Potassium SerPl-sCnc 3.7 mmol/L 05/25/2025 3.4 - 5 .3 HHCCT Creat SerPl-mCnc 0.6 mg/dL 05/25/2025 0.4 - 1.1 HH CCT Glucose SerPl-mCnc 63.0 mg/dL Below low normal 05/25/2025 65 - 99 HHCCT Albumin/Glob SerPl 1.3 Ratio 05/25/2025 1 - 3 HHCCT Anion Gap Bld-sCnc 14.0 05/25/2025 7 - 17 HHCCT CO2 SerPl-sCnc 19.0 mmol/L Below low normal 05/25/2025 22 - 33 HHCCT Calcium SerPl-mCnc 8.6 mg/dL Below low normal 05/25/2025 8.7 - 10.5 HHCCT Albumin SerPl-mCnc 3.5 g/dL 05/25/2025 3.4 - 4.8 HHCCT Prot SerPl-mCnc 6.3 g/dL 05/25/2025 6.3 - 8.[address] Sodium SerPl-sCnc 140.0 mmol/L 05/25/2025 136 - 14 5 HHCCT Chloride SerPl-sCnc 107.0 mmol/L 05/25/2025 98 - 1 07 HHCCT BUN SerPl-mCnc 17.0 mg/dL 05/25/2025 8 - [address] History of Medication Use Medication Directions Dispensed Refills Start Date End Date Stat amLODIPine (NORVASC) 10 MG tablet Take 1 tablet (10 mg total) by mouth daily. 05/31/2025 active levoFLOXacin (LEVAQUIN) 750 MG tablet Take 1 tablet (750 mg total) by mouth every 24 hours around the clock. 05/31/2025 active PANTOprazole (PROTONIX) 40 MG EC tablet Take 1 tablet (40 mg total) by mouth daily. 05/31/2025 active albuterol (PROVENTIL) (0.083%) 2.5 mg/3 mL nebulizer solution Take 3 mL (2.5 mg total) by nebulization every 4 (four) hours as needed for wheezing or shortness of breath. 05/30/2025 active calcium carbonate (TUMS) 500 MG chewable tablet Chew 1 tablet (500 mg total) 4 (four) times a day as needed for indigestion or heartburn. 05/30/2025 active polyethylene glycol (miraLAx) 17 g packet Take 1 packet (17 g total) by mouth daily as needed for constipation. 05/30/2025 active senna-docusate (SENNA-S) 8.6-50 MG Take 2 tablets by mouth nightly. 05/30/2025 active celeCOXIB (CeleBREX) 50 MG capsule as needed. 04/30/2025 active albuterol (PROAIR RESPICLICK) 108 (90 Base) MCG/ACT inhaler Inhale 1 puff 4 times daily (every 6 hours) as needed for wheezing. active Allergies Allergen Reaction Severity Comment Documented Date Source Statu s MORPHINE OTHER (SEE COMMENTS) Unknown. 05/24/2025 [facility] active Problems Problem Status Onset Date Problem Type Date of Resoluti on Source Constipation active 2025-05-28 ProblemAct [facility] Bacteremia active 2025-05-25 ProblemAct [facility] Acute pancreatitis active 2025-05-25 ProblemAct [facility] Transaminitis active 2025-05-25 ProblemAct [facility] T Hyperbilirubinemia active 2025-05-25 ProblemAct [facility] Acute cholecystitis active 2025-05-24 ProblemAct [facility] Biliary stricture active 2025-05-24 ProblemAct [facility] GERD (gastroesophageal reflux disease) active 2025-05-30 ProblemAct [facility] Encounters Encounter Type Encounter Reason Primary Diagnosis Location Date Ambulatory Follow-up Follow-up [facility] [employer] 07/02/2025 Ambulatory Obstruction of bile duct Obstruction of bile duct [place] [facility] 06/12/2025 Ambulatory [facility] 06/01/2025 Ambulatory [facility] [employer] 06[facility]01/2025 Ambulatory [facility] [employer] 06/01/2025 Ambulatory [facility] [employer] 06/01/2025 Ambulatory [facility] [employer] 06/01/2025 Ambulatory [facility] [employer] 06/01/2025 Ambulatory [facility] [employer] 06/01/2025 Ambulatory [facility] [employer] 06/01/2025 Ambulatory [facility] [employer] 06[facility]01/2025 Ambulatory [facility] [employer] 06/01/2025 Ambulatory [facility] [employer] 06/01/2025 Ambulatory [facility] [employer] 06/01/2025 Inpatient Obstruction of bile duct Obstruction of bile duct [employer] 05/24/2025 Care Team Organization Name Specialty Phone Email Start Date End Erickson ornelas [employer] ALEXEY OWENS Primary Care 05/30/2025 [employer] 05/30/2025 [employer] 05/24/2025
--- OUTSIDE RECORDS SUMMARY | 2025-07-03 15:39 | XMS_ITS | Clinical Summary ---
Author Organization [facility] Address [address] [place] [address] Care Team Providers Care Make Up Operator Name Role Phone Harry Chun MD Primary Care Provider [phone] Anita Kumar MD Unavailable [phone] Jeremy Rincon MD Unavailable [phone] Allergies Active Allergy Reactions Criticality Noted Date Comments Morphine Other (See Comments) Low 05/24/2025 Unknown. Medications amLODIPine (NORVASC) 10 MG tabletIndicati ons:Biliary stricture (HCC) Take 1 tablet (10 mg total) by mouth daily. 30 tablet 5 Active Additional Information Patient not taking.Informant: Self, Reported on 07/02/2025 albuterol (PROVENTIL) (0.083%) 2.5 mg/3 mL nebulizer solutionIndica tions:Biliary stricture (HCC) Take 3 mL (2.5 mg total) by nebulization every 4 (four) hours as needed for wheezing or shortness of breath. 75 mL 5 Active Additional Information Patient not taking.Reported on 07/02/2025 calcium carbonate (TUMS) 500 MG chewable tabletIndicati ons:Biliary stricture (HCC) Chew 1 tablet (500 mg total) 4 (four) times a day as needed for indigestion or heartburn. 5 Active PANTOprazole (PROTONIX) 40 MG EC tabletIndicati ons:Biliary stricture (HCC) Take 1 tablet (40 mg total) by mouth daily. 30 tablet 5 Active polyethylene glycol (miraLAx) 17 g packetIndicati ons:Biliary stricture (HCC) Take 1 packet (17 g total) by mouth daily as needed for constipation. 14 packet 5 Active Additional Information Patient not taking.Reported on 07/02/2025 senna-docusate (SENNA-S) 8.6-50 MGIndications: Biliary stricture (HCC) Take 2 tablets by mouth nightly. 20 tablet 5 Active Additional Information Patient not taking.Informant: Self, Reported on 07/02/2025 albuterol (PROAIR RESPICLICK) 108 (90 Base) MCG/ACT inhaler Inhale 1 puff 4 times daily (every 6 hours) as needed for wheezing. Active celeCOXIB (CeleBREX) 50 MG capsule as needed. 5 Active levoFLOXacin (LEVAQUIN) 750 MG tabletIndicati ons:Biliary stricture (HCC),Bacterem ia Take 1 tablet (750 mg total) by mouth every 24 hours around the clock. 5 tablet 5 06/05/20 25 Active Problems Problem Noted Date Diagnosed Date GERD (gastroesophageal reflux disease) 5 Constipation 05/28/2025 Assessment & Plan (05/29/2025 10:16 AM EDT): - Patient was able to have bowel movement yesterday - Will switch MiraLAX to as needed and continue senna nightly - Bisacodyl 10 mg suppository as needed Assessment & Plan (05/28/2025 12:04 PM EDT): - Patient complaining of constipation with last bowel movement over 5 days ago - Will change MiraLAX and senna to standing daily - Bisacodyl 10 mg suppository as needed Transaminitis 05/25/2025 Assessment & Plan (05/29/2025 10:16 AM EDT): - No further intervention as per surgery and gastroenterology -Further intervention to be decided as outpatient -Patient total bilirubin and LFTs continues to improve -Depending on pathology, patient may need outpatient EUS -Will advance diet as tolerated - Continue pantoprazole daily Assessment & Plan (05/28/2025 2:08 PM EDT): - Surgery and gastroenterology continues to follow -Patient total bilirubin and LFTs are downtrending, no plan for stent replacement today -Depending on pathology, patient may need outpatient EUS -Will advance diet as tolerated -Will continue pantoprazole daily Assessment & Plan (05/25/2025 2:15 PM EDT): - N.p.o. Continue IVF hydration - Patient scheduled EDGE procedure today-if unsuccessful-IR needs to be consulted for PTC -continue IV Dilaudid as needed Acute pancreatitis 05/25/2025 Assessment & Plan (05/25/2025 2:15 PM EDT): - N.p.o. Continue IVF hydration - Patient scheduled EDGE procedure today-if unsuccessful-IR needs to be consulted for PTC -continue IV Dilaudid as needed Hyperbilirubinemia 05/25/2025 Assessment & Plan (05/29/2025 10:16 AM EDT): - No further intervention as per surgery and gastroenterology -Further intervention to be decided as outpatient -Patient total bilirubin and LFTs continues to improve -Depending on pathology, patient may need outpatient EUS -Will advance diet as tolerated - Continue pantoprazole daily Assessment & Plan (05/28/2025 2:08 PM EDT): - Surgery and gastroenterology continues to follow -Patient total bilirubin and LFTs are downtrending, no plan for stent replacement today -Depending on pathology, patient may need outpatient EUS -Will advance diet as tolerated -Will continue pantoprazole daily Assessment & Plan (05/25/2025 2:15 PM EDT): - N.p.o. Continue IVF hydration - Patient scheduled EDGE procedure today-if unsuccessful-IR needs to be consulted for PTC -continue IV Dilaudid as needed Bacteremia 05/25/2025 Assessment & Plan (05/29/2025 10:16 AM EDT): - ID continues to follow - Contacted [facility] microbiology, patient blood culture positive for vibrio Cholerae, sensitivities were sent and pending - Patient switched to oral levofloxacin 750 mg as per ID Assessment & Plan (05/28/2025 4:03 PM EDT): - ID continues to follow - Patient continues on IV Zosyn - Contacted [facility] microbiology, patient blood culture positive for vibrio Cholerae, sensitivities were sent and pending - Added on levofloxacin 750 mg as per ID recs Assessment & Plan (05/25/2025 2:15 PM EDT): -Outside hospital blood cultures revealed bacteremia Following recommendations of ID Been on IV Zosyn Acute cholecystitis 05/24/2025 Assessment & Plan (05/29/2025 10:16 AM EDT): - No further intervention as per surgery and gastroenterology -Further intervention to be decided as outpatient -Patient total bilirubin and LFTs continues to improve -Depending on pathology, patient may need outpatient EUS -Will advance diet as tolerated - Continue pantoprazole daily Assessment & Plan (05/28/2025 2:08 PM EDT): - Surgery and gastroenterology continues to follow -Patient total bilirubin and LFTs are downtrending, no plan for stent replacement today -Depending on pathology, patient may need outpatient EUS -Will advance diet as tolerated -Will continue pantoprazole daily Assessment & Plan (05/25/2025 2:15 PM EDT): - N.p.o. Continue IVF hydration - Patient scheduled EDGE procedure today-if unsuccessful-IR needs to be consulted for PTC -continue IV Dilaudid as needed Biliary stricture 05/24/2025 Encounters Date Type Department Care Team Description 07/02/2025 8:30 AM EDT Consult [facility] [address] [phone] Anita Kumar MD Gallstone pancreatitis (Primary Dx); Biliary stricture (HCC); History of Francesco-en-Y gastric bypass; Elevated CA 19-9 level 07/02/2025 Telephone [facility] [place] [address] [facility] [address] [place] [phone] Anita Kumar MD 07/02/2025 Travel 06/21/2025 Telephone [facility] [address] [facility] [address] [place] [address] Jeremy Rincon MD 06/19/2025 Orders Only [facility] [address] [facility] [address] [place] [address] Jeremy Rincon MD Choledocholithiasis (Primary Dx); Common bile duct (CBD) stricture (HCC) 06/12/2025 9:39 AM EDT Anesthesia Event [facility] Gastroenterology Division [address] [place] [address], [place] [phone] Nato Hernandez MD Ritchie, Agatha T PA-C 06/12/2025 8:30 AM EDT - 06/12/2025 9:15 AM EDT Surgery [facility]enterology [facility] [address] [place] [address], [place] [phone] Jeremy Rincon MD ENDOSCOPY UPPER /C ULTRASOUND 06/12/2025 7:39 AM EDT - 06/12/2025 10:57 AM EDT Hospital Encounter [facility]astroenterology [facility] [address] [place] [address], [place] [phone] Jeremy Rincon MD Discharge Disposition: Home or Self Care 06/12/2025 Travel 06/01/2025 12:20 PM EDT Ancillary Procedure [facility] [address] [place] [phone] Provider, File Room 06/01/2025 12:20 PM EDT Ancillary Procedure [facility] [address] [place] [address] Provider, File Room 06/01/2025 12:20 PM EDT Ancillary Procedure [facility] [address] [place] [phone] Provider, File Room 06/01/2025 12:15 PM EDT Ancillary Procedure [facility] [address] [facility] [place] [address] Provider, File Room 06/01/2025 12:15 PM EDT Ancillary Procedure [facility] [address] [facility] [place] [address] Provider, File Room 06/01/2025 12:15 PM EDT Ancillary Procedure [facility] [address] [facility] [place] [address] Provider, File Room 06/01/2025 12:15 PM EDT Ancillary Procedure [facility] [address] [facility] [place] [address] Provider, File Room 06/01/2025 12:05 PM EDT Ancillary Procedure [facility] [address] [facility] [place] [address] Provider, File Room 06/01/2025 11:45 AM EDT Ancillary Procedure [facility] [address] [facility] [place] [address] Provider, File Room 06/01/2025 11:40 AM EDT Ancillary Procedure [facility] [address] [facility] [place] [address] Provider, File Room 06/01/2025 11:35 AM EDT Ancillary Procedure [facility] [address] [place] [address], [place] [address] Provider, File Room 06/01/2025 11:35 AM EDT Ancillary Procedure [facility] [address] [place] [address], [place] [address] Provider, File Room 06/01/2025 Travel 05/31/[address] [phone] Jeremy Rincon MD 05/30/2025 Orders Only [address] [address] Jeremy Rincon MD 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) 05/28/2025 Travel 05/25/2025 3:05 PM EDT Anesthesia Event [facility] Gastroenterology Division [address] [place] [phone] Nelson Wong MD Gordon, Donald E, PA-C 05/25/2025 3:00 PM EDT - 05/25/2025 3:41 PM EDT Surgery [facility] [address] [place] [phone] Jeremy Rincon MD ERCP /C PLACEMENT STENT 05/25/2025 8:45 AM EDT Ancillary Procedure [facility] [address] [place] [phone] Provider, File Room 05/25/2025 8:40 AM EDT Ancillary Procedure [facility] [address] [place] [phone] Provider, File Room 05/25/2025 8:35 AM EDT Ancillary Procedure [facility] [address] [place] [phone] Provider, File Room 05/25/2025 8:35 AM EDT Ancillary Procedure [facility] [address] [place] [phone] Provider, File Room 05/24/2025 7:50 PM EDT Ancillary Procedure [facility] [address] [place] [phone] Provider, File Room 05/24/2025 7:45 PM EDT Ancillary Procedure [facility] [address] [place] [phone] Provider, File Room 05/24/2025 7:45 PM EDT Ancillary Procedure [facility] [address] [place] [phone] Provider, File Room 05/24/2025 5:24 PM EDT - 05/30/2025 2:14 PM EDT Hospital Encounter [facility] [address] [place] [phone] Harvey Narayan MD Bickmore, Todd A, MD Kottarathara, Mathew J, MD Hamed, Moaz, MD Thevarajah, Vasanthy, MD Addai-Boateng, Hassana, MD Biliary stricture (HCC) (Primary Dx); Bacteremia Discharge Disposition: Home or Self Care 05/24/2025 Orders Only [facility] [address] [place] [phone] Provider, File Room from Last 3 Months Family History * Patient is adopted Medical History Relation Name Comments No Known Problems Daughter 1 No Known Problems Daughter 2 No Known Problems Son Relation Name Status Comments Child 1 miscarriage Child 2 miscarriage Daughter 1 Alive Daughter 2 Alive Son Alive Social History Tobacco Use Types Packs/Day Years Used Date Smoking Tobacco: Never Smokeless Tobacco: Never Tobacco Cessation:Counseling Given: Not Answered Alcohol Use Standard Drinks/Week Comments Yes 0 (1 standard drink = 0.6 oz pur e alcohol) drinks on weekends [facility] Utilities Answer Date Recorded In the past 12 months has th e [employer], gas, oil, or water [employer] threatened to shut off services in your [...] any time in the past 12 m [facility], were you homeless or living in a long-term (including now)? 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 Not on file Not on file Not on radha e Last Filed Vital Signs Vital Sign Reading Time Taken Comments Blood Pressure 128/82 07/02/2025 8:22 AM EDT Pulse 61 07/02/2025 8:22 AM EDT Temperature 36.2 C (97.1 F) 06/12/2025 9:58 AM EDT Respiratory Rate 35 06/12/2025 10:45 AM EDT Oxygen Saturation 99% 07/02/2025 8:22 AM EDT Inhaled Oxygen Concentration - - Weight 90.7 kg (200 lb) 07/02/2025 8:22 AM EDT Height 147.3 cm (4' 10 ) 07/02/2025 8:22 AM EDT Body Mass Index 41.8 07/02/2025 8:22 AM EDT Plan of Treatment Upcoming Encounters Date Type Department Care Team (Latest Contact Info) Description 07/27/2025 1:45 PM EDT Hospital Encounter [facility] Perioperative Surgical Services [address] [place] [phone] Anita Kumar MD [address] [place] [address] 07/27/2025 1:45 PM EDT - 07/27/2025 4:30 PM EDT Surgery [facility] Perioperative Surgical Services [address] [place] [phone] Anita Kumar MD [address] [place] [address] ROBOTIC CHOLECYSTECTOMY, POSSIBLE INTRAOPERATIVE CHOLANGIOGRAM (IOC), POSSIBLE OPEN (XI) 08/10/2025 10:30 AM EDT Office Visit [facility] [place] [address] [facility] [address] [place] [phone] Consuelo Roberts APRN [address] [facility] [address] [place] [address] 09/20/2025 2:00 PM EST Hospital Encounter [facility] Gastroenterology Division [address] [place] [address], [place] [phone] Jeremy Rincon MD [address] [place] [phone] 09/20/2025 2:00 PM EST Appointment [facility] [address] [place] [address] Jeremy Rincon MD [address] [place] [phone] 09/20/2025 2:00 PM EST - 09/20/2025 3:00 PM EST Surgery [facility]astroenterology [facility] [address] [place] [address], [place] [address] Jeremy Rincon MD [address] [place] [phone] ERCP Scheduled Procedures Name Priority Associated Diagnoses Date/Ti me ROBOTIC ASSISTED CHOLECYSTECTOMY (XI) Gallstone pancreatitis Biliary stricture (HCC) 07/27/2025 1:45 PM EDT ERCP Choledocholithiasis Common bile duct (CBD) stricture (HCC) 09/20/2025 2:00 PM EST Health Maintenance Due Date Last Done Comments Advance Care Planning 1955 Hepatitis C Virus Screening 1955 DTaP/Tdap/Td Vaccines (1 - Tdap) 1975 Mammogram 1996 Colonoscopy 2001 Pneumococcal Vaccines 50+ (1 of 1 - PCV) 2006 Zoster (Shingles) Vaccine (1 of 2) 2006 RSV Vaccine 60 years and old er and Patients (1 - Risk 60-74 years 1-dose series) 2016 DXA Bone Density (Females,Ag es 65 and older) 2021 Influenza Vaccine 05/11/2025 COVID-19 Vaccine ( - 2023-2 5 season) 2025 Hepatitis B Vaccines Aged Out No long er eligible based on patient's age to complete this topic Goals Goal Patient Goal Type Associated Problems Recent Progress Patient-Stated? Author [employer] сергей Goal Care Plan Autogenerated Problem No Ivette Barnett [employer] сергей Goal Care Plan Autogenerated Problem No Prasad [employer] Implanted Type Area Machine Repairer Device Identifier Shelf Expiration Date Model / Serial / Lot [id number] Stent Pancreatic 20mm 10mm Axs Sterl Lf Disp Electrocautery - [id number] Implanted:Qty: 1 on 05/25/2025 by Jeremy Rincon MD at [facility] Stent N/A: Stomach [employer] [id number] 02/01/2026 [id number] / / [id number] Stent Pancreatic 5fr 5cm Pigtail Curve Radopq Push Cath - [id number] Implanted:Qty: 1 on 05/25/2025 by Jeremy Rincon MD at [facility] Stent N/A: Bile Duct [employer] [id number] 04/02/2028 [id number] / / [id number] Stent Biliary Advanix 10fr 5cm Rx Temp Taper Tip Plastic - [id number] Implanted:Qty: 1 on 05/25/2025 by Jeremy Rincon MD at [facility] Stent N/A: Bile Duct [employer] [id number] 02/19/2027 [id number] / / [id number] Procedures Procedure Name Priority Date/Time Associated Diagnosis Comments HEPATIC FUNCTION PANEL Routine 12:45 PM EDT Gallstone pancreatitis Biliary stricture (HCC) History of Francesco-en-Y gastric bypass Elevated CA 19-9 level LIPASE Routine 07/02/2025 12:45 PM EDT Gallstone pancreatitis Biliary stricture (HCC) History of Francesco-en-Y gastric bypass Elevated CA 19-9 level CA 19-9 Routine 07/02/2025 12:45 PM EDT Biliary stricture (HCC) Elevated CA 19-9 level COMPLETE BLOOD COUNT, WITHOUT DIFFERENTIAL Routine 07/02/2025 12:45 PM EDT Gallstone pancreatitis Biliary stricture (HCC) History of Francesco-en-Y gastric bypass Elevated CA 19-9 level BASIC METABOLIC PANEL Routine 07/02/2025 12:45 PM EDT Gallstone pancreatitis Biliary stricture (HCC) History of Francesco-en-Y gastric bypass Elevated CA 19-9 level IN EDG US EXAM SURGICAL ALTER STOM DUODENUM/JEJUNUM 06/12/2025 9:33 AM EDT Common bile duct (CBD) stricture (HCC) RADHA ARCHIVE FOR REFERENCE ONLY DX Routine 06/01/2025 12:20 PM EDT RADHA ARCHIVE FOR REFERENCE ONLY CR Routine 06/01/2025 12:15 PM EDT RADHA ARCHIVE FOR REFERENCE ONLY DX Routine 06/01/2025 12:15 PM EDT CR CHEST ARCHIVE FOR REFERENCE ONLY Routine 06/01/2025 12:13 PM EDT MG SCREENING ARCHIVE FOR REFERENCE ONLY Routine 06/01/2025 12:12 PM EDT CR EXTREMITY LEFT ARCHIVE FOR REFERENCE ONLY Routine 06/01/2025 12:12 PM EDT MG SCREENING ARCHIVE FOR REFERENCE ONLY Routine 06/01/2025 12:12 PM EDT MG SCREENING ARCHIVE FOR REFERENCE ONLY Routine 06/01/2025 12:00 PM EDT RADHA ARCHIVE FOR REFERENCE ONLY DX Routine 06/01/2025 11:35 AM EDT MG SCREENING ARCHIVE FOR REFERENCE ONLY Routine 06/01/2025 11:34 AM EDT MG SCREENING ARCHIVE FOR REFERENCE ONLY Routine 06/01/2025 11:34 AM EDT MG SCREENING ARCHIVE FOR REFERENCE ONLY Routine 06/01/2025 11:34 AM EDT COMPREHENSIVE METABOLIC PANEL Routine 05/30/2025 4:16 AM EDT COMPLETE BLOOD COUNT, WITHOUT DIFFERENTIAL Routine 05/30/2025 4:16 AM EDT COMPREHENSIVE METABOLIC PANEL Routine 05/29/2025 5:23 AM EDT COMPLETE BLOOD COUNT, WITH DIFFERENTIAL Routine 05/29/2025 5:23 AM EDT COMPLETE BLOOD COUNT, WITHOUT DIFFERENTIAL Routine 05/28/2025 4:33 AM EDT BILIRUBIN, DIRECT Routine 05/28/2025 4:3 3 AM EDT COMPREHENSIVE METABOLIC PANEL Routine 05/28/2025 4:33 AM EDT BILIRUBIN, DIRECT Routine 05/27/2025 6:0 6 AM EDT COMPREHENSIVE METABOLIC PANEL Routine 05/27/2025 6:06 AM EDT COMPLETE BLOOD COUNT, WITHOUT DIFFERENTIAL Routine 05/27/2025 6:06 AM EDT COMPREHENSIVE METABOLIC PANEL Routine 05/26/2025 4:50 AM EDT LIPASE Routine 05/26/2025 4:50 AM EDT COMPLETE BLOOD COUNT, WITH DIFFERENTIAL Routine 05/26/2025 4:50 AM EDT ANES LINE - PERIPHERAL, SINGLE LUMEN Routine 05/25/2025 6:08 PM EDT FL ERCP BILIARY AND PANCREATIC Routine 05/25/2025 6:00 PM EDT CYTOLOGY REPORT Routine 05/25/2025 5:10 PM EDT ANES INTUBATION Routine 05/25/2025 3:15 PM EDT ENDOSCOPY UPPER /C ULTRASOUND 05/25/2025 3:00 PM EDT Biliary stricture (HCC) IN ERCP STENT PLACEMENT BILIARY/PANCREATIC DUCT 05/25/2025 3:00 PM EDT Biliary stricture (HCC) US ABDOMEN-LIMITED STAT 05/25/2025 11 :48 AM EDT US ABDOMEN ARCHIVE FOR REFERENCE ONLY Routine 05/25/2025 8:[address] ABDOMEN ARCHIVE FOR REFERENCE ONLY Routine 05/25/2025 8:[address] CHEST ARCHIVE FOR REFERENCE ONLY Routine 05/25/2025 8:[address] ABDOMEN ARCHIVE FOR REFERENCE ONLY Routine 05/25/2025 8:34 AM EDT HEMOGLOBIN A1C WITH ESTIMATED AVERAGE GLUCOSE Routine 05/25/2025 6:44 AM EDT BILIRUBIN, DIRECT Routine 05/25/2025 6:4 4 AM EDT COMPLETE BLOOD COUNT, WITH DIFFERENTIAL Routine 05/25/2025 6:44 AM EDT LIPASE Routine 05/25/2025 6:44 AM EDT MAGNESIUM Routine 05/25/2025 6:44 AM EDT LACTIC ACID, PLASMA Routine 05/25/2025 6 :44 AM EDT COMPREHENSIVE METABOLIC PANEL Routine 05/25/2025 6:44 AM EDT CA 19-9 [id number] Routine 05/25/2025 6:44 AM EDT CEA Routine 05/25/2025 6:44 AM EDT COMPLETE BLOOD COUNT, WITH DIFFERENTIAL Routine 05/24/2025 7:46 PM EDT BLOOD CULTURE (HOSP LAB) Routine 05/24/2025 7:[address] ABDOMEN ARCHIVE FOR REFERENCE ONLY Routine 05/24/2025 7:[address] ABDOMEN ARCHIVE FOR REFERENCE ONLY Routine 05/24/2025 7:44 PM EDT MR CHEST ARCHIVE FOR REFERENCE ONLY Routine 05/24/2025 7:44 PM EDT PROTIME-INR Routine 05/24/2025 7:40 PM EDT LACTIC ACID, PLASMA Routine 05/24/2025 7 :40 PM EDT BLOOD CULTURE (HOSP LAB) Routine 05/24/2025 7:40 PM EDT TYPE AND SCREEN Routine 05/24/2025 7:30 PM EDT BILIRUBIN, DIRECT Routine 05/24/2025 7:3 0 PM EDT LIPASE Routine 05/24/2025 7:30 PM EDT COMPREHENSIVE METABOLIC PANEL Routine 05/24/2025 7:30 PM EDT ECG 12-LEAD STAT 05/24/2025 7:28 PM EDT from Last 3 Months Results * CA 19-9 (07/02/2025 12:45 PM EDT) [facility] CA 19-9 10 <34 U/mL [facility] Comment: This test was performed using the [...] MD LAB BLOOD ORDERABLES Final Re sult [facility] [address] [place] [phone] * COMPLETE BLOOD COUNT, WITHOUT DIFFERENTIAL (07/02/2025 12:45 PM EDT) Only the most recent of4 resultswithin the time period is included. Pathologist [facility] White Blood Cell Count 7.6 3.8 - 10.8 Thousand/u L [facility] Red Blood Cell Count 4.21 3.80 - 5.10 Million/uL [facility] Hemoglobin 12.1 11.7 - 15.5 g/dL [facility] Hematocrit 37.5 35.0 - 45.0 % [facility] MCV 89.1 80.0 - 100.0 fL [facility] MCH 28.7 27.0 - 33.0 pg [facility] MCHC 32.3 32.0 - 36.0 g/dL [facility] Comment: For adults, a slight decrease in the calculated MCHC value (in the range of 30 to 32 g/dL) is most likely not clinically significant; however, it should be interpreted with caution in correlation with other red cell parameters and the patient's clinical condition. RDW 15.0 11.0 - 15.0 % [facility] Platelet Count 279 140 - 400 Thousand/u L [facility] MPV 11.6 7.5 - 12.5 fL [facility] Blood Blood specimen / Unknown 07/02/2025 12:45 PM EDT 07/02/2025 12:46 PM EDT Narrative [facility] - 07/03/2025 9:18 AM EDT FASTING:NO FASTING: NO Anita Kumar MD LAB BLOOD ORDERABLES Final Re sult Performing Organization Address [facility] Co de Phone Number [id number] [address] [place] [address] * LIPASE (07/02/2025 12:45 PM EDT) Only the most recent of4 resultswithin the time period is included. [facility] Lipase 45 7 - 60 U/L [facility] Blood Blood specimen / Unknown 07/02/2025 12:45 PM EDT 07/02/2025 12:46 PM EDT [facility] - 07/03/2025 9:18 AM EDT FASTING:NO FASTING: NO Anita Kumar MD LAB BLOOD ORDERABLES Final Re sult Performing Organization Address [facility] de Phone Number [id number] [address] [place] [address] * (ABNORMAL) HEPATIC FUNCTION PANEL (07/02/2025 12:45 PM EDT) [facility] Protein, Total 6.8 6.1 - 8.1 g/dL [facility] Albumin 4.1 3.6 - 5.1 g/dL [facility] Globulin 2.7 1.9 - 3.7 g/dL (calc) [facility] Albumin/Globulin Ratio 1.5 1.0 - 2.5 (calc) [facility] Bilirubin, Total 0.9 0.2 - 1.2 mg/dL [facility] Bilirubin, Direct 0.3(H) < OR = 0.2 mg/dL [facility] Bilirubin, Indirect 0.6 0.2 - 1.2 mg/dL (calc) [facility] Alkaline Phosphatase 207(H) 37 - 153 U/L [facility] Aspartate Aminotrans (AST) 27 10 - 35 U/L [facility] Alanine Aminotrans (ALT) 22 6 - 29 U/L [facility] Blood Blood specimen / Unknown 07/02/2025 12:45 PM EDT 07/02/2025 12:46 PM EDT Narrative [employer] - 07/03/2025 9:18 AM EDT FASTING:NO FASTING: NO Anita Kumar MD LAB BLOOD ORDERABLES Final Re sult Performing Organization Address [facility] de Phone Number [id number] [address] [place] [address] * Basic Metabolic Panel (07/02/2025 12:45 PM EDT) [facility] Glucose 95 65 - 139 mg/dL [facility] Comment: Non-fasting reference interval Blood Urea Nitrogen (BUN) 13 7 - 25 mg/dL [facility] Creatinine 0.56 0.50 - 1.05 mg/dL [facility] Creatinine w/ eGFR 99 > OR = 60 mL/min/1. 73m2 [facility] BUN/Creatinine Ratio SEE NOTE: 22 (calc) [facility] Comment: Not Reported: BUN and Creatinine are within reference range. Sodium 142 135 - 146 mmol/L [facility] Potassium 3.9 3.5 - 5.3 mmol/L [facility] Chloride 107 98 - 110 mmol/L [facility] CO2 27 20 - 32 mmol/L [facility] Calcium 9.0 8.6 - 10.4 mg/dL [facility] Blood Blood specimen / Unknown 07/02/2025 12:45 PM EDT 07/02/2025 12:46 PM EDT Narrative [employer] - 07/03/2025 9:18 AM EDT FASTING:NO FASTING: NO Anita Kumar MD LAB BLOOD ORDERABLES Final Re sult Performing Organization Address [facility]/ZIP Co de Phone Number [id number] [address] [place] [address] * RADHA Archive for reference only DX (06/01/2025 12:20 PM EDT) Only the most recent of3 resultswithin the time period is included. Narrative [place] - 06/01/2025 12:13 PM EDT This order has been auto-finalized and does not contain a result. us File Room Provider IMG DIGITIZE FILMS Final Resu lt Performing Organization Address [facility] de Phone Number [place] [phone] * RADHA Archive for reference only RF (06/01/2025 12:15 PM EDT) [facility] - 06/01/2025 12:13 PM EDT This order has been auto-finalized and does not contain a result. us File Room Provider IMG DIGITIZE FILMS Final Resu lt Performing Organization Address [facility] de Phone Number [place] [phone] * CR Chest Archive for Reference only (06/01/2025 12:13 PM EDT) [facility] - 06/01/2025 12:13 PM EDT This study has been auto finalized and does not contain a result. us File Room Provider IMG DIGITIZE FILMS Final Resu lt Performing Organization Address [facility] de Phone Number [place] [phone] * MG Screening Archive for Reference Only (06/01/2025 12:12 PM EDT) Only the most recent of6 resultswithin the time period is included. Narrative [place] - 06/01/2025 12:12 PM EDT This study has been auto finalized and does not contain a result. us File Room Provider IMG DIGITIZE FILMS Final Resu lt Performing Organization Address [facility] de Phone Number [place] [phone] * CR Extremity Left Archive for Reference only (06/01/2025 12:12 PM EDT) Narrative [place] - 06/01/2025 12:12 PM EDT This study has been auto finalized and does not contain a result. us File Room Provider IMG DIGITIZE FILMS Final Resu lt [place] [phone] * (ABNORMAL) Comprehensive Metabolic Panel (05/30/2025 4:16 AM EDT) Only the most recent of7 resultswithin the time period is included. Glucose 97 65 - 99 mg/dL 05/30/2025 7:46 AM [facility] Comment:Fasting: <100 mg/dL, Non-Fasting: <200 mg/dL (ADA 2004) Blood Urea Nitrogen (BUN) 4(L) 8 - 21 mg/dL 05/30/2025 7:46 AM [facility] Creatinine 0.6 0.4 - 1.1 mg/dL 05/30/2025 7:46 AM [facility] eGFR >90 >59 05/30/2025 7:46 AM [facility] Comment:CKD-EPI (2020) in mL /min/1.73 sq meters. Sodium 142 136 - 145 mmol/L 05/30/2025 7:46 AM [facility] Potassium 4.2 3.4 - 5.3 mmol/L 05/30/2025 7:46 AM [facility] Chloride 105 98 - 107 mmol/L 05/30/2025 7:46 AM [facility] CO2 26 22 - 33 mmol/L 05/30/2025 7:46 AM [facility] Calcium 8.5(L) 8.7 - 10.5 mg/dL 05/30/2025 7:46 AM [facility] Alkaline Phosphatase 285(H) 32 - 122 U/L 05/30/2025 7:46 AM [facility] Aspartate Aminotrans (AST) 95(H) 10 - 50 U/L 05/30/2025 7:46 AM [facility] Alanine Aminotrans (ALT) 115(H) 10 - 50 U/L 05/30/2025 7:46 AM [facility] Bilirubin, Total 1.7(H) 0.2 - 1.0 mg/dL 05/30/2025 7:46 AM [facility] Protein, Total 5.8(L) 6.3 - 8.3 g/dL 05/30/2025 7:46 AM [facility] Albumin 2.9(L) 3.4 - 4.8 g/dL 05/30/2025 7:46 AM [facility] BUN/Creatinine Ratio 7(L) 10.0 - 25.0 Ratio 05/30/2025 7:46 AM [facility] Globulin 2.9 1.5 - 3.9 g/dL 05/30/2025 7:46 AM [facility] Albumin/Globulin Ratio 1.0 1.0 - 3.0 Ratio 05/30/2025 7:46 AM [facility] Anion Gap 11 7 - 17 05/30/2025 7:46 AM [facility] Blood Blood specimen / Unknown 05/30/2025 4:16 AM EDT 05/30/2025 6:37 AM EDT Giovannygwa Elizabeth LABORER [employer]AK[employer] LAB BLOOD [place] [address], [address] [address] * (ABNORMAL) Complete Blood Count WITH Differential - in AM (05/29/2025 5:23 AM EDT) Only the most recent of4 resultswithin the time period is included. White Blood Cell Count 8.1 4.0 - 11.0 Thou/uL 05/29/2025 5:38 AM [facility] Platelet Count 251 150 - 450 Thou/uL 05/29/2025 5:38 AM [facility] Hemoglobin 10.0(L) 11.7 - 15.7 g/dL 05/29/2025 5:38 AM [facility] Hematocrit 30.0(L) 35.0 - 47.0 % 05/29/2025 5:38 AM [facility] Red Blood Cell Count 3.60(L) 4.00 - 5.40 Mil/uL 05/29/2025 5:38 AM [facility] MCV 83 80 - 100 fL 05/29/2025 5:38 AM [facility] MCH 27.8 27.0 - 31.0 pg 05/29/2025 5:38 AM [facility] MCHC 33.3 30.0 - 36.0 g/dL 05/29/2025 5:38 AM [facility] RDW 16.1(H) 11.5 - 14.5 % 05/29/2025 5:38 AM [facility] MPV 10.3 7.5 - 12.5 fL 05/29/2025 5:38 AM [facility] Bands Man 1 % 05/29/2025 6:07 AM [facility] Neutrophils Man 73 % 6:07 AM [facility] Comment:Vacuolization presen t. Lymphocytes Man 17 % 6:07 AM [facility] Monocytes Man 6 % 05/29/2025 6:07 AM [facility] Eosinophils Man 3 % 6:07 AM [facility] Abs Neutrophils Count (ANC) 6.0 2.0 - 7.5 Thou/uL 05/29/2025 6:07 AM [facility] Abs Lymphocytes Man 1.4(L) 1.5 - 4.5 Thou/uL 05/29/2025 6:07 AM [facility] Abs Monocytes Man 0.5 0.2 - 1.5 Thou/uL 05/29/2025 6:07 AM [facility] Abs Eosinophils Man 0.2 0.0 - 0.7 Thou/uL 05/29/2025 6:07 AM [facility] Normochromic Present 05/29/2025 6:07 AM [facility] Normocytic Present 05/29/2025 6:07 AM [facility] Blood Blood specimen / Unknown 05/29/2025 5:23 AM EDT 05/29/2025 5:32 AM EDT Ike Johnson APRN LAB BLOOD [place] [address], [place] [address] * (ABNORMAL) Bilirubin, Direct (05/28/2025 4:33 AM EDT) Only the most recent of4 resultswithin the time period is included. Bilirubin, Direct 2.0(H) 0 - 0.2 mg/dL 05/28/2025 5:24 AM EDT [facility] Blood Blood specimen / Unknown 05/28/2025 4:33 AM EDT 05/28/2025 5:03 AM EDT Navya York MD LAB BLOOD ORDERABLES Final Result Performing Organization Address [facility] [place] [address], [place] [address] * ANES LINE - PERIPHERAL, SINGLE LUMEN (05/25/2025 6:08 PM EDT) Narrative Belem Chong CRNA - 05/25/2025 6:08 PM EDT Belem Chong CRNA 05/25/2025 6:09 PM Anesthesia Procedure Note - Peripheral IV Placement Patient Name: Berry Lee : 1955 Patient location: endoscopy/gi Indication(s): surgery Performed by: Resident/GROUNDS MANAGER Belem Chong CRNA Procedure Preparation Skin prep: alcohol Hand hygeine performed prior to needle/catheter insertion Sterile barriers in place: gloves, cap and mask Patient pre-procedure mental status: awake Single lumen [id number] catheter system, 20 g, in right hand Insertion attempts: 1 Nelson Wong MD IN ANESTHESIA Final Result * FL ERCP (05/25/2025 6:00 PM EDT) Anatomical Region Laterality Modality Abdomen Radio Fluoroscop y 05/25/2025 3:22 PM EDT Impressions 05/28/2025 1:43 PM EDT Fluoroscopy guidance during procedure. Please see procedure report for additional information. Narrative 05/28/2025 1:43 PM EDT EXAMINATION: FL ERCP BILIARY AND PANCREATIC CLINICAL INFORMATION: Biliary stricture. COMPARISON: None available. TECHNIQUE: Fluoroscopy during procedure. 25 mL of Omnipaque 350 was used. FINDINGS: Endoscope projecting over the expected location of the esophagus and GE junction. Status post Francesco-en-Y gastric bypass. Needle traversing through the excluded stomach, with axios stent placed between the gastric pouch and excluded stomach. Subsequent images demonstrate endoscope projecting through the stent into the duodenum. Retrograde cannulation of the CBD with contrast injection. Irregular opacification of the CBD, with moderate suspicion in the distal and mid CBD, which may represent stricture, with dilated upstream intrahepatic biliary system.. Subsequent cannulation of the pancreatic duct was performed. Final image demonstrates CBD stent in place. FLUOROSCOPY TIME: 10.8 (mm.d) DOSE AREA PRODUCT: 34.313 Gy-cm2 (mendez-centimeter squared) Procedure Note Riki Clarke MD - 05/28/2025 EXAMINATION: FL ERCP BILIARY AND PANCREATIC CLINICAL INFORMATION: Biliary stricture. COMPARISON: None available. TECHNIQUE: Fluoroscopy during procedure. 25 mL of Omnipaque 350 was used. FINDINGS: Endoscope projecting over the expected location of the esophagus and GE junction. Status post Francesco-en-Y gastric bypass. Needle traversing through the excluded stomach, with axios stent placed between the gastric pouch and excluded stomach. Subsequent images demonstrate endoscope projecting through the stent into the duodenum. Retrograde cannulation of the CBD with contrast injection. Irregular opacification of the CBD, with moderate suspicion in the distal and mid CBD, which may represent stricture, with dilated upstream intrahepatic biliary system.. Subsequent cannulation of the pancreatic duct was performed. Final image demonstrates CBD stent in place. FLUOROSCOPY TIME: 10.8 (mm.d) DOSE AREA PRODUCT: 34.313 Gy-cm2 (mendez-centimeter squared) IMPRESSION: Fluoroscopy guidance during procedure. Please see procedure report for additional information. us Carlitos Carpenter MD IMG FLUOROSCOPY ORDERAB LES Final Result * (ABNORMAL) Cytology Report (05/25/2025 5:10 PM EDT) Report [facility] [id number] CLIA ID [id number] [address] [place] [address] / [phone] Cytopathology Report PATIENT NAME: BERRY LEE REC NUMBER: [id number] (AGE): 1955 (Age: 69) SPECIMEN NUMBER: [id number] DATE OBTAINED: 05/25/2025 DIAGNOSIS: A. CBD BRUSHING, BILIARY: ATYPICAL GLANDULAR CELLS. a/05/29/2025 Electronicall y Signed Out JANNIE SANCHEZ MD Clinical Diagnosis and History: CBD BRUSHING BILIARY STRICTURE Tissue(s) Submitted: A: CBD BRUSHING, BILIARY Specimen Description: RECEIVED 1 BRUSH IN CYTOLYT [1 THINPREP MADE] PLUS 2 UNLABELED SMEARS IN ETOH [JAR LABELED] 3 SLIDES TOTAL (A) [facility] 05/25/2025 5:10 PM EDT 05/28/2025 6:50 AM EDT Comment:CBD BRUSHING, BILIAR Y Jeremy Rincon MD PATHOLOGY/CYTOLOGY ORDERAB LES Final Result HOSPITAL LAB See Below * ANES INTUBATION (05/25/2025 3:15 PM EDT) Narrative Vu Haji MD - 05/25/2025 3:15 PM EDT Vu Haji MD 05/25/2025 3:16 PM Anesthesia Procedure Note - Elective intubation Patient Name: Berry Lee : 1955 Patient location: endoscopy/GI Procedure indications: airway protection Procedure diagnosis: Anesthesia Procedure Start Time: 05/25/2025 3:16 PM Procedure End Time: 05/25/2025 3:16 PM Performed by: Anesthesiologist Vu Haji MD Chart Verification Airway: airway not difficult Preanesthetic Checklist monitors and equipment checked. Patient's pre-procedure mental status: awake The patient was not sedated prior to procedure. Airway not difficult - NPO status: > 8 hours Procedure Details Intubation route: oral Intubation method: direct laryngoscopy Mac 3 Number of attempts: 1 Patient status for intubation: paralyzed and unresponsive Patient position: supine Preoxygenation: BVM Quality of BVM: easy Tube size: 8.0 mm Tube: standard - cuffed and cuff inflated Ventilation between attempts via BVM Cricoid pressure not applied or not required Cord visualization: Grade I Placement confirmation method: chest rise and ETCO2 monitor Breath sounds: equal bilaterally ETT to lip: 22 cm Dentition: same as baseline desaturation < 90% Complications: no complications Vu Haji MD IN ANESTHESIA Final Result * US Abdomen-Limited (05/25/2025 11:48 AM EDT) Anatomical Region Laterality Modality Abdomen Ultrasound 05/25/2025 10:4 2 AM EDT Impressions 05/25/2025 12:10 PM EDT Suspected adenomyomatosis of the gallbladder with gallbladder distention. No calcified gallstones are seen. Gallbladder wall thickening, prominent common bile duct measurement, and and prominent cystic duct measurements. Pericholecystic fluid. Consider acalculous cholecystitis. Narrative 05/25/2025 12:10 PM EDT EXAM: US ABDOMEN LIMITED CLINICAL HISTORY: 69 years Female, Cholecystitis. TECHNIQUE: Real-time ultrasonography of the abdomen was performed. [id number]. COMPARISON: CT Abdomen Pelvis 05/23/2025, US Abdomen 08/24/2023. FINDINGS: LIVER: Homogeneous echogenicity. The liver measures 15.7 cm. GALLBLADDER: Suspected adenomyomatosis of the gallbladder with gallbladder distention seen. Small volume pericholecystic fluid. No reported sonographic Walker's sign. Gallbladder wall measures 0.6 cm, considered thickened. Cystic duct measures 2.8 cm, considered prominent. BILE DUCTS: No intrahepatic biliary duct dilation. No extrahepatic biliary duct dilation. The common bile duct measures 1.5 cm, considered prominent RIGHT KIDNEY: Normal in echogenicity. No visible calculus. No solid mass. Right renal cyst measures 2.0 x 1.6 cm and could be related to a peripelvic cyst No hydronephrosis. The right kidney measures 10.7 x x 5.6 cm. PANCREAS: Visualized pancreatic head and body is unremarkable pancreatic tail largely obscured by overlying bowel gas and not well visualized. ASCITES: None ADDITIONAL FINDINGS: None Procedure Note Lm Brice MD - 05/25/2025 EXAM: US ABDOMEN LIMITED CLINICAL HISTORY: 69 years Female, Cholecystitis. TECHNIQUE: Real-time ultrasonography of the abdomen was performed. [id number]. COMPARISON: CT Abdomen Pelvis 05/23/2025, US Abdomen 08/24/2023. FINDINGS: LIVER: Homogeneous echogenicity. The liver measures 15.7 cm. GALLBLADDER: Suspected adenomyomatosis of the gallbladder with gallbladder distention seen. Small volume pericholecystic fluid. No reported sonographic Walker's sign. Gallbladder wall measures 0.6 cm, considered thickened. Cystic duct measures 2.8 cm, considered prominent. BILE DUCTS: No intrahepatic biliary duct dilation. No extrahepatic biliary duct dilation. The common bile duct measures 1.5 cm, considered prominent RIGHT KIDNEY: Normal in echogenicity. No visible calculus. No solid mass. Right renal cyst measures 2.0 x 1.6 cm and could be related to a peripelvic cyst No hydronephrosis. The right kidney measures 10.7 x x 5.6 cm. PANCREAS: Visualized pancreatic head and body is unremarkable pancreatic tail largely obscured by overlying bowel gas and not well visualized. ASCITES: None ADDITIONAL FINDINGS: None IMPRESSION: Suspected adenomyomatosis of the gallbladder with gallbladder distention. No calcified gallstones are seen. Gallbladder wall thickening, prominent common bile duct measurement, and and prominent cystic duct measurements. Pericholecystic fluid. Consider acalculous cholecystitis. us Lavern Mallory PA-C IMG US ORDERABLES Final R esult * US Abdomen Archive for reference only (05/25/2025 8:34 AM EDT) Wesley [place] - 05/25/2025 8:34 AM EDT This study has been auto finalized and does not contain a result. Procedure Note Ruby Roberts MA - 05/25/2025 This study has been auto finalized and does not contain a result. us File Room Provider IMG DIGITIZE FILMS Final Resu lt [place] [phone] * CT Abdomen Archive for Reference Only (05/25/2025 8:34 AM EDT) Only the most recent of4 resultswithin the time period is included. Narrative [place] - 05/25/2025 8:34 AM EDT This study has been auto finalized and does not contain a result. us File Room Provider IMG DIGITIZE FILMS Final Resu lt Performing Organization Address [facility] de Phone Number [place] [phone] * CT Chest Archive for Reference Only (05/25/2025 8:34 AM EDT) Narrative [place] - 05/25/2025 8:34 AM EDT This study has been auto finalized and does not contain a result. us File Room Provider IMG DIGITIZE FILMS Final Resu lt Performing Organization Address [facility] de Phone Number [place] [phone] * (ABNORMAL) CA 19-9 (05/25/2025 6:44 AM EDT) CA 19-9 143(H) <34 U/mL 05/29/2025 3:17 PM EDT [employer] [place] Comment: (NOTE) This test was performed using the Siemens chemiluminescent method. Values obtained from different assay methods cannot be used inter- changeably. CA 19-9 levels, regardless of value, should not be interpreted as absolute evidence of the presence or absence of disease. Blood Blood specimen / Unknown 05/25/2025 6:44 AM EDT 05/25/2025 8:48 AM EDT Anita Kumar MD LAB BLOOD ORDERABLES Final Re sult Performing Organization Address [facility] de Phone Number [facility] [facility] [employer] [address] [facility] [address] [address] [place], [place] , [place] [facility] [place] [address] [facility] [address] [address] [place], [place] * Hemoglobin A1c with Estimated Average Glucose (Early AM) (05/25/2025 6:44 AM EDT) Hemoglobin A1C 5.5 <5.7 % 05/25/2025 10:10 AM EDT [facility] Comment: A1c% Interpretation 5.7 - 6.0 Increase risk of diabetes 6.1 - 6.4 Higher risk of diabetes > or = 6.5 Consistent with diabetes Diabetes Care, 33(Supp 1):S1-S61, 2009 Estimated Average Glucose 111 mg/dL 05/25/2025 10:10 AM EDT [facility] Blood Blood specimen / Unknown 05/25/2025 6:44 AM EDT 05/25/2025 8:45 AM EDT Anita Kumar MD LAB BLOOD ORDERABLES Final Re sult Performing Organization Address [facility] [place] [address], [place] [address] * Magnesium (05/25/2025 6:44 AM EDT) Magnesium 2.0 1.6 - 2.7 mg/dL 05/25/2025 1:46 PM EDT [facility] Blood Blood specimen / Unknown 05/25/2025 6:44 AM EDT 05/25/2025 8:45 AM EDT us Johnson Graham MD LAB BLOOD ORDERABLES Final Re sult Performing Organization Address [facility] [place] [address], [place] [address] * Lactic Acid, Plasma (05/25/2025 6:44 AM EDT) Only the most recent of2 resultswithin the time period is included. Lactic Acid 0.6 0.5 - 1.9 mmol/L 05/25/2025 9:26 AM EDT [facility] Blood Blood specimen / Unknown 05/25/2025 6:44 AM EDT 05/25/2025 8:44 AM EDT us Johnson Graham MD LAB BLOOD ORDERABLES Final Re sult Performing Organization Address [facility] [place] [address], [address] [address] * CEA (05/25/2025 6:44 AM EDT) CEA (Jake) 1.7 0.0 - 3.8 ng/mL 05/25/2025 9:34 AM EDT [facility] Comment: Reference range: Age 20 - 69: Non-smokers 0 - 3.8 ng/mL Smokers 0 - 5.4 ng/mL Performed by Jake electrochemiluminescence immunoassay (ECLIA). Results obtained by different methods not interchangeable. Result cannot be interpreted as absolute evidence of the presence or absence of malignant disease. Blood Blood specimen / Unknown 05/25/2025 6:44 AM EDT 05/25/2025 8:48 AM EDT Anita Kumar MD LAB BLOOD ORDERABLES Final Re sult Performing Organization Address [facility] [place] [address], [place] [address] * Blood Culture #2 (05/24/2025 7:46 PM EDT) Only the most recent of2 resultswithin the time period is included. Culture Sterile after 5 days 05/29/2025 10:15 AM EDT [facility] Blood Blood specimen / Unknown 05/24/2025 7:46 PM EDT 05/24/2025 10:04 PM EDT Comment:Blood us Johnson Graham MD LAB BLOOD ORDERABLES Final Re sult Performing Organization Address [facility] Co de Phone Number [facility] [address] [place] [address], [place] * MR Chest Archive for Reference Only (05/24/2025 7:44 PM EDT) Narrative [place] - 05/24/2025 7:44 PM EDT This study has been auto finalized and does not contain a result. Procedure Note Ruby Roberts MA - 05/24/2025 This study has been auto finalized and does not contain a result. us File Room Provider IMG DIGITIZE FILMS Final Resu lt [place] [phone] * (ABNORMAL) PROTIME-INR (05/24/2025 7:40 PM EDT) Anticoagulant NO ANTI COAGULANT MEDS 05/24/2025 7:04 PM EDT [facility] Prothrombin Time (PT) 14.0(H) 10.0 - 13.5 seconds 05/24/2025 8:12 PM EDT [facility] INR 1.2 05/24/2025 8:12 PM EDT [facility] Comment:INR Therapeutic Rang es: Standard dose anticoagulant 2.0 to 3.0, High dose anticoagulant 2.5-3.5. Blood Blood specimen / Unknown 05/24/2025 7:40 PM EDT 05/24/2025 7:54 PM EDT Kennedy Gil MD LAB BLOOD ORDERABLES Final Resul t Performing Organization Address [facility] Co de Phone Number [address] [address], [address] [address] * Type and Screen (05/24/2025 7:30 PM EDT) ABO/Rh O POSITIVE 05/24/2025 8:34 PM EDT [facility] Antibody Screen NEGATIVE 8:34 PM EDT [facility] Specimen Expiration 05/27/2025 05/24/2025 8:34 PM EDT [facility] Blood Blood specimen / Unknown 05/24/2025 7:30 PM EDT 05/24/2025 7:55 PM EDT Kennedy Gil MD BLOOD BANK TEST ORDERABLES Final Result Performing Organization Address [facility] Co de Phone Number [facility] [address] [place] [address], [facility] [address] [place] [address] * ECG 12 lead (STAT) (05/24/2025 7:28 PM EDT) Ventricular rate 54 BPM EKG [facility] Atrial rate 54 BPM EKG [facility] P-R interval 150 ms EKG [facility] QRS duration 102 ms EKG [facility] Q-T interval 426 ms EKG [facility] QTC calculation (Bazett) 404 ms EKG [facility] P axis 55 degrees EKG [facility] R axis -18 degrees EKG [facility] T axis 19 degrees [facility] 05/24/2025 7:2 8 PM EDT Narrative EKG [facility] - 05/24/2025 8:14 PM EDT Sinus bradycardia Otherwise normal ECG No previous ECGs available Confirmed by MD Constantino Ahmed ([id number]) on 05/24/2025 8:14:18 PM Procedure Note Corbin Constantino MD - 05/24/2025 Sinus bradycardia Otherwise normal ECG No previous ECGs available Confirmed by MD Constantino Ahmed ([id number]) on 05/24/2025 8:14:18 PM Johnson Graham MD ECG ORDERABLES Final Result Performing Organization Address City/[facility]/ZIP Co de Phone Number [facility] from Last 3 Months Additional Health Concerns Active Problems Noted Date Diagnosed Date Autogenerated Problem 06/21/2025 Autogenerated Problem 07/02/[address] [place] [address] MEDICARE [facility] MEDICARE Advance Directives * Full Code (Latest Code Status on File) Date Activated Date Inactivated Comments 05/24/2025 6:30 PM 06/12/2025 7:39 AM Care Teams Make Up Operator Relationship Specialty Start Date End Date Harry Chun MD [address] [place] [address] [place] [address] PCP - General Internal Medicine 05/26/25 Anita Kumar MD 85 [facility] [address] [place] [address] Surgical Oncology 07/02/25 Jeremy Rincon MD 85 [facility] [address] [place] [address] Gastroenterology 07/02/25
--- OUTSIDE RECORDS SUMMARY | 2025-07-03 15:39 | XMS_ITS | Encounter Summary ---
Author Organization Formerly [facility] Address [address] [place] [address] Care Team Providers Care House Builder Name Role Phone Harry Chun MD Primary Care Provider [phone] Anita Kumar MD Unavailable [phone] Jeremy Rincon MD Unavailable [phone] Encounter Details Date Type Department Care Team (Late st Contact Info) Description 07/02/2025 Telephone [facility] Surgical Oncology [place] 85 [facility] [address] [place] [address] Anita Kumar MD 85 [facility] [address] [place] [address] Social History Tobacco Use Types Packs/Day Years Used Date Smoking Tobacco: Never Smokeless Tobacco: Never Alcohol Use Standard Drinks/Week Comments Yes 0 (1 standard drink = 0.6 oz pur e alcohol) drinks on weekends [facility] Utilities Answer Date Recorded In the past 12 months has [facility], gas, oil, or water company threatened to [...] any time in the past [facility], were you homeless or living in a prison (including now)? 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 The patient agreed to this date and we scheduled the post-op appointment to follow. We reviewed all necessary preoperative requirements.The patient understood that Dr. Kumar would like them to have a p reoperative exam with PCP. The patient will also need clearance from Cardiology. Patient is waitingfor PCP to send cardiac referral. Patient will see PCP 07/03/2025 at 1 PM. I informed the patient that all blood work should be completed at [facility]. Pt is non diabetic and does not need to fast. The patient and I covered educational documentation: reviewed folder instructions prior to surgery,non-smoker/drinker, travel instructions, HIBICLENS antibacterial instructions and medications. Confirmed with the patient to please re-review medication list at the time of pre-operative physical. Encouraged patient to please not hesitate should they have any questions or concerns. Patient was provided with my direct contact information for any assistance. documented in this encounter Plan of Treatment Upcoming Encounters Date Type Department Care Team (Latest Contact Info) Description 07/27/2025 1:45 PM EDT Hospital Encounter [facility] Per[facility] [address] [place] [phone] Anita Kumar MD [address] [place] [id number] 07/27/2025 1:45 PM EDT - 07/27/2025 4:30 PM EDT Surgery [facility] [address] [place] [phone] Anita Kumar MD [address] [place] [id number] ROBOTIC CHOLECYSTECTOMY, POSSIBLE INTRAOPERATIVE CHOLANGIOGRAM (IOC), POSSIBLE OPEN (XI) 08/10/2025 10:30 AM EDT Office Visit [facility] Surgical Oncology [address] [phone] Consuelo Roberts APRN [address] [address] 09/20/2025 2:00 PM EST Hospital Encounter [facility] Gastroenterology Division [address] [place] [phone] Jeremy Rincon MD [address] [place] [phone] 09/20/2025 2:00 PM EST Appointment [facility] [address] [place] [address] Jeremy Rincon MD [address] [place] [phone] 09/20/2025 2:00 PM EST - 09/20/2025 3:00 PM EST Surgery [facility] [address] [place] [phone] Jeremy Rincon MD [address] [place] [phone] ERCP Scheduled Procedures Name Priority Associated Diagnoses [...] documented as of this encounter Care Teams House Builder Relationship Specialty Start Date End Date Harry Chun MD [address] [place] [address] Dr [facility] [place] [address] PCP - General Internal Medicine 05/26/25 Anita Kumar MD 85 [facility] [address] [place] [address] Surgical Oncology 07/02/25 Jeremy Rincon MD 85 [facility] [address] [place] [address] Gastroenterology 07/02/25 documented as of this encounter
== END 2025-07-03 13:34 | disposition home or self-care (01) ==
LOC: HO.HMCH 12:43
PROVIDERS: PCP Internal Medicine; Visit Provider Internal Medicine
DX: A00.0 Cholera due to Vibrio cholerae 01, biovar cholerae (principal); Z98.84 Bariatric surgery status; K21.9 Gastro-esophageal reflux disease without esophagitis; R79.89 Other specified abnormal findings of blood chemistry; D64.9 Anemia, unspecified; Z01.818 Encounter for other preprocedural examination

== ENCOUNTER → 2025-07-03 12:42 | Outpatient (BNVA) | payer MEDICARE, SELFPAY | PROVIDERS: PCP Internal Medicine; Visit Provider Internal Medicine | DX: Z01.818 Encounter for other preprocedural examination (principal); A00.0 Cholera due to Vibrio cholerae 01, biovar cholerae; K21.9 Gastro-esophageal reflux disease without esophagitis; R79.89 Other specified abnormal findings of blood chemistry; D64.9 Anemia, unspecified; Z98.84 Bariatric surgery status | CPT/HCPCS: 99212 ==

== ENCOUNTER → 2025-07-10 09:09 | Outpatient (REF) | payer MEDICARE, SELFPAY ==
--- NOTE | 2025-07-10 09:15 | ECG_ITS ---
Test Reason : abn labs Blood Pressure : */* mmHG Vent. Rate : 48 BPM Atrial Rate : 48 BPM P-R Int : 164 ms QRS Dur : 102 ms QT Int : 458 ms P-R-T Axes : 43 -32 37 degrees QTcB Int : 409 ms Sinus bradycardia Left axis deviation Low voltage QRS Abnormal ECG When compared with ECG of 12-Aug-2023 09:05, No significant change was found Referred By: Harry Chun Electronically Signed By: AYDEE MARTIN
[2025-07-10 09:27] LABS: MANUAL DIFF FLAG NO
[2025-07-10 09:42] LABS: Hematocrit 35.0 % (37.0-47.0); Hemoglobin 11.7 g/dl (12.0-16.0); Imm Gran Abs Auto 0.01 X10*3/uL (0.00-0.03); Imm Gran Pct Auto 0.2 % (0.0-0.4); Lymphocytes Absolute Auto 2.0 X10*3/uL (1.2-4.9); Mean Corpuscular HGB Conc 33.4 g/dl (31.0-35.0); Mean Corpuscular Hemoglobin 28.7 pg (27.0-33.0); Mean Corpuscular Volume 86.0 fL (80.0-98.0); NRBC Abs Auto 0.000 X10*3/uL (0.0-0.012); NRBC Pct Auto 0.0 /100WBC (0.0-0.2); Platelet Count 262 X10*3/uL (160-400); Red Blood Count 4.07 X10*6/uL (4.20-5.50); Reticulocytes Absolute 0.063 X10*6/uL (0.026-0.095); White Blood Count 5.9 X10*3/uL (4.8-10.8)
--- OUTSIDE RECORDS SUMMARY | 2025-07-10 09:54 | XMS_ITS | Patient Health Record ---
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 [address] [place] [address] [id number] BERRY LEE Self - patient is the insured Medical (General) History Medical History History ICD Code Elevated body mass index Osteoarthritis Gastroesophageal reflux disease Osteoporosis History of syphilis Insomnia Colonoscopy several years ago, records a re not available Surgical History Surgery Date(Month/Year) Gastric bypass surgery section Appendectomy Panniculectomy
--- OUTSIDE RECORDS SUMMARY | 2025-07-10 09:54 | XMS_ITS | Clinical Summary ---
Author Organization [facility] Address [address] [place] [address] Care Team Providers Care Drafting Supervisor Name Role Phone Harry Chun MD Primary Care Provider [phone] Anita Kumar MD Unavailable [phone] Jeremy Rincon MD Unavailable [phone] Allergies Active Allergy Reactions Criticality Noted Date Comments Morphine Other (See Comments) Low 05/24/2025 Unknown. Medications amLODIPine (NORVASC) 10 MG tabletIndications: Biliary stricture (HCC) Take 1 tablet (10 mg total) by mouth daily. 30 tablet 05/31/20 25 Active Additional Information Patient not taking.Informant: Self, Reported on 07/02/2025 albuterol (PROVENTIL) (0.083%) 2.5 mg/3 mL nebulizer solutionIndication s:Biliary stricture (HCC) Take 3 mL (2.5 mg total) by nebulization every 4 (four) hours as needed for wheezing or shortness of breath. 75 mL 05/30/20 25 Active Additional Information Patient not taking.Reported on 07/02/2025 calcium carbonate (TUMS) 500 MG chewable tabletIndications: Biliary stricture (HCC) Chew 1 tablet (500 mg total) 4 (four) times a day as needed for indigestion or heartburn. 05/30/20 25 Active PANTOprazole (PROTONIX) 40 MG EC tabletIndications: Biliary stricture (HCC) Take 1 tablet (40 mg total) by mouth daily. 30 tablet 05/31/20 25 Active polyethylene glycol (miraLAx) 17 g packetIndications: Biliary stricture (HCC) Take 1 packet (17 g total) by mouth daily as needed for constipation. 14 packet 05/30/20 Active Additional Information Patient not taking.Reported on 07/02/2025 senna-docusate (SENNA-S) 8.6-50 MGIndications:Bili gagan stricture (HCC) Take 2 tablets by mouth nightly. 20 tablet 05/30/20 25 Active Additional Information Patient not taking.Informant: Self, Reported on 07/02/2025 albuterol (PROAIR RESPICLICK) 108 (90 Base) MCG/ACT inhaler Inhale 1 puff 4 times daily (every 6 hours) as needed for wheezing. Active celeCOXIB (CeleBREX) 50 MG capsule as needed. 04/30/20 Active ondansetron (ZOFRAN-ODT) 4 MG disintegrating tabletIndications: Nausea Take 1 tablet (4 mg total) by mouth 3 times daily (every 8 hours) as needed for nausea or vomiting. Place tablet on tongue to dissolve. 21 tablet 07/06/20 25 025 Active Active Problems Problem Noted Date Diagnosed Date GERD (gastroesophageal reflux disease) Constipation 05/28/2025 Assessment & Plan (05/29/2025 10:16 [...] - ID continues to follow - Contacted [facility] microbiology, patient blood culture positive for vibrio Cholerae, sensitivities were sent and pending - Patient switched to oral levofloxacin 750 mg as per ID Assessment & Plan (05/28/2025 4:03 PM EDT): - ID continues to follow - Patient continues on IV Zosyn - Contacted [facility] microbiology, patient blood culture positive for [...] Encounters Date Type Department Care Team Description 07/06/2025 Telephone [facility] Surgical Oncology [address] [address] Anita Kumar MD 07/04/2025 Telephone [facility] Surgical Oncology [place] [address] [facility] [address] [place] [phone] Anita Kumar MD Other 07/02/2025 8:30 AM EDT Consult [facility] [address] [phone] Anita Kumar MD Gallstone pancreatitis (Primary Dx); Biliary stricture (HCC); History of Francesco-en-Y gastric bypass; Elevated CA 19-9 level 07/02/2025 Telephone [facility] Surgical Oncology [place] [address] [facility] [address] [place] [address] Anita Kumar MD 07/02/2025 Travel 06/21/2025 Telephone [facility] 85 [facility] [address] [place] [address] Jeremy Rincon MD 06/19/2025 Orders Only [facility] 85 [facility] [address] [place] [address] Jeremy Rincon MD Choledocholithiasis (Primary Dx); Common bile duct (CBD) stricture (HCC) 06/12/2025 9:39 AM EDT Anesthesia Event [facility] [address] [place] [phone] Nato Hernandez MD Ritchie, Agatha T, PA-C 06/12/2025 8:30 AM EDT - 06/12/2025 9:15 AM EDT Surgery [facility] [address] [place] [phone] Jeremy Rincon MD ENDOSCOPY UPPER /C ULTRASOUND 06/12/2025 7:39 AM EDT - 06/12/2025 10:57 AM EDT Hospital Encounter [facility] [address] [place] [phone] Jreemy Rincon MD Discharge Disposition: Home or Self Care 06/12/2025 Travel 06/01/2025 12:20 PM EDT Ancillary Procedure [facility] Radiology [address] [facility] [place] [address] Provider, File Room 06/01/2025 12:20 PM EDT Ancillary Procedure [facility] Radiology [address] [facility] [place] [address] Provider, File Room 06/01/2025 12:20 PM EDT Ancillary Procedure [facility] Radiology [address] [facility] [place] [address] Provider, File Room 06/01/2025 12:15 PM EDT Ancillary Procedure [facility] Radiology [address] [facility] [place] [address] Provider, File Room 06/01/2025 12:15 PM EDT Ancillary Procedure [facility] Radiology [address] [place] [address], [place] [phone] Provider, File Room 06/01/2025 12:15 PM EDT Ancillary Procedure [facility]iology [address] [place] [address], [place] [address] Provider, File Room 06/01/2025 12:15 PM EDT Ancillary Procedure [facility]iology [address] [place] [address], [place] [address] Provider, File Room 06/01/2025 12:05 PM EDT Ancillary Procedure [facility]iology [address] [place] [address], [place] [address] Provider, File Room 06/01/2025 11:45 AM EDT Ancillary Procedure [facility] [address] [place] [address], [place] [address] Provider, File Room 06/01/2025 11:40 AM EDT Ancillary Procedure [facility]iology [address] [place] [address], [place] [address] Provider, File Room 06/01/2025 11:35 AM EDT Ancillary Procedure [facility]iology [address] [place] [phone] Provider, File Room 06/01/2025 11:35 AM EDT Ancillary Procedure [facility] Radiology [address] [place] [phone] Provider, File Room 06/01/2025 Travel 05/31/2025 Telephone [facility] [address] [phone] Jeremy Rincon MD 05/30/2025 Orders Only [facility] [address] [place] [phone] Jeremy Rincon MD 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) 05/28/2025 Travel 05/25/2025 3:05 PM EDT Anesthesia Event [facility] [address] [place] [address], [place] [address] Nelson Wong MD Gordon, Donald E, PA-Delphine 05/25/2025 3:00 PM EDT - 05/25/2025 3:41 PM EDT Surgery [facility] [address] [place] [phone] Jeremy Rincon MD ERCP /C PLACEMENT STENT 05/25/2025 8:45 AM EDT Ancillary Procedure [facility] Radiology [address] [place] [phone] Provider, File Room 05/25/2025 8:40 AM EDT Ancillary Procedure [facility] Radiology [address] [place] [phone] Provider, File Room 05/25/2025 8:35 AM EDT Ancillary Procedure [facility]iology [address] [place] [phone] Provider, File Room 05/25/2025 8:35 AM EDT Ancillary Procedure [facility]iology [address] [place] [phone] Provider, File Room 05/24/2025 7:50 PM EDT Ancillary Procedure [facility]iology [address] [place] [phone] Provider, File Room 05/24/2025 7:45 PM EDT Ancillary Procedure [facility]iology [address] [place] [phone] Provider, File Room 05/24/2025 7:45 PM EDT Ancillary Procedure [facility]iology [address] [place] [phone] Provider, File Room 05/24/2025 5:24 PM EDT - 05/30/2025 2:14 PM EDT Hospital Encounter [facility] [address] [place] [phone] Harvey Narayan MD Bickmore, Todd A, MD Kottarathara, Mathew J, MD Hamed, Moaz, MD Thevarajah, Vasanthy, MD Addai-Boateng, Hassana, MD Biliary stricture (HCC) (Primary Dx); Bacteremia Discharge Disposition: Home or Self Care 05/24/2025 Orders Only [facility] [address] [facility] [place] [address] Provider, File Room from Last 3 Months [...] oz pur e alcohol) drinks on weekends [facility] idioities Answer Date Recorded In the past 12 months has [facility], [email or web address], oil, or water [employer] threatened to shut off services in your [...] any time in the past 12 m [facility], were you homeless or living in a detention (including now)? 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 Not on file [...] Description 07/27/2025 1:45 PM EDT Hospital Encounter [facility] [address] [place] [address] Anita Kumar MD [address] [address] 07/27/2025 1:45 PM EDT - 07/27/2025 4:30 PM EDT Surgery [facility] [address] [place] [phone] Anita Kumar MD [address] [address] ROBOTIC CHOLECYSTECTOMY, POSSIBLE INTRAOPERATIVE CHOLANGIOGRAM (IOC), POSSIBLE OPEN (XI) 08/10/2025 10:30 AM EDT Office Visit [facility] Surgical Oncology [place] [address] [phone] Consuelo Roberts APRN [address] [phone] 09/20/2025 2:00 PM EST Hospital Encounter [facility] [address] [place] [phone] Jeremy Rincon MD [address] [place] [phone] 09/20/2025 2:00 PM EST Appointment [facility] [address] [place] [address] Jeremy Rincon MD [address] [place] [phone] 09/20/2025 2:00 PM EST - 09/20/2025 3:00 PM EST Surgery [facility] [address] [place] [phone] Jeremy Rincon MD [address] [place] [phone] ERCP Scheduled Procedures Name Priority Associated Diagnoses Date/Ti id ROBOTIC ASSISTED CHOLECYSTECTOMY (XI) Gallstone pancreatitis Biliary [...] Care Plan Autogenerated Problem No Ivette Barnett Autogene сергей Goal Care Plan Autogenerated Problem No Prasad [employer] Implanted Type Area Customer Account Technician Device Identifier Shelf Expiration Date Model / Serial / Lot [id number] Stent Pancreatic 20mm 10mm Axs Sterl Lf Disp Electrocautery - [id number] Implanted:Qty: 1 on 05/25/2025 by Jeremy Rincon MD at [facility] Stent N/A: Stomach [employer] [id number] 02/01/2026 [id number] / / [id number] Stent Pancreatic 5fr 5cm Pigtail Curve Radopq Push Cath - [id number] Implanted:Qty: 1 on 05/25/2025 by Jeremy Rincon MD at [facility] Stent N/A: Bile Duct [employer] [id number] 04/02/2028 [id number] / / [id number] Stent Biliary Advanix 10fr 5cm Rx Temp Taper Tip Plastic - [id number] Implanted:Qty: 1 on 05/25/2025 by Jeremy Rincon MD at [facility] Stent N/A: Bile Duct [employer] [id number] 02/19/2027 [id number] / / [id number] Procedures Procedure Name Priority Date/Time Associated Diagnosis [...] Francesco-en-Y gastric bypass Elevated CA 19-9 level NM EDG US EXAM SURGICAL ALTER STOM DUODENUM/JEJUNUM [...] 05/25/2025 3:00 PM EDT Biliary stricture (HCC) NM ERCP STENT PLACEMENT BILIARY/PANCREATIC DUCT 05/25/2025 3:00 [...] Routine 05/25/2025 6:44 AM EDT CA 19-9 [id number] Routine 05/25/2025 6:44 AM EDT CEA Routine [...] * CA 19-9 (07/02/2025 12:45 PM EDT) [facility] CA 19-9 10 <34 U/mL [facility] Comment: This test was performed using the [...] LAB BLOOD ORDERABLES Final Re sult [facility] [address] [place] [phone] * COMPLETE BLOOD COUNT, WITHOUT DIFFERENTIAL (07/02/2025 12:45 PM EDT) Only the most recent of4 resultswithin the time period is included. [facility] White Blood Cell Count 7.6 3.8 - 10.8 Thousand/u L [facility] Red Blood Cell Count 4.21 3.80 - 5.10 Million/uL [facility] Hemoglobin 12.1 11.7 - 15.5 g/dL [facility] Hematocrit 37.5 35.0 - 45.0 % [facility] MCV 89.1 80.0 - 100.0 fL [facility] MCH 28.7 27.0 - 33.0 pg [facility] MCHC 32.3 32.0 - 36.0 g/dL [facility] Comment: For adults, a slight decrease in the calculated MCHC value (in the range of 30 to 32 g/dL) is most likely not clinically significant; however, it should be interpreted with caution in correlation with other red cell parameters and the patient's clinical condition. RDW 15.0 11.0 - 15.0 % [facility] Platelet Count 279 140 - 400 Thousand/u L [facility] MPV 11.6 7.5 - 12.5 fL [facility] Blood Blood specimen / Unknown 07/02/2025 12:45 PM EDT 07/02/2025 12:46 PM EDT Narrative [facility] - 07/03/2025 9:18 AM EDT FASTING:NO FASTING: NO Anita Kumar MD LAB BLOOD ORDERABLES Final Re sult Performing Organization Address [facility] Co de Phone Number [facility] [address] [place] [phone] * LIPASE (07/02/2025 12:45 PM EDT) Only the most recent of4 resultswithin the time period is included. Pathologist [facility] Lipase 45 7 - 60 U/L [facility] Blood Blood specimen / Unknown 07/02/2025 12:45 PM EDT 07/02/2025 12:46 PM EDT Narrative [facility] - 07/03/2025 9:18 AM EDT FASTING:NO FASTING: NO Anita Kumar MD LAB BLOOD ORDERABLES Final Re sult Performing Organization Address [facility] Co de Phone Number [employer] [address] [place] [phone] * (ABNORMAL) HEPATIC FUNCTION PANEL (07/02/2025 12:45 PM EDT) Protein, Total 6.8 6.1 - 8.1 g/dL [facility] Albumin 4.1 3.6 - 5.1 g/dL [facility] Globulin 2.7 1.9 - 3.7 g/dL (calc) [facility] Albumin/Globulin Ratio 1.5 1.0 - 2.5 (calc) [facility] Bilirubin, Total 0.9 0.2 - 1.2 mg/dL [facility] Bilirubin, Direct 0.3(H) < OR = 0.2 mg/dL [facility] Bilirubin, Indirect 0.6 0.2 - 1.2 mg/dL (calc) [facility] Alkaline Phosphatase 207(H) 37 - 153 U/L [facility] Aspartate Aminotrans (AST) 27 10 - 35 U/L [facility] Alanine Aminotrans (ALT) 22 6 - 29 U/L [facility] Blood Blood specimen / Unknown 07/02/2025 12:45 PM EDT 07/02/2025 12:46 PM EDT Narrative [facility] - 07/03/2025 9:18 AM EDT FASTING:NO FASTING: NO us Anita Kumar MD LAB BLOOD ORDERABLES Final Re sult [facility] [address] [place] [phone] * Basic Metabolic Panel (07/02/2025 12:45 PM EDT) Pathologist [facility] Glucose 95 65 - 139 mg/dL [facility] Comment: Non-fasting reference interval Blood Urea Nitrogen (BUN) 13 7 - 25 mg/dL [facility] Creatinine 0.56 0.50 - 1.05 mg/dL [facility] Creatinine w/ eGFR 99 > OR = 60 mL/min/1. 73m2 [facility] BUN/Creatinine Ratio SEE NOTE: 6 - 22 (calc) [facility] Comment: Not Reported: BUN and Creatinine are within reference range. Sodium 142 135 - 146 mmol/L [facility] Potassium 3.9 3.5 - 5.3 mmol/L [facility] Chloride 107 98 - 110 mmol/L [facility] CO2 27 20 - 32 mmol/L [facility] Calcium 9.0 8.6 - 10.4 mg/dL [facility] Blood Blood specimen / Unknown 07/02/2025 12:45 PM EDT 07/02/2025 12:46 PM EDT Narrative [facility] - 07/03/2025 9:18 AM EDT FASTING:NO FASTING: NO Result [facility] Anita Kumar MD LAB BLOOD ORDERABLES Final Re sult Performing Organization Address [facility] de Phone Number [facility] [address] [place] [phone] * RADHA Archive for reference only DX (06/01/2025 12:20 PM EDT) Only the most recent of3 resultswithin the time period is included. [facility] - 06/01/2025 12:13 PM EDT This order has been auto-finalized and does not contain a result. File Room Provider IMG DIGITIZE FILMS Final Resu lt Performing Organization Address [facility] de Phone Number [place] [phone] * RADHA Archive for reference only RF (06/01/2025 12:15 PM EDT) [facility] - 06/01/2025 12:13 PM EDT This order has been auto-finalized and does not contain a result. File Room Provider IMG DIGITIZE FILMS Final Resu lt Performing Organization Address [facility] de Phone Number [place] [phone] * CR Chest Archive for Reference only (06/01/2025 12:13 PM EDT) [facility] - 06/01/2025 12:13 PM EDT This study has been auto finalized and does not contain a result. us File Room Provider IMG DIGITIZE FILMS Final Resu lt Performing Organization Address [facility] de Phone Number [place] [phone] * MG Screening Archive for Reference Only (06/01/2025 12:12 PM EDT) Only the most recent of6 resultswithin the time period is included. [facility] - 06/01/2025 12:12 PM EDT This study has been auto finalized and does not contain a result. us File Room Provider IMG DIGITIZE FILMS Final Resu lt Performing Organization Address [facility] de Phone Number [place] [phone] * CR Extremity Left Archive for Reference only (06/01/2025 12:12 PM EDT) Narrative [place] - 06/01/2025 12:12 PM EDT This study has been auto finalized and does not contain a result. us File Room Provider IMG DIGITIZE FILMS Final Resu lt Performing Organization Address [facility] de Phone Number [place] [phone] * (ABNORMAL) Comprehensive Metabolic Panel (05/30/2025 4:16 AM EDT) Only the most recent of7 resultswithin the time period is included. Glucose 97 65 - 99 mg/dL 05/30/2025 7:46 AM [facility] Comment:Fasting: <100 mg/dL, Non-Fasting: <200 mg/dL (ADA 2005) Blood Urea Nitrogen (BUN) 4(L) 8 - 21 mg/dL 05/30/2025 7:46 AM [facility] Creatinine 0.6 0.4 - 1.1 mg/dL 05/30/2025 7:46 AM [facility] eGFR >90 >59 05/30/2025 7:46 AM [facility] Comment:CKD-EPI (2020) in mL /min/1.73 sq meters. Sodium 142 136 - 145 mmol/L 05/30/2025 7:46 AM [facility] Potassium 4.2 3.4 - 5.3 mmol/L 05/30/2025 7:46 AM [facility] Chloride 105 98 - 107 mmol/L 05/30/2025 7:46 AM [facility] CO2 26 22 - 33 mmol/L 05/30/2025 7:46 AM [facility] Calcium 8.5(L) 8.7 - 10.5 mg/dL 05/30/2025 7:46 AM [facility] Alkaline Phosphatase 285(H) 32 - 122 U/L 05/30/2025 7:46 AM [facility] Aspartate Aminotrans (AST) 95(H) 10 - 50 U/L 05/30/2025 7:46 AM [facility] Alanine Aminotrans (ALT) 115(H) 10 - 50 U/L 05/30/2025 7:46 AM [facility] Bilirubin, Total 1.7(H) 0.2 - 1.0 mg/dL 05/30/2025 7:46 AM [facility] Protein, Total 5.8(L) 6.3 - 8.3 g/dL 05/30/2025 7:46 AM [facility] Albumin 2.9(L) 3.4 - 4.8 g/dL 05/30/2025 7:46 AM [facility] BUN/Creatinine Ratio 7(L) 10.0 - 25.0 Ratio 05/30/2025 7:46 AM [facility] Globulin 2.9 1.5 - 3.9 g/dL 05/30/2025 7:46 AM [facility] Albumin/Globulin Ratio 1.0 1.0 - 3.0 Ratio 05/30/2025 7:46 AM [facility] Anion Gap 11 7 - 17 05/30/2025 7:46 AM [facility] Blood Blood specimen / Unknown 05/30/2025 4:16 AM EDT 05/30/2025 6:37 AM EDT us Ike Johnson SERVICE MECHANIC LAB BLOOD ORDERABLES Final Resul t [address] [address], [address] [address] * (ABNORMAL) Complete Blood Count WITH Differential - in AM (05/29/2025 5:23 AM EDT) Only the most recent of4 resultswithin the time period is included. White Blood Cell Count 8.1 4.0 - 11.0 Thou/uL 05/29/2025 5:38 AM [facility] Platelet Count 251 150 - 450 Thou/uL 05/29/2025 5:38 AM [facility] Hemoglobin 10.0(L) 11.7 - 15.7 g/dL 05/29/2025 5:38 AM [facility] Hematocrit 30.0(L) 35.0 - 47.0 % 05/29/2025 5:38 AM [facility] Red Blood Cell Count 3.60(L) 4.00 - 5.40 Mil/uL 05/29/2025 5:38 AM [facility] MCV 83 80 - 100 fL 05/29/2025 5:38 AM [facility] MCH 27.8 27.0 - 31.0 pg 05/29/2025 5:38 AM [facility] MCHC 33.3 30.0 - 36.0 g/dL 05/29/2025 5:38 AM [facility] RDW 16.1(H) 11.5 - 14.5 % 05/29/2025 5:38 AM [facility] MPV 10.3 7.5 - 12.5 fL 05/29/2025 5:38 AM [facility] Bands Man 1 % 05/29/2025 6:07 AM [facility] Neutrophils Man 73 % 6:07 AM [facility] Comment:Vacuolization presen t. Lymphocytes Man 17 % 6:07 AM [facility] Monocytes Man 6 % 05/29/2025 6:07 AM [facility] Eosinophils Man 3 % 6:07 AM [facility] Abs Neutrophils Count (ANC) 6.0 2.0 - 7.5 Thou/uL 05/29/2025 6:07 AM [facility] Abs Lymphocytes Man 1.4(L) 1.5 - 4.5 Thou/uL 05/29/2025 6:07 AM [facility] Abs Monocytes Man 0.5 0.2 - 1.5 Thou/uL 05/29/2025 6:07 AM [facility] Abs Eosinophils Man 0.2 0.0 - 0.7 Thou/uL 05/29/2025 6:07 AM [facility] Normochromic Present 05/29/2025 6:07 AM EDT [facility] Normocytic Present 05/29/2025 6:07 AM EDT [facility] Blood Blood specimen / Unknown 05/29/2025 5:23 AM EDT 05/29/2025 5:32 AM EDT Giovannyluislola Johnson APRN LAB BLOOD ORDERABLES Final Resul t Performing Organization Address [facility] [place] [address], [place] [address] * (ABNORMAL) Bilirubin, Direct (05/28/2025 4:33 AM EDT) Only the most recent of4 resultswithin the time period is included. Bilirubin, Direct 2.0(H) 0 - 0.2 mg/dL 05/28/2025 5:24 AM EDT [facility] Blood Blood specimen / Unknown 05/28/2025 4:33 AM EDT 05/28/2025 5:03 AM EDT Navya York MD LAB BLOOD ORDERABLES Final Result Performing Organization Address [facility] [place] [address], [place] [address] * ANES LINE - PERIPHERAL, SINGLE LUMEN (05/25/2025 6:08 PM EDT) Narrative Belem Chong CRNA - 05/25/2025 6:08 PM EDT Belem Chong CRNA 05/25/2025 6:09 PM Anesthesia Procedure Note - Peripheral IV Placement Patient Name: Berry Lee : 1955 Patient location: endoscopy/gi Indication(s): surgery Performed by: Resident/JUAN Chong CRNA Procedure Preparation Skin prep: alcohol Hand hygeine performed prior to needle/catheter insertion Sterile barriers in place: gloves, cap and mask Patient pre-procedure mental status: awake Single lumen [id number]-sbrcdp catheter system, 20 g, in right hand Insertion attempts: 1 Nelson Wong MD NM ANESTHESIA Final Result * [place] ERCP (05/25/2025 [...] Cytology Report (05/25/2025 5:10 PM EDT) Report [facility] [id number] CLIA ID [id number] [address] [place] [address] / [phone] Cytopathology Report PATIENT NAME: BERRY LEE [facility] REC NUMBER: [id number] (AGE): 1955 (Age: 69) SPECIMEN NUMBER: [id number] DATE OBTAINED: 05/25/2025 DIAGNOSIS: A. CBD BRUSHING, BILIARY: ATYPICAL GLANDULAR CELLS. mwa/05/29/2025 Electronicall y Signed Out JANNIE SANCHEZ MD Clinical Diagnosis and History: CBD BRUSHING BILIARY STRICTURE Tissue(s) Submitted: A: CBD BRUSHING, BILIARY Specimen Description: RECEIVED 1 BRUSH IN CYTOLYT [1 THINPREP MADE] PLUS 2 UNLABELED SMEARS IN ETOH [JAR LABELED] 3 SLIDES TOTAL (A) HOSPITAL LAB 05/25/2025 5:10 PM EDT 05/28/2025 6:50 AM EDT Comment:CBD BRUSHING, BILIAR Y us Jeremy Rincon MD PATHOLOGY/CYTOLOGY ORDERAB LES Final [...] baseline desaturation < 90% Complications: no complications us Vu Haji MD NM ANESTHESIA Final Result * US Abdomen-Limited (05/25/2025 [...] Real-time ultrasonography of the abdomen was performed. [id number]. COMPARISON: CT Abdomen Pelvis 05/23/2025, US Abdomen [...] Real-time ultrasonography of the abdomen was performed. [id number]. COMPARISON: CT Abdomen Pelvis 05/23/2025, US Abdomen [...] Consider acalculous cholecystitis. us Lavern Mallory PA-C IMLuis US ORDERABLES Final R esult * US Abdomen Archive for reference only (05/25/2025 8:34 AM EDT) Wesley ROSE - 05/25/2025 8:34 AM EDT This study has been auto finalized and does not contain a result. Procedure Note Ruby Roberts MA - 05/25/2025 This study has been auto finalized and does not contain a result. us File Room Provider IMG DIGITIZE FILMS Final Resu lt Performing Organization Address [facility] de Phone Number [place] [phone] * CT Abdomen Archive for Reference Only (05/25/2025 8:34 AM EDT) Only the most recent of4 resultswithin the time period is included. Narrative [place] - 05/25/2025 8:34 AM EDT This study has been auto finalized and does not contain a result. File Room Provider IMG DIGITIZE FILMS Final Resu lt Performing Organization Address [facility] de Phone Number [place] [phone] * CT Chest Archive for Reference Only (05/25/2025 8:34 AM EDT) Narrative [place] - 05/25/2025 8:34 AM EDT This study has been auto finalized and does not contain a result. File Room Provider IMG DIGITIZE FILMS Final Resu lt Performing Organization Address [facility] de Phone Number [place] [phone] * (ABNORMAL) CA 19-9 (05/25/2025 6:44 AM EDT) CA 19-9 143(H) <34 U/mL 05/29/2025 3:17 PM EDT [email or web address] Comment: (NOTE) This test was performed using [...] LAB BLOOD ORDERABLES Final Re sult [facility], [place] [address] [facility] [address] [address] [place], [place] , [facility], [place] [address] [facility] [address] [address] [place], [place] * Hemoglobin A1c with Estimated Average Glucose (Early AM) (05/25/2025 6:44 AM EDT) Hemoglobin A1C 5.5 <5.7 % 05/25/2025 10:10 AM EDT [facility] Comment: A1c% Interpretation 5.7 - 6.0 Increase risk of diabetes 6.1 - 6.4 Higher risk of diabetes > or = 6.5 Consistent with diabetes Diabetes Care, 33(Supp 1):S1-S61, 2010 Estimated Average Glucose 111 mg/dL 05/25/2025 10:10 AM EDT [facility] Blood Blood specimen / Unknown 05/25/2025 6:44 AM EDT 05/25/2025 8:45 AM EDT Anita Kumar MD LAB BLOOD ORDERABLES Final Re sult Performing Organization Address [facility] [place] [address], [place] [address] * Magnesium (05/25/2025 6:44 AM EDT) Magnesium 2.0 1.6 - 2.7 mg/dL 05/25/2025 1:46 PM EDT [facility] Blood Blood specimen / Unknown 05/25/2025 6:44 AM EDT 05/25/2025 8:45 AM EDT Johnson Graham MD LAB BLOOD ORDERABLES Final Re sult Performing Organization Address City/[facility]/ZIP [place] [address], [place] [address] * Lactic Acid, Plasma (05/25/2025 6:44 AM EDT) Only the most recent of2 resultswithin the time period is included. Lactic Acid 0.6 0.5 - 1.9 mmol/L 05/25/2025 9:26 AM EDT [facility] Blood Blood specimen / Unknown 05/25/2025 6:44 AM EDT 05/25/2025 8:44 AM EDT Johnson Graham MD LAB BLOOD ORDERABLES Final Re sult Performing Organization Address [facility] [place] [address], [place] [address] * CEA (05/25/2025 6:44 AM EDT) CEA (Jake) 1.7 0.0 - 3.8 ng/mL 05/25/2025 9:34 AM EDT [facility] Comment: Reference range: Age 20 - 69: [...] Re sult Performing Organization Address [facility] [place] [address], [place] [address] * Blood Culture #2 (05/24/2025 7:46 PM EDT) Only the most recent of2 resultswithin the time period is included. Pathologist [facility] Culture Sterile after 5 days 05/29/2025 10:15 AM EDT [facility] Blood Blood specimen / Unknown 05/24/2025 7:46 PM EDT 05/24/2025 10:04 PM EDT Comment:Blood Johnson Graham MD LAB BLOOD ORDERABLES Final Re sult Performing Organization Address [facility]/ZIP Co de Phone Number [facility] [address] [place] [address], [place] * MR Chest Archive for Reference Only (05/24/2025 7:44 PM EDT) Narrative [place] - 05/24/2025 7:44 PM EDT This study has been auto finalized and does not contain a result. Procedure Note Ruby Roberts MA - 05/24/2025 This study has been auto finalized and does not contain a result. us File Room Provider IMG DIGITIZE FILMS Final Resu lt Performing Organization Address [facility] Co de Phone Number [place] [phone] * (ABNORMAL) PROTIME-INR (05/24/2025 7:40 PM EDT) Anticoagulant NO ANTI COAGULANT MEDS 05/24/2025 7:04 PM EDT [facility] Prothrombin Time (PT) 14.0(H) 10.0 - 13.5 seconds 05/24/2025 8:12 PM EDT [facility] INR 1.2 05/24/2025 8:12 PM EDT [facility] Comment:INR Therapeutic Rang es: Standard dose anticoagulant 2.0 to 3.0, High dose anticoagulant 2.5-3.5. Blood Blood specimen / Unknown 05/24/2025 7:40 PM EDT 05/24/2025 7:54 PM EDT Kennedy Gil MD LAB BLOOD ORDERABLES Final Resul t Performing Organization Address [facility] Co de Phone Number [address] [address], [address] [address] * Type and Screen (05/24/2025 7:30 PM EDT) Pathologist [facility] ABO/Rh O POSITIVE 05/24/2025 8:34 PM EDT [facility] Antibody Screen NEGATIVE 8:34 PM EDT [facility] Specimen Expiration 05/27/2025 05/24/2025 8:34 PM EDT [facility] Blood Blood specimen / Unknown 05/24/2025 7:30 PM EDT 05/24/2025 7:55 PM EDT us Kennedy Gil MD BLOOD BANK TEST ORDERABLES Final Result Performing Organization Address [facility] de Phone Number [address] [address], [address] [address] * ECG 12 lead (STAT) (05/24/2025 7:28 PM EDT) Ventricular rate 54 BPM EKG [facility] Atrial rate 54 BPM EKG [facility] P-R interval 150 ms EKG [facility] QRS duration 102 ms EKG [facility] Q-T interval 426 ms EKG [facility] QTC calculation (Bazett) 404 ms EKG [facility] P axis 55 degrees EKG [facility] R axis -18 degrees EKG [facility] T axis 19 degrees EKG [facility] 05/24/2025 7:28 PM EDT Narrative EKG [facility] - 05/24/2025 8:14 PM EDT Sinus bradycardia Otherwise normal ECG No previous ECGs available Confirmed by MD Constantino Ahmed ([id number]) on 05/24/2025 8:14:18 PM Procedure Note Corbin Constantino MD - 05/24/2025 Sinus bradycardia Otherwise normal ECG No previous ECGs available Confirmed by MD Constantino Ahmed ([id number]) on 05/24/2025 8:14:18 PM us Johnson Graham MD ECG ORDERABLES Final Result Performing Organization Address City/[facility]/ZIP Co de Phone Number [facility] Last 3 Mon[facility] Additional Health Concerns Active Problems Noted Date Diagnosed Date Autogenerated Problem 06/21/2025 Autogenerated Problem 07/02/2025 Insurance [facility] MEDICARE MEDICARE PART A & B Advance Directives * Full Code (Latest Code Status on File) Date Activated Date Inactivated Comments 05/24/2025 6:30 PM 06/12/2025 7:39 AM Care Teams Drafting Supervisor Relationship Specialty Start Date End Date Harry Chun MD [address] [place] [id number] PCP - General Internal Medicine 05/26/25 Anita Kumar MD [address] [place] [address] [address] [place] [address] Surgical Oncology 07/02/25 Jeremy Rincon MD [address] [place] [address] Gastroenterology 07/02/25
--- OUTSIDE RECORDS SUMMARY | 2025-07-10 09:54 | XMS_ITS | Encounter Summary ---
Author Organization [facility] Address [address] [place] [address] Care Team Providers Care Airport Ramp Agent Name Role Phone Harry Chun MD Primary Care Provider [phone] Anita Kumar MD Unavailable [phone] Jeremy Rincon MD Unavailable [phone] Encounter Details Date Type Department Care Team (Late st Contact Info) Description 07/06/2025 Telephone [facility] Surgical Oncology [place] [address] [facility] [address] [place] [address] Anita Kumar MD 85 [facility] [address] [place] [address] Social History Tobacco Use Types Packs/Day Years Used Date Smoking Tobacco: Never Smokeless Tobacco: Never Alcohol Use Standard Drinks/Week Comments Yes 0 (1 standard drink = 0.6 oz pur e alcohol) drinks on weekends [facility] Utilities Answer Date Recorded In the past 12 months has [email or web address], gas, oil, or water company threatened to [...] any time in the past [address] [facility], were you homeless or living in a correction (including now)? 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 Pt reports she is feeling better today. She denies continues diarrhea or nausea. She has not needed to continue take zofran. Pt reports PO intake is adequate, she continues to follow a low fat diet. Sx date & post op date confirmed. Advised pt to reach out to office with any further questions or concerns. Pt expressed gratitude for the call. * Telephone Encounter - Consuelo Roberts APRN - 07/06/2025 1:37 PM EDT Returned call to patient to follow-up on symptoms of loose stools. Patient reports onset of symptoms since Wednesday. She did report the symptoms to Dr. Kumar on her visit Wednesday but they have persisted. She reports that this has limited her p.o. intake and has resulted in some nausea. Follow-up labs ordered by Dr. Kumar completed 07/02 and reviewed. Patient recommended to maintain a low-fat diet doing small frequent meals throughout the day. No fried or high-fat foods. Patient to trial as needed Zofran Q8. Recommendation for [id number] Imodium for symptom management. Reviewed the importance of adequate oral hydration. Office to follow-up with patient on Wednesday to assess progress with hersymptoms. Patient to follow-up sooner in the interim in the event of worsening or persistent symptoms. * Telephone Encounter - Brook Goff MA - 07/06/2025 12:18 PM EDT Patient called. She's been experiencing diarrhea since Wednesday and needs guidance on medication, given her upcomming surgery with Stacy Ngo on 07/27/25 documented in this encounter Plan of Treatment Upcoming Encounters Date Type Department Care Team (Latest Contact Info) Description 07/27/2025 1:45 PM EDT Hospital Encounter [facility] Perioperative Surgical Services [address] [place] [phone] Anita Kumar MD [address] [phone] 07/27/2025 1:45 PM EDT - 07/27/2025 4:30 PM EDT Surgery [facility] [address] [place] [phone] Anita Kumar MD [address] [address] ROBOTIC CHOLECYSTECTOMY, POSSIBLE INTRAOPERATIVE CHOLANGIOGRAM (IOC), POSSIBLE OPEN (XI) 08/10/2025 10:30 AM EDT Office Visit [facility] Surgical Oncology [place] [address] [phone] Consuelo Roberts APRN [address] [address] 09/20/2025 2:00 PM EST Hospital Encounter [facility] Gastroenterology Division [address] [place] [phone] Jeremy Rincon MD [address] [place] [phone] 09/20/2025 2:00 PM EST Appointment [facility] [address] [place] [address] Jeremy Rincon MD [address] [place] [address] 09/20/2025 2:00 PM EST - 09/20/2025 3:00 PM EST Surgery [facility] Gastroenterology Division [address] [place] [phone] Jeremy Rincon MD [address] [place] [address] ERCP Scheduled Procedures Name Priority Associated Diagnoses Date/Ti ar ROBOTIC ASSISTED CHOLECYSTECTOMY (XI) Gallstone pancreatitis Biliary stricture (HCC) 07/27/2025 1:45 PM EDT ERCP Choledocholithiasis Common bile duct (CBD) stricture (HCC) 09/20/2025 2:00 PM EST documented as of this encounter Goals Goal Patient Goal Type Associated Problems Recent Progress Patient-Stated? Author Autogenera есргей Goal Care Plan Autogenerated Problem No Ivette Barnett Autogenera сергей Goal Care Plan Autogenerated Problem No Prasad Amezquita documented as of this encounter Visit Diagnoses Diagnosis Nausea- Primary Nausea alone Gallstone pancreatitis Acute pancreatitis Biliary stricture (HCC) Obstruction of bile duct Choledocholithiasis Calculus of bile duct without mention of cholecystitis or obstruction Common bile duct (CBD) stricture (HCC) Obstruction of bile duct documented in this encounter Additional Health Concerns Active Problems Noted Date Diagnosed Date Autogenerated Problem 06/21/2025 Autogenerated Problem 07/02/2025 documented as of this encounter Care Teams Airport Ramp Agent Relationship Specialty Start Date End Date Po, Harry Mayorga MD [address] [place] [address] PCP - General Internal Medicine 05/26/25 Anita Kumar MD [address] [place] [address] [address] [place] [address] Surgical Oncology 07/02/25 Jeremy Rincon MD [address] [place] [address] Gastroenterology 07/02/25 documented as of this encounter
[2025-07-10 10:21] LABS: Alanine Aminotransferase 20 U/L (0-31); Albumin Level 4.0 g/dL (3.5-5.0); Alkaline Phosphatase 176 U/L (39-117); Anion Gap 9 (12-20); Aspartate Amino Transferase 32 U/L (5-31); Blood Urea Nitrogen 12 mg/dL (9-16); Calcium 8.8 mg/dL (8.4-10.2); Carbon Dioxide 28 mmol/L (22-29); Chloride 108 mmol/L (96-108); Estimated Glomerular Filt Rate > 60; Iron 46 mcg/dL (30-160); Percent Iron Saturation 17 % (15-50); Potassium 4.3 mmol/L (3.3-5.1); Sodium 141 mmol/L (135-145); Total Iron Binding Capacity 270 mcg/dL (228-428); Total Protein 6.7 g/dL (6.5-8.0); Unsaturated Iron Binding 224 ug/dL
[2025-07-10 10:31] LABS: Ferritin 20 ng/mL (10-250)
[2025-07-10 10:36] LABS: Folate 9.4 ng/mL (> or = 4.0); Vitamin B12 1378 pg/mL (200-900)
== END ==
LOC: HO.CARD 09:09
PROVIDERS: PCP Internal Medicine; Visit Provider Internal Medicine
DX: R79.89 Other specified abnormal findings of blood chemistry (principal)
CPT/HCPCS: 36415; 80053; 82607; 82728; 82746; 83540; 85025; 85045; 93005

== ENCOUNTER → 2025-07-10 09:15 | Outpatient (BNV) | payer MEDICARE, SELFPAY | PROVIDERS: PCP Internal Medicine; Visit Provider Internal Medicine | DX: R00.1 Bradycardia, unspecified (principal) | CPT/HCPCS: 93010 ==

== ENCOUNTER 2025-07-11 14:46 | Outpatient (AMB) | payer MEDICARE, SELFPAY ==
--- NOTE | 2025-07-11 14:52 | A.OFFVIS_ITS ---
Vital Signs 07/11/25 14:53 Height 5 ft Weight 198 lb 6.656 oz BMI 38.7 BP 118/68 Blood Pressure Location Lt brachial Position Sitting Pulse 59 Pulse Source Pulse Oximeter Pulse Oximetry (%) 98 Oxygen Delivery Method Room Air Intake Visit Reasons: Pre Op: Cholecystectomy/Hx of Asthma Intake Note: pt is here for pre-op clearance on 07/27/25 in [facility]. Explosive Man Required: No Commercial Sales Director: Commercial Sales Director offered & declined Allergies morphine (MORPHINE) Allergy (Unknown, Verified 07/11/25 15:19) VOMITING AND SHAKING MORPHINE Allergy (Mild, Uncoded 07/11/25 15:19) Nausea and Vomiting Medication List - Last Reconciled 07/11/25 by Jeremy Gallo MD albuterol sulfate 90 mcg/actuation (Ventolin HFA) 2 puffs inhalation Q6H PRN calcium carbonate (Calcium 500) 1,000 mg PO DAILY celecoxib 50 mg PO DAILY PRN cholecalciferol (vitamin D3) 25 mcg PO DAILY iron,carbonyl-vitamin C 65 mg iron- 125 mg (Vitron-C) 1 tab PO BEDTIME magnesium 250 mg PO DAILY melatonin 5 mg PO BEDTIME omeprazole 20 mg PO DAILY@0630 Do you need a note to return to daycare/school/sports/work: No HPI HPI Pre Op: Cholecystectomy/Hx of Asthma: Details: THIS 69 YEARS OLD VERY PLEASANT FEMALE, IS HERE TODAY FOR PULMONARY EVALUATION AND CLEARANCE, FOR HER PLANNED SURGERY ON JULY 27. SHE WILL BE UNDERGOING ROBOTIC SURGERY AND HAVE CHOLECYSTECTOMY. PATIENT HAS HISTORY OF INTERMITTENT BRONCHIAL ASTHMA FOR THE LAST FEW YEARS, HER ACUTE SYMPTOMS ARE BROUGHT ON ONLY BY A VIRAL RESPIRATORY INFECTION A FEW. TIMES DURING THE YEAR SHE USES ALBUTEROL 2 PUFFS Q 4-6 HOURS ONLY P.R.N. USUALLY WHEN SHE HAS ACUTE BOUTS AFTER RESPIRATORY INFECTION. SHE DOES NOT NEED TO USE ANY INHALER ON DAY-TO-DAY BASIS. SHE CLAIMS THAT SHE CAN WALK AROUND ON LEVEL GROUND WITHOUT ANY SHORTNESS OF BREATH SHE CAN CLIMB 1 OR 2 FLIGHTS OF STAIRS WITHOUT SHORTNESS OF BREATH. AND SHE IS ABLE TO DO HER DAY-TO-DAY WORK WITHOUT ANY PROBLEM. SHE HAS PAST HISTORY OF SUPER MORBID OBESITY WITH HER WEIGHT BEING 410 LB IN 2002. SHE UNDERWENT ELIF-EN-Y GASTRIC BYPASS SURGERY AND AFTERWARDS LOST ABOUT 220 LB OF WEIGHT. SHE HAS BEEN FEELING MUCH BETTER AFTERWARDS * SHE IS AND HAS BEEN A NONSMOKER. [facility] Medical History Dysgeusia Arthritis Age-related osteoporosis without current pathological fracture Osteopenia COVID-19 Vitamin D deficiency Vitamin B12 deficiency Syphilis Obesity Asthma GERD (gastroesophageal reflux disease) Osteoarthritis Surgical History Hx of section History of appendectomy Hx of gastric bypass History of abdominoplasty H/O gastric bypass Family History Father No problems noted. Mother No problems noted. Social History Household Members: None Housing: House Do you presently have visiting nurse or other home services: No Alcohol intake: current Comment: holidays 2 beers Patient Tobacco Use Status: Never used Tobacco e-Cigarette/Vaping Use: Never Used Second Hand Smoke Exposure: No Advance Directives Date on File: 11/04/23 service: No Current occupational status: employed Cognitive needs: No Hearing needs: No Vision needs: Yes Review of Systems Const All systems reviewed & are unremarkable except as noted in HPI and below Eyes Reports no additional complaints ENT Reports no additional complaints Card Denies chest pain, Denies syncope, Denies irregular heart rhythm and Denies leg edema Resp Reports as per HPI GI Reports heartburn (TREATED FOR GERD SYMPTOMS WITH OMEPRAZOLE 20 MG DAILY) Reports no additional complaints Musc Reports no additional complaints Skin/Breast Reports system reviewed and no additional complaints, except as documented Neuro Reports no additional complaints and Denies syncope Psych Reports no additional complaints Endo Reports no additional complaints Aller/Immun Reports no additional complaints Physical Exam Vital Signs: Last Vital Signs Pulse 59 07/11/25 14:53 BP 118/68 07/11/25 14:53 Pulse Ox 98 07/11/25 14:53 Oxygen Delivery Method Room Air 07/11/25 14:53 BMI result Body Mass Index 38.7 Const General: healthy appearing, comfortable, no acute distress, alert and awake Orientation/consciousness: patient oriented x3 HEENT Head: Yes normal to inspection General nose exam: No nasal polyps present and No nasal discharge present Face and sinus: Yes sinuses nontender Mouth: oropharynx normal Throat: Yes posterior oropharynx normal Eyes General: appearance normal, both eyes and all related structures Neck Neck: Yes normal visual inspection, Yes no lymphadenopathy, Yes trachea midline and Yes no JVD Thyroid: Thyroid normal Chest Chest palpation & inspection: normal inspection of the chest, normal palpation of entire chest wall and no tenderness Resp Other: CHEST IS MEDICAL. PERCUSSION NOTE RESONANT ON BOTH SIDES. BREATH SOUNDS SLIGHTLY DISTANT WITH PROLONGED EXPIRATORY PHASE. NO AUDIBLE WHEEZES RHONCHI OR CREPITATIONS. Cardio Palpation: normal PMI Rate: regular rate Rhythm: regular rhythm Heart sounds: no gallops and no murmurs Peripheral pulses: Peripheral pulses 2+ throughout GI Palpation (GI): Soft to palpation, nontender, No hepatosplenomegaly present and no masses Auscultation: normal bowel sounds Back/Spine/Pelvis Thoracic/Lumbar Spine: thoracic and lumbar spine normal to inspection Skin General skin exam: no rashes or lesions noted Neuro General: patient oriented x3 and no focal motor deficits Cranial nerves: Yes CN's II-XII intact bilaterally Extrem General: Yes normal to inspection, Yes no clubbing, cyanosis or edema and Yes no calf tenderness Psych Appearance: grossly normal and well kempt Speech and movement: Normal speech and movement present Office Procedures Spirometry Testing Spirometry Comments: Spirometry done in the office, Dr. Gallo has the results results scanned to her chart. 12193- Spirometry Results Reviewed Results Reviewed: FVC 94%, FEV1 87% FEV1-FVC 72. FEF 25-75 69% ( NORMAL ) Assessment & Plan Assessment & Plan (1) Asthma: Comment: PATIENT HAS HISTORY OF MILD INTERMITTENT BRONCHIAL ASTHMA, USUALLY TRIGGERED BY ACUTE RESPIRATORY INFECTION. SHE HAS NO ACTIVE SYMPTOMS AT PRESENT. SPIROMETRY FINDINGS ARE NORMAL. Code(s): J45.909 - Unspecified asthma, uncomplicated Category: Medical Qualifiers: Asthma severity: mild Asthma persistence: intermittent Asthma complication type: uncomplicated Qualified Code(s): J45.20 - Mild intermittent asthma, uncomplicated Plan: ALL SHE NEEDS IS TO KEEP ALBUTEROL HFA ON HAND AND USE 1 OR 2 PUFFS Q 4-6 HOURS ONLY P.R.N. Plan * FAR PULMONARY CLEARANCE IS CONCERNED, SHE HAS NO CONTRAINDICATION FOR THE PLANNED SURGERY AND HER SURGICAL RISK IS AVERAGE/ NORMAL POSTOPERATIVELY IF SHE HAS ANY COUGH OR WHEEZING OR RESPIRATORY DISTRESS SHE CAN BE TREATED WITH ALBUTEROL SOLUTION IN THE NEBULIZER Q 4-6 HOURS P.R.N.. Orders: Orders AMB Spirometry Testing Today J45.20 - Mild intermittent asthma, uncomplicated Coding Level of Care Code New Pt Level 3 (14984) Diagnoses Mild intermittent asthma without complication J45.20 Asthma severity: mild Asthma persistence: intermittent Asthma complication type: uncomplicated CPT Codes Spirometry - CPT: 28087- Spirometry ([id number])
[2025-07-11 14:53] VITALS: BP 118/68; PULSE 59; O2SAT 98; BMI 38.7
--- OUTSIDE RECORDS SUMMARY | 2025-07-11 15:57 | XMS_ITS | Clinical Summary ---
Author Organization [facility] Address [address] [place] [id number] Care Team Providers Care Control Technician Name Role Phone Harry Chun MD Primary Care Provider [phone] Anita Kumar MD Unavailable [phone] Jeremy Rincon MD Unavailable [phone] Allergies Active Allergy Reactions Criticality Noted Date [...] - ID continues to follow - Contacted [facility] microbiology, patient blood culture positive for vibrio Cholerae, sensitivities were sent and pending - Patient switched to oral levofloxacin 750 mg as per ID Assessment & Plan (05/28/2025 4:03 PM EDT): - ID continues to follow - Patient continues on IV Zosyn - Contacted [facility] microbiology, patient blood culture positive for vibrio [...] Type Department Care Team Description 07/06/2025 Telephone [facility] Surgical Oncology [address] [address] Anita Kumar MD 07/04/2025 Telephone [facility] Surgical Oncology [place] [address] [facility] [address] [place] [phone] Anita Kumar MD Other 07/02/2025 8:30 AM EDT Consult [facility] [address] [address] Anita Kumar MD Gallstone pancreatitis (Primary Dx); Biliary stricture (HCC); History of Francesco-en-Y gastric bypass; Elevated CA 19-9 level 07/02/2025 Telephone [facility] Surgical Oncology [place] [address] [facility] [address] [place] [address] Anita Kumar MD 07/02/2025 Travel 06/21/2025 Telephone [facility] [address] [facility] [address] [place] [address] Jeremy Rincon MD 06/19/2025 Orders Only [facility] [address] [facility] [address] [place] [address] Jeremy Rincon MD Choledocholithiasis (Primary Dx); Common bile duct (CBD) stricture (HCC) 06/12/2025 9:39 AM EDT Anesthesia Event [facility] [address] [place] [phone] Nato Hernandez MD Ritchie, Agatha T, PA-C 06/12/2025 8:30 AM EDT - 06/12/2025 9:15 AM EDT Surgery [facility] [address] [place] [phone] Jeremy Rincon MD ENDOSCOPY UPPER /C ULTRASOUND 06/12/2025 7:39 AM EDT - 06/12/2025 10:57 AM EDT Hospital Encounter [facility] [address] [place] [phone] Jeremy Rincon MD Discharge Disposition: Home or Self Care 06/12/2025 Travel 06/01/2025 12:20 PM EDT Ancillary Procedure [facility] Radiology [address] [facility] [place] [address] Provider, File Room 06/01/2025 12:20 PM EDT Ancillary Procedure [facility] Radiology [address] [facility] [place] [address] Provider, File Room 06/01/2025 12:20 PM EDT Ancillary Procedure [facility] Radiology [address] [facility] [place] [address] Provider, File Room 06/01/2025 12:15 PM EDT Ancillary Procedure [facility] Radiology [address] [facility] [place] [address] Provider, File Room 06/01/2025 12:15 PM EDT Ancillary Procedure [facility] Radiology [address] [place] [address], [place] [address] Provider, File Room 06/01/2025 12:15 PM EDT Ancillary Procedure [facility]iology [address] [place] [address], [place] [address] Provider, File Room 06/01/2025 12:15 PM EDT Ancillary Procedure [facility] [address] [place] [address], [place] [address] Provider, File Room 06/01/2025 12:05 PM EDT Ancillary Procedure [facility]iology [address] [place] [address], [place] [address] Provider, File Room 06/01/2025 11:45 AM EDT Ancillary Procedure [facility] [address] [place] [address], [place] [address] Provider, File Room 06/01/2025 11:40 AM EDT Ancillary Procedure [facility]iology [address] [place] [address], [place] [address] Provider, File Room 06/01/2025 11:35 AM EDT Ancillary Procedure [facility] Radiology [address] [place] [phone] Provider, File Room 06/01/2025 11:35 AM EDT Ancillary Procedure [facility] Radiology [address] [place] [phone] Provider, File Room 06/01/2025 Travel 05/31/2025 Telephone [facility] [address] [address] Jeremy Rincon MD 05/30/2025 Orders Only [facility] [address] [place] [phone] Jeremy Rincon MD 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) 05/28/2025 Travel 05/25/2025 3:05 PM EDT Anesthesia Event [facility] [address] [place] [address], [place] [address] Nelson Wong MD Gordon, Donald E, PA-Delphine 05/25/2025 3:00 PM EDT - 05/25/2025 3:41 PM EDT Surgery [facility] [address] [place] [phone] Jeremy Rincon MD ERCP /C PLACEMENT STENT 05/25/2025 8:45 AM EDT Ancillary Procedure [facility] Radiology [address] [place] [phone] Provider, File Room 05/25/2025 8:40 AM EDT Ancillary Procedure [facility] [address] [place] [phone] Provider, File Room 05/25/2025 8:35 AM EDT Ancillary Procedure [facility] [address] [place] [phone] Provider, File Room 05/25/2025 8:35 AM EDT Ancillary Procedure [facility] [address] [place] [phone] Provider, File Room 05/24/2025 7:50 PM EDT Ancillary Procedure [facility] [address] [place] [phone] Provider, File Room 05/24/2025 7:45 PM EDT Ancillary Procedure [facility] [address] [place] [phone] Provider, File Room 05/24/2025 7:45 PM EDT Ancillary Procedure [facility] [address] [place] [phone] Provider, File Room 05/24/2025 5:24 PM EDT - 05/30/2025 2:14 PM EDT Hospital Encounter [facility] [address] [place] [phone] Harvey Narayan MD Bickmore, Todd A, MD Kottarathara, Mathew J, MD Hamed, Moaz, MD Thevarajah, Vasanthy, MD Addai-Boateng, Hassana, MD Biliary stricture (HCC) (Primary Dx); Bacteremia Discharge Disposition: Home or Self Care 05/24/2025 Orders Only [facility] [address] [facility] [address] Provider, File Room from Last 3 Months [...] oz pur e alcohol) drinks on weekends [facility] [employer] Answer Date Recorded In the past 12 months has [employer], [employer], oil, or water [employer] threatened to shut off services in your [...] time in the past 12 m [facility], were you homeless or living in a residential (including now)? 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 Not on file [...] Description 07/27/2025 1:45 PM EDT Hospital Encounter [facility] [address] [place] [address] Anita Kumar MD [address] [address] 07/27/2025 1:45 PM EDT - 07/27/2025 4:30 PM EDT Surgery [facility] [address] [place] [phone] Anita Kumar MD [address] [address] ROBOTIC CHOLECYSTECTOMY, POSSIBLE INTRAOPERATIVE CHOLANGIOGRAM (IOC), POSSIBLE OPEN (XI) 08/10/2025 10:30 AM EDT Office Visit [facility] [place] [address] [phone] Consuelo Roberts APRN [address] [phone] 09/20/2025 2:00 PM EST Hospital Encounter [facility] [address] [place] [phone] Jeremy Rincon MD [address] [place] [phone] 09/20/2025 2:00 PM EST Appointment [facility] [address] [place] [address] Jeremy Rincon MD [address] [place] [phone] 09/20/2025 2:00 PM EST - 09/20/2025 3:00 PM EST Surgery [facility] [address] [place] [phone] Jeremy Rincon MD [address] [place] [phone] ERCP Scheduled Procedures Name Priority Associated Diagnoses Date/Ti ky ROBOTIC ASSISTED CHOLECYSTECTOMY (XI) Gallstone pancreatitis Biliary [...] [employer] Implanted Type Area Food Service Utility Worker Device Identifier Shelf Expiration Date Model / Serial / Lot [id number] Stent Pancreatic 20mm 10mm Axs Sterl Lf Disp Electrocautery - [id number] Implanted:Qty: 1 on 05/25/2025 by Jeremy Rincon MD at [facility] Stent N/A: Stomach [employer] [id number] 02/01/2026 [id number] / / [id number] Stent Pancreatic 5fr 5cm Pigtail Curve Radopq Push Cath - [id number] Implanted:Qty: 1 on 05/25/2025 by Jeremy Rincon MD at [facility] Stent N/A: Bile Duct [employer] [id number] 04/02/2028 [id number] / / [id number] Stent Biliary Advanix 10fr 5cm Rx Temp Taper Tip Plastic - [id number] Implanted:Qty: 1 on 05/25/2025 by Jeremy Rincon MD at [facility] Stent N/A: Bile Duct [employer] [id number] 02/19/2027 [id number] / / [id number] Procedures Procedure Name Priority Date/Time Associated Diagnosis [...] Francesco-en-Y gastric bypass Elevated CA 19-9 level [place] EDG US EXAM SURGICAL ALTER STOM DUODENUM/JEJUNUM [...] 05/25/2025 3:00 PM EDT Biliary stricture (HCC) [place] ERCP STENT PLACEMENT BILIARY/PANCREATIC DUCT 05/25/2025 3:00 [...] Routine 05/25/2025 6:44 AM EDT CA 19-9 [id number] Routine 05/25/2025 6:44 AM EDT CEA Routine [...] * CA 19-9 (07/02/2025 12:45 PM EDT) [facility] CA 19-9 10 <34 U/mL [facility] Comment: This test was performed using the [...] AM EDT FASTING:NO FASTING: NO us Anita uKmar MD LAB BLOOD ORDERABLES Final Re sult [facility] [address] [place] [phone] * COMPLETE BLOOD COUNT, WITHOUT DIFFERENTIAL (07/02/2025 12:45 PM EDT) Only the most recent of4 resultswithin the time period is included. [facility] White Blood Cell Count 7.6 3.8 - 10.8 Thousand/u L [facility] Red Blood Cell Count 4.21 3.80 - 5.10 Million/uL [facility] Hemoglobin 12.1 11.7 - 15.5 g/dL [facility] Hematocrit 37.5 35.0 - 45.0 % [facility] MCV 89.1 80.0 - 100.0 fL [facility] MCH 28.7 27.0 - 33.0 pg [facility] MCHC 32.3 32.0 - 36.0 g/dL [facility] Comment: For adults, a slight decrease in the calculated MCHC value (in the range of 30 to 32 g/dL) is most likely not clinically significant; however, it should be interpreted with caution in correlation with other red cell parameters and the patient's clinical condition. RDW 15.0 11.0 - 15.0 % [facility] Platelet Count 279 140 - 400 Thousand/u L [facility] MPV 11.6 7.5 - 12.5 fL [facility] Blood Blood specimen / Unknown 07/02/2025 12:45 PM EDT 07/02/2025 12:46 PM EDT Narrative [facility] - 07/03/2025 9:18 AM EDT FASTING:NO FASTING: NO Anita Kumar MD LAB BLOOD ORDERABLES Final Re sult Performing Organization Address [facility] Co de Phone Number [employer] [address] [place] [phone] * LIPASE (07/02/2025 12:45 PM EDT) Only the most recent of4 resultswithin the time period is included. Pathologist [facility] Lipase 45 7 - 60 U/L [facility] Blood Blood specimen / Unknown 07/02/2025 12:45 PM EDT 07/02/2025 12:46 PM EDT Narrative [facility] - 07/03/2025 9:18 AM EDT FASTING:NO FASTING: NO Anita Kumar MD LAB BLOOD ORDERABLES Final Re sult Performing Organization Address [facility] Co de Phone Number [employer] [address] [place] [phone] * (ABNORMAL) HEPATIC FUNCTION PANEL (07/02/2025 12:45 PM EDT) Protein, Total 6.8 6.1 - 8.1 g/dL [facility] Albumin 4.1 3.6 - 5.1 g/dL [facility] Globulin 2.7 1.9 - 3.7 g/dL (calc) [facility] Albumin/Globulin Ratio 1.5 1.0 - 2.5 (calc) [facility] Bilirubin, Total 0.9 0.2 - 1.2 mg/dL [facility] Bilirubin, Direct 0.3(H) < OR = 0.2 mg/dL [facility] Bilirubin, Indirect 0.6 0.2 - 1.2 mg/dL (calc) [facility] Alkaline Phosphatase 207(H) 37 - 153 U/L [facility] Aspartate Aminotrans (AST) 27 10 - 35 U/L [facility] Alanine Aminotrans (ALT) 22 6 - 29 U/L [facility] Blood Blood specimen / Unknown 07/02/2025 12:45 PM EDT 07/02/2025 12:46 PM EDT Narrative [facility] - 07/03/2025 9:18 AM EDT FASTING:NO FASTING: NO us Anita Kumar MD LAB BLOOD ORDERABLES Final Re sult [facility] [address] [place] [phone] * Basic Metabolic Panel (07/02/2025 12:45 PM EDT) Pathologist [facility] Glucose 95 65 - 139 mg/dL [facility] Comment: Non-fasting reference interval Blood Urea Nitrogen (BUN) 13 7 - 25 mg/dL [facility] Creatinine 0.56 0.50 - 1.05 mg/dL [facility] Creatinine w/ eGFR 99 > OR = 60 mL/min/1. 73m2 [facility] BUN/Creatinine Ratio SEE NOTE: 6 - 22 (calc) [facility] Comment: Not Reported: BUN and Creatinine are within reference range. Sodium 142 135 - 146 mmol/L [facility] Potassium 3.9 3.5 - 5.3 mmol/L [facility] Chloride 107 98 - 110 mmol/L [facility] CO2 27 20 - 32 mmol/L [facility] Calcium 9.0 8.6 - 10.4 mg/dL [facility] [employer] Blood Blood specimen / Unknown 07/02/2025 12:45 PM EDT 07/02/2025 12:46 PM EDT Narrative [facility] - 07/03/2025 9:18 AM EDT FASTING:NO FASTING: NO Result [facility] Anita Kumar MD LAB BLOOD ORDERABLES Final Re sult Performing Organization Address [facility] de Phone Number [facility] [address] [place] [phone] * RADHA Archive for reference only DX (06/01/2025 12:20 PM EDT) Only the most recent of3 resultswithin the time period is included. [facility] - 06/01/2025 12:13 PM EDT This order has been auto-finalized and does not contain a result. File Room Provider IMG DIGITIZE FILMS Final Resu lt Performing Organization Address [facility] de Phone Number [facility] [phone] * RADHA Archive for reference only RF (06/01/2025 12:15 PM EDT) [facility] - 06/01/2025 12:13 PM EDT This order has been auto-finalized and does not contain a result. File Room Provider IMG DIGITIZE FILMS Final Resu lt Performing Organization Address [facility] de Phone Number [facility] [phone] * CR Chest Archive for Reference only (06/01/2025 12:13 PM EDT) [facility] - 06/01/2025 12:13 PM EDT This study has been auto finalized and does not contain a result. us File Room Provider IMG DIGITIZE FILMS Final Resu lt Performing Organization Address [facility] de Phone Number [facility] [phone] * MG Screening Archive for Reference Only (06/01/2025 12:12 PM EDT) Only the most recent of6 resultswithin the time period is included. [facility] - 06/01/2025 12:12 PM EDT This study has been auto finalized and does not contain a result. us File Room Provider IMG DIGITIZE FILMS Final Resu lt Performing Organization Address [facility] de Phone Number [facility] [phone] * CR Extremity Left Archive for Reference only (06/01/2025 12:12 PM EDT) Narrative [facility] - 06/01/2025 12:12 PM EDT This study has been auto finalized and does not contain a result. us File Room Provider IMG DIGITIZE FILMS Final Resu lt Performing Organization Address [facility] de Phone Number [place] [phone] * (ABNORMAL) Comprehensive Metabolic Panel (05/30/2025 4:16 AM EDT) Only the most recent of7 resultswithin the time period is included. Glucose 97 65 - 99 mg/dL 05/30/2025 7:46 AM [facility] Comment:Fasting: <100 mg/dL, Non-Fasting: <200 mg/dL (ADA 2005) Blood Urea Nitrogen (BUN) 4(L) 8 - 21 mg/dL 05/30/2025 7:46 AM [facility] Creatinine 0.6 0.4 - 1.1 mg/dL 05/30/2025 7:46 AM [facility] eGFR >90 >59 05/30/2025 7:46 AM [facility] Comment:CKD-EPI (2020) in mL /min/1.73 sq meters. Sodium 142 136 - 145 mmol/L 05/30/2025 7:46 AM [facility] Potassium 4.2 3.4 - 5.3 mmol/L 05/30/2025 7:46 AM [facility] Chloride 105 98 - 107 mmol/L 05/30/2025 7:46 AM [facility] CO2 26 22 - 33 mmol/L 05/30/2025 7:46 AM [facility] Calcium 8.5(L) 8.7 - 10.5 mg/dL 05/30/2025 7:46 AM [facility] Alkaline Phosphatase 285(H) 32 - 122 U/L 05/30/2025 7:46 AM [facility] Aspartate Aminotrans (AST) 95(H) 10 - 50 U/L 05/30/2025 7:46 AM [facility] Alanine Aminotrans (ALT) 115(H) 10 - 50 U/L 05/30/2025 7:46 AM [facility] Bilirubin, Total 1.7(H) 0.2 - 1.0 mg/dL 05/30/2025 7:46 AM [facility] Protein, Total 5.8(L) 6.3 - 8.3 g/dL 05/30/2025 7:46 AM [facility] Albumin 2.9(L) 3.4 - 4.8 g/dL 05/30/2025 7:46 AM [facility] BUN/Creatinine Ratio 7(L) 10.0 - 25.0 Ratio 05/30/2025 7:46 AM [facility] Globulin 2.9 1.5 - 3.9 g/dL 05/30/2025 7:46 AM [facility] Albumin/Globulin Ratio 1.0 1.0 - 3.0 Ratio 05/30/2025 7:46 AM [facility] Anion Gap 11 7 - 17 05/30/2025 7:46 AM [facility] Blood Blood specimen / Unknown 05/30/2025 4:16 AM EDT 05/30/2025 6:37 AM EDT us Ike Johnson CONTRACT OFFICER LAB BLOOD ORDERABLES Final Resul t [address] [address], [address] [address] * (ABNORMAL) Complete Blood Count WITH Differential - in AM (05/29/2025 5:23 AM EDT) Only the most recent of4 resultswithin the time period is included. White Blood Cell Count 8.1 4.0 - 11.0 Thou/uL 05/29/2025 5:38 AM [facility] Platelet Count 251 150 - 450 Thou/uL 05/29/2025 5:38 AM [facility] Hemoglobin 10.0(L) 11.7 - 15.7 g/dL 05/29/2025 5:38 AM [facility] Hematocrit 30.0(L) 35.0 - 47.0 % 05/29/2025 5:38 AM [facility] Red Blood Cell Count 3.60(L) 4.00 - 5.40 Mil/uL 05/29/2025 5:38 AM [facility] MCV 83 80 - 100 fL 05/29/2025 5:38 AM [facility] MCH 27.8 27.0 - 31.0 pg 05/29/2025 5:38 AM [facility] MCHC 33.3 30.0 - 36.0 g/dL 05/29/2025 5:38 AM [facility] RDW 16.1(H) 11.5 - 14.5 % 05/29/2025 5:38 AM [facility] MPV 10.3 7.5 - 12.5 fL 05/29/2025 5:38 AM [facility] Bands Man 1 % 05/29/2025 6:07 AM [facility] Neutrophils Man 73 % 6:07 AM [facility] Comment:Vacuolization presen t. Lymphocytes Man 17 % 6:07 AM [facility] Monocytes Man 6 % 05/29/2025 6:07 AM [facility] Eosinophils Man 3 % 6:07 AM [facility] Abs Neutrophils Count (ANC) 6.0 2.0 - 7.5 Thou/uL 05/29/2025 6:07 AM [facility] Abs Lymphocytes Man 1.4(L) 1.5 - 4.5 Thou/uL 05/29/2025 6:07 AM [facility] Abs Monocytes Man 0.5 0.2 - 1.5 Thou/uL 05/29/2025 6:07 AM [facility] Abs Eosinophils Man 0.2 0.0 - 0.7 Thou/uL 05/29/2025 6:07 AM [facility] Normochromic Present 05/29/2025 6:07 AM EDT [facility] Normocytic Present 05/29/2025 6:07 AM EDT [facility] Blood Blood specimen / Unknown 05/29/2025 5:23 AM EDT 05/29/2025 5:32 AM EDT Giovannyluislola Johnson APRN LAB BLOOD ORDERABLES Final Resul t Performing Organization Address [facility] [place] [address], [place] [address] * (ABNORMAL) Bilirubin, Direct (05/28/2025 4:33 AM EDT) Only the most recent of4 resultswithin the time period is included. Bilirubin, Direct 2.0(H) 0 - 0.2 mg/dL 05/28/2025 5:24 AM EDT [facility] Blood Blood specimen / Unknown 05/28/2025 4:33 AM EDT 05/28/2025 5:03 AM EDT Navya York MD LAB BLOOD ORDERABLES Final Result Performing Organization Address [facility] [place] [address], [place] [address] * ANES LINE - PERIPHERAL, SINGLE LUMEN [...] Patient pre-procedure mental status: awake Single lumen pamz-vbb-gwejda catheter system, 20 g, in right hand Insertion attempts: 1 Nelson Wong MD [place] ANESTHESIA Final Result * [place] ERCP (05/25/2025 [...] Cytology Report (05/25/2025 5:10 PM EDT) Report [facility] [id number] CLIA ID [id number] [address] [place] [address] / 2 [phone] Cytopathology Report PATIENT NAME: [facility] REC NUMBER: [id number] (AGE): 1955 (Age: 69) SPECIMEN NUMBER: [id number] DATE OBTAINED: 05/25/2025 DIAGNOSIS: A. CBD BRUSHING, [...] Complications: no complications us Vu Haji MD [place] ANESTHESIA Final Result * US Abdomen-Limited (05/25/2025 [...] Real-time ultrasonography of the abdomen was performed. [id number]. COMPARISON: CT Abdomen Pelvis 05/23/2025, US Abdomen [...] Real-time ultrasonography of the abdomen was performed. [id number]. COMPARISON: CT Abdomen Pelvis 05/23/2025, US Abdomen [...] does not contain a result. Procedure Note Rbuy Roberts MA - 05/25/2025 This study has been auto finalized and does not contain a result. us File Room Provider IMG DIGITIZE FILMS Final Resu lt Performing Organization Address [facility] de Phone Number [place] [phone] * CT Abdomen Archive for Reference Only (05/25/2025 8:34 AM EDT) Only the most recent of4 resultswithin the time period is included. Narrative [facility] - 05/25/2025 8:34 AM EDT This study has been auto finalized and does not contain a result. File Room Provider IMG DIGITIZE FILMS Final Resu lt Performing Organization Address [facility] de Phone Number [place] [phone] * CT Chest Archive for Reference Only (05/25/2025 8:34 AM EDT) Narrative [facility] - 05/25/2025 8:34 AM EDT This study has been auto finalized and does not contain a result. File Room Provider IMG DIGITIZE FILMS Final Resu lt Performing Organization Address [facility] de Phone Number [place] [phone] * (ABNORMAL) CA 19-9 (05/25/2025 6:44 AM EDT) [place] 19-9 143(H) <34 U/mL 05/29/2025 3:17 PM EDT [facility] Comment: (NOTE) This test was performed using [...] ORDERABLES Final Re sult [facility], [place] [address] [facility] [address] [address] [place], [place] , [facility], [place] [address] [facility] [address] [address] [place], [place] * Hemoglobin A1c with Estimated Average Glucose (Early AM) (05/25/2025 6:44 AM EDT) Hemoglobin A1C 5.5 <5.7 % 05/25/2025 10:10 AM EDT [facility] Comment: A1c% Interpretation 5.7 - 6.0 Increase risk of diabetes 6.1 - 6.4 Higher risk of diabetes > or = 6.5 Consistent with diabetes Diabetes Care, 33(Supp 1):S1-S61, 2010 Estimated Average Glucose 111 mg/dL 05/25/2025 10:10 AM EDT [facility] Blood Blood specimen / Unknown 05/25/2025 6:44 AM EDT 05/25/2025 8:45 AM EDT Anita Kumar MD LAB BLOOD ORDERABLES Final Re sult Performing Organization Address [facility] [place] [address], [place] [address] * Magnesium (05/25/2025 6:44 AM EDT) Magnesium 2.0 1.6 - 2.7 mg/dL 05/25/2025 1:46 PM EDT [facility] Blood Blood specimen / Unknown 05/25/2025 6:44 AM EDT 05/25/2025 8:45 AM EDT Johnson Graham MD LAB BLOOD ORDERABLES Final Re sult Performing Organization Address City/[facility]/[place] [address], [place] [address] * Lactic Acid, Plasma (05/25/2025 6:44 AM EDT) Only the most recent of2 resultswithin the time period is included. Lactic Acid 0.6 0.5 - 1.9 mmol/L 05/25/2025 9:26 AM EDT [facility] Blood Blood specimen / Unknown 05/25/2025 6:44 AM EDT 05/25/2025 8:44 AM EDT Johnson Graham MD LAB BLOOD ORDERABLES Final Re sult Performing Organization Address [facility] [place] [address], [place] [address] * CEA (05/25/2025 6:44 AM EDT) CEA (Jake) 1.7 0.0 - 3.8 ng/mL 05/25/2025 9:34 AM EDT [facility] Comment: Reference range: Age 20 - [...] ORDERABLES Final Re sult Performing Organization Address [facility] [place] [address], [place] [address] * Blood Culture #2 (05/24/2025 7:46 PM EDT) Only the most recent of2 resultswithin the time period is included. Pathologist [facility] Culture Sterile after 5 days 05/29/2025 10:15 AM EDT [facility] Blood Blood specimen / Unknown 05/24/2025 7:46 PM EDT 05/24/2025 10:04 PM EDT Comment:Blood Johnson Graham MD LAB BLOOD ORDERABLES Final Re sult Performing Organization Address [facility]/ZIP Co de Phone Number [facility] [address] [place] [address], [place] * MR Chest Archive for Reference Only (05/24/2025 7:44 PM EDT) Narrative [place] - 05/24/2025 7:44 PM EDT This study has been auto finalized and does not contain a result. Procedure Note Ruby Roberts MA - 05/24/2025 This study has been auto finalized and does not contain a result. us File Room Provider IMG DIGITIZE FILMS Final Resu lt Performing Organization Address [facility] Co de Phone Number [place] [phone] * (ABNORMAL) PROTIME-INR (05/24/2025 7:40 PM EDT) Anticoagulant NO ANTI COAGULANT MEDS 05/24/2025 7:04 PM EDT [facility] Prothrombin Time (PT) 14.0(H) 10.0 - 13.5 seconds 05/24/2025 8:12 PM EDT [facility] INR 1.2 05/24/2025 8:12 PM EDT [facility] Comment:INR Therapeutic Rang es: Standard dose anticoagulant 2.0 to 3.0, High dose anticoagulant 2.5-3.5. Blood Blood specimen / Unknown 05/24/2025 7:40 PM EDT 05/24/2025 7:54 PM EDT Kennedy Gil MD LAB BLOOD ORDERABLES Final Resul t Performing Organization Address [facility] Co de Phone Number [address] [address], [address] [address] * Type and Screen (05/24/2025 7:30 PM EDT) Pathologist [facility] ABO/Rh O POSITIVE 05/24/2025 8:34 PM EDT [facility] Antibody Screen NEGATIVE 8:34 PM EDT [facility] Specimen Expiration 05/27/2025 05/24/2025 8:34 PM EDT [facility] Blood Blood specimen / Unknown 05/24/2025 7:30 PM EDT 05/24/2025 7:55 PM EDT us Kennedy Gil MD BLOOD BANK TEST ORDERABLES Final Result Performing Organization Address [facility] de Phone Number [address] [address], [address] [address] * ECG 12 lead (STAT) (05/24/2025 7:28 PM EDT) Ventricular rate 54 BPM EKG [facility] Atrial rate 54 BPM EKG [facility] P-R interval 150 ms EKG [facility] QRS duration 102 ms EKG [facility] Q-T interval 426 ms EKG [facility] QTC calculation (Bazett) 404 ms EKG [facility] P axis 55 degrees EKG [facility] R axis -18 degrees EKG [facility] T axis 19 degrees EKG [facility] 05/24/2025 7:28 PM EDT Narrative EKG [facility] - 05/24/2025 8:14 PM EDT Sinus bradycardia Otherwise normal ECG No previous ECGs available Confirmed by MD Constantino Ahmed ([id number]) on 05/24/2025 8:14:18 PM Procedure Note Corbin Constantino MD - 05/24/2025 Sinus bradycardia Otherwise normal ECG No previous ECGs available Confirmed by MD Constantino Ahmed ([id number]) on 05/24/2025 8:14:18 PM us Johnson Graham MD ECG ORDERABLES Final Result Performing Organization Address City/[facility]/ZIP Co de Phone Number [facility] from Last 3 Months Additional Health Concerns Active Problems Noted Date Diagnosed Date Autogenerated Problem 06/21/2025 Autogenerated Problem 07/02/2025 Insurance [facility] MEDICARE MEDICARE PART A & B Advance Directives * Full Code (Latest Code Status on File) Date Activated Date Inactivated Comments 05/24/2025 6:30 PM 06/12/2025 7:39 AM Care Teams Control Technician Relationship Specialty Start Date End Date Harry Chun MD [address] [place] [address] PCP - General Internal Medicine 05/26/25 Anita Kumar MD [address] [place] [address] [address] [place] [address] Surgical Oncology 07/02/25 Jeremy Rincon MD [address] [place] [address] Gastroenterology 07/02/25
--- OUTSIDE RECORDS SUMMARY | 2025-07-11 15:57 | XMS_ITS | Encounter Summary ---
Author Organization [facility] Address [address] [place] [address] Care Team Providers Care Fire Pot Operator Name Role Phone Harry Chun MD Primary Care Provider [phone] Anita Kumar MD Unavailable [phone] Jeremy Rincon MD Unavailable [phone] Encounter Details Date Type Department Care Team (Late st Contact Info) Description 07/06/2025 Telephone [facility] Surgical Oncology [place] [address] [facility] [address] [place] [address] Anita Kumar MD 85 [facility] [address] [place] [address] Social History Tobacco Use Types Packs/Day Years Used Date Smoking Tobacco: Never Smokeless Tobacco: Never Alcohol Use Standard Drinks/Week Comments Yes 0 (1 standard drink = 0.6 oz pur e alcohol) drinks on weekends [facility] Utilities Answer Date Recorded In the past 12 months has [employer], gas, oil, or water company threatened to [...] time in the past 12 m [facility], were you homeless or living in a detention (including now)? 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 Pt reports she is feeling better today. [...] trial as needed Zofran Q8. Recommendation for [id number] Imodium for symptom management. Reviewed the importance [...] Description 07/27/2025 1:45 PM EDT Hospital Encounter [facility] Perioperative Surgical Services [address] [place] [phone] Anita Kumar MD [address] [phone] 07/27/2025 1:45 PM EDT - 07/27/2025 4:30 PM EDT Surgery [facility]operative Surgical Services [address] [place] [phone] Anita Kumar MD [address] [address] ROBOTIC CHOLECYSTECTOMY, POSSIBLE INTRAOPERATIVE CHOLANGIOGRAM (IOC), POSSIBLE OPEN (XI) 08/10/2025 10:30 AM EDT Office Visit [facility] Surgical Oncology [place] [address] [phone] Consuelo Roberts APRN [address] [address] 09/20/2025 2:00 PM EST Hospital Encounter [facility] Gastroenterology Division [address] [place] [phone] Jeremy Rincon MD [address] [place] [phone] 09/20/2025 2:00 PM EST Appointment [facility] [address] [place] [address] Jeremy Rincon MD [address] [place] [address] 09/20/2025 2:00 PM EST - 09/20/2025 3:00 PM EST Surgery [facility] Gastroenterology Division [address] [place] [phone] Jeremy Rincon MD [address] [place] [address] ERCP Scheduled Procedures Name Priority Associated Diagnoses Date/Ti in ROBOTIC ASSISTED CHOLECYSTECTOMY (XI) Gallstone pancreatitis Biliary [...] documented as of this encounter Care Teams Fire Pot Operator Relationship Specialty Start Date End Date Po, Harry Mayorga MD [address] [place] [address] PCP - General Internal Medicine 05/26/25 Anita Kumar MD [address] [place] [address] [address] [place] [address] Surgical Oncology 07/02/25 Jeremy Rincon MD [address] [place] [address] Gastroenterology 07/02/25 documented as of this encounter
--- OUTSIDE RECORDS SUMMARY | 2025-07-11 15:57 | XMS_ITS | Patient Health Record ---
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 [address] [place] [address] [id number] BERRY LEE Self - patient is the insured Medical (General) History Medical History History ICD Code Elevated body mass index Osteoarthritis Gastroesophageal reflux disease Osteoporosis History of syphilis Insomnia Colonoscopy several years ago, records a re not available Surgical History Surgery Date(Month/Year) Gastric bypass surgery section Appendectomy Panniculectomy
== END 2025-07-11 16:22 | disposition home or self-care (01) ==
LOC: HO.HPS 14:47
PROVIDERS: PCP Internal Medicine; Referring Provider Internal Medicine; Visit Provider Internal Medicine
DX: J45.20 Mild intermittent asthma, uncomplicated (principal)
CPT/HCPCS: 94010; 99203

== ENCOUNTER → 2025-07-11 14:46 | Outpatient (BNVA) | payer MEDICARE, SELFPAY | PROVIDERS: PCP Internal Medicine; Referring Provider Internal Medicine; Visit Provider Internal Medicine | DX: Z01.818 Encounter for other preprocedural examination (principal); K82.9 Disease of gallbladder, unspecified; J45.20 Mild intermittent asthma, uncomplicated | CPT/HCPCS: 94010; 99202 ==

== ENCOUNTER 2025-07-17 12:51 | Outpatient (AMB) | payer MEDICARE, SELFPAY ==
--- NOTE | 2025-07-17 13:02 | MHC.OFFVIS ---
Vital Signs 07/17/25 13:04 Height 5 ft Weight 198 lb 13.711 oz BMI 38.8 BP 110/70 Blood Pressure Location Lt brachial Position Sitting Pulse 56 Pulse Source Monitor Intake Visit Reasons: pre-op Cholecystectomy / dr po request Revenue Specialist Required: No Accompanied by: Self / Same As Patient Allergies morphine (MORPHINE) Allergy (Unknown, Verified 07/11/25 15:19) VOMITING AND SHAKING MORPHINE Allergy (Mild, Uncoded 07/11/25 15:19) Nausea and Vomiting Medication List - Last Reconciled 07/17/25 by Niko Gill MD albuterol sulfate 90 mcg/actuation (Ventolin HFA) 2 puffs inhalation Q6H PRN calcium carbonate (Calcium 500) 1,000 mg PO DAILY celecoxib 50 mg PO DAILY PRN cholecalciferol (vitamin D3) 25 mcg PO DAILY iron,carbonyl-vitamin C 65 mg iron- 125 mg (Vitron-C) 1 tab PO BEDTIME magnesium 250 mg PO DAILY melatonin 5 mg PO BEDTIME omeprazole 20 mg PO DAILY@0630 HPI Comments Details: Shawna has been referred for preoperative evaluation regarding gallbladder surgery. Last year, she was seen regarding risk stratification for bariatric surgery. Per notes, used to weigh more than 400 lb many years ago. Then she had gastric bypass surgery and lost lot of weight. Patient herself does not have any cardiac history including coronary disease or myocardial infarction or cardiomyopathy. Within limits of her activity, she does not have any anginal-type symptoms or in fact anything cardiac sounding. Overall, she states she feels well. [facility] Medical History Dysgeusia Arthritis Age-related osteoporosis without current pathological fracture Osteopenia COVID-19 Vitamin D deficiency Vitamin B12 deficiency Syphilis Obesity Asthma GERD (gastroesophageal reflux disease) Osteoarthritis Surgical History Hx of section History of appendectomy Hx of gastric bypass History of abdominoplasty H/O gastric bypass Family History Father No problems noted. Mother No problems noted. Social History Household Members: None Housing: House Do you presently have visiting nurse or other home services: No Alcohol intake: current Comment: holidays 2 beers Patient Tobacco Use Status: Never used Tobacco e-Cigarette/Vaping Use: Never Used Second Hand Smoke Exposure: No Advance Directives Date on File: 11/04/23 service: No Current occupational status: employed Cognitive needs: No Hearing needs: No Vision needs: Yes Review of Systems Const Denies chills, Denies fatigue, Denies fever(s), Denies frequent falls, Denies weakness, Denies weight gain and Denies weight loss ENT Denies dizziness Card Denies chest pain, Denies leg edema, Denies lightheadedness, Denies palpitations, Denies dyspnea and Denies dyspnea on exertion Resp Denies cough, Denies dyspnea and Denies dyspnea on exertion GI Denies hematochezia Musc Denies abnormal gait, Denies muscle weakness, Denies numbness, Denies radiating pain into limb and Denies tingling Neuro Denies abnormal gait, Denies dizziness, Denies frequent falls, Denies numbness, Denies tingling and Denies weakness Endo Denies fatigue and Denies palpitations Physical Exam Vital Signs: Last Vital Signs Pulse 56 07/17/25 13:04 BP 110/70 07/17/25 13:04 BMI result Body Mass Index 38.8 Const General: comfortable and no acute distress Orientation/consciousness: patient oriented x3 HEENT Other: Unremarkable Head: Yes normal to inspection Neck Neck: Yes normal visual inspection Chest Chest palpation & inspection: normal inspection of the chest Resp Auscultation: clear to auscultation bilaterally Cardio Palpation: normal PMI Heart sounds: S1 normal heart sound present, S2 normal heart sound present, no gallops, no murmurs and no rubs GI Palpation (GI): Soft to palpation Back/Spine/Pelvis Other: unremarkable Skin General skin exam: no rashes or lesions noted Neuro General: patient oriented x3 Extrem General: Yes normal to inspection Psych Mental Status: mental status grossly normal Office Procedures EKG Details: EKG with underlying sinus bradycardia at 56/Min; low-voltage complexes along the anterior leads most likely related to her body habitus. Do not believe she had a prior infarct. [id number], Complete Assessment & Plan Assessment & Plan (1) Preoperative cardiovascular examination: Code(s): Z01.810 - Encounter for preprocedural cardiovascular examination Category: Medical (2) Morbid obesity: Code(s): E66.01 - Morbid (severe) obesity due to excess calories Category: Surgical Plan Cardiac studies reviewed. EKG today shows low-voltage complexes across the precordial leads most likely related to her body habitus. In another EKG from last week, appears better and there is more amplitude in the precordial leads most likely related to the lead position. Echocardiogram with LVEF of 55-60%; normal peak global longitudinal strain; no significant valvular issues. Myocardial perfusion imaging study showed normal perfusion. With regard to plan for gallbladder surgery, low cardiac risk. May proceed as planned. Coding Level of Care Code Est Pt Level 3 (30982) Diagnoses Preoperative cardiovascular examination Z01.810 Morbid obesity E66.01 CPT Codes EKG - CPT: 20783-[id number], Complete ([id number])
[2025-07-17 13:04] VITALS: BP 110/70; PULSE 56; BMI 38.8
--- OUTSIDE RECORDS SUMMARY | 2025-07-17 15:43 | XMS_ITS | Patient Health Record ---
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 [address] [place] [address] [phone] [id number] BERRY LEE Self - patient is the insured Medical (General) History Medical History History ICD Code Elevated body mass index Osteoarthritis Gastroesophageal reflux disease Osteoporosis History of syphilis Insomnia Colonoscopy several years ago, records a re not available Surgical History Surgery Date(Month/Year) Gastric bypass surgery section Appendectomy Panniculectomy
--- OUTSIDE RECORDS SUMMARY | 2025-07-17 15:43 | XMS_ITS | Encounter Summary ---
Author Organization [facility] Address [address] [place] [address] Care Team Providers Care County Library Director Name Role Phone Harry Chun MD Primary Care Provider [phone] Anita Kumar MD Unavailable [phone] Jeremy Rincon MD Unavailable [phone] Encounter Details Date Type Department Care Team (Latest Contact Info) Description 07/12/2025 Travel Social History Tobacco Use Types Packs/Day Years Used Date Smoking Tobacco: Never Smokeless Tobacco: Never Alcohol Use Standard Drinks/Week Comments Yes 2 (1 standard drink = 0.6 oz pur e alcohol) drinks on weekends [facility] Utilities Answer Date Recorded In the past 12 months has [employer], gas, oil, or water company threatened to shut off services in your home? No 05/26/2025 AUDIT-C Answer Date Recorded Q1: How often do you have a drink containing alc ohol? 2-4 times a month 07/12/2025 Q2: How many drinks containi ng alcohol do you have on a typical day when you are drinking? 1 or 2 07/12/2025 Q3: How often do you have si x or more drinks on one occasion? Never 07/12/2025 Overall Financial Resource Strain (CARDIA) Answe r [...] any time in the past 12 m [facility], were you homeless or living in a snf (including now)? 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 2-4 times a month 07/12/2025 4:54 PM Mirna Sorensen RN Q2: How many drinks containing alcohol do you have on a typical day when you are drinking? 1 or 2 07/12/2025 4:54 PM Mirna Sorensen RN Q3: How often do you have six or more drinks on one occasion? Never 07/12/2025 4:54 PM EDT Mirna Chappell RN documented as of this encounter Plan of Treatment Upcoming Encounters Date Type Department Care Team (Latest Contact Info) Description 07/27/2025 10:45 AM EDT Hospital Encounter [facility] Perioperative Surgical Services [address] [place] [phone] Anita Kumar MD [address] [address] 07/27/2025 10:45 AM EDT - 07/27/2025 1:30 PM EDT Surgery [facility] Perioperative Surgical Services [address] [place] [phone] Anita Kumar MD [address] [place] [id number] ROBOTIC CHOLECYSTECTOMY, POSSIBLE INTRAOPERATIVE CHOLANGIOGRAM (IOC), POSSIBLE OPEN (XI) 08/10/2025 10:30 AM EDT Office Visit [facility] Surgical Oncology [address] [phone] Consuelo Roberts APRN [address] [address] 09/20/2025 2:00 PM EST Hospital Encounter [facility] Gastroenterology Division [address] [place] [address], [place] [phone] Jeremy Rincon MD [address] [place] [phone] 09/20/2025 2:00 PM EST Appointment [facility] [address] [place] [address] Jeremy Rincon MD [address] [place] [phone] 09/20/2025 2:00 PM EST - 09/20/2025 3:00 PM EST Surgery [facility] Gastroenterology Division [address] [place] [phone] Jeremy Rincon MD [address] [place] [address] ERCP Scheduled Procedures Name Priority Associated Diagnoses Date/Ti me ROBOTIC ASSISTED CHOLECYSTECTOMY (XI) Gallstone pancreatitis Biliary stricture (HCC) 07/27/2025 10:45 AM EDT ERCP Choledocholithiasis Common bile duct (CBD) [...] documented as of this encounter Care Teams County Library Director Relationship Specialty Start Date End Date Adiel, Harry Mayorga MD [address] [place] [address] PCP - General Internal Medicine 05/26/25 Anita Kumar MD [address] [place] [address] Surgical Oncology 07/02/25 Jeremy Rincon MD [address] [place] [address] Gastroenterology 07/02/25 documented as of this encounter
--- OUTSIDE RECORDS SUMMARY | 2025-07-17 15:43 | XMS_ITS | Clinical Summary ---
Author Organization [facility] Address [address] [place] [address] Care Team Providers Care Zipper Ironer Name Role Phone Harry Chun MD Primary Care Provider [phone] Anita Kumar MD Unavailable [phone] Jeremy Rincon MD Unavailable [phone] Allergies Active Allergy Reactions Criticality Noted Date Comments Morphine Other (See Comments) Low 05/24/2025 Unknown. Medications albuterol (PROVENTIL) (0.083%) 2.5 mg/3 mL nebulizer solutionIndication s:Biliary stricture (HCC) Take 3 mL (2.5 mg total) by nebulization every 4 (four) hours as needed for wheezing or shortness of breath. 75 mL 05/30/20 25 Active calcium carbonate (TUMS) 500 MG chewable tabletIndications: Biliary stricture (HCC) Chew 1 tablet (500 mg total) 4 (four) times a day as needed for indigestion or heartburn. 05/30/20 25 Active PANTOprazole (PROTONIX) 40 MG EC tabletIndications: Biliary stricture (HCC) Take 1 tablet (40 mg total) by mouth daily. 30 tablet 05/31/20 25 Active Additional Information Patient taking differently:40 mg OralEvery morning, Reason: Other, Informant: Self, Reported on 07/12/2025 albuterol (PROAIR RESPICLICK) 108 (90 Base) MCG/ACT inhaler Inhale 1 puff 4 times daily (every 6 hours) as needed for wheezing. Active celeCOXIB (CeleBREX) 50 MG capsule as needed. 04/30/20 25 Active ondansetron (ZOFRAN-ODT) 4 MG disintegrating tabletIndications: Nausea Take 1 tablet (4 mg total) by mouth 3 times daily (every 8 hours) as needed for nausea or vomiting. Place tablet on tongue to dissolve. 21 tablet 07/06/20 25 Active amLODIPine (NORVASC) 10 MG tabletIndications: Biliary stricture (HCC) Take 1 tablet (10 mg total) by mouth daily. 30 tablet 05/31/20 25 025 Discontin ued(Thera py completed ) polyethylene glycol (miraLAx) 17 g packetIndications: Biliary stricture (HCC) Take 1 packet (17 g total) by mouth daily as needed for constipation. 14 packet 05/30/20 25 025 Discontin ued(Thera py completed ) senna-docusate (SENNA-S) 8.6-50 MGIndications:Bili gagan stricture (HCC) Take 2 tablets by mouth nightly. 20 tablet 05/30/20 25 025 Discontin ued(Thera py completed ) Active Problems Problem Noted Date Diagnosed Date [...] - ID continues to follow - Contacted [facility] microbiology, patient blood culture positive for vibrio Cholerae, sensitivities were sent and pending - Patient switched to oral levofloxacin 750 mg as per ID Assessment & Plan (05/28/2025 4:03 PM EDT): - ID continues to follow - Patient continues on IV Zosyn - Contacted [facility] microbiology, patient blood culture positive for [...] Encounters Date Type Department Care Team Description 07/12/2025 Travel 07/06/2025 Telephone [facility] Surgical Oncology [address] [phone] Anita Kumar MD 07/04/2025 Telephone [facility] Surgical Oncology [address] [place] [address] Anita Kumar MD Other 07/02/2025 8:30 AM EDT Consult [facility] [place] [address] [place] [address] Anita Kumar MD Gallstone pancreatitis (Primary Dx); Biliary stricture (HCC); History of Francesco-en-Y gastric bypass; Elevated CA 19-9 level 07/02/2025 Telephone [facility] Surgical Oncology [facility] [address] [facility] [address] [place] [address] Anita Kumar MD 07/02/2025 Travel 06/21/2025 Telephone [facility] [address] [facility] [address] [place] [address] Jeremy Rincon MD 06/19/2025 Orders Only [facility] 85 [facility] [address] [place] [address] Jeremy Rincon MD Choledocholithiasis (Primary Dx); Common bile duct (CBD) stricture (HCC) 06/12/2025 9:39 AM EDT Anesthesia Event [facility] Gastroenterology Division [address] [place] [phone] Nato Hernandez MD Ritchie, Agatha T, PA-C 06/12/2025 8:30 AM EDT - 06/12/2025 9:15 AM EDT Surgery [facility] Gastroenterology Division [address] [place] [phone] Jeremy Rincon MD ENDOSCOPY UPPER /C ULTRASOUND 06/12/2025 7:39 AM EDT - 06/12/2025 10:57 AM EDT Hospital Encounter [facility] Gastroenterology Division [address] [place] [phone] Jeremy Rincon MD Discharge Disposition: Home or Self Care 06/12/2025 Travel 06/01/2025 12:20 PM EDT Ancillary Procedure [facility] Radiology [address] [place] [address] Provider, File Room 06/01/2025 12:20 PM EDT Ancillary Procedure [facility] Radiology [address] [place] [address] Provider, File Room 06/01/2025 12:20 PM EDT Ancillary Procedure [facility] Radiology [address] [place] [address] Provider, File Room 06/01/2025 12:15 PM EDT Ancillary Procedure [facility] Radiology [address] [place] [address] Provider, File Room 06/01/2025 12:15 PM EDT Ancillary Procedure [facility] Radiology [address] [place] [address] Provider, File Room 06/01/2025 12:15 PM EDT Ancillary Procedure [facility] Radiology [address] [place] [address], [place] [address] Provider, File Room 06/01/2025 12:15 PM EDT Ancillary Procedure [facility] Radiology [address] [place] [address] Provider, File Room 06/01/2025 12:05 PM EDT Ancillary Procedure [facility] Radiology [address] [place] [address], [place] [address] Provider, File Room 06/01/2025 11:45 AM EDT Ancillary Procedure [facility] Radiology [address] [place] [address] Provider, File Room 06/01/2025 11:40 AM EDT Ancillary Procedure [facility] Radiology [address] [place] [address], [place] [address] Provider, File Room 06/01/2025 11:35 AM EDT Ancillary Procedure [facility] Radiology [address] [place] [address], [place] [address] Provider, File Room 06/01/2025 11:35 AM EDT Ancillary Procedure [facility] Radiology [address] [place] [address], [place] [address] Provider, File Room 06/01/2025 Travel 05/31/[address] [facility] [address] [address] Jeremy Rincon MD 05/30/2025 Orders Only [facility] [address] [facility] [address] [place] [phone] Jeremy Rnicon MD 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) 05/28/2025 Travel 05/25/2025 3:05 PM EDT Anesthesia Event [facility] Gastroenterology Division [address] [place] [phone] Nelson Wong MD Gordon, Donald E, PA-Delphine 05/25/2025 3:00 PM EDT - 05/25/2025 3:41 PM EDT Surgery [facility] Gastroenterology Division [address] [place] [phone] Jeremy Rincon MD ERCP /C PLACEMENT STENT 05/25/2025 8:45 AM EDT Ancillary Procedure [facility] Radiology [address] [place] [phone] Provider, File Room 05/25/2025 8:40 AM EDT Ancillary Procedure [facility] Radiology [address] [place] [phone] Provider, File Room 05/25/2025 8:35 AM EDT Ancillary Procedure [facility] Radiology [address] [place] [phone] Provider, File Room 05/25/2025 8:35 AM EDT Ancillary Procedure [facility] Radiology [address] [place] [phone] Provider, File Room 05/24/2025 7:50 PM EDT Ancillary Procedure [facility] Radiology [address] [place] [phone] Provider, File Room 05/24/2025 7:45 PM EDT Ancillary Procedure [facility] Radiology [address] [place] [phone] Provider, File Room 05/24/2025 7:45 PM EDT Ancillary Procedure [facility] Radiology [address] [place] [phone] Provider, File Room 05/24/2025 5:24 PM EDT - 05/30/2025 2:14 PM EDT Hospital Encounter [facility] [address] [place] [phone] Harvey Narayan MD Bickmore, Todd A, MD Kottarathara, Mathew J, MD Hamed, Moaz, MD Thevarajah, Vasanthy, MD Addai-Boateng, Hassana, MD Biliary stricture (HCC) (Primary Dx); Bacteremia Discharge Disposition: Home or Self Care 05/24/2025 Orders Only [facility] Radiology [address] [place] [address] Provider, File Room from Last 3 Months [...] Answered Alcohol Use Standard Drinks/Week Comments Yes 2 (1 standard drink = 0.6 oz pur e alcohol) drinks on weekends [facility] Utilities Answer Date Recorded In the past 12 months has next[employer], oil, or water [employer] threatened to shut off services in your [...] time in the past 12 m [facility], were you homeless or living in a usp (including now)? 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 on file Not on file Not [...] - - Weight 90.7 kg (200 lb) 07/12/2025 4:51 PM EDT Height 147.3 cm (4' 10 ) 07/12/2025 4:51 PM EDT Body Mass Index 41.8 07/12/2025 4:51 PM EDT Plan of Treatment Upcoming Encounters Date Type Department Care Team (Latest Contact Info) Description 07/27/2025 10:45 AM EDT Hospital Encounter [facility] Perioperative Surgical Services [address] [place] [phone] Anita Kumar MD [address] [address] 07/27/2025 10:45 AM EDT - 07/27/2025 1:30 PM EDT Surgery [facility] Perioperative Surgical Services [address] [place] [phone] Anita Kumar MD [address] [address] ROBOTIC CHOLECYSTECTOMY, POSSIBLE INTRAOPERATIVE CHOLANGIOGRAM (IOC), POSSIBLE OPEN (XI) 08/10/2025 10:30 AM EDT Office Visit [facility] Surgical Oncology [facility] [address] [phone] Consuelo Roberts APRN [address] [phone] 09/20/2025 2:00 PM EST Hospital Encounter [facility] Gastroenterology Division [address] [place] [phone] Jeremy Rincon MD [address] [place] [phone] 09/20/2025 2:00 PM EST Appointment [facility] [address] [place] [address] Jeremy Rincon MD [address] [place] [phone] 09/20/2025 2:00 PM EST - 09/20/2025 3:00 PM EST Surgery [facility] Gastroenterology Division [address] [place] [phone] Jeremy Rincon MD [address] [place] [phone] ERCP Scheduled Procedures Name Priority Associated Diagnoses Date/Ti co ROBOTIC ASSISTED CHOLECYSTECTOMY (XI) Gallstone pancreatitis Biliary [...] [employer] Implanted Type Area Retail Sales Manager Device Identifier Shelf Expiration Date Model / Serial / Lot [id number] Stent Pancreatic 20mm 10mm Axs Sterl Lf Disp Electrocautery - [id number] Implanted:Qty: 1 on 05/25/2025 by Jeremy Rincon MD at [facility] Stent N/A: Stomach [employer]STOPHER [id number] 02/01/2026 [id number] / / [id number] Stent Pancreatic 5fr 5cm Pigtail Curve Radopq Push Cath - [id number] Implanted:Qty: 1 on 05/25/2025 by Jeremy Rincon MD at [facility] Stent N/A: Bile Duct [employer] [id number] 04/02/2028 [id number] / / [id number] Stent Biliary Advanix 10fr 5cm Rx Temp Taper Tip Plastic - [id number] Implanted:Qty: 1 on 05/25/2025 by Jeremy Rincon MD at [facility] Stent N/A: Bile Duct [employer] CHRSITOPHER [id number] 02/19/2027 [id number] / / [id number] Procedures Procedure Name Priority Date/Time Associated Diagnosis [...] Francesco-en-Y gastric bypass Elevated CA 19-9 level [place] EDG US EXAM SURGICAL ALTER STOM DUODENUM/JEJUNUM [...] 05/25/2025 3:00 PM EDT Biliary stricture (HCC) TN ERCP STENT PLACEMENT BILIARY/PANCREATIC DUCT 05/25/2025 3:00 [...] Routine 05/25/2025 6:44 AM EDT CA 19-9 [id number] Routine 05/25/2025 6:44 AM EDT CEA Routine [...] * CA 19-9 (07/02/2025 12:45 PM EDT) [facility] CA 19-9 10 <34 U/mL [facility] Comment: This test was performed using the [...] MD LAB BLOOD ORDERABLES Final Re sult [facility] [address] [place] [phone] * COMPLETE BLOOD COUNT, WITHOUT DIFFERENTIAL (07/02/2025 12:45 PM EDT) Only the most recent of4 resultswithin the time period is included. [facility] White Blood Cell Count 7.6 3.8 - 10.8 Thousand/u L [facility] Red Blood Cell Count 4.21 3.80 - 5.10 Million/uL [facility] Hemoglobin 12.1 11.7 - 15.5 g/dL [facility] Hematocrit 37.5 35.0 - 45.0 % [facility] MCV 89.1 80.0 - 100.0 fL [facility] MCH 28.7 27.0 - 33.0 pg [facility] MCHC 32.3 32.0 - 36.0 g/dL [facility] Comment: For adults, a slight decrease in the calculated MCHC value (in the range of 30 to 32 g/dL) is most likely not clinically significant; however, it should be interpreted with caution in correlation with other red cell parameters and the patient's clinical condition. RDW 15.0 11.0 - 15.0 % [facility] Platelet Count 279 140 - 400 Thousand/u L [facility] MPV 11.6 7.5 - 12.5 fL [facility] Blood Blood specimen / Unknown 07/02/2025 12:45 PM EDT 07/02/2025 12:46 PM EDT Narrative [facility] - 07/03/2025 9:18 AM EDT FASTING:NO FASTING: NO Anita Kumar MD LAB BLOOD ORDERABLES Final Re sult Performing Organization Address [facility] Co de Phone Number [facility] [address] [place] [phone] * LIPASE (07/02/2025 12:45 PM EDT) Only the most recent of4 resultswithin the time period is included. Lipase 45 7 - 60 U/L [facility] Blood Blood specimen / Unknown 07/02/2025 12:45 PM EDT 07/02/2025 12:46 PM EDT Narrative [facility] - 07/03/2025 9:18 AM EDT FASTING:NO FASTING: NO Anita Kumar MD LAB BLOOD ORDERABLES Final Re sult Performing Organization Address [facility] de Phone Number [facility] [address] [place] [phone] * (ABNORMAL) HEPATIC FUNCTION PANEL (07/02/2025 12:45 PM EDT) Protein, Total 6.8 6.1 - 8.1 g/dL [facility] Albumin 4.1 3.6 - 5.1 g/dL [facility] Globulin 2.7 1.9 - 3.7 g/dL (calc) [facility] Albumin/Globulin Ratio 1.5 1.0 - 2.5 (calc) [facility] Bilirubin, Total 0.9 0.2 - 1.2 mg/dL [facility] Bilirubin, Direct 0.3(H) < OR = 0.2 mg/dL [facility] Bilirubin, Indirect 0.6 0.2 - 1.2 mg/dL (calc) [facility] Alkaline Phosphatase 207(H) 37 - 153 U/L [facility] Aspartate Aminotrans (AST) 27 10 - 35 U/L [facility] Alanine Aminotrans (ALT) 22 6 - 29 U/L [facility] Blood Blood specimen / Unknown 07/02/2025 12:45 PM EDT 07/02/2025 12:46 PM EDT Narrative [facility] - 07/03/2025 9:18 AM EDT FASTING:NO FASTING: NO us Anita Kumar MD LAB BLOOD ORDERABLES Final Re sult [facility] [address] [place] [phone] * Basic Metabolic Panel (07/02/2025 12:45 PM EDT) Pathologist [facility] Glucose 95 65 - 139 mg/dL [facility] Comment: Non-fasting reference interval Blood Urea Nitrogen (BUN) 13 7 - 25 mg/dL [facility] Creatinine 0.56 0.50 - 1.05 mg/dL [facility] Creatinine w/ eGFR 99 > OR = 60 mL/min/1. 73m2 [facility] BUN/Creatinine Ratio SEE NOTE: 6 - 22 (calc) [facility] Comment: Not Reported: BUN and Creatinine are within reference range. Sodium 142 135 - 146 mmol/L [facility] Potassium 3.9 3.5 - 5.3 mmol/L [facility] Chloride 107 98 - 110 mmol/L [facility] CO2 27 20 - 32 mmol/L [facility] Calcium 9.0 8.6 - 10.4 mg/dL [facility] Blood Blood specimen / Unknown 07/02/2025 12:45 PM EDT 07/02/2025 12:46 PM EDT Narrative [facility] - 07/03/2025 9:18 AM EDT FASTING:NO FASTING: NO Anita Kumar MD LAB BLOOD ORDERABLES Final Re sult Performing Organization Address [facility] de Phone Number [facility] [address] [place] [phone] * RADHA Archive for reference only DX (06/01/2025 12:20 PM EDT) Only the most recent of3 resultswithin the time period is included. [facility] - 06/01/2025 12:13 PM EDT This order has been auto-finalized and does not contain a result. us File Room Provider IMG DIGITIZE FILMS Final Resu lt Performing Organization Address [facility] de Phone Number MILTON [phone] * RADHA Archive for reference only RF (06/01/2025 12:15 PM EDT) [facility] - 06/01/2025 12:13 PM EDT This order has been auto-finalized and does not contain a result. us File Room Provider IMG DIGITIZE FILMS Final Resu lt Performing Organization Address [facility] de Phone Number MILTON [phone] * CR Chest Archive for Reference only (06/01/2025 12:13 PM EDT) [facility] - 06/01/2025 12:13 PM EDT This study has been auto finalized and does not contain a result. us File Room Provider IMG DIGITIZE FILMS Final Resu lt Performing Organization Address [facility] de Phone Number MILTON [phone] * MG Screening Archive for Reference Only (06/01/2025 12:12 PM EDT) Only the most recent of6 resultswithin the time period is included. Narrative [facility] - 06/01/2025 12:12 PM EDT This study has been auto finalized and does not contain a result. us File Room Provider IMG DIGITIZE FILMS Final Resu lt Performing Organization Address [facility] de Phone Number MILTON [phone] * CR Extremity Left Archive for Reference only (06/01/2025 12:12 PM EDT) Narrative [facility] - 06/01/2025 12:12 PM EDT This study has been auto finalized and does not contain a result. us File Room Provider IMG DIGITIZE FILMS Final Resu lt Performing Organization Address [facility] de Phone Number MILTON [phone] * (ABNORMAL) Comprehensive Metabolic Panel (05/30/2025 4:16 AM EDT) Only the most recent of7 resultswithin the time period is included. Glucose 97 65 - 99 mg/dL 05/30/2025 7:46 AM [facility] Comment:Fasting: <100 mg/dL, Non-Fasting: <200 mg/dL (ADA 2005) Blood Urea Nitrogen (BUN) 4(L) 8 - 21 mg/dL 05/30/2025 7:46 AM [facility] Creatinine 0.6 0.4 - 1.1 mg/dL 05/30/2025 7:46 AM [facility] eGFR >90 >59 05/30/2025 7:46 AM [facility] Comment:CKD-EPI (2020) in mL /min/1.73 sq meters. Sodium 142 136 - 145 mmol/L 05/30/2025 7:46 AM [facility] Potassium 4.2 3.4 - 5.3 mmol/L 05/30/2025 7:46 AM [facility] Chloride 105 98 - 107 mmol/L 05/30/2025 7:46 AM [facility] CO2 26 22 - 33 mmol/L 05/30/2025 7:46 AM [facility] Calcium 8.5(L) 8.7 - 10.5 mg/dL 05/30/2025 7:46 AM [facility] Alkaline Phosphatase 285(H) 32 - 122 U/L 05/30/2025 7:46 AM [facility] Aspartate Aminotrans (AST) 95(H) 10 - 50 U/L 05/30/2025 7:46 AM [facility] Alanine Aminotrans (ALT) 115(H) 10 - 50 U/L 05/30/2025 7:46 AM [facility] Bilirubin, Total 1.7(H) 0.2 - 1.0 mg/dL 05/30/2025 7:46 AM [facility] Protein, Total 5.8(L) 6.3 - 8.3 g/dL 05/30/2025 7:46 AM [facility] Albumin 2.9(L) 3.4 - 4.8 g/dL 05/30/2025 7:46 AM [facility] BUN/Creatinine Ratio 7(L) 10.0 - 25.0 Ratio 05/30/2025 7:46 AM [facility] Globulin 2.9 1.5 - 3.9 g/dL 05/30/2025 7:46 AM [facility] Albumin/Globulin Ratio 1.0 1.0 - 3.0 Ratio 05/30/2025 7:46 AM [facility] Anion Gap 11 7 - 17 05/30/2025 7:46 AM [facility] Blood Blood specimen / Unknown 05/30/2025 4:16 AM EDT 05/30/2025 6:37 AM EDT us Ike Johnson APRN LAB BLOOD ORDERABLES Final Resul t [address] [address], [address] [address] * (ABNORMAL) Complete Blood Count WITH Differential - in AM (05/29/2025 5:23 AM EDT) Only the most recent of4 resultswithin the time period is included. White Blood Cell Count 8.1 4.0 - 11.0 Thou/uL 05/29/2025 5:38 AM [facility] Platelet Count 251 150 - 450 Thou/uL 05/29/2025 5:38 AM [facility] Hemoglobin 10.0(L) 11.7 - 15.7 g/dL 05/29/2025 5:38 AM [facility] Hematocrit 30.0(L) 35.0 - 47.0 % 05/29/2025 5:38 AM [facility] Red Blood Cell Count 3.60(L) 4.00 - 5.40 Mil/uL 05/29/2025 5:38 AM [facility] MCV 83 80 - 100 fL 05/29/2025 5:38 AM [facility] MCH 27.8 27.0 - 31.0 pg 05/29/2025 5:38 AM [facility] MCHC 33.3 30.0 - 36.0 g/dL 05/29/2025 5:38 AM [facility] RDW 16.1(H) 11.5 - 14.5 % 05/29/2025 5:38 AM [facility] MPV 10.3 7.5 - 12.5 fL 05/29/2025 5:38 AM [facility] Bands Man 1 % 05/29/2025 6:07 AM [facility] Neutrophils Man 73 % 6:07 AM [facility] Comment:Vacuolization presen t. Lymphocytes Man 17 % 5 6:07 AM [facility] Monocytes Man 6 % 05/29/2025 6:07 AM [facility] Eosinophils Man 3 % 6:07 AM [facility] Abs Neutrophils Count (ANC) 6.0 2.0 - 7.5 Thou/uL 05/29/2025 6:07 AM [facility] Abs Lymphocytes Man 1.4(L) 1.5 - 4.5 Thou/uL 05/29/2025 6:07 AM [facility] Abs Monocytes Man 0.5 0.2 - 1.5 Thou/uL 05/29/2025 6:07 AM [facility] Abs Eosinophils Man 0.2 0.0 - 0.7 Thou/uL 05/29/2025 6:07 AM [facility] Normochromic Present 05/29/2025 6:07 AM EDT [facility] Normocytic Present 05/29/2025 6:07 AM EDT [facility] Blood Blood specimen / Unknown 05/29/2025 5:23 AM EDT 05/29/2025 5:32 AM EDT Giovannyluislola Johnson APRN LAB BLOOD ORDERABLES Final Resul t Performing Organization Address City/[facility] [place] [address], [place] [address] * (ABNORMAL) Bilirubin, Direct (05/28/2025 4:33 AM EDT) Only the most recent of4 resultswithin the time period is included. Bilirubin, Direct 2.0(H) 0 - 0.2 mg/dL 05/28/2025 5:24 AM EDT [facility] Blood Blood specimen / Unknown 05/28/2025 4:33 AM EDT 05/28/2025 5:03 AM EDT Navya York MD LAB BLOOD ORDERABLES Final Result Performing Organization Address [facility] [place] [address], [place] [address] * ANES LINE - PERIPHERAL, SINGLE LUMEN [...] Patient pre-procedure mental status: awake Single lumen tdit-rgh-thnhzm catheter system, 20 g, in right hand Insertion attempts: 1 Nelson Wong MD [place] ANESTHESIA Final Result * [place] ERCP (05/25/2025 [...] Cytology Report (05/25/2025 5:10 PM EDT) Report [facility] [id number] CLIA ID [id number] [address] [place] [address] / [phone] Cytopathology Report PATIENT NAME: [facility]EE [facility] REC NUMBER: [id number] (AGE): 1955 (Age: 68) SPECIMEN NUMBER: [id number] DATE OBTAINED: 05/25/2025 DIAGNOSIS: A. CBD BRUSHING, [...] Complications: no complications us Vu Haji MD [place] ANESTHESIA Final Result * US Abdomen-Limited (05/25/2025 [...] Real-time ultrasonography of the abdomen was performed. [id number]. COMPARISON: CT Abdomen Pelvis 05/23/2025, US Abdomen [...] Real-time ultrasonography of the abdomen was performed. [id number]. COMPARISON: CT Abdomen Pelvis 05/23/2025, US Abdomen [...] Consider acalculous cholecystitis. us Lavern Mallory PA-C Luis US ORDERABLES Final R esult * US [...] FILMS Final Resu lt Performing Organization Address [facility] de Phone Number MILTON [phone] * CT Abdomen Archive for Reference Only (05/25/2025 8:34 AM EDT) Only the most recent of4 resultswithin the time period is included. Narrative MORROW - 05/25/2025 8:34 AM EDT This study has been auto finalized and does not contain a result. Procedure Note Ruby Roberts MA - 05/25/2025 This study has been auto finalized and does not contain a result. us File Room Provider IMG DIGITIZE FILMS Final Resu Performing Organization Address [facility] de Phone Number MILTON [phone] * CT Chest Archive for Reference Only (05/25/2025 8:34 AM EDT) Narrative [facility] 05/25/2025 8:34 AM EDT This study has been auto finalized and does not contain a result. us File Room Provider IMG DIGITIZE FILMS Final Resu lt Performing Organization Address [facility] de Phone Number MILTON [phone] * (ABNORMAL) CA 19-9 (05/25/2025 6:44 AM EDT) CA 19-9 143(H) <34 U/mL 05/29/2025 3:17 PM EDT [facility] Comment: (NOTE) This test was performed using the Siemens chemiluminescent method. Values obtained from different assay methods cannot be used inter- changeably. CA 19-9 levels, regardless of value, should not be interpreted as absolute evidence of the presence or absence of disease. Blood Blood specimen / Unknown 05/25/2025 6:44 AM EDT 05/25/2025 8:48 AM EDT us Anita Kumar MD LAB BLOOD ORDERABLES Final Re sult [facility], [place] [address] [facility] [address] [address] [place], [place] , [facility], [place] [address] [facility] [address] [address] [place], [place] * Hemoglobin A1c with Estimated Average Glucose (Early AM) (05/25/2025 6:44 AM EDT) Hemoglobin A1C 5.5 <5.7 % 05/25/2025 10:10 AM EDT [facility] Comment: A1c% Interpretation 5.7 - 6.0 Increase risk of diabetes 6.1 - 6.4 Higher risk of diabetes > or = 6.5 Consistent with diabetes Diabetes Care, 33(Supp 1):S1-S61, 2010 Estimated Average Glucose 111 mg/dL 05/25/2025 10:10 AM EDT [facility] Blood Blood specimen / Unknown 05/25/2025 6:44 AM EDT 05/25/2025 8:45 AM EDT us Anita Kumar MD LAB BLOOD ORDERABLES Final Re sult Performing Organization Address [facility] de Phone Number [address] [address], [address] [address] * Magnesium (05/25/2025 6:44 AM EDT) Magnesium 2.0 1.6 - 2.7 mg/dL 05/25/2025 1:46 PM EDT [facility] Blood Blood specimen / Unknown 05/25/2025 6:44 AM EDT 05/25/2025 8:45 AM EDT Johnson Graham MD LAB BLOOD [place]AB[place] [address], [address] [address] * Lactic Acid, Plasma (05/25/2025 6:44 AM EDT) Only the most recent of2 resultswithin the time period is included. Lactic Acid 0.6 0.5 - 1.9 mmol/L 05/25/2025 9:26 AM EDT [facility] Blood Blood specimen / Unknown 05/25/2025 6:44 AM EDT 05/25/2025 8:44 AM EDT Johnson Graham MD LAB BLOOD ORDERABLES Final Re sult Performing Organization Address [facility] [place] [address], [place] [address] * CEA (05/25/2025 6:44 AM EDT) [facility] CEA (Jake) 1.7 0.0 - 3.8 ng/mL 05/25/2025 9:34 AM EDT [facility] Comment: Reference range: Age 20 - [...] ORDERABLES Final Re sult Performing Organization Address [facility] [place] [address], [place] [address] * Blood Culture #2 (05/24/2025 7:46 PM EDT) Only the most recent of2 resultswithin the time period is included. Culture Sterile after 5 days 05/29/2025 10:15 AM EDT [facility] Blood Blood specimen / Unknown 05/24/2025 7:46 PM EDT 05/24/2025 10:04 PM EDT Comment:Blood us Johnson Graham MD LAB BLOOD ORDERABLES Final Re sult Performing Organization Address [facility]/ZIP Co de Phone Number [facility] [address] [place] [address], [place] * MR Chest Archive for Reference Only (05/24/2025 7:44 PM EDT) Narrative MORROW - 05/24/2025 7:44 PM EDT This study has been auto finalized and does not contain a result. Procedure Note Ruby Roberts MA - 05/24/2025 This study has been auto finalized and does not contain a result. us File Room Provider IMG DIGITIZE FILMS Final Resu lt Performing Organization Address [facility] Co de Phone Number [place] [phone] * (ABNORMAL) PROTIME-INR (05/24/2025 7:40 PM EDT) [facility] Anticoagulant NO ANTI COAGULANT MEDS 05/24/2025 7:04 PM EDT [facility] Prothrombin Time (PT) 14.0(H) 10.0 - 13.5 seconds 05/24/2025 8:12 PM EDT [facility] INR 1.2 05/24/2025 8:12 PM EDT [facility] Comment:INR Therapeutic Rang es: Standard dose anticoagulant 2.0 to 3.0, High dose anticoagulant 2.5-3.5. Blood Blood specimen / Unknown 05/24/2025 7:40 PM EDT 05/24/2025 7:54 PM EDT us Kennedy Gil MD LAB BLOOD ORDERABLES Final Resul t Performing Organization Address City/[facility]/ZIP Co de Phone Number [address] [address], [address] [address] * Type and Screen (05/24/2025 7:30 PM EDT) ABO/Rh O POSITIVE 05/24/2025 8:34 PM EDT [facility] Antibody Screen NEGATIVE 8:34 PM EDT [facility] Specimen Expiration 05/27/2025 05/24/2025 8:34 PM EDT [facility] Blood Blood specimen / Unknown 05/24/2025 7:30 PM EDT 05/24/2025 7:55 PM EDT us Kennedy Gil MD BLOOD BANK TEST ORDERABLES Final Result Performing Organization Address [facility] de Phone Number [address] [address], [address] [address] * ECG 12 lead (STAT) (05/24/2025 7:28 PM EDT) Ventricular rate 54 BPM EKG [facility] Atrial rate 54 BPM EKG [facility] P-R interval 150 ms EKG [facility] QRS duration 102 ms EKG [facility] Q-T interval 426 ms EKG [facility] QTC calculation (Bazett) 404 ms EKG [facility] P axis 55 degrees EKG [facility] R axis -18 degrees EKG [facility] T axis 19 degrees EKG [facility] 05/24/2025 7:28 PM EDT Narrative EKG [facility] - 05/24/2025 8:14 PM EDT Sinus bradycardia Otherwise normal ECG No previous ECGs available Confirmed by MD Constantino Ahmed ([id number]) on 05/24/2025 8:14:18 PM Procedure Note Corbin Constantino MD - 05/24/2025 Sinus bradycardia Otherwise normal ECG No previous ECGs available Confirmed by MD Dougie, ghanshyam ([id number]) on 05/24/2025 8:14:18 PM us Johnson Graham MD ECG ORDERABLES Final Result EKG [facility] from Last 3 Months Additional Health Concerns Active Problems Noted Date Diagnosed Date Autogenerated Problem 06/21/2025 Autogenerated Problem 07/02/2025 Insurance [facility] MEDICARE MEDICARE PART A & B [facility] MED[facility] Member Subscriber Plan / Payer (Ef fective 2024-Present) Name:LeeBerry Relation to Subscriber:Self Name:Berry Lee Payer ID:[id number] (NAIC) Type:Not on file Address: [place] [phone] [address] [place] [id number] [facility] MEDIC[facility] Advance Directives * Full Code (Latest Code Status on File) Date Activated Date Inactivated Comments 05/24/2025 6:30 PM 06/12/2025 7:39 AM 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
== END 2025-07-17 13:17 | disposition home or self-care (01) ==
LOC: HO.HCS 12:53
PROVIDERS: PCP Internal Medicine; Visit Provider Internal Medicine
DX: Z01.810 Encounter for preprocedural cardiovascular examination (principal); E66.01 Morbid (severe) obesity due to excess calories
CPT/HCPCS: 93010; 99213

== ENCOUNTER → 2025-07-17 12:51 | Outpatient (BNVA) | payer MEDICARE, SELFPAY | PROVIDERS: PCP Internal Medicine; Visit Provider Internal Medicine | DX: E66.01 Morbid (severe) obesity due to excess calories (principal); Z68.38 Body mass index [BMI] 38.0-38.9, adult; Z01.810 Encounter for preprocedural cardiovascular examination; K81.9 Cholecystitis, unspecified | CPT/HCPCS: 93005; 99212 ==

== ENCOUNTER 2025-08-20 09:33 | Outpatient (AMB) | payer OTHER, SELFPAY ==
[2025-08-20 09:38] VITALS: BP 136/72; PULSE 66; TEMP 36.2; O2SAT 97; BMI 38.7
--- NOTE | 2025-08-20 09:38 | MHC.PC.OV ---
Vital Signs 08/20/25 09:38 Height 5 ft Weight 198 lb 2 oz BMI 38.7 BP 136/72 Blood Pressure Location Lt brachial Position Sitting Pulse 66 Pulse Source Pulse Oximeter Temp 97.1 F Temp Source Temporal Artery Scan Pulse Oximetry (%) 97 Oxygen Delivery Method Room Air Intake Visit Reasons: knee OA, Obesity Allergies morphine (MORPHINE) Allergy (Unknown, Verified 08/20/25 09:41) VOMITING AND SHAKING MORPHINE Allergy (Mild, Uncoded 08/20/25 09:41) Nausea and Vomiting Medication List - Last Reconciled 08/20/25 by Harry Chun MD albuterol sulfate 90 mcg/actuation (Ventolin HFA) 2 puffs inhalation Q6H PRN calcium carbonate (Calcium 500) 1,000 mg PO DAILY celecoxib 50 mg PO DAILY PRN cholecalciferol (vitamin D3) 25 mcg PO DAILY iron,carbonyl-vitamin C 65 mg iron- 125 mg (Vitron-C) 1 tab PO BEDTIME magnesium 250 mg PO DAILY melatonin 5 mg PO BEDTIME omeprazole 20 mg PO DAILY@0630 Tobacco use date assessed: 08/20/25 Fall risk assessment: No Falls in past year Last assessed Fall Risk: 08/20/25 Dental Screening Dental Screen Date: 08/20/25 Did you have a dental visit in the last 12 months?: No Did you have a dental problem in the last 6 months where you did not have access to dental care?: No Was dental information given to patient?: Patient has dentist HPI knee OA, Obesity HPI Details 07/27/2025 Cholecystectomy lap. 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 Elevated LFTs Pancreatitis Acute cholecystitis Narrowing of bile duct after surgery Common bile duct dilatation Preoperative cardiovascular examination Abnormal cardiovascular stress test Claustrophobia Blood pressure elevated without history of HTN Dysgeusia Arthritis Age-related osteoporosis without current pathological fracture Osteopenia COVID-19 Vitamin D deficiency Vitamin B12 deficiency Syphilis Obesity Asthma GERD (gastroesophageal reflux disease) Osteoarthritis Surgical History (Updated 08/20/25 @ 09:47 by Harry Chun MD) Morbid obesity Hx of section History of appendectomy Hx of gastric bypass History of abdominoplasty H/O gastric bypass Family History Father No problems noted. Mother No problems noted. Social History Household Members: None Housing: House Do you presently have visiting nurse or other home services: No Alcohol intake: current Comment: holidays 2 beers Patient Tobacco Use Status: Never used Tobacco e-Cigarette/Vaping Use: Never Used Second Hand Smoke Exposure: No Advance Directives Date on File: 11/04/23 service: No Current occupational status: employed Cognitive needs: No Hearing needs: No Vision needs: Yes Questionnaire PHQ-9 Over the last 2 weeks, how often have you been bothered by any of the following problems? 1. Little interest or pleasure in doing things: nearly every day 2. Feeling down, depressed, or hopeless: not at all 3. Trouble falling or staying asleep, or sleeping too much: not at all 4. Feeling tired or having little energy: not at all 5. Poor appetite or overeating: not at all 6. Feeling bad about yourself - or that you are a failure or have let yourself or your family down: not at all 7. Trouble concentrating on things, such as reading the newspaper or watching television: not at all 8. Moving or speaking so slowly that other people could have noticed. Or the opposite - being so fidgety or restless that you have been moving around a lot more than usual: nearly every day 9. Thoughts that you would be better off or of hurting yourself in some way: not at all Total score: 6 Source: Developed by Drs. Timbo Nazario, Ivanna Sol, Kip العراقي and colleagues, with an educational jai from [employer]. Thrive Questionnaire Date Thrive assessed: 10/31/24 I am a: Patient What is your living situation today?: I choose not to answer this question Within the past 12 months, did the food you bought not last and you didn't have the money to get more?: I choose not to answer this question Within the past 12 months, did you worry whether your food would run out before you got money to buy more?: I choose not to answer this question Do you have trouble paying for medicines?: No Do you have trouble getting transportation to medical appointments?: Yes Do you have trouble paying your heating and electricity bill?: No Do you have trouble taking care of your child, family member or friend?: No Do you have trouble with day-to-day activities such as bathing, preparing meals, shopping, managing finances, etc.?: No Are you currently unemployed and looking for a job?: No Are you interested in more education?: No Please select the resources that you would like help with: None Currently or been in a relationship where the following occur: No concerns reported THRIVE Score: 1 AUDIT C Alcohol Use Questionnaire (AUDIT-C) 1. How often do you have a drink containing alcohol?: Never 3. How often do you have six or more drinks on one occasion?: Never Total Score: 0 DANY-7 AMB Questionnaire DANY-7 Date DANY - 7 assessed: 10/31/24 Feeling nervous, anxious, or on edge: 0 = Not at all Not being able to stop or control worryin = Not at all Worrying too much about different things: 0 = Not at all Trouble relaxin = Not at all Being so restless that it is hard to sit still: 0 = Not at all Becoming easily annoyed or irritable: 0 = Not at all Feeling afraid as if something awful might happen: 0 = Not at all Total DANY-7 score (0-4 normal; 5-9 mild; 10-14 moderate; 15-21 severe): 0 Source: Developed by Drs. Timbo Nazario, Ivanna Sol, Kip العراقي and colleagues, with an educational jai from [employer]. Physical exam (Primary Care) Vital Signs: Last Vital Signs Temp 97.1 F 08/20/25 09:38 Pulse 66 08/20/25 09:38 BP 136/72 08/20/25 09:38 Pulse Ox 97 08/20/25 09:38 Oxygen Delivery Method Room Air 08/20/25 09:38 BMI result Body Mass Index 38.7 Tobacco/Smoking Status: Tobacco use Status Tobacco use date assessed 08/20/25 08/20/25 09:42 Patient Tobacco Use Status Never used Tobacco 08/20/25 09:42 Tobacco use type 12/01/23 10:17 e-Cigarette/Vaping Use Never Used 08/20/25 09:42 PHQ-9: PHQ-9 Score PHQ-9: Total score 6 08/20/25 09:59 Thrive Assessment: Date of Thrive Assessment Date Thrive assessed 10/31/24 08/20/25 09:42 Currently or been in a relationship where the following occur: No concerns reported Const General: alert; No acute distress Eyes Conjunctivae: conjunctivae normal Resp Auscultation: clear to auscultation bilaterally Cardio Rate: regular rate Rhythm: regular rhythm GI Inspection: Yes normal to inspection Extrem General: Yes normal to inspection and No edema Office Procedures Flu Questionnaire Does the patient have a severe egg allergy?: No Does the patient have severe life threatening allergies?: No Does the patient have a fever or illness today?: No Has the patient ever had Guillain-Levelland Syndrome?: No Has the patient ever had any past reaction to a flu shot?: No Results AMB Urinalysis, Automated UA Leukoctes 125 [place]/uL Last Edit by Do Andre CMA on 08/20/25 10:19 UA Nitrite Negative Last Edit by Do Andre CMA on 08/20/25 10:19 UA Urobilinogen 0.2 mg/dL Last Edit by Do Andre CMA on 08/20/25 10:19 UA Protein 0 mg/dL Last Edit by Do Andre CMA on 08/20/25 10:19 UA pH 6.0 Last Edit by Do Andre CMA on 08/20/25 10:19 UA Blood 200 Dru/uL Last Edit by Do Andre CMA on 08/20/25 10:19 UA Specific [place] 1.020 Last Edit by Do Andre CMA on 08/20/25 10:19 UA Ketone Positive Last Edit by Do Andre CMA on 08/20/25 10:19 UA Bilirubin 0 mg/dL Last Edit by Do Andre CMA on 08/20/25 10:19 UA Glucose 0 mg/dL Last Edit by Do Andre CMA on 08/20/25 10:19 Immunizations Fluarix 7114-1511 (PF) 45 mcg (15 mcg x 3)/0.5 mL IM syringe Performing Provider: Harry Chun MD [facility] Administered by: Do Andre CMA on 08/20/25 10:00 Dose Route Admin Location Dispensed Lot Number Expiration Date NDC Information Clerk Cashier 0.5 mL IM Right Deltoid 0.5 mL [id number] 04/09/26 [id number] Reality Digital VIS Given Date VIS Provided VIS Publication Date 08/20/25 Single Vaccine 24 Eligibility Eligibility Date Funding Source Not [facility] Eligible 08/20/25 Private Results Reviewed Results Reviewed: Laboratory Last Values Urine pH (Auto) 6.0 08/20/25 10:19 Specific [place] (Auto) 1.020 08/20/25 10:19 Urine Protein (Auto) 0 mg/dL 08/20/25 10:19 Glucose (UA)(Auto) 0 mg/dL 08/20/25 10:19 Urine Ketones (Auto) Positive 08/20/25 10:19 Urine Blood (Auto) 200 Dru/uL 08/20/25 10:19 Urine Nitrite (Auto) Negative 08/20/25 10:19 Urine Bilirubin (Auto) 0 mg/dL 08/20/25 10:19 Urine Urobilinogen (Auto) 0.2 mg/dL 08/20/25 10:19 Leukocyte Esterase (Auto) 125 [place]/uL 08/20/25 10:19 Coding Level of Care Code Est Pt Level 4 (97787) Complex EM visit Add On G2211 Diagnoses Hx of cholecystectomy Z90.49 H/O gastric bypass Z98.84 Class 3 severe obesity due to excess calories with serious comorbidity and body mass index (BMI) of 40.0 to 44.9 in adult E66.01; Z68.41 Body mass index: BMI 40.0-44.9 Obesity classification: adult class 3 (BMI >= 40) Obesity type: due to excess calories Serious obesity comorbidity presence: with serious comorbidity Gastroesophageal reflux disease without esophagitis K21.9 Esophagitis presence: without esophagitis Mild intermittent asthma without complication J45.20 Asthma complication type: uncomplicated Asthma persistence: intermittent Asthma severity: mild Dysuria R30.0 Assessment & Plan Assessment & Plan (1) Hx of cholecystectomy: Comment: 08/27/2025 [facility] laparoscopic cholecystectomy Dr. Kumar Code(s): Z90.49 - Acquired absence of other specified parts of digestive tract Category: Surgical (2) H/O gastric bypass: Comment: 2002 - open procedure Code(s): Z98.84 - Bariatric surgery status Category: Surgical Plan: Continue to follow-up with bariatric ox (3) Obesity: Code(s): E66.9 - Obesity, unspecified Category: Medical Qualifiers: Body mass index: BMI 40.0-44.9 Obesity classification: adult class 3 (BMI >= 40) Obesity type: due to excess calories Serious obesity comorbidity presence: with serious comorbidity Qualified Code(s): E66.01 - Morbid (severe) obesity due to excess calories; Z68.41 - Body mass index [BMI]40.0-44.9, adult Plan: Diet and exercise (4) GERD (gastroesophageal reflux disease): Code(s): K21.9 - Gastro-esophageal reflux disease without esophagitis Category: Medical Qualifiers: Esophagitis presence: without esophagitis Qualified Code(s): K21.9 - Gastro-esophageal reflux disease without esophagitis Plan: Avoid the foods that causes that usually spicy foods, tomato products, juices, coffee, soda and foods that your sensitive to. After eating do not lie down, allow 3-4 hours before in lie down. And keep the head of bed above 30 degrees to avoid the acid from going up. On omeprazole (5) Asthma: Comment: PATIENT HAS HISTORY OF MILD INTERMITTENT BRONCHIAL ASTHMA, USUALLY TRIGGERED BY ACUTE RESPIRATORY INFECTION. SHE HAS NO ACTIVE SYMPTOMS AT PRESENT. SPIROMETRY FINDINGS ARE NORMAL. Code(s): J45.909 - Unspecified asthma, uncomplicated Category: Medical Qualifiers: Asthma complication type: uncomplicated Asthma persistence: intermittent Asthma severity: mild Qualified Code(s): J45.20 - Mild intermittent asthma, uncomplicated Plan: Patient only needs albuterol PRN (6) Dysuria: Code(s): R30.0 - Dysuria Category: Medical Plan: Urine test evaluated and [facility] Plan History of Present Illness The patient is a 69-year-old obese female presenting for a follow-up visit. She has a history of gastric bypass in 2002, GERD, mild intermittent bronchial asthma, and osteopenia. The patient recently underwent a laparoscopic cholecystectomy. She reports that her surgical incisions have healed well and she is experiencing constipation post-operatively, but denies diarrhea. Cardiology was seen on July 17 for preoperative clearance, which revealed an ejection fraction of 55-60%, no significant valvular issues, normal myocardial perfusion, and low cardiac risk. She was seen by pulmonology in July 2025, and had normal spirometry with no active symptoms of her mild intermittent bronchial asthma. The patient's last blood work on July 10 showed mild anemia with a hemoglobin of 11.7 and hematocrit of 35, along with normal electrolytes, renal function, platelets, and a blood sugar of 105. Health maintenance includes an up-to-date mammogram and a previous colonoscopy in 2017. Today, she reports new onset of dysuria starting this morning. Health Maintenance An influenza vaccine was administered during the visit. Current supplements include calcium, vitamin D, a multivitamin, and magnesium. A discussion was held regarding melatonin use for sleep, acknowledging recent concerns but advising the patient she can continue taking it if she finds it helpful. The patient was encouraged to stay active, hydrated, and to continue follow-up with bariatrics. Social History - The patient takes melatonin to help with sleep. - The patient is advised to stay active. Review of Systems - Cardiovascular: Denies any symptoms. - Respiratory: Denies active asthma symptoms. - Gastrointestinal: Reports constipation. - Denies diarrhea. - Genitourinary: Reports dysuria that began this morning. - Integumentary: Reports surgical incision sites have healed. - Musculoskeletal: Reports arthritis pain that is worse in the winter. Physical Exam - Lungs: Clear to auscultation bilaterally. Results - Labs (July 10): Hemoglobin 11.7 g/dL, Hematocrit 35%, normal platelet count, normal electrolytes, normal renal function, blood sugar 105 mg/dL. - Cardiology (July 17): Echocardiogram showed an EF of 55-60% with no significant valvular issues. - Myocardial perfusion scan was normal. - Pulmonology (July 2025): Spirometry was normal. Plan Patient was informed and verbally consented to the use of an ambient scribe for clinic note documentation during this visit. 1. Postoperative Follow-Up For Cholecystectomy The patient is recovering well from her recent laparoscopic cholecystectomy. She reports her surgical wounds have healed and denies diarrhea, but is experiencing constipation for which she uses laxatives. The patient was counseled on the possibility of developing diarrhea, especially with fatty foods, and was advised to report if this occurs. 2. Dysuria The patient developed new onset pain with urination this morning. A urinalysis will be obtained in the office today to assess for a urinary tract infection. The results will be communicated to the patient upon availability. 3. Arthritis The patient complains of arthritis pain, which is worse in the winter. A prescription for Celebrex will be refilled; the low dose is to protect her stomach. The patient was advised to follow up if the medication does not provide adequate pain relief. 4. Mild Intermittent Bronchial Asthma The patient's asthma is stable and well-controlled with no active symptoms and normal spirometry on recent pulmonary evaluation. She will continue to use her albuterol inhaler as needed. 5. Gastroesophageal Reflux Disease (Gerd) The patient's GERD is stable. She will continue taking omeprazole 20 mg. Discussion Notes I reviewed the patient's recovery from her recent cholecystectomy, noting that her surgical sites have healed well. We discussed her current bowel habit of constipation, and I advised her that while some patients experience diarrhea post-procedure, especially with fatty foods, she should notify me if that occurs. We reviewed her recent specialist consultations, including reassuring cardiac and pulmonary evaluations, and discussed that her chronic conditions like asthma are stable. I addressed her new complaint of painful urination and informed her we would perform a urinalysis in the office today and call her with the results. I refilled her Celebrex for arthritis pain, explaining the current low dose is intended to protect her stomach. We discussed her current medications and supplements. I addressed the recent news regarding melatonin, advising her she can continue it for sleep if helpful, but to stop if she finds it ineffective. I administered the influenza vaccine, confirmed her other vaccinations are current, and encouraged her to remain active and hydrated. Patient Instructions - You received your flu shot today. - We will collect a urine sample before you leave to check for a urinary infection due to your new pain with urination. - We will call you with the results. - I have sent a refill for your Celebrex to your pharmacy for your arthritis pain. - Please let us know if the pain does not get better. - Continue taking your omeprazole for acid reflux and use your albuterol inhaler only as needed for asthma. - You may continue taking melatonin for sleep if you find it helpful. - Continue to stay active and drink plenty of fluids. - Let us know if you start to have diarrhea, especially after eating fatty meals. Orders: Orders Influenza [id number] Immunization Today Z23 - Encounter for immunization AMB Urinalysis Automated Today R30.0 - Dysuria, Z13.9 - Encounter for screening, unspecified Medications: New nitrofurantoin monohyd/m-cryst 100 mg (Macrobid) must administer with a meal/food 100 mg PO Q12H 10 caps 0RF 5 days Refilled celecoxib 50 mg PO DAILY PRN 30 caps 0RF pain R30.0 - Dysuria Discontinued celecoxib Discontinued Reason: Patient Completed Course 50 mg PO DAILY PRN 30 caps 0RF pain
--- OUTSIDE RECORDS SUMMARY | 2025-08-20 10:49 | XMS_ITS | Patient Health Record ---
Author Organization [facility] Address [address] [place] [address] Care Team Providers Care Camp Guard Name Role Phone Harry Chun MD Primary [...] TAKE 1 TABLET BY SHE TH DAILY Oral; Duration: 90 M1990,Unavailabl e Active traMADol HCl 50 MG Oral; Duration: 4 Active Ondansetron 4 MG DISSOLVE 1 TABLET ON THE TONGUE EVERY 8 HOURS NEEDED FOR NAUSEA OR VOMITING Oral; Duration: 6 Active Melatonin 5 MG Oral; Duration: 30 Active Omeprazole 20 MG Oral; Duration: 90 Active traZODone HCl 50 MG TAKE 1/2 TABLET BY MOUTH AT BEDTIME NEEDED FOR SLEEP Oral; Duration: 60 G4700,Unavailabl e Active Immunizations Vaccine Route [...] Problem Status W/U Status Risk Notes Problem Epigastric pain (12321221) Epigastric pain (R10.13) Active confirmed Problem Disorder of biliary tract (381617061) Bile duct abnormality (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 [address] [place] [address] [id number] BERRY LEE Self - patient is the insured Medical (General) History Medical History History ICD Code Elevated body mass index Osteoarthritis Gastroesophageal reflux disease Osteoporosis History of syphilis Insomnia Colonoscopy several years ago, records a re not available Surgical History Surgery Date(Month/Year) Gastric bypass surgery section Appendectomy Panniculectomy
--- OUTSIDE RECORDS SUMMARY | 2025-08-20 10:49 | XMS_ITS | Clinical Summary ---
Author Organization [facility] Address [address] [place] [address] Care Team Providers Care Vertical Lathe Operator Name Role Phone Harry Chun MD Primary Care Provider [phone] Anita Kumar MD Unavailable [phone] Jeremy Rincon MD Unavailable [phone] Allergies Active Allergy Reactions Criticality Noted Date [...] to dissolve. 21 tablet 07/06/20 25 Active acetaminophen (TYLENOL) 325 MG tabletIndications: Acute cholecystitis Take 3 tablets (975 mg total) by mouth 4 times daily (every 6 hours) as needed for mild pain or moderate pain (Do not exceed 4,000 mg in a 24 hour period.). 07/27/20 25 025 Active oxyCODONE (ROXICODONE) 5 MG immediate release tabletIndications: Acute cholecystitis Take 1 tablet (5 mg total) by mouth every 4 (four) hours as needed for severe pain or moderate pain. Max Daily Amount: 30 mg 12 tablet 07/27/20 25 Active cephalexin (KEFLEX) 500 MG capsuleIndications :Post-operative state Take 1 capsule (500 mg total) by mouth 4 (four) times a day. 20 capsule 08/10/20 25 025 Active Problems Problem Noted Date Diagnosed Date [...] - ID continues to follow - Contacted [facility] microbiology, patient blood culture positive for vibrio Cholerae, sensitivities were sent and pending - Patient switched to oral levofloxacin 750 mg as per ID Assessment & Plan (05/28/2025 4:03 PM EDT): - ID continues to follow - Patient continues on IV Zosyn - Contacted [facility] microbiology, patient blood culture positive for [...] Encounters Date Type Department Care Team Description 08/10/2025 10:30 AM EDT Office Visit [facility] Surgical Oncology [address] [place] [address] Lancor, Cordero, PLATE GRINDER Post-operative state (Primary Dx); S/P cholecystectomy 08/10/2025 Travel 07/27/2025 10:30 AM EDT - 07/27/2025 1:15 PM EDT Surgery [facility] Perioperative Surgical Services [address] [facility] [phone] Anita Kumar MD ROBOTIC CHOLECYSTECTOMY, INTRAOPERATIVE CHOLANGIOGRAM (IOC), (XI), LYSIS OF ADHESIONS 07/27/2025 10:02 AM EDT Anesthesia Event [facility] Perioperative Surgical Services [address] [facility] [phone] Juan Jose Gonzalez MD Edison, Amanda C, PA-C 07/27/2025 9:17 AM EDT - 07/27/2025 3:09 PM EDT Hospital Encounter [facility] Perioperative Surgical Services [address] [place] [address], [place] [phone] Anita Kumar MD Acute cholecystitis (Primary Dx) Discharge Disposition: Home or Self Care 07/27/2025 Travel 07/12/2025 Travel 07/02/2025 8:30 AM EDT Consult [facility] [place] [address] [phone] Anita Kumar MD Gallstone pancreatitis (Primary Dx); Biliary stricture (HCC); History of Francesco-en-Y gastric bypass; Elevated CA 19-9 level 07/02/2025 Travel 06/12/2025 9:39 AM EDT Anesthesia Event [facility] Gastroenterology Division [address] [place] [address], [place] [phone] Nato Hernandez MD Ritchie, Agatha T, PA-C 06/12/2025 8:30 AM EDT - 06/12/2025 9:15 AM EDT Surgery [facility] Gastroenterology Division [address] [place] [address], [place] [phone] Jeremy Rincon MD ENDOSCOPY UPPER /C ULTRASOUND 06/12/2025 7:39 AM EDT - 06/12/2025 10:57 AM EDT Hospital Encounter [facility] Gastroenterology Division [address] [place] [phone] Jeremy Rincon MD Discharge Disposition: Home or Self Care 06/12/2025 Travel 06/01/2025 12:20 PM EDT Ancillary Procedure [facility] Radiology [address] [facility] [phone] Provider, File Room 06/01/2025 12:20 PM EDT Ancillary Procedure [facility] Radiology [address] [place] [address] Provider, File Room 06/01/2025 12:20 PM EDT Ancillary Procedure [facility] Radiology [address] [place] [address], [place] [phone] Provider, File Room 06/01/2025 12:15 PM EDT Ancillary Procedure [facility] Radiology [address] [place] [address], [place] [address] Provider, File Room 06/01/2025 12:15 PM EDT Ancillary Procedure [facility] Radiology [address] [place] [address], [place] [phone] Provider, File Room 06/01/2025 12:15 PM EDT Ancillary Procedure [facility] Radiology [address] [place] [phone] Provider, File Room 06/01/2025 12:15 PM EDT Ancillary Procedure [facility] Radiology [address] [place] [address], [place] [phone] Provider, File Room 06/01/2025 12:05 PM EDT Ancillary Procedure [facility] Radiology [address] [place] [address], [place] [address] Provider, File Room 06/01/2025 11:45 AM EDT Ancillary Procedure [facility] Radiology [address] [place] [address], [place] [address] Provider, File Room 06/01/2025 11:40 AM EDT Ancillary Procedure [facility] Radiology [address] [place] [phone] Provider, File Room 06/01/2025 11:35 AM EDT Ancillary Procedure [facility] Radiology [address] [place] [address], [place] [address] Provider, File Room 06/01/2025 11:35 AM EDT Ancillary Procedure [facility] Radiology [address] [place] [phone] Provider, File Room 06/01/2025 Travel 05/28/2025 Travel 05/25/2025 3:05 PM EDT Anesthesia Event [facility] Gastroenterology Division [address] [place] [phone] Nelson Wong MD Gordon, Donald E, PA-C 05/25/2025 3:00 PM EDT - 05/25/2025 3:41 PM EDT Surgery [facility] Gastroenterology Division [address] [place] [phone] Jeremy Rincon MD ERCP /C PLACEMENT STENT 05/25/2025 8:45 AM EDT Ancillary Procedure [facility] Radiology [address] [place] [phone] Provider, File Room 05/25/2025 8:40 AM EDT Ancillary Procedure [facility] Radiology [address] [place] [phone] Provider, File Room 05/25/2025 8:35 AM EDT Ancillary Procedure [facility] Radiology [address] [place] [phone] Provider, File Room 05/25/2025 8:35 AM EDT Ancillary Procedure [facility] Radiology [address] [place] [phone] Provider, File Room 05/24/2025 7:50 PM EDT Ancillary Procedure [facility] Radiology [address] [place] [phone] Provider, File Room 05/24/2025 7:45 PM EDT Ancillary Procedure [facility] Radiology [address] [place] [phone] Provider, File Room 05/24/2025 7:45 PM EDT Ancillary Procedure [facility] Radiology [address] [place] [phone] Provider, File Room 05/24/2025 5:24 PM EDT - 05/30/2025 2:14 PM EDT Hospital Encounter [facility] [address] [place] [phone] Harvey Narayan MD Bickmore, Todd A, MD Kottarathara, Mathew J, MD Hamed, Moaz, MD Thevarajah, Vasanthy, MD [facility] , Hassana, MD Biliary stricture (HCC) (Primary Dx); Bacteremia Discharge Disposition: Home or Self Care from Last 3 Months Family History * [...] oz pur e alcohol) drinks on weekends [facility] Utilities Answer Date Recorded In the past 12 months has th e electric, gas, oil, or water company [...] time in the past 12 m [facility], were you homeless or living in a custodial (including now)? 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 on file Not on file Not on radha e Last Filed Vital Signs Vital Sign Reading Time Taken Comments Blood Pressure 135/78 08/10/2025 10:28 AM EDT Pulse 62 08/10/2025 10:28 AM EDT Temperature 36.2 C (97.2 F) 07/27/2025 1:00 PM EDT Respiratory Rate 20 07/27/2025 2:45 PM EDT Oxygen Saturation 99% 08/10/2025 10:28 AM EDT Inhaled Oxygen Concentration - - Weight 90.7 kg (200 lb) 07/12/2025 4:51 PM EDT Height 147.3 cm (4' 10 ) 08/10/2025 10:28 AM EDT Body Mass Index 41.8 07/12/2025 4:51 PM EDT Plan of Treatment Upcoming Encounters Date Type Department Care Team (Latest Contact Info) Description 09/20/2025 2:00 PM EST Hospital Encounter [facility] Gastroenterology Division [address] [place] [phone] Jeremy Rincon MD [address] [place] [address] 09/20/2025 2:00 PM EST - 09/20/2025 3:00 PM EST Surgery [facility] Gastroenterology Division [address] [place] [phone] Jeremy Rincon MD [address] [place] [phone] ERCP Scheduled Procedures Name Priority Associated Diagnoses Date/Ti me ERCP Choledocholithiasis Common bile duct (CBD) stricture (HCC) 09/20/2025 2:00 PM EST Health Maintenance Due Date Last Done Comments Advance Care Planning 1955 Hepatitis C Virus Screening 1955 DTaP/Tdap/Td Vaccines (1 - Tdap) 1975 Colonoscopy 2001 Pneumococcal Vaccines 50+ (1 of 1 - PCV) 2006 RSV Vaccine 50 years and old er and Patients (1 - Risk 50-74 years 1-dose series) 2006 Zoster (Shingles) Vaccine (1 of 2) 2006 Mammogram 07/19/2021 07/19/2019 DXA Bone Density (Females,Ag es 65 and older) 2021 Influenza Vaccine 05/11/2025 07/17/2023 COVID-19 Vaccine ( - 2023-2 5 season) 2025 Hepatitis B Vaccines Aged Out No long er eligible based on patient's age to complete this topic Goals Goal Patient Goal Type Associated Problems Recent Progress Patient-Stated? Author Autogenerat ed Goal Care Plan Autogenerated Problem No [employer] Implanted Type Area Account Technician Device Identifier Shelf Expiration Date Model / Serial / Lot [id number] Stent Pancreatic 20mm 10mm Axs Sterl Lf Disp Electrocautery - [id number] Implanted:Qty: 1 on 05/25/2025 by Jeremy Rincon MD at [facility] Stent N/A: Stomach [employer] CHRISTOPHER [id number] 02/01/2026 [id number] / / [id number] Stent Pancreatic 5fr 5cm Pigtail Curve Radopq Push Cath - [id number] Implanted:Qty: 1 on 05/25/2025 by Jeremy Rincon MD at [facility] Stent N/A: Bile Duct [employer] [id number] 04/02/2028 [id number] / / [id number] Stent Biliary Advanix 10fr 5cm Rx Temp Taper Tip Plastic - [id number] Implanted:Qty: 1 on 05/25/2025 by Jeremy Rincon MD at [facility] Stent N/A: Bile Duct [employer] CHRISTOPHER [id number] 02/19/2027 [id number] / / [id number] Procedures Procedure Name Priority Date/Time Associated Diagnosis Comments PATHOLOGY REPORT Routine 07/27/2025 12:37 PM EDT FL CHOLANGIOGRAM IN OR-1ST Routine 07/27/2025 12:20 PM EDT ANES LINE - PERIPHERAL, SINGLE LUMEN Routine 07/27/2025 10:37 AM EDT ANES LINE - PERIPHERAL, SINGLE LUMEN Routine 07/27/2025 10:37 AM EDT ANES INTUBATION Routine 07/27/2025 10:36 AM EDT AR LAPAROSCOPY SURG CHOLECYSTECTOMY 07/27/2025 9:46 AM EDT Gallstone pancreatitis Biliary stricture (HCC) Special Needs CONSENT FOR BLOCK IF OPENSPYGLASS AVAILABLE HEPATIC FUNCTION PANEL Routine 07/02/2025 12:45 PM EDT Gallstone pancreatitis Biliary stricture (HCC) History of Francesco-en-Y gastric bypass Elevated CA 19-9 level LIPASE Routine 07/02/2025 12:45 PM EDT Gallstone pancreatitis Biliary stricture (HCC) History of Frnacesco-en-Y gastric bypass Elevated CA 19-9 level CA [...] Francesco-en-Y gastric bypass Elevated CA 19-9 level AR EDG US EXAM SURGICAL ALTER STOM DUODENUM/JEJUNUM [...] 05/25/2025 3:00 PM EDT Biliary stricture (HCC) AR ERCP STENT PLACEMENT BILIARY/PANCREATIC DUCT 05/25/2025 3:00 PM EDT Biliary stricture (HCC) US ABDOMEN-LIMITED STAT 05/25/2025 11:48 AM EDT US ABDOMEN ARCHIVE FOR REFERENCE [...] Routine 05/25/2025 6:44 AM EDT CA 19-9 [id number] Routine 05/25/2025 6:44 AM EDT CEA Routine [...] EDT from Last 3 Months Results * Pathology (07/27/2025 12:37 PM EDT) Report [facility] [id number] CLIA ID [id number] [address] [place] [phone] Surgical Pathology Report PATIENT NAME: BERRY LEE REC NUMBER: [id number] (AGE): 1955 (Age: 69) SPECIMEN NUMBER: [id number] DATE OBTAINED: 07/27/2025 DIAGNOSIS CHOLECYSTECTOMY: ACUTE AND CHRONIC CHOLECYSTITIS WITH HYPERPLASTIC CHANGES AND CHOLELITHIASIS. tv/08/16/2025 Electronically Signed Out ELDA SANCHEZ MD Signout Facility: [address] CLIA #: [id number] COMMENT [id number] Clinical Information and History: Gallstone pancreatitis, biliary stricture TRT 1237 TIF 1300 Tissue(s) Submitted: A: GALLBLADDER AND CONTENTS Gross Description: The specimen is received in formalin labeled per the requisition gallbladder and contents and consists of a previously disrupted resected gallbladder measuring 8.5 x 4.6 x 1.2 cm with an attached clipped cystic duct measuring 3.2 cm in length and 0.5 cm in diameter. The serosa is disrupted, chua-pink and congested with moderate attached adipose tissue. The opposing hepatic bed is chua-red, ragged and cauterized. The specimen is opened to reveal a few black irregular choleliths within the cystic duct measuring up to 0.3 cm in greatest dimension. The mucosa is chua-pink and trabeculated. On sectioning, the wall is chua-white measuring up to 0.2 cm thick. There are possible chua-pink polypoid nodules within the cystic duct measuring up to 1.1 x 0.2 x 0.3 cm. 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 Please see procedure report for additional information. Narrative 08/06/2025 6:42 AM EDT EXAMINATION: FL CHOLANGIOGRAM IN OR CLINICAL INFORMATION: IOC. COMPARISON: None available. TECHNIQUE: Fluoroscopy during procedure. FINDINGS: Intraoperative cholangiogram. CBD stent in position. FLUOROSCOPY TIME: 00:02.4 mm:ss.d DOSE AREA PRODUCT: 2.7202 Gy-cm2 (mendez-centimeter squared) Procedure Note Bibi Camacho MD - 08/06/2025 EXAMINATION: FL CHOLANGIOGRAM IN OR CLINICAL INFORMATION: IOC. COMPARISON: None available. TECHNIQUE: Fluoroscopy during procedure. FINDINGS: Intraoperative cholangiogram. CBD stent in position. FLUOROSCOPY TIME: 00:02.4 mm:ss.d DOSE AREA PRODUCT: 2.7202 Gy-cm2 (mendez-centimeter squared) IMPRESSION: Fluoroscopy during procedure. Please see procedure report for additional information. Anita Kumar MD IMG FLUOROSCOPY ORDERABLES Fi nal Result * ANES LINE - PERIPHERAL, SINGLE LUMEN (07/27/2025 10:37 AM EDT) Only the most recent of3 resultswithin the time period is included. Elli Saucedo CRNA - 07/27/2025 10:37 AM EDT Elli Lockhart CRNA 07/27/2025 10:37 AM Anesthesia Procedure Note - Peripheral IV Placement Patient Name: Berry Lee : 1955 Patient location: OR Indication(s): surgery Performed by: Resident/JUAN Lockhart CRNA Procedure Preparation Skin prep: alcohol Sterile barriers in place: cap, gloves and mask Patient pre-procedure mental status: anesthetized Single lumen yorw-lus-jksecs catheter system, 20 g, 1 in length, in left wrist Insertion attempts: 1 Juan Jose Gonzalez MD AR ANESTHESIA Final Result * ANES INTUBATION (07/27/2025 10:36 AM EDT) Only the most recent of2 resultswithin the time period is included. Elli Saucedo CRNA - 07/27/2025 10:36 AM EDT Elli Lockhart CRNA 07/27/2025 10:37 AM Anesthesia Procedure Note - Elective intubation Patient Name: Berry Lee : 1955 Patient location: OR Procedure indications: airway protection Procedure diagnosis: Anesthesia Performed by: Resident/JUAN Lockhart CRNA Chart Verification ID band applied and present Patient ID verified via arm band. Airway: airway not difficult Preanesthetic Checklist monitors and equipment checked. Patient's pre-procedure mental status: anesthetized Airway not difficult - NPO status: > 8 hours Procedure Details Intubation route: oral Intubation method: direct laryngoscopy Mac 3 Number of attempts: 1 Patient status for intubation: unresponsive Patient position: supine Preoxygenation: BVM Quality of BVM: easy and 1 person Tube size: 7.0 mm - cuffed, cuff inflated and minimal leak test Cricoid pressure not applied or not required Cord visualization: Grade I Placement confirmation method: chest rise, ETCO2 monitor and CO2 detector Breath sounds: equal bilaterally ETT to lip: 21 cm Dentition: same as baseline Complications: no complications us Juan Jose Gonzalez MD AR ANESTHESIA Final Result * CA 19-9 (07/02/2025 12:45 PM EDT) Pathologist [facility] CA 19-9 10 <34 U/mL [facility] Comment: This test was performed using the [...] MD LAB BLOOD ORDERABLES Final Re sult [facility] [address] [place] [phone] * COMPLETE BLOOD COUNT, WITHOUT DIFFERENTIAL (07/02/2025 12:45 PM EDT) Only the most recent of4 resultswithin the time period is included. Pathologist [facility] White Blood Cell Count 7.6 3.8 - 10.8 Thousand/u L [facility] Red Blood Cell Count 4.21 3.80 - 5.10 Million/uL [facility] Hemoglobin 12.1 11.7 - 15.5 g/dL [facility] Hematocrit 37.5 35.0 - 45.0 % [facility] MCV 89.1 80.0 - 100.0 fL [facility] MCH 28.7 27.0 - 33.0 pg [facility] MCHC 32.3 32.0 - 36.0 g/dL [facility] Comment: For adults, a slight decrease in the calculated MCHC value (in the range of 30 to 32 g/dL) is most likely not clinically significant; however, it should be interpreted with caution in correlation with other red cell parameters and the patient's clinical condition. RDW 15.0 11.0 - 15.0 % [facility] Platelet Count 279 140 - 400 Thousand/u L [facility] MPV 11.6 7.5 - 12.5 fL [facility] Blood Blood specimen / Unknown 07/02/2025 12:45 PM EDT 07/02/2025 12:46 PM EDT Narrative [facility] - 07/03/2025 9:18 AM EDT FASTING:NO FASTING: NO Anita Kumar MD LAB BLOOD ORDERABLES Final Re sult Performing Organization Address [facility] de Phone Number [facility] [address] [place] [phone] * LIPASE (07/02/2025 12:45 PM EDT) Only the most recent of4 resultswithin the time period is included. Lipase 45 7 - 60 U/L [facility] Blood Blood specimen / Unknown 07/02/2025 12:45 PM EDT 07/02/2025 12:46 PM EDT Narrative [facility] - 07/03/2025 9:18 AM EDT FASTING:NO FASTING: NO Anita Kumar MD LAB BLOOD ORDERABLES Final Re sult Performing Organization Address [facility] de Phone Number [facility] [address] [place] [phone] * (ABNORMAL) HEPATIC FUNCTION PANEL (07/02/2025 12:45 PM EDT) Protein, Total 6.8 6.1 - 8.1 g/dL [facility] Albumin 4.1 3.6 - 5.1 g/dL [facility] Globulin 2.7 1.9 - 3.7 g/dL (calc) [facility] Albumin/Globulin Ratio 1.5 1.0 - 2.5 (calc) [facility] Bilirubin, Total 0.9 0.2 - 1.2 mg/dL [facility] Bilirubin, Direct 0.3(H) < OR = 0.2 mg/dL [facility] Bilirubin, Indirect 0.6 0.2 - 1.2 mg/dL (calc) [facility] Alkaline Phosphatase 207(H) 37 - 153 U/L [facility] Aspartate Aminotrans (AST) 27 10 - 35 U/L [facility] Alanine Aminotrans (ALT) 22 6 - 29 U/L [facility] Blood Blood specimen / Unknown 07/02/2025 12:45 PM EDT 07/02/2025 12:46 PM EDT Narrative [facility] - 07/03/2025 9:18 AM EDT FASTING:NO FASTING: NO us Anita Kumar MD LAB BLOOD ORDERABLES Final Re sult [facility] [address] [place] [phone] * Basic Metabolic Panel (07/02/2025 12:45 PM EDT) Pathologist [facility] Glucose 95 65 - 139 mg/dL [facility] Comment: Non-fasting reference interval Blood Urea Nitrogen (BUN) 13 7 - 25 mg/dL [facility] Creatinine 0.56 0.50 - 1.05 mg/dL [facility] Creatinine w/ eGFR 99 > OR = 60 mL/min/1. 73m2 [facility] BUN/Creatinine Ratio SEE NOTE: 6 - 22 (calc) [facility] Comment: Not Reported: BUN and Creatinine are within reference range. Sodium 142 135 - 146 mmol/L [facility] Potassium 3.9 3.5 - 5.3 mmol/L [facility] Chloride 107 98 - 110 mmol/L [facility] CO2 27 20 - 32 mmol/L [facility] Calcium 9.0 8.6 - 10.4 mg/dL [facility] Blood Blood specimen / Unknown 07/02/2025 12:45 PM EDT 07/02/2025 12:46 PM EDT Narrative [facility] - 07/03/2025 9:18 AM EDT FASTING:NO FASTING: NO Result [facility] Anita Kumar MD LAB BLOOD ORDERABLES Final Re sult Performing Organization Address [facility] de Phone Number [facility] [address] [place] [phone] * RADHA Archive for reference only DX (06/01/2025 12:20 PM EDT) Only the most recent of3 resultswithin the time period is included. [facility] 06/01/2025 12:13 PM EDT This order has been auto-finalized and does not contain a result. File Room Provider IMG DIGITIZE FILMS Final Resu lt Performing Organization Address [facility] de Phone Number MILTON [phone] * RADHA Archive for reference only RF (06/01/2025 12:15 PM EDT) [facility] 06/01/2025 12:13 PM EDT This order has been auto-finalized and does not contain a result. File Room Provider IMG DIGITIZE FILMS Final Resu lt Performing Organization Address [facility] de Phone Number MILTON [phone] * CR Chest Archive for Reference only (06/01/2025 12:13 PM EDT) [facility] 06/01/2025 12:13 PM EDT This study has been auto finalized and does not contain a result. File Room Provider IMG DIGITIZE FILMS Final Resu lt Performing Organization Address [facility] de Phone Number MILTON [phone] * MG Screening Archive for Reference Only (06/01/2025 12:12 PM EDT) Only the most recent of6 resultswithin the time period is included. Narrative [facility]TON - 06/01/2025 12:12 PM EDT This study has been auto finalized and does not contain a result. us File Room Provider IMG DIGITIZE FILMS Final Resu lt Performing Organization Address [facility] de Phone Number MILTON [phone] * CR Extremity Left Archive for Reference only (06/01/2025 12:12 PM EDT) Narrative [facility]TON - 06/01/2025 12:12 PM EDT This study has been auto finalized and does not contain a result. us File Room Provider IMG DIGITIZE FILMS Final Resu lt Performing Organization Address [facility] de Phone Number MILTON [phone] * (ABNORMAL) Comprehensive Metabolic Panel (05/30/2025 4:16 AM EDT) Only the most recent of7 resultswithin the time period is included. Glucose 97 65 - 99 mg/dL 05/30/2025 7:46 AM [facility] Comment:Fasting: <100 mg/dL, Non-Fasting: <200 mg/dL (ADA 2005) Blood Urea Nitrogen (BUN) 4(L) 8 - 21 mg/dL 05/30/2025 7:46 AM [facility] Creatinine 0.6 0.4 - 1.1 mg/dL 05/30/2025 7:46 AM [facility] eGFR >90 >59 05/30/2025 7:46 AM [facility] Comment:CKD-EPI (2020) in mL /min/1.73 sq meters. Sodium 142 136 - 145 mmol/L 05/30/2025 7:46 AM [facility] Potassium 4.2 3.4 - 5.3 mmol/L 05/30/2025 7:46 AM [facility] Chloride 105 98 - 107 mmol/L 05/30/2025 7:46 AM [facility] CO2 26 22 - 33 mmol/L 05/30/2025 7:46 AM [facility] Calcium 8.5(L) 8.7 - 10.5 mg/dL 05/30/2025 7:46 AM [facility] Alkaline Phosphatase 285(H) 32 - 122 U/L 05/30/2025 7:46 AM [facility] Aspartate Aminotrans (AST) 95(H) 10 - 50 U/L 05/30/2025 7:46 AM [facility] Alanine Aminotrans (ALT) 115(H) 10 - 50 U/L 05/30/2025 7:46 AM [facility] Bilirubin, Total 1.7(H) 0.2 - 1.0 mg/dL 05/30/2025 7:46 AM [facility] Protein, Total 5.8(L) 6.3 - 8.3 g/dL 05/30/2025 7:46 AM [facility] Albumin 2.9(L) 3.4 - 4.8 g/dL 05/30/2025 7:46 AM [facility] BUN/Creatinine Ratio 7(L) 10.0 - 25.0 Ratio 05/30/2025 7:46 AM [facility] Globulin 2.9 1.5 - 3.9 g/dL 05/30/2025 7:46 AM [facility] Albumin/Globulin Ratio 1.0 1.0 - 3.0 Ratio 05/30/2025 7:46 AM [facility] Anion Gap 11 7 - 17 05/30/2025 7:46 AM [facility] Blood Blood specimen / Unknown 05/30/2025 4:16 AM EDT 05/30/2025 6:37 AM EDT us Giovannygwa Elizabeth [facility] LAB BLOOD ORDERABLES Final Resul t [address] [address], [address] [address] * (ABNORMAL) Complete Blood Count WITH Differential - in AM (05/29/2025 5:23 AM EDT) Only the most recent of4 resultswithin the time period is included. [facility] White Blood Cell Count 8.1 4.0 - 11.0 Thou/uL 05/29/2025 5:38 AM [facility] Platelet Count 251 150 - 450 Thou/uL 05/29/2025 5:38 AM [facility] Hemoglobin 10.0(L) 11.7 - 15.7 g/dL 05/29/2025 5:38 AM [facility] Hematocrit 30.0(L) 35.0 - 47.0 % 05/29/2025 5:38 AM [facility] Red Blood Cell Count 3.60(L) 4.00 - 5.40 Mil/uL 05/29/2025 5:38 AM [facility] MCV 83 80 - 100 fL 05/29/2025 5:38 AM [facility] MCH 27.8 27.0 - 31.0 pg 05/29/2025 5:38 AM [facility] MCHC 33.3 30.0 - 36.0 g/dL 05/29/2025 5:38 AM [facility] RDW 16.1(H) 11.5 - 14.5 % 05/29/2025 5:38 AM [facility] MPV 10.3 7.5 - 12.5 fL 05/29/2025 5:38 AM [facility] Bands Man 1 % 05/29/2025 6:07 AM [facility] Neutrophils Man 73 % 6:07 AM [facility] Comment:Vacuolization presen t. Lymphocytes Man 17 % 6:07 AM [facility] Monocytes Man 6 % 05/29/2025 6:07 AM [facility] Eosinophils Man 3 % 6:07 AM [facility] Abs Neutrophils Count (ANC) 6.0 2.0 - 7.5 Thou/uL 05/29/2025 6:07 AM [facility] Abs Lymphocytes Man 1.4(L) 1.5 - 4.5 Thou/uL 05/29/2025 6:07 AM [facility] Abs Monocytes Man 0.5 0.2 - 1.5 Thou/uL 05/29/2025 6:07 AM [facility] Abs Eosinophils Man 0.2 0.0 - 0.7 Thou/uL 05/29/2025 6:07 AM EDT [facility] Normochromic Present 05/29/2025 6:07 AM EDT [facility] Normocytic Present 05/29/2025 6:07 AM EDT [facility] Blood Blood specimen / Unknown 05/29/2025 5:23 AM EDT 05/29/2025 5:32 AM EDT Ike Johnson APRN LAB BLOOD ORDERABLES Final Resul t Performing Organization Address [facility]/[place] [address], [place] [address] * (ABNORMAL) Bilirubin, Direct (05/28/2025 4:33 AM EDT) Only the most recent of4 resultswithin the time period is included. Bilirubin, Direct 2.0(H) 0 - 0.2 mg/dL 05/28/2025 5:24 AM EDT [facility] Blood Blood specimen / Unknown 05/28/2025 4:33 AM EDT 05/28/2025 5:03 AM EDT Navya York MD LAB BLOOD ORDERABLES Final Result Performing Organization Address City/[facility] [place] [address], [place] [address] * [place] ERCP (05/25/2025 6:00 PM EDT) [...] Cytology Report (05/25/2025 5:10 PM EDT) Report [facility] [id number] CLIA ID [id number] [address] [place] [address] / [phone] Cytopathology Report PATIENT NAME: BERRY LEE [facility] REC NUMBER: [id number] (AGE): 1955 (Age: 69) SPECIMEN NUMBER: [id number] DATE OBTAINED: 05/25/2025 DIAGNOSIS: A. CBD BRUSHING, BILIARY: ATYPICAL GLANDULAR CELLS. [facility]/05/29/2025 Electronicall y Signed Out JANNIE SANCHEZ MD [...] Final Result HOSPITAL LAB See Below * US Abdomen-Limited (05/25/2025 11:48 AM EDT) [...] Real-time ultrasonography of the abdomen was performed. [id number]. COMPARISON: CT Abdomen Pelvis 05/23/2025, US Abdomen [...] Real-time ultrasonography of the abdomen was performed. [id number]. COMPARISON: CT Abdomen Pelvis 05/23/2025, US Abdomen [...] Consider acalculous cholecystitis. us Lavern Mallory PA-C IMGoran US ORDERABLES Final R esult * US [...] FILMS Final Resu lt Performing Organization Address [facility] de Phone Number [place] [phone] * CT Abdomen Archive for Reference Only (05/25/2025 8:34 AM EDT) Only the most recent of4 resultswithin the time period is included. Narrative MELVIN - 05/25/2025 8:34 AM EDT This study has been auto finalized and does not contain a result. Procedure Note Ruby Roberts MA - 05/25/2025 This study has been auto finalized and does not contain a result. us File Room Provider IMG DIGITIZE FILMS Final Resu lt Performing Organization Address [facility] de Phone Number [place] [phone] * CT Chest Archive for Reference Only (05/25/2025 8:34 AM EDT) Narrative MELVIN - 05/25/2025 8:34 AM EDT This study has been auto finalized and does not contain a result. us File Room Provider IMG DIGITIZE FILMS Final Resu lt Performing Organization Address [facility] de Phone Number [place] [phone] * (ABNORMAL) CA 19-9 (05/25/2025 6:44 AM EDT) CA 19-9 143(H) <34 U/mL 05/29/2025 3:17 PM EDT [facility] [place] Comment: (NOTE) This test was performed using [...] ORDERABLES Final Re sult Performing Organization Address City/[facility]/ZIP Co de Phone Number [facility], [employer] [address] [facility] [address] [address] [place], [place] , [facility], [place] [address] [facility] [address] [address] [place], [place] * Hemoglobin A1c with Estimated Average Glucose (Early AM) (05/25/2025 6:44 AM EDT) Hemoglobin A1C 5.5 <5.7 % 05/25/2025 10:10 AM EDT [facility] Comment: A1c% Interpretation 5.7 - 6.0 Increase risk of diabetes 6.1 - 6.4 Higher risk of diabetes > or = 6.5 Consistent with diabetes Diabetes Care, 33(Supp 1):S1-S61, 2010 Estimated Average Glucose 111 mg/dL 05/25/2025 10:10 AM EDT [facility] Blood Blood specimen / Unknown 05/25/2025 6:44 AM EDT 05/25/2025 8:45 AM EDT Anita Kumar MD LAB BLOOD ORDERABLES Final Re sult Performing Organization Address City/[facility] Co de Phone Number [address] [address], [address] [address] * Magnesium (05/25/2025 6:44 AM EDT) Magnesium 2.0 1.6 - 2.7 mg/dL 05/25/2025 1:46 PM EDT [facility] Blood Blood specimen / Unknown 05/25/2025 6:44 AM EDT 05/25/2025 8:45 AM EDT Johnson Graham MD LAB BLOOD ORDERABLES Final Re sult Performing Organization Address [facility] Co de Phone Number [address] [address], [address] [address] * Lactic Acid, Plasma (05/25/2025 6:44 AM EDT) Only the most recent of2 resultswithin the time period is included. Lactic Acid 0.6 0.5 - 1.9 mmol/L 05/25/2025 9:26 AM EDT [facility] Blood Blood specimen / Unknown 05/25/2025 6:44 AM EDT 05/25/2025 8:44 AM EDT us Johnson Graham MD LAB BLOOD ORDERABLES Final Re sult Performing Organization Address [facility] [place] [address], [place] [address] * CEA (05/25/2025 6:44 AM EDT) CEA (Jake) 1.7 0.0 - 3.8 ng/mL 05/25/2025 9:34 AM EDT [facility] Comment: Reference range: Age 20 - [...] ORDERABLES Final Re sult Performing Organization Address [facility] Co de Phone Number [address] [address], [place] [address] * Blood Culture #2 (05/24/2025 7:46 PM EDT) Only the most recent of2 resultswithin the time period is included. Culture Sterile after 5 days 05/29/2025 10:15 AM EDT [facility] Blood Blood specimen / Unknown 05/24/2025 7:46 PM EDT 05/24/2025 10:04 PM EDT Comment:Blood Johnson Graham MD LAB BLOOD ORDERABLES Final Re sult Performing Organization Address City/[facility]/ZIP Co de Phone Number [facility] [address] [place] [address], [place] * MR Chest Archive for Reference Only (05/24/2025 7:44 PM EDT) Narrative MELVIN - 05/24/2025 7:44 PM EDT This study has been auto finalized and does not contain a result. Procedure Note Ruby Roberts MA - 05/24/2025 This study has been auto finalized and does not contain a result. File Room Provider IMG DIGITIZE FILMS Final Resu lt Performing Organization Address [facility] Co de Phone Number [place] [phone] * (ABNORMAL) PROTIME-INR (05/24/2025 7:40 PM EDT) Anticoagulant NO ANTI COAGULANT MEDS 05/24/2025 7:04 PM EDT [facility] Prothrombin Time (PT) 14.0(H) 10.0 - 13.5 seconds 05/24/2025 8:12 PM EDT [facility] INR 1.2 05/24/2025 8:12 PM EDT [facility] Comment:INR Therapeutic Rang es: Standard dose anticoagulant 2.0 to 3.0, High dose anticoagulant 2.5-3.5. Blood Blood specimen / Unknown 05/24/2025 7:40 PM EDT 05/24/2025 7:54 PM EDT us Kennedy Gil MD LAB BLOOD ORDERABLES Final Resul t Performing Organization Address [facility] [place] [address], [place] [address] * Type and Screen (05/24/2025 7:30 PM EDT) ABO/Rh O POSITIVE 05/24/2025 8:34 PM EDT [facility] Antibody Screen NEGATIVE 8:34 PM EDT [facility] Specimen Expiration 05/27/2025 05/24/2025 8:34 PM EDT [facility] Blood Blood specimen / Unknown 05/24/2025 7:30 PM EDT 05/24/2025 7:55 PM EDT us Kennedy Gil MD BLOOD BANK TEST ORDERABLES Final Result Performing Organization Address [facility] [place] [address], [address] [address] * ECG 12 lead (STAT) (05/24/2025 7:28 PM EDT) Ventricular rate 54 BPM EKG [facility] Atrial rate 54 BPM EKG [facility] P-R interval 150 ms EKG [facility] QRS duration 102 ms EKG [facility] Q-T interval 426 ms EKG [facility] QTC calculation (Bazett) 404 ms EKG [facility] P axis 55 degrees EKG [facility] R axis -18 degrees EKG [facility] T axis 19 degrees EKG [facility] 05/24/2025 7:28 PM EDT Narrative EKG [facility] - 05/24/2025 8:14 PM EDT Sinus bradycardia Otherwise normal ECG No previous ECGs available Confirmed by MD Constantino Ahmed ([id number]) on 05/24/2025 8:14:18 PM Procedure Note Corbin Constantino MD - 08/14/2025 Sinus bradycardia Otherwise normal ECG No previous ECGs available Confirmed by MD Dougie, [facility] ([id number]) on 05/24/2025 8:14:18 PM us Johnson Graham MD ECG ORDERABLES Final Result EKG [facility] from Last 3 Months Additional Health Concerns Active Problems Noted Date Diagnosed Date Autogenerated Problem 06/21/2025 Insurance [facility] MEDICARE MEDICARE PART A & B [facility] MEDICARE [facility] MEDICARE Advance Directives * Full Code (Latest Code Status on File) Date Activated Date Inactivated Comments 07/27/2025 9:33 AM * Full Code Date Activated Date Inactivated Comments 05/24/2025 6:30 PM 06/12/2025 7:39 AM Care Teams Vertical 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
== END 2025-08-20 10:05 | disposition home or self-care (01) ==
LOC: HO.HMCH 09:34
PROVIDERS: PCP Internal Medicine; Visit Provider Internal Medicine
DX: Z90.49 Acquired absence of other specified parts of digestive tract (principal); Z98.84 Bariatric surgery status; E66.01 Morbid (severe) obesity due to excess calories; Z68.41 Body mass index [BMI] 40.0-44.9, adult; K21.9 Gastro-esophageal reflux disease without esophagitis; J45.20 Mild intermittent asthma, uncomplicated; R30.0 Dysuria; Z13.9 Encounter for screening, unspecified; Z23 Encounter for immunization

== ENCOUNTER → 2025-08-20 09:33 | Outpatient (BNVA) | payer OTHER, SELFPAY | PROVIDERS: PCP Internal Medicine; Visit Provider Internal Medicine | DX: Z23 Encounter for immunization (principal); Z90.49 Acquired absence of other specified parts of digestive tract; E66.01 Morbid (severe) obesity due to excess calories; K21.9 Gastro-esophageal reflux disease without esophagitis; J45.20 Mild intermittent asthma, uncomplicated; R30.0 Dysuria; Z98.84 Bariatric surgery status; Z68.38 Body mass index [BMI] 38.0-38.9, adult | CPT/HCPCS: 81003; 90471; 90656; 96127 ==

== ENCOUNTER 2025-09-24 16:26 | Outpatient (AMB) | payer OTHER, SELFPAY ==
--- OUTSIDE RECORDS SUMMARY | 2025-09-20 12:29 | XMS_ITS | Encounter Summary ---
Author Organization [facility] Address [address] [place] [id number] Care Team Providers Care Casing Sewer Name Role Phone Harry Chun MD Primary Care Provider [phone] Anita Kumar MD Unavailable [phone] Jeremy Rincon MD Unavailable [phone] Reason for Visit * Auth/Cert Specialty Diagnoses / Procedures Referred By Contac t Referred To Contact Diagnoses Choledocholithiasis Common bile duct (CBD) stricture (HCC) Procedures ERCP Referral ID Status Reason Start Date Expiration Date Visits Re quested Visits Authorized [id number] 1 1 Encounter Details Date Type Department Care Team (Latest Contact Info) Description 09/20/2025 12:29 PM EST - 09/20/2025 5:20 PM EST Hospital Encounter [facility] Gastroenterology Division [address] [place] [phone] Jeremy Rincon MD [address] [place] [id number] Discharge Disposition: Home or Self Care Social History Tobacco Use Types Packs/Day Years Used Date Smoking Tobacco: Never Smokeless Tobacco: Never Alcohol Use Standard Drinks/Week Comments Yes 2 (1 standard drink = 0.6 oz pur e alcohol) drinks on weekends [facility] Utilities Answer Date Recorded In the past 12 months has [employer], oil, or water [employer] threatened to shut off services in your home? No 05/26/2025 Overall Financial Resource Strain (CARDIA) Answe r [...] any time in the past 12 [facility], were you homeless or living in a fci (including now)? No 05/26/2025 AUDIT-C Answer Date Recorded Q1: How often do you have a drink containing alc ohol? 2-4 times a month 09/14/2025 Q2: How many drinks containi ng alcohol do you have on a typical day when you are drinking? 1 or 2 09/14/2025 Q3: How often do you have si x or more drinks on one occasion? 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 Not on file Not on file Not on radha e documented as of this encounter Last Filed Vital Signs Vital Sign Reading Time Taken Comments Blood Pressure 161/77 09/20/2025 4:45 PM EST Pulse 45 09/20/2025 4:45 PM EST Temperature 36.4 C (97.6 F) 09/20/2025 4:45 PM EST Respiratory Rate 20 09/20/2025 4:45 PM EST Oxygen Saturation 98% 09/20/2025 4:45 PM EST Inhaled Oxygen Concentration - - Weight 88.5 kg (195 lb) 09/14/2025 12:09 PM EST Height 147.3 cm (4' 10 ) 09/14/2025 12:09 PM EST Body Mass Index 40.76 09/14/2025 12:09 PM EST documented in this encounter Functional Status * AUDIT-C Score Answer Date of Assessment Author 2 09/14/2025 12:18 PM Rach Reed RN * Question Answer Date of Assessment Author AUDIT-C Total Score - Female 2 09/14/2025 12:18 PM Amber Reed RN Q1: How often do you have a drink containing alcohol? 2-4 times a month 09/14/2025 12:18 PM Amber Reed RN Q2: How many drinks containing alcohol do you have on a typical day when you are drinking? 1 or 2 09/14/2025 12:18 PM Amber Reed RN Q3: How often do you have six or more drinks on one occasion? Never 09/14/2025 12:18 PM Amber Reed RN documented as of this encounter Medications at Time of Discharge albuterol (PROAIR RESPICLICK) 108 (90 Base) MCG/ACT inhaler Inhale 1 puff 4 times daily (every 6 hours) as needed for wheezing. ascorbic acid 250 MG tablet Take 1 tablet (250 mg total) by mouth daily. celeCOXIB (CeleBREX) 50 MG capsule as needed. 04/30/2025 Cyanocobalamin (VITAMIN B 12 PO) Take by mouth. melatonin 5 MG Cap capsule Oral; Duration: 30 documented as of this encounter H&P Notes * Jeremy Rincon MD - 09/20/2025 12:58 PM EST Gastroenterology History & Physical Procedure Date: 09/20/2025 Patient's Primary Care Provider: Harry Chun MD PROCEDURE: ERCP CHIEF COMPLAINT: Choledocholithiasis s/p ERCP with stent placement - HPI: Patient is a 70 y.o. year old female who presents for endoscopic evaluation of Choledocholithiasis s/p ERCP with stent placement - need repeat ERCP for stent removal. Francesco-en-Y gastric bypass S/p EUS guided transgastric AXIOS stent presents today for 2nd stage of EDGE for ERCP Past Medical History: Diagnosis Date Acid reflux Anemia Arthritis Asthma Gallstone pancreatitis Hypertension Pneumonia PONV (postoperative nausea and vomiting) mild Family History Adopted: Yes Problem Relation Age of Onset No Known Problems Daughter No Known Problems Daughter No Known Problems Son Social History[1] Allergies[2] Prior to Admission medications Medication Sig Start Date End Date Taking? Authorizing Provider acetaminophen (TYLENOL) 325 MG tablet Take 3 tablets (975 mg total) by mouth 4 times daily (every 6hours) as needed for mild pain or moderate pain (Do not exceed 4,000 mg in a 24 hour period.). 07/27/25 09/14/25 Yes LETI Kruse albuterol (PROAIR RESPICLICK) 108 (90 Base) MCG/ACT inhaler Inhale 1 puff 4 times daily (every 6 hours) as needed for wheezing. Yes External Provider, ascorbic acid 250 MG tablet Take 1 tablet (250 mg total) by mouth daily. Yes External Provider, calcium carbonate (TUMS) 500 MG chewable tablet Chew 1 tablet (500 mg total) 4 (four) times a day as needed for indigestion or heartburn. 05/30/25 09/14/25 Yes Ike Johnson APRN celeCOXIB (CeleBREX) 50 MG capsule as needed. 04/30/25 Yes External Provider, Cyanocobalamin (VITAMIN B 12 PO) Take by mouth. Yes External Provider, melatonin 5 MG Cap capsule Oral; Duration: 30 Yes External ProviderMD ondansetron (ZOFRAN-ODT) 4 MG disintegrating tablet Take 1 tablet (4 mg total) by mouth 3 times daily (every 8 hours) as needed for nausea or vomiting. Place tablet on tongue to dissolve. 07/06/25 09/14/25 Yes Consuelo Roberts APRN PANTOprazole (PROTONIX) 40 MG EC tablet Take 1 tablet (40 mg total) by mouth daily. Patient taking differently: Take 1 tablet (40 mg total) by mouth every morning. 05/31/25 09/14/25 Carrie Johnson APRN Ht 1.473 m (4' 10 ) Wt 88.5 kg (195 lb) BMI 40.76 kg/m?? Physical Exam Eyes: no icterus ENT: No lymphadenopathy CVS: Regular rate and rhythm Abdomen: soft, Non tender, non distended, bowel sounds present Extremities: no clubbing, cyanosis or edema Neuro: AAO X 3, no asterixis. IMPRESSION: 70 y.o. year old female who presents for endoscopic evaluation of Choledocholithiasis s/p ERCP with stent placement - need repeat ERCP for stent removal. Francesco-en-Y gastric bypass S/p EUS guided transgastric AXIOS stent presents today for 2nd stage of EDGE for ERCP PLAN: ERCP Today ASA per anesthesia ERCP - benefits and risks explained to patient including but not limited to bleeding, infection , perforation or anesthesia related side effects. Jreemy Rincon MD 09/20/2025 12:58 PM [1] Social History Tobacco Use Smoking status: Never Smokeless tobacco: Never Substance Use Topics Alcohol use: Yes Alcohol/week: 2.0 standard drinks of alcohol Types: 2 Standard drinks or equivalent per week Comment: drinks on weekends Drug use: Never [2] Allergies Allergen Reactions Morphine Other (See Comments) Unknown. documented in this encounter Miscellaneous Notes * Discharge Instructions - Jeremy Rincon MD - 09/20/2025 2:22 PM EST Patient Instructions after an Upper Endoscopy (With or without Polypectomy or Biopsy) Patient Name: Shawna Chow Date of : 1955 Date of Procedure: September Procedure Performed by: Jeremy Rincon Normal symptoms that may occur after the procedure include: ? You may experience belching because air has been placed into your stomach. ? You may experience a sore throat for up to 24-48 hours. You may use throat lozenges or gargle with warm salt water to relieve the discomfort ? Temporary impairment of short-term memory due to sedative used for the procedure CALL YOUR Jeremy Rincon at Work: IF YOU EXPERIENCE ANY OF THE FOLLOWING PROBLEMS: ? Chills and or fever greater than 100.5 degrees F ? Persistent nausea or vomiting ? Prolonged abdominal pain or bloating ? Pain, redness, or swelling at the site where your IV was placed that does not get better with warm compresses applied 4 times a day for 2 days ? Black, tarry stools ? Difficulty breathing ? Severe sore throat pain that has not resolved within 24-48 hours CHEST PAIN SHOULD BE TREATED AN EMERGENCY - CALL 911 IMMEDIATELY INSTRUCTIONS: Diet: Resume your usual diet today unless instructed otherwise by the doctor. [id number] medications: If polyp was removed or biopsy was performed- Try avoid taking NSAIDS (such as Advil, Motrin or Aleve) unless indicated below. Tylenol is acceptable Activity: ? Do not drive, drink alcohol, operate machinery, make important decisions, or do activities that require coordination for the rest of the day. ? Rest at home today. Light activity is permitted. Resume your usual activities tomorrow. Results: ? If biopsies have been taken or polyps removed, Your Pathology results will be available and reviewed by your physician within 7-10 days. Pathology results will be available to you electronically via our [employer] portal. Please check [employer] for these results and a message from your physician. ? If you do not have [employer], you may sign up for [employer] via the link found on the website: ([email or web address]), or please call your physician's office for pathology results within 7-10 days after your procedure MEDICATIONS Medications you received today: Monitored Anesthesia Care RESUME YOUR USUAL MEDICATIONS. ANY CHANGES TO YOUR MEDICATIONS WILL BE LISTED BELOW: PHYSICIAN CONTACT INFORMATION Jeremy Rincon at Work: Your doctor?s findings from your procedure: - Pre-existing transgastric AXIOS stent, was found in the gastric pouch. Migrated. 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 . Your doctor recommends these additional instructions: - Patient has a contact number available for emergencies. The signs and symptoms of potential delayed complications were discussed with the patient. Return to normal activities tomorrow. Written discharge instructions were provided to the patient. - Resume previous diet. - Continue present medications. - The patient is not currently taking anticoagulant or antiplatelet agents. If you have any questions on the above instructions, call your physician. Patient Signature Relation to Patient Date Time RN Signature Date Time Jeremy Fowler MD Jeremy Rincon, 09/20/2025 4:54:34 PM * Discharge Instructions - Jeremy Rincon MD - 09/20/2025 1:18 PM EST Instructions for after an ERCP Patient Name: Shawna Chow Date of : 1955 Date of Procedure: September Procedure Performed by: Jeremy Rincon Normal symptoms that may occur after the procedure include: ? Some abdominal discomfort, cramping, or gas pains (relieved by passing gas). If you experience any discomfort or gas, lie on your left side with a heating pad on your stomach to help relieve it ? Because air was put into your stomach during the procedure, you may experience some belching ? You may experience a sore throat for up to 24-48 hours. You may use Cepacol, Cepastat, Sucrets, or any similar throat lozenge if you have any throat discomfort CALL YOUR Jeremy Rincon at Work: IF YOU EXPERIENCE ANY OF THE FOLLOWING PROBLEMS: ? Chills and or fever greater than 100.5 degrees F ? Persistent vomiting or vomiting with blood ? Severe abdominal pain, other than gas cramps ? Black, tarry stools ? Pain, redness, or swelling at the site where your IV was placed that does not get better with warm compresses applied 4 times a day for 2 days ? Trouble Swallowing or breathing CHEST PAIN SHOULD BE TREATED AN EMERGENCY - CALL 911 IMMEDIATELY INSTRUCTIONS: Diet: ? Light, low-fat diet on the day of procedure ? Stay well-hydrated ? Don?t eat if having significant pain (Return to the ER) Activity: ? Do not drive, drink alcohol, operate machinery, make important decisions, or do activities that require coordination for the rest of the day. ? Rest at home today. Light activity is permitted. Resume your usual activities tomorrow. Medications: ? If you received any IV medication, do not take tranquilizers or sedatives for the remainder of the day unless directed to do so by your doctor ? Try avoid taking NSAIDS (such as Advil, Motrin or Aleve) unless indicated below. Tylenol is acceptable Results: ? If biopsies have been taken: Your Pathology results will be available and reviewed by your physician within 7-10 days. Pathology results will be available to you electronically via our [employer] portal. Please check [employer] for these results and a message from your physician. ? If you do not have [employer], you may sign up for [employer] via the link found on the website: ([email or web address]), or please call your physician's office for pathology results within 7-10 days after your procedure. MEDICATIONS: Medications you received today: Monitored Anesthesia Care RESUME YOUR USUAL MEDICATIONS. ANY CHANGES TO YOUR MEDICATIONS WILL BE LISTED BELOW: THE FOLLOWING RECOMMENDATIONS ARE BASED ON THE FINDINGS OF YOUR EXAM: - Discharge patient to home. - Observe patient's clinical course. - Repeat ERCP in 3 months to remove or exchange stent. FINDINGS OF YOUR EXAM: - A single severe biliary stricture was found in the lower third of the main bile duct. - Choledocholithiasis was found. Complete removal was accomplished by balloon extraction and sphincteroplasty. - One previously placed stent was removed from the biliary tree. - One covered metal biliary stent was placed into the common bile duct. PHYSICIAN CONTACT INFORMATION Jeremy Rincon at Work: If you have any questions on the above instructions, call your physician. Patient Signature Relation to Patient Date Time RN Signature Date Time Jeremy Fowler MD Jeremy Rincon, 09/20/2025 5:01:41 PM documented in this encounter Plan of Treatment Upcoming Encounters Date Type Department Care Team ([facility] st Contact Info) Description 10/13/2025 9:00 AM EST Appointment [facility] Radiology [facility] [address] [place] [address] Jeremy Rincon MD [address] [place] [id number] Pending Results Name Type Priority Associated Diagnoses Date /Time FL ERCP Imaging Routine 09/20/2025 2:2 5 PM EST Scheduled Orders Name Type Priority Associated Diagnoses Orde r Schedule FL ERCP Imaging Routine One time imagi ng One time imaging for 1 Occurrences starting 09/20/2025 until 09/20/2025 documented as of this encounter Procedures Procedure Name Priority Date/Time Associated Diagnosis Comments ENDOSCOPY UPPER 09/20/2025 1:52 PM EST Choledocholithiasis Common bile duct (CBD) stricture (HCC) CHG CHOLANGIO&/PANCREATOGR APHY ADDL SET INTRAOP RS 09/20/2025 1:52 PM EST Choledocholithiasis Common bile duct (CBD) stricture (HCC) documented in this encounter Visit Diagnoses Not on filedocumented in this encounter Administered Medications Inactive Administered Medications - up to 1 most recent administrations Medication Order MAR Action Action Date Dose Rate Site lactated ringers (LR) infusion 125 mL/hr, Intravenous, Continuous, Starting on Lenka 09/20/25 at 1530, PACU (only) New Bag 09/20/2025 3:37 PM EST 125 mL/hr 125 mL/hr acetaminophen (TYLENOL) tablet 975 mg 975 mg, Oral, Once PRN, mild pain 1-3, Starting on Lenka 09/20/25 at 1527, For 1 dose, PACU (only), Give when patient is tolerating PO haloperidol lactate (HALDOL) 5 mg/mL injection 0.5 mg 0.5 mg, Intravenous, Once PRN, refractory nausea and vomiting, Starting on Lenka 09/20/25 at 1527, For 1 dose, PACU (only), If ordered IV Push: administer undiluted at a maximum rate of 5 mg/minute. HYDROmorphone (DILAUDID) 2 mg/mL injection 0.2 mg 0.2 mg, Intravenous, Every 10 min PRN, mild pain 1-3, Starting on Lenka 09/20/25 at 1527, For 7 days, PACU (only), If a total of 3 mg has been administered across all pain scales, contact an anesthesia provider for reassessment For IV Push, administer over 2 to 3 minutes. HYDROmorphone (DILAUDID) 2 mg/mL injection 0.4 mg 0.4 mg, Intravenous, Every 10 min PRN, moderate to moderately severe pain 4-6, Starting on Lenka 09/20/25 at 1527, For 7 days, PACU (only), If a total of 3 mg has been administered across all pain scales, contact an anesthesia provider for reassessment For IV Push, administer over 2 to 3 minutes. Given 09/20/2025 4:14 PM EST 0.4 mg HYDROmorphone (DILAUDID) 2 mg/mL injection 0.6 mg 0.6 mg, Intravenous, Every 10 min PRN, severe to excruciating pain 7-10, Starting on Lenka 09/20/25 at 1527, For 7 days, PACU (only), If a total of 3 mg has been administered across all pain scales, contact an anesthesia provider for reassessment For IV Push, administer over 2 to 3 minutes. naloxone (NARCAN) 0.4 mg/mL injection 0.04 mg 0.04 mg, Intravenous, Every 10 min PRN, itching, Starting on Lenka 09/20/25 at 1527, For 3 doses, PACU (only) documented in this encounter Active and Recently Administered Medications Times are shown in EST. Scheduled Medication Order 09/18/2025 09/19/2025 09/20/2025 ciprofloxacin (CIPRO) IVPB 400 mg in 200 mL D5W (premix) (COMPLETED) 400 mg, Intravenous, Administer over 60 Minutes, Once, On Lenka 09/20/25 at 1330, For 1 dose, All antimicrobials used at [facility] require an indication. Please complete the following documentation. Medical Prophylaxis 1405 (Given - Provid er: Erlin Finnegan MD) Continuous Medication Order 09/18/2025 09/19/2025 09/20/2025 lactated ringers (LR) infusion 125 mL/hr, Intravenous, Continuous, Starting on Lenka 09/20/25 at 1530, PACU (only) 1537 (New Bag - Prov ider: Lara Wilde RN)1649 (Stopped - Provider: Lara Wilde RN) PRN Medication Order 09/18/2025 09/19/2025 09/20/2025 acetaminophen (TYLENOL) tablet 975 mg 975 mg, Oral, Once PRN, mild pain 1-3, Starting on Lenka 09/20/25 at 1527, For 1 dose, PACU (only), Give when patient is tolerating PO haloperidol lactate (HALDOL) 5 mg/mL injection 0.5 mg 0.5 mg, Intravenous, Once PRN, refractory nausea and vomiting, Starting on Lenka 09/20/25 at 1527, For 1 dose, PACU (only), If ordered IV Push: administer undiluted at a maximum rate of 5 mg/minute. HYDROmorphone (DILAUDID) 2 mg/mL injection 0.2 mg(Linked Group 1) 0.2 mg, Intravenous, Every 10 min PRN, mild pain 1-3, Starting on Lenka 09/20/25 at 1527, For 7 days, PACU (only), If a total of 3 mg has been administered across all pain scales, contact an anesthesia provider for reassessment For IV Push, administer over 2 to 3 minutes. 1535 (See Alternativ e - Provider: Lara Wilde RN)1555 (See Alternative - Provider: Lara Wilde RN)1614 (See Alternative - Provider: Lara Wilde RN) HYDROmorphone (DILAUDID) 2 mg/mL injection 0.4 mg(Linked Group 1) 0.4 mg, Intravenous, Every 10 min PRN, moderate to moderately severe pain 4-6, Starting on Lenka 09/20/25 at 1527, For 7 days, PACU (only), If a total of 3 mg has been administered across all pain scales, contact an anesthesia provider for reassessment For IV Push, administer over 2 to 3 minutes. 1535 (Given - Provid er: Lara Wilde RN)1555 (Given - Provider: Lara Wilde RN)1614 (Given - Provider: Lara Wilde RN) HYDROmorphone (DILAUDID) 2 mg/mL injection 0.6 mg(Linked Group 1) 0.6 mg, Intravenous, Every 10 min PRN, severe to excruciating pain 7-10, Starting on Lenka 09/20/25 at 1527, For 7 days, PACU (only), If a total of 3 mg has been administered across all pain scales, contact an anesthesia provider for reassessment For IV Push, administer over 2 to 3 minutes. 1535 (See Alternativ e - Provider: Lara Wilde RN)1555 (See Alternative - Provider: Lara Wilde RN)1614 (See Alternative - Provider: Lara Wilde RN) indomethacin (INDOCIN) suppository (CANCELED) As needed, Starting on Lenka 09/20/25 at 1447, Intra-op 1447 (Given - Provid er: Yuliana Ferrara RN) naloxone (NARCAN) 0.4 mg/mL injection 0.04 mg 0.04 mg, Intravenous, Every 10 min PRN, itching, Starting on Lenka 09/20/25 at 1527, For 3 doses, PACU (only) Linked Groups Order Group 1: HYDROmorphone (DILAUDID) 2 mg/mL injection 0.2 mgJump to med 0.2 mg, Intravenous, Every 10 min PRN, mild pain 1-3, Starting on Lenka 09/20/25 at 1527, For 7 days, PACU (only), If a total of 3 mg has been administered across all pain scales, contact an anesthesia provider for reassessment For IV Push, administer over 2 to 3 minutes. Or HYDROmorphone (DILAUDID) 2 mg/mL injection 0.4 mgJump to med 0.4 mg, Intravenous, Every 10 min PRN, moderate to moderately severe pain 4-6, Starting on Lenka 09/20/25 at 1527, For 7 days, PACU (only), If a total of 3 mg has been administered across all pain scales, contact an anesthesia provider for reassessment For IV Push, administer over 2 to 3 minutes. Or HYDROmorphone (DILAUDID) 2 mg/mL injection 0.6 mgJump to med 0.6 mg, Intravenous, Every 10 min PRN, severe to excruciating pain 7-10, Starting on Lenka 09/20/25 at 1527, For 7 days, PACU (only), If a total of 3 mg has been administered across all pain scales, contact an anesthesia provider for reassessment For IV Push, administer over 2 to 3 minutes. documented in this encounter Care Teams Casing Sewer Relationship Specialty Start Date End Date Po, Harry Mayorga MD [address] [place] [address] Dr [place], [place] [id number] PCP - General Internal Medicine 05/26/25 Anita Kumar MD [address] [place] [address] Surgical Oncology 07/02/25 Jeremy Rincon MD [address] [place] [id number] Gastroenterology 07/02/25 documented as of this encounter
--- OUTSIDE RECORDS SUMMARY | 2025-09-20 13:38 | XMS_ITS | Encounter Summary ---
Author Organization [facility] Address [address] [place] [address] Care Team Providers Care Wage And Salary Administrator Name Role Phone Harry Chun MD Primary Care Provider [phone] Anita Kumar MD Unavailable [phone] Jeremy Rincon MD Unavailable [phone] Reason for Visit * Auth/Cert Specialty Diagnoses / Procedures Referred By Contac t Referred To Contact Diagnoses Choledocholithiasis Common bile duct (CBD) stricture (HCC) Procedures ERCP Referral ID Status Reason Start Date Expiration Date Visits Re quested Visits Authorized [id number] 1 1 Encounter Details Date Type Department Care Team (Late st Contact Info) Description 09/20/2025 1:38 PM EST - 09/20/2025 2:38 PM EST Surgery [facility] Gastroenterology Division [address] [place] [phone] Jeremy Rincon MD [address] [place] [phone] ERCP Social History Tobacco Use Types Packs/Day Years Used Date Smoking Tobacco: Never Smokeless Tobacco: Never Alcohol Use Standard Drinks/Week Comments Yes 2 (1 standard drink = 0.6 oz pur e alcohol) drinks on weekends [facility] Utilities Answer Date Recorded In the past 12 months has [employer], gas, oil, or water company threatened to [...] any time in the past 12 m [facility], were you homeless or living in a skilled nursing (including now)? 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 Jeremy Rincon MD 09/20/2025 12:58 PM [1] Social [...] sedative used for the procedure CALL YOUR Ebonieclarisa Danieljuan miguel at Work: IF YOU EXPERIENCE ANY OF [...] SHOULD BE TREATED AN EMERGENCY - CALL [phone] IMMEDIATELY INSTRUCTIONS: Diet: Resume your usual diet today unless instructed otherwise by the doctor. [id number]-[id number] medications: If polyp was removed or biopsy [...] be available to you electronically via our [employer] portal. Please check [employer] for these results and a message from your physician. ? If you do not have [employer], you may sign up for [employer] via the link found on the website: ([email or web address]), or please call your physician's office for [...] Date Time RN Signature Date Time Jeremy Rincon. Jeremy Rinocn, 09/20/2025 4:54:34 PM * Discharge Instructions - [...] be available to you electronically via our [employer] portal. Please check [employer] for these results and a message from your physician. ? If you do not have [employer], you may sign up for [employer] via the link found on the website: ([email or web address]), or please call your physician's office for [...] Upcoming Encounters Date Type Department Care Team ([facility] st Contact Info) Description 10/13/2025 9:00 AM EST Appointment [facility] Radiology [facility] [address] [place] [address] Jeremy Rincon MD [address] [place] [phone] Pending Results Name Type Priority Associated Diagnoses [...] (HCC) documented in this encounter Visit Diagnoses Diagnosis Choledocholithiasis Calculus of bile duct without mention of cholecystitis or obstruction Common bile duct (CBD) stricture (HCC) Obstruction of bile duct documented in this encounter Administered Medications Inactive Administered [...] Push, administer over 2 to 3 minutes. indomethacin (INDOCIN) suppository As needed, Starting on Lenka 09/20/25 at 1447, Intra-op Given 09/20/2025 2:47 PM EST 100 mg Rectum naloxone (NARCAN) 0.4 mg/mL injection 0.04 mg [...] For 1 dose, All antimicrobials used at [facility] require an indication. Please complete the following [...] minutes. documented in this encounter Care Teams Wage And Salary Administrator Relationship Specialty Start Date End Date Harry Chun MD [address] [place] [address] [place] [address] PCP - General Internal Medicine 05/26/25 Anita Kumar MD 85 [facility] [address] [place] [address] Surgical Oncology 07/02/25 Jeremy Rincon MD [address] [place] [address] Gastroenterology 07/02/25 documented as of this encounter
--- OUTSIDE RECORDS SUMMARY | 2025-09-20 13:55 | XMS_ITS | Encounter Summary ---
Author Organization [facility] Address [address] [place] [address] Care Team Providers Care Loan Administrator Name Role Phone Harry Chun MD Primary Care Provider [phone] Anita Kumar MD Unavailable [phone] Jeremy Rincon MD Unavailable [phone] Reason for Visit * Auth/Cert Specialty Diagnoses / Procedures Referred By Contac t Referred To Contact Diagnoses Choledocholithiasis Common bile duct (CBD) stricture (HCC) Procedures ERCP Referral ID Status Reason Start Date Expiration Date Visits Re quested Visits Authorized [id number] 1 1 Encounter Details Date Type Department Care Team (Late st Contact Info) Description 09/20/2025 1:55 PM EST Anesthesia Event [facility] Gastroenterology Division [address] [place] [phone] Erlin Finnegan MD [address] [place] [address] Roseann Vargas PA-C [address] [facility] [place] [address] Anesthesia Record Procedure Summary Procedure Name Responsible Anesthesiologist Anesthesia Start Time Anesthesia Stop Time ERCP Erlin Finnegan MD 09/20/25 1355 09/20/25 15 32 Events Date Time Event Comment 09/20/2025 1339 1340 AN Equip Check 1355 An Start 1355 An Start Data 1401 An Induction 1401 Anesthesia Ready 1521 AN Emergence 1527 AN Stop Data 1527 AN Pt Transferred 1527 AM Pt Transferred 1532 Handoff to Receiving I compl eted my handoff to the receiving clinician during which we: 1. Identified the patient 2. Identified the responsible provider 3. Reviewed pertinent medical history 4. Discussed the surgical or procedural course 5. Reviewed intraoperative management and issues during anesthesia 6. Set expectations for the post-procedure period 7. Allowed opportunity for questions and acknowledgement of understanding. 1532 An Stop Meds Name Total lidocaine 2 % (PF) injection (5 mL VIAL) 3 mL propofol 10 mg/mL BOLUS 130 mg propofol 10 mg/mL INFUSION 955.8 mg ciprofloxacin (CIPRO) IVPB 400 mg in 200 mL D5W (premix) 400 mg glycopyrrolate 0.2 mg/mL injection (1 mL vial) 0.2 mg 0.9% NaCl 250 mL * Agents Name O2 N2O Air Sevoflurane * Blood No blood administrations on file. Lines, Drains, and Airways Type Details Placement Removal Incision (Adult, Obstetrics, Pediatrics) 07/27/25; 1246; abdomen; dermabond 07/27/25 1246 by Michelle Arce RN PIV-Single luman 09/20/25; 1349; medi an cubital vein (antecubital fossa), right; [id number] catheter system; 20 gauge; 09/20/25; 1713 09/20/25 1349 by Elli Tan RN 09/20/25 1713 by Lara Wilde RN documented in this encounter Social History Tobacco Use Types Packs/Day Years Used Date Smoking Tobacco: Never Smokeless Tobacco: Never Alcohol Use Standard Drinks/Week Comments Yes 2 (1 standard drink = 0.6 oz pur e alcohol) drinks on weekends [facility] Utilities Answer Date Recorded In the past 12 months has [employer], gas, oil, or water [employer] threatened to shut off services in your [...] any time in the past 12 m [facility], were you homeless or living in a chcf (including now)? 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 providers found Date of Service: 09/24/2025 Procedure Summary Date: 09/20/25 Room / Location: GI HB 416 / GI Endoscopy; [facility] Radiology; [facility] Anesthesia Start: 1355 Anesthesia Stop: 1532 Procedures: ERCP ENDOSCOPY UPPER FL ERCP BILIARY AND PANCREATIC ERCP (CC) Diagnosis: Choledocholithiasis Common bile duct (CBD) stricture (HCC) (Choledocholithiasis [K80.50]) (Common bile duct (CBD) stricture (HCC) [K83.1]) (bile duct stent removal) Scheduled Providers: Jeremy Rincon MD Responsible Provider: Erlin Finnegan MD Anesthesia Type: MAC ASA Status: 3 Anesthesia Type: MAC There were no known notable events for this encounter. Last vitals Vitals Value Taken Time BP 161/77 09/20/25 16:45 Temp 36.4 ??C (97.6 ??F) 09/20/25 16:45 Pulse 45 09/20/25 16:45 Resp 20 09/20/25 16:45 SpO2 98 % 09/20/25 16:45 Evaluation Vital signs are in the patient's normal range: Yes Respiratory function stable; airway patent: Yes Cardiovascular function and hydration status are stable: Yes Mental status recovered; patient participates in evaluation: Yes Pain control satisfactory: Yes Nausea and vomiting control is satisfactory: Yes This is an OB patient: No Quality Metrics Erlin Finnegan MD 09/24/2025 2:11 PM * Anesthesia Preprocedure Evaluation - Erlin Finnegan MD - 09/13/2025 10:04 AM EST Department of Anesthesiology Pre-Procedure Evaluation Patient Name: Shawna Chow : 1955 Admission Date: (Not on file) Attending Provider: Jeremy Rincon MD Date of Service: 09/13/2025 Scheduled Procedure: ERCP, N/A Pre-operative Diagnosis: Choledocholithiasis [K80.50] Common bile duct (CBD) stricture (HCC) [K83.1] Relevant Problems No relevant active problems Allergies[1] No data recorded Patient summary reviewed. Nursing notes reviewed. Pre-procedure vital signs reviewed. NPO status verified. General History of anesthetic complications - History of PONV (scopolamine patch works well) Respiratory Positives: asthma Cardiovascular Positives: Exercise tolerance: >4 METS Negatives: hypertension (not on home meds) and pacemaker Neuromuscular - negative neuro/psych ROS GI/Hepatic/Renal Positives: GERD well controlled weight gain (s/p gastric bypass, BMI 41.8) Morbid obesity PONV (scopolamine patch works well) pancreatitis hyperbilirubinemia Additional Findings: Biliary stricture Elevated ALP S/p EUS 06/12/25 Extensive hyperechoic material consistent with sludge was visualized endosonographically in the common bile duct. - There was no sign of significant pathology in the pancreatic head, uncinate processof the pancreas and main pancreatic duct. - There was dilation in the common bile duct which measured up to 20 mm Endo/MET - negative ROS Hem/Lymph - negative hem/lymph ROS Positives: anemia (B12 def) Skel/Skin - negative skel/skin ROS Psych HEENT Obstetrics Other Syndromes Additional Notes [facility] 07/27/2025: Choledocholithiasis Common bile duct (CBD) stricture Physical Exam Airway Mallampati III TM distance >3 FB Neck ROM: full Dentition - no notable dental history normal rate regular rhythm Pulmonary - pulmonary exam normal breath sounds clear to auscultation Abdominal Past Medical History: Diagnosis Date Acid reflux Anemia Arthritis Asthma Gallstone pancreatitis Hypertension Pneumonia PONV (postoperative nausea and vomiting) mild Past Surgical History: Procedure Laterality Date ABDOMINOPLASTY 2006 BRACHIOPLASTY BILATERAL SECTION x3 COLONOSCOPY 2022 ENDOSCOPY UPPER /C ULTRASOUND Left 05/25/2025 Procedure: ENDOSCOPY UPPER /C ULTRASOUND; Surgeon: Jeremy Rincon MD; Location: GI Endoscopy; Service: Gastroenterology; Laterality: Left; ENDOSCOPY UPPER /C ULTRASOUND Left 06/12/2025 Procedure: ENDOSCOPY UPPER /C ULTRASOUND; Surgeon: Jeremy Rincon MD; Location: GI Endoscopy; Service: Gastroenterology; Laterality: Left; ERCP /C PLACEMENT STENT N/A 05/25/2025 Procedure: ERCP /C PLACEMENT STENT; Surgeon: Jeremy Rincon MD; Location: GI Endoscopy; Service: Gastroenterology; Laterality: N/A; EDGE procedure with Axios, ERCP ROBOTIC ASSISTED CHOLECYSTECTOMY N/A 07/27/2025 Procedure: ROBOTIC CHOLECYSTECTOMY, INTRAOPERATIVE CHOLANGIOGRAM (IOC), (XI), LYSIS OF ADHESIONS; Surgeon: Anita Kumar MD; Location: Main OR; Service: Robotics; Laterality: N/A; ELIF-EN-Y PROCEDURE 2002 Family History Adopted: Yes Problem Relation Age of Onset No Known Problems Daughter No Known Problems Daughter No Known Problems Son Tobacco/Alcohol/Drug HX[2] Ht Readings from Last 1 Encounters: 08/10/25 1.473 m (4' 10 ) Wt Readings from Last 1 Encounters: 07/12/25 90.7 kg (200 lb) There is no height or weight on file to calculate BMI. White Blood Cell Count Date Value Ref Range Status 07/02/2025 7.6 3.8 - 10.8 Thousand/uL Final Hemoglobin Date Value Ref Range Status 07/02/2025 12.1 11.7 - 15.5 g/dL Final Hematocrit Date Value Ref Range Status 07/02/2025 37.5 35.0 - 45.0 % Final Platelet Count Date Value Ref Range Status 07/02/2025 279 140 - 400 Thousand/uL Final Sodium Date Value Ref Range Status 07/02/2025 142 135 - 146 mmol/L Final Potassium Date Value Ref Range Status 07/02/2025 3.9 3.5 - 5.3 mmol/L Final CO2 Date Value Ref Range Status 07/02/2025 27 20 - 32 mmol/L Final Chloride Date Value Ref Range Status 07/02/2025 107 98 - 110 mmol/L Final Glucose Date Value Ref Range Status 07/02/2025 95 65 - 139 mg/dL Final Comment: Non-fasting reference interval Blood Urea Nitrogen (BUN) Date Value Ref Range Status 07/02/2025 13 7 - 25 mg/dL Final Creatinine Date Value Ref Range Status 07/02/2025 0.56 0.50 - 1.05 mg/dL Final Calcium Date Value Ref Range Status 07/02/2025 9.0 8.6 - 10.4 mg/dL Final ABO/Rh Date Value Ref Range Status 05/24/2025 O POSITIVE Final INR Date Value Ref Range Status 05/24/2025 1.2 Final Comment: INR Therapeutic Ranges: Standard dose anticoagulant 2.0 to 3.0, High dose anticoagulant 2.5-3.5. Lab Results Component Value Date ABORH O POSITIVE 05/24/2025 Recent Results (from the past 8760 hours) ECG 12 lead (STAT) Collection Time: 05/24/25 7:28 PM Result Value Status Ventricular rate 54 Final Atrial rate 54 Final P-R interval 150 Final QRS duration 102 Final Q-T interval 426 Final QTC calculation (Bazett) 404 Final P axis 55 Final R axis -18 Final T axis 19 Final Narrative Sinus bradycardia Otherwise normal ECG No previous ECGs available Confirmed by MD Dougie, [facility] ([id number]) on 05/24/2025 8:14:18 PM NPO Status: Anesthesia Plan ASA Score: ASA 3 Consent: The anesthetic plan and associated risks was discussed with patient. Anesthesia Plan: MAC anesthesia The plan was discussed with the following care providers: attending. Post-Operative Pain Management: Routine Analgesia and Antiemetics : The preliminary anesthesia plan and risks were discussed. The final anesthesia plan will be determined by the responsible anesthesiologist. Attending Note I personally evaluated and examined the patient prior to the intra-operative phase of care. Roseann Vargas PA-C [1] Allergies Allergen Reactions Morphine Other (See Comments) Unknown. [2] Tobacco/Alcohol/Drug HX Tobacco Use Smoking status: Never Smokeless tobacco: Never Substance Use Topics Alcohol use: Yes Alcohol/week: 2.0 standard drinks of alcohol Types: 2 Standard drinks or equivalent per week Comment: drinks on weekends Drug use: Never documented in this encounter Plan of Treatment Upcoming Encounters Date Type Department Care Team (Late st Contact Info) Description 10/13/2025 9:00 AM EST Appointment [facility] Radiology [facility] [address] [place] [address] Jeremy Rincon MD [address] [place] [address] [address] [place] [address] documented as of this encounter Visit Diagnoses Not on filedocumented in this encounter Administered Medications Inactive Administered Medications - up to 1 most recent administrations Medication Order MAR Action Action Date Dose Rate Site sodium chloride 0.9% (NS) infusion Intravenous, Continuous PRN, Starting on Lenka 09/20/25 at 1355, Anesthesia Intra-op New Bag 09/20/2025 1:55 PM EST ciprofloxacin (CIPRO) IVPB 400 mg in 200 mL D5W (premix) 400 mg, Intravenous, Administer over 60 Minutes, Once, On Lenka 09/20/25 at 1330, For 1 dose, All antimicrobials used at [facility] require an indication. Please complete the following documentation. Medical Prophylaxis Given 09/20/2025 2:05 PM EST 400 mg glycopyrrolate (ROBINUL) 0.2 mg/mL injection Intravenous, As needed, Starting on Lenka 09/20/25 at 1409, Anesthesia Intra-op Given 09/20/2025 2:09 PM EST 0.2 mg lidocaine preservative free (XYLOCAINE-MPF) 2 % injection Intravenous, As needed, Starting on Lenka 09/20/25 at 1401, Anesthesia Intra-op Given 09/20/2025 2:01 PM EST 3 mL propofol (diPRIvan) injection Intravenous, As needed, Starting on Lenka 09/20/25 at 1401, Anesthesia Intra-op Given 09/20/2025 3:20 PM EST 50 mg propofol (diPRIvan) IV infusion Intravenous, Continuous PRN, Starting on Lenka 09/20/25 at 1401, Anesthesia Intra-op Rate/Dose Change 09/20/2025 2:38 PM EST 125 mcg/kg/min 66.375 mL/hr documented in this encounter Care Teams Loan Administrator Relationship Specialty Start Date End Date Po, Harry Mayorga MD [address] [place] [address] [address] [place], [place] [address] PCP - General Internal Medicine 05/26/25 Anita Kumar MD 85 [facility] [address] [place] [address] Surgical Oncology 07/02/25 Jeremy Rincon MD 85 [facility] [address] [place] [address] Gastroenterology 07/02/25 documented as of this encounter
--- NOTE | 2025-09-24 16:57 | MHC.PC.OV ---
Vital Signs 09/24/25 16:58 Height 5 ft Weight 193 lb 6 oz BMI 37.8 BP 146/84 H Respiration 16 Pulse 61 Pulse Source Pulse Oximeter Temp 97.3 F Temp Source Temporal Artery Scan Pulse Oximetry (%) 99 Oxygen Delivery Method Room Air Intake Visit Reasons: discuss gastro concerns Material Manager Required: No Accompanied by: Son Allergies morphine (MORPHINE) Allergy (Unknown, Verified 09/24/25 16:57) VOMITING AND SHAKING MORPHINE Allergy (Mild, Uncoded 09/24/25 16:57) Nausea and Vomiting Tobacco use date assessed: 08/20/25 Dental Screening Dental Screen Date: 08/20/25 HPI HPI Comments History of Present Illness Details History of Present Illness The patient is a 70-year-old obese female presenting for a follow-up visit and evaluation of new-onset stomach pain. Her past medical history is significant for GERD, asthma, a gastric bypass in 2002, and an abdominoplasty. The patient reports the onset of stomach pain last night, which was severe enough to prevent her from going to work today. The pain is localized to the stomach and does not radiate, and she has experienced some associated nausea. She also reports constipation, with bowel movements occurring every 3-4 days. For this, she takes Metamucil, a fiber supplement, and another unspecified laxative. Relevant surgical history includes a cholecystectomy about a month ago, and a subsequent ERCP three days prior to this visit for bile duct stent exchange and repair of a migrated tube from a prior gastric surgery. She has a history of a bacterial infection with a urinary tract infection after a trip. Her last lab work in June showed mild anemia with a hemoglobin of 11.7 and hematocrit of 35, along with elevated B12. Electrolytes, renal function, and iron levels were good, and liver enzymes have improved. Her blood sugar was 105. For health maintenance, her last colonoscopy was in 2016, and her last mammogram and bone density scan were in December 2024. Health Maintenance - Last seen in August 2025 for follow-up. - Colonoscopy: Last performed in 2016. - Mammogram: Last performed in December 2024. - Bone density scan: Last performed in December 2024. - Last cholesterol test was in May. Social History - Diet and exercise are part of her management plan. Results - Labs from July 10: - CBC: Mild anemia with Hgb/Hct of 11.7/35. - Chemistry panel: Electrolytes and renal function were good. - Glucose: 105. - Iron studies: Sufficient iron levels. - B12: Elevated. - LFTs: Much improved. 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 Elevated LFTs Pancreatitis Acute cholecystitis Narrowing of bile duct after surgery Common bile duct dilatation Preoperative cardiovascular examination Abnormal cardiovascular stress test Claustrophobia Blood pressure elevated without history of HTN Dysgeusia Arthritis Age-related osteoporosis without current pathological fracture Osteopenia COVID-19 Vitamin D deficiency Vitamin B12 deficiency Syphilis Obesity Asthma GERD (gastroesophageal reflux disease) Osteoarthritis Surgical History (Updated 08/20/25 @ 09:47 by Harry Chun MD) Morbid obesity Hx of section History of appendectomy Hx of gastric bypass History of abdominoplasty H/O gastric bypass Family History Father No problems noted. Mother No problems noted. Social History Household Members: None Housing: House Do you presently have visiting nurse or other home services: No Alcohol intake: current Comment: holidays 2 beers Patient Tobacco Use Status: Never used Tobacco e-Cigarette/Vaping Use: Never Used Second Hand Smoke Exposure: No Advance Directives Date on File: 11/04/23 service: No Current occupational status: employed Cognitive needs: No Hearing needs: No Vision needs: Yes Questionnaire Thrive Questionnaire Date Thrive assessed: 10/31/24 I am a: Patient What is your living situation today?: I choose not to answer this question Within the past 12 months, did the food you bought not last and you didn't have the money to get more?: I choose not to answer this question Within the past 12 months, did you worry whether your food would run out before you got money to buy more?: I choose not to answer this question Do you have trouble paying for medicines?: No Do you have trouble getting transportation to medical appointments?: Yes Do you have trouble paying your heating and electricity bill?: No Do you have trouble taking care of your child, family member or friend?: No Do you have trouble with day-to-day activities such as bathing, preparing meals, shopping, managing finances, etc.?: No Are you currently unemployed and looking for a job?: No Are you interested in more education?: No Please select the resources that you would like help with: None Currently or been in a relationship where the following occur: No concerns reported THRIVE Score: 1 DANY-7 AMB Questionnaire DANY-7 Date DANY - 7 assessed: 10/31/24 Feeling afraid as if something awful might happen: 0 = Not at all Source: Developed by Drs. Timbo Nazario, Ivanna Sol, Kip العراقي and colleagues, with an educational jai from [employer]. Review of Systems Narrative Review of Systems - Gastrointestinal: Reports new onset stomach pain, which is non-radiating. - Reports some nausea associated with the pain. - Reports constipation with bowel movements every three to four days. - Denies diarrhea. Physical exam (Primary Care) Vital Signs: Last Vital Signs Temp 97.3 F 09/24/25 16:58 Pulse 61 09/24/25 16:58 Resp 16 09/24/25 16:58 BP 146/84 H 09/24/25 16:58 Pulse Ox 99 09/24/25 16:58 Oxygen Delivery Method Room Air 09/24/25 16:58 BMI result Body Mass Index 37.8 Tobacco/Smoking Status: Tobacco use Status Tobacco use date assessed 08/20/25 09/24/25 17:04 Patient Tobacco Use Status Never used Tobacco 09/24/25 17:04 Tobacco use type 12/01/23 10:17 e-Cigarette/Vaping Use Never Used 09/24/25 17:04 Thrive Assessment: Date of Thrive Assessment Date Thrive assessed 10/31/24 09/24/25 17:04 Currently or been in a relationship where the following occur: No concerns reported Narrative Physical Exam - General: Patient is a 70-year-old obese female. - Abdomen: Soft. No tenderness with palpation in the left upper quadrant, right upper quadrant, or left lower quadrant. - Tenderness elicited on palpation in the right lower quadrant. Const General: alert; No acute distress Eyes Conjunctivae: conjunctivae normal Resp Auscultation: clear to auscultation bilaterally Cardio Rate: regular rate Rhythm: regular rhythm GI Other: Mildly tender on the epigastric and right upper quadrant no rebound noted mild guarding. No discoloration Extrem General: Yes normal to inspection and No edema Coding Level of Care Code Est Pt Level 4 (59572) Add On Problem Visit Only Diagnoses H/O gastric bypass Z98.84 Class 3 severe obesity due to excess calories with serious comorbidity and body mass index (BMI) of 40.0 to 44.9 in adult E66.01; Z68.41 Body mass index: BMI 40.0-44.9 Obesity classification: adult class 3 (BMI >= 40) Obesity type: due to excess calories Serious obesity comorbidity presence: with serious comorbidity Gastroesophageal reflux disease without esophagitis K21.9 Esophagitis presence: without esophagitis Anemia, unspecified type D64.9 Anemia type: unspecified type Mild intermittent asthma without complication J45.20 Asthma complication type: uncomplicated Asthma persistence: intermittent Asthma severity: mild Insomnia G47.00 Hx of cholecystectomy Z90.49 Constipation K59.00 Assessment & Plan Assessment & Plan (1) H/O gastric bypass: Comment: 2002 - open procedure Code(s): Z98.84 - Bariatric surgery status Category: Surgical Plan: Continue to follow-up with bariatric (2) Obesity: Code(s): E66.9 - Obesity, unspecified Category: Medical Qualifiers: Body mass index: BMI 40.0-44.9 Obesity classification: adult class 3 (BMI >= 40) Obesity type: due to excess calories Serious obesity comorbidity presence: with serious comorbidity Qualified Code(s): E66.01 - Morbid (severe) obesity due to excess calories; Z68.41 - Body mass index [BMI]40.0-44.9, adult Plan: Diet and exercise (3) GERD (gastroesophageal reflux disease): Code(s): K21.9 - Gastro-esophageal reflux disease without esophagitis Category: Medical Qualifiers: Esophagitis presence: without esophagitis Qualified Code(s): K21.9 - Gastro-esophageal reflux disease without esophagitis Plan: Avoid the foods that causes that usually spicy foods, tomato products, juices, coffee, soda and foods that your sensitive to. After eating do not lie down, allow 3-4 hours before in lie down. And keep the head of bed above 30 degrees to avoid the acid from going up. (4) Anemia: Code(s): D64.9 - Anemia, unspecified Category: Medical Qualifiers: Anemia type: unspecified type Qualified Code(s): D64.9 - Anemia, unspecified Plan: Continuing to monitor. Mild anemia (5) Asthma: Comment: PATIENT HAS HISTORY OF MILD INTERMITTENT BRONCHIAL ASTHMA, USUALLY TRIGGERED BY ACUTE RESPIRATORY INFECTION. SHE HAS NO ACTIVE SYMPTOMS AT PRESENT. SPIROMETRY FINDINGS ARE NORMAL. Code(s): J45.909 - Unspecified asthma, uncomplicated Category: Medical Qualifiers: Asthma complication type: uncomplicated Asthma persistence: intermittent Asthma severity: mild Qualified Code(s): J45.20 - Mild intermittent asthma, uncomplicated Plan: On albuterol inhaler as needed (6) Insomnia: Code(s): G47.00 - Insomnia, unspecified Category: Medical (7) Hx of cholecystectomy: Comment: 08/27/2025 [facility] laparoscopic cholecystectomy Dr. Kumar Code(s): Z90.49 - Acquired absence of other specified parts of digestive tract Category: Surgical Plan: Patient had a follow-up ERCP done due to collapse of the stent placed last . Advised to call the surgeon for follow-up on this pain. Patient was advised to get an MRI but this is scheduled in October. With the patient continuing to have the pain advised to contact the surgeons again. (8) Constipation: Code(s): K59.00 - Constipation, unspecified Category: Medical Plan: Three rules for constipation 1. Diet need to have a high fiber diet less of meat 2. Increase oral fluids 3. Exercise Plan Plan Patient was informed and verbally consented to the use of an ambient scribe for clinic note documentation during this visit. 1. Post-Procedural Abdominal Pain The patient presents with abdominal pain following an ERCP with stent exchange last . Given the recent procedure, this pain is considered a potential postoperative complication. An MRI has been ordered by the surgical team but is not scheduled until October. Due to the ongoing pain, the patient was advised to contact the surgeon's office immediately to report her symptoms, as they need to be aware of post-surgical complications. The surgeon may be able to arrange for a sooner evaluation or imaging. The patient was instructed to send a portal message if she is unable to get a response from the surgeon's office. Obtaining an expedited MRI through the emergency department was considered as an alternative if needed. 2. Constipation The patient reports chronic constipation with bowel movements every 3-4 days, which is atypical following a cholecystectomy, as diarrhea is more common. She currently uses Metamucil and an unspecified laxative. Management was deferred to focus on the acute post-surgical pain, but her ongoing regimen was noted. 3. Gastroesophageal Reflux Disease The plan for GERD is to continue monitoring. The patient is currently prescribed omeprazole. 4. Asthma The plan for asthma is for the patient to continue using her albuterol inhaler as needed. 5. Mild Anemia The plan for mild anemia is to continue monitoring. 6. Obesity The patient is advised to continue with diet and exercise and follow up with bariatrics. Discussion Notes I explained to the patient that her new-onset abdominal pain is concerning, especially given it started shortly after her ERCP procedure last . I emphasized that the surgeon who performed the procedure needs to be notified immediately, as this falls within their responsibility for postoperative care. We discussed that the surgeon's office is the best first point of contact and that they may be able to expedite her scheduled MRI or provide other timely interventions. I provided instructions on how to call them and also how to set up the patient portal to message me if she does not receive a timely response. I mentioned that while I could order tests, going to the ER would be the fastest way to get an MRI if the surgeon is unresponsive, but contacting them is the primary step. I also acknowledged her chronic constipation, noting that it is unusual after cholecystectomy, as diarrhea is more typical because bile is no longer stored and is instead released directly into the intestines. Patient Instructions - Call your surgeon's office immediately to report the stomach pain you have been experiencing since your procedure. - The surgeon needs to know about this pain as it is a recent development after your surgery. - When you check out, ask the help desk analyst staff how to sign up for the patient portal. - Once you have access, you can send me messages directly through the portal. - Send me a message through the portal if you do not get a response from your surgeon's office. - Continue to take your albuterol inhaler as needed for asthma. - Continue with your diet and exercise plan and follow up with your bariatric specialist.
[2025-09-24 16:58] VITALS: BP 146/84; PULSE 61; RESP 16; TEMP 36.3; O2SAT 99; BMI 37.8
--- OUTSIDE RECORDS SUMMARY | 2025-09-24 22:38 | XMS_ITS | Clinical Summary ---
Author Organization [facility] Prior to 08/11/[address] [place] [address] Care Team Providers Care Nursing Care Attendant Name Role Phone Fazal Dwyer MD Primary Care Provider Un available Allergies Active Allergy Reactions Severity Noted Date Comments Morphine Nausea and Vomiting 05/29/2016 Medications Medication Sig Dispensed Refills Start Date End Date Status ALBUTEROL SULFATE 108 (90 BASE) MCG/ACT Aero Soln Inhale 2 Puffs into the lungs every 4 hours as needed (asthma). 3 Inhaler 1 08/22/2018 Active omeprazole (PRILOSEC) 10 MG capsule Take 1 Cap by mouth daily. 90 Cap 1 08/22/2018 Active Cholecalciferol (VITAMIN D) 2000 UNITS Cap Take 1 tablet by mouth daily. 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 TAKE 1 TABLET BY MOUTH DAILY WITH FOOD 30 Tab 0 10/02/2019 Active Active Problems Problem Noted Date Chronic pain of both knees 07/13/2018 ASCUS with positive high risk HPV cervic al 12/08/2016 Osteoarthritis 05/29/2016 Asthma 05/29/2016 History of gastric restrictive surgery 0 05/29/2016 Overview: 2003 Family History * Patient is adopted Medical History Relation Name Comments CA Breast Negative Hx Social History Tobacco Use Types Packs/Day Years Used Date Smoking Tobacco: Never Smokeless Tobacco: Never Alcohol Use Standard Drinks/Week Comments Yes 0 (1 standard drink = 0.6 oz pur e alcohol) 6 drinks per mo Sex Assigned at Date Recorded Not on file Last Filed Vital Signs Vital Sign Reading Time Taken Comments Blood Pressure 122/72 05/19/2019 10:53 AM EDT Pulse 80 05/19/2019 10:53 AM EDT Temperature 36.6 C (97.9 F) 02/23/2019 9:33 AM EDT Respiratory Rate 14 05/19/2019 10:53 AM EDT Oxygen Saturation 98% 12/10/2018 8:37 AM EST Inhaled Oxygen Concentration - - Weight 95.3 kg (210 lb) 05/19/2019 10:53 AM EDT Height 154.9 cm (5' 1 ) 05/19/2019 10:53 AM EDT Body Mass Index 39.68 05/19/2019 10:53 AM EDT Plan of Treatment Health Maintenance Due Date Last Done Comments Covid-19 Vaccine (#1) 03/18/1956 DTAP/TDAP/TD (1 - Tdap) 1975 SHINGLES VACCINE (1 of 2) 2006 CERVICAL CANCER SCREENING 11/03/2018 11/03/2017, MAMMOGRAM 07/19/2020 07/19/2019, 1011/2017, 07/09/2017, Additional history exists BONE DENSITY SCREENING 2021 PNEUMOCOCCAL VACCINE (1 - PCV) 2021 CHOLESTEROL SCREENING 10/10/2023 10/10/2018, 017, 05/29/2016 BMI CHECK/ADVISE 10/11/2024 05/19/2019, 06/2019, 01/20/2019, Additional history exists INFLUENZA (#1) 2025 08/22/2018 (Refused) COLON CANCER SCREENING 08/26/2027 08/26/2017 HEPATITIS C SCREENING Completed 11/02/2016 Care Teams Nursing Care Attendant Relationship Specialty Start Date End Date Fazal Dwyer MD PCP - General Internal Medicine 05/01/16
--- OUTSIDE RECORDS SUMMARY | 2025-09-24 22:38 | XMS_ITS | Encounter Summary ---
Author Organization [facility] Prior to 08/11/[address] [place] [address] Care Team Providers Care Sample Case Porter Name Role Phone Fazal Dwyer MD Primary Care Provider Un available Encounter Details Date Type Department Care Team Description 11/04/2016 Orders Only OBGYN - [place] [address] [place] [address] Mihaela Brian CNM Social History Tobacco Use Types Packs/Day Years Used Date Smoking Tobacco: Never Alcohol Use Standard Drinks/Week Comments Yes 0 (1 standard drink = 0.6 oz pur e alcohol) occasionally Sex Assigned at Date Recorded Not on file documented as of this encounter Plan of Treatment Not on file documented as of this encounter Visit Diagnoses Not on filedocumented in this encounter Care Teams Sample Case Porter Relationship Specialty Start Date End Date Fazal Dwyer MD PCP - General Internal Medicine 05/01/16 documented as of this encounter
--- OUTSIDE RECORDS SUMMARY | 2025-09-24 22:38 | XMS_ITS | Encounter Summary ---
Author Organization [facility] Address [address] [place] [address] Care Team Providers Care Garden Equipment Mechanic Name Role Phone Harry Chun MD Primary Care Provider [phone] Anita Kumar MD Unavailable [phone] Jeremy Rincon MD Unavailable [phone] Reason for Referral * Diagnostic Imaging (Routine) - Pending Review Specialty Diagnoses / Procedures Referred By Charly t Referred To Contact Diagnoses Common bile duct (CBD) stricture (HCC) Procedures MRI Abdomen w w/o contrast ([id number]) Jeremy Rincon MD [address] [id number] Phone: tel: fax: Referral ID Status Reason Start Date Expiration Date V isits Requested Visits Authorized [id number] Pending Review 09/21/2025 09/22/2026 1 1 Encounter Details Date Type Department Care Team (Late st Contact Info) Description 09/21/2025 Prep for Surgery [facility] [address] [place] [address] Jeremy Rincon MD [address] [place] [address] 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) Social History Tobacco Use Types Packs/Day Years Used Date Smoking Tobacco: Never Smokeless Tobacco: Never Alcohol Use Standard Drinks/Week Comments Yes 2 (1 standard drink = 0.6 oz pur e alcohol) drinks on weekends [facility] Utilities Answer Date Recorded In the [...] any time in the past 12 m [facility], were you homeless or living in a residential (including now)? 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 Not on file Not on radha e documented as of this encounter Plan of Treatment Upcoming Encounters Date Type Department Care Team (Late st Contact Info) Description 10/13/2025 9:00 AM EST Appointment [facility] Radiology [facility] [address] [place] [id number] Jeremy Rincon MD [address] [id number] Scheduled Orders Name Type Priority Associated Diagnoses Orde r Schedule MRI Abdomen w w/o contrast ([id number]) Imaging Routine Common bile duct (CBD) stricture (HCC) Expected: 09/21/2025, Expires: 09/21/2026 CA 19-9 Lab Routine Common bile duct (CBD) stricture (HCC) Ordered: 09/21/2025 CEA Lab Routine Common bile duct (CBD) stricture (HCC) Ordered: 09/21/2025 Complete Blood Count, without Differential Lab Routine Common bile duct (CBD) stricture (HCC) Ordered: 09/21/2025 Comprehensive Metabolic Panel Lab Routine Common bile duct (CBD) stricture (HCC) Ordered: 09/21/2025 documented as of this encounter Visit Diagnoses Diagnosis Common bile duct (CBD) stricture (HCC)- Primary Obstruction of bile duct documented in this encounter Care Teams Garden Equipment Mechanic Relationship Specialty Start Date End Date Po, Harry Mayorga MD [address] [place] [address] [address] [place] [id number] PCP - General Internal Medicine 05/26/25 Anita Kumar MD [address] [place] [address] [address] [place] [address] Surgical Oncology 07/02/25 Jeremy Rincon MD [address] [address] Gastroenterology 07/02/25 documented as of this encounter
--- OUTSIDE RECORDS SUMMARY | 2025-09-24 22:39 | XMS_ITS | Patient Health Record ---
Author Organization [facility] Address [address] [place] [address] Care Team Providers Care Diesel Engine Ii Pipe Fitter Name Role Phone Harry Chun MD Primary Care Provider Kerwin Tang Jr Unavailable [phone] Allergies Allergen (clinical drug ingredient) Drug/Non Drug Allergy documented on EMR Reaction Allergy Type Onset Date Status morphine Morphine Unknown Drug Allergy Active Reason For Referral No Information Medications Medication SIG (Take, Route, Frequency, Duration) Notes Start Date End Date Status Meloxicam 15 MG Tablet TAKE 1 TABLET BY MOUTH DAILY Oral; Duration: 90 M1990,Unavaila ble Active traMADol HCl 50 MG Tablet Oral; Duration: 4 Active Ondansetron 4 MG Tablet Disintegrating DISSOLVE 1 TABLET ON THE TONGUE EVERY 8 HOURS NEEDED FOR NAUSEA OR VOMITING Oral; Duration: 6 Active Melatonin 5 MG Capsule Oral; Duration: 30 Active Omeprazole 20 MG Capsule Delayed Release Oral; Duration: 90 Active traZODone HCl 50 MG Tablet TAKE 1/2 TABLET BY MOUTH AT BEDTIME NEEDED FOR SLEEP Oral; Duration: 60 G4700,Unavaila ble Active Immunizations Vaccine Route Administration Date Status Comme nts Influenza Unknown 07/17/2023 Administered Social History Tobacco Use: Social History Observation Description Date Details (start date - stop date) Never Smoker NA - NA Social History Drugs/Alcohol: Social Info Question Answer Notes Alcohol Screen Did you have a drink containing alcohol in the past year? Yes How often did you have a drink containing alcohol in the past year? Monthly or less (1 point) How many drinks did you have on a typical day when you were drinking in the past year? 1 or 2 drinks (0 point) How often did you have 6 or more drinks on one occasion in the past year? Never (0 point) Points 1 Interpretation Negative Tobacco Use: Social Info Question Answer Notes Tobacco Use/Smoking Patient is a nonsmoker Additional Details Category Social Info Options Details Miscellaneous: Marital status: single Occupation: works full-time Problems Problem Type SNOMED Code ICD Code Onset Dates Problem Status W/U Status Risk Notes Problem Epigastric pain (40018085) Epigastric pain (R10.13) Active confirmed Problem Disorder of biliary tract (314235702) Bile duct abnormality (K83.9) Active confirmed Problem Gastroesophageal reflux disease (326501683) Gastroesophageal reflux disease, unspecified whether esophagitis present [...] Date [employer] Medicare Advantage Plan [address] [address] [place] [address] [id number] BERRY LEE Self - patient is the insured Medical (General) History Medical History History ICD Code Elevated body mass index Osteoarthritis Gastroesophageal reflux disease Osteoporosis History of syphilis Insomnia Colonoscopy several years ago, records a re not available Surgical History Surgery Date(Month/Year) Gastric bypass surgery section Appendectomy Panniculectomy
--- OUTSIDE RECORDS SUMMARY | 2025-09-24 22:39 | XMS_ITS | Encounter Summary ---
Author Organization [facility] Prior to 08/11/[address] [place] [address] Care Team Providers Care Grocery Specialist Name Role Phone Fazal Dwyer MD Primary Care Provider Un available Encounter Details Date Type Department Care Team Description 12/11/2016 Release of Information Medical Records [address] [place] [id number] Abstract, Provider Social History Tobacco Use Types Packs/Day Years Used Date Smoking Tobacco: Never Alcohol Use Standard Drinks/Week Comments Yes 0 (1 standard drink = 0.6 oz pur e alcohol) occasionally Sex Assigned at Date Recorded Not on file documented as of this encounter Plan of Treatment Not on file documented as of this encounter Visit Diagnoses Not on filedocumented in this encounter Care Teams Grocery Specialist Relationship Specialty Start Date End Date Fazal Dwyer MD PCP - General Internal Medicine 05/01/16 documented as of this encounter
--- OUTSIDE RECORDS SUMMARY | 2025-09-24 22:39 | XMS_ITS | Clinical Summary ---
Author Organization [facility] Address [address] [place] [address] Care Team Providers Care Detail Drafter Name Role Phone Harry Chun MD Primary Care Provider [phone] Anita Kumar MD Unavailable [phone] Jeremy Rincon MD Unavailable [phone] Allergies Active Allergy Reactions Criticality Noted Date [...] morning, Reason: Other, Informant: Self, Reported on 09/14/2025 albuterol (PROAIR RESPICLICK) 108 (90 Base) MCG/ACT [...] in a 24 hour period.). 07/27/20 25 Active melatonin 5 MG Cap capsule Oral; Duration: 30 Active Cyanocobalamin (VITAMIN B 12 PO) Take by mouth. Active ascorbic acid 250 MG tablet Take 1 tablet (250 mg total) by mouth daily. Active oxyCODONE (ROXICODONE) 5 MG immediate release tabletIndications: Acute cholecystitis Take 1 tablet (5 mg total) by mouth every 4 (four) hours as needed for severe pain or moderate pain. Max Daily Amount: 30 mg 12 tablet 07/27/20 25 025 Discontin ued(Thera py completed ) [...] - ID continues to follow - Contacted [facility] microbiology, patient blood culture positive for vibrio Cholerae, sensitivities were sent and pending - Patient switched to oral levofloxacin 750 mg as per ID Assessment & Plan (05/28/2025 4:03 PM EDT): - ID continues to follow - Patient continues on IV Zosyn - Contacted [facility] microbiology, patient blood culture positive for [...] Encounters Date Type Department Care Team Description 09/21/2025 Prep for Surgery [address] [place] [address] Jeremy Rincon MD 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) 09/20/2025 1:55 PM EST Anesthesia Event [facility] [address] [facility] [place] [address] Erlin Finnegan MD Gordon, Jennifer L, PA-C 09/20/2025 1:38 PM EST - 09/20/2025 2:38 PM EST Surgery [facility] [address] [place] [place] [address] Jeremy Rincon MD ERCP 09/20/2025 12:29 PM EST - 09/20/2025 5:20 PM EST Hospital Encounter [facility] [address] [place] [phone] Jeremy Rincon MD Discharge Disposition: Home or Self Care 08/10/2025 10:30 AM EDT Office Visit [facility] [address] [phone] Consuelo Roberts APRN Post-operative state (Primary Dx); S/P cholecystectomy 07/27/2025 10:30 AM EDT - 07/27/2025 1:15 PM EDT Surgery [facility] [address] [place] [phone] Anita Kumar MD ROBOTIC CHOLECYSTECTOMY, INTRAOPERATIVE CHOLANGIOGRAM (IOC), (XI), LYSIS OF ADHESIONS 07/27/2025 10:02 AM EDT Anesthesia Event [facility] [address] [place] [phone] Juan Jose Gonzalez MD Edison, Amanda C, PA-C 07/27/2025 9:17 AM EDT - 07/27/2025 3:09 PM EDT Hospital Encounter [facility] [address] [place] [address] Anita Kumar MD Acute cholecystitis (Primary Dx) Discharge Disposition: Home or Self Care 07/02/2025 8:30 AM EDT Consult [facility] [address] [place] [address] [place] [phone] Anita Kumar MD Gallstone pancreatitis (Primary Dx); Biliary stricture (HCC); History of Francesco-en-Y gastric bypass; Elevated CA 19-9 level from Last 3 Months Family History * [...] oz pur e alcohol) drinks on weekends [facility] Utilities Answer Date Recorded [...] any time in the past [address] [facility] [place], were you homeless or living in a assisted (including now)? 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 Not on file Not on file [...] Mass Index 40.76 09/14/2025 12:09 PM EST Plan of Treatment Upcoming Encounters Date Type Department Care Team (Late st Contact Info) Description 10/13/2025 9:00 AM EST Appointment [facility] [address] [place] [address] Jeremy Rincon MD [address] [place] [address] Health Maintenance Due Date Last Done Comments [...] Vaccine 05/11/2025 07/17/2023 COVID-19 Vaccine ( - 2024-2 6 season) 2025 Hepatitis B Vaccines Aged Out No long er eligible based on patient's age to complete this topic Medical Devices Implanted Type Area Network Cabler Device Identifier Shelf Expiration Date Model / Serial / Lot [id number] Stent Pancreatic 20mm 10mm Axs Sterl Lf Disp Electrocautery - [id number] Implanted:Qty: 1 on 05/25/2025 by Jeremy Rincon MD at [facility] Stent N/A: Stomach [employer] [id number] 02/01/2026 [id number] / / [id number] Stent Pancreatic 5fr 5cm Pigtail Curve Radopq Push Cath - [id number] Implanted:Qty: 1 on 05/25/2025 by Jeremy Rincon MD at [facility] Stent N/A: Bile Duct [employer] [id number] 04/02/2028 [id number] / / [id number] Stent Biliary Wallflex 10mm 8.5fr 60mm Delivery Sys Full - [id number] Implanted:Qty: 1 on 09/20/2025 by Jeremy Rincon MD at [facility] Stent N/A: Bile Duct [employer] [id number] 04/27/2027 [id number] / / [id number] Stent Pancreatic 20mm 10mm Axs Sterl Lf Disp Electrocautery - [id number] Implanted:Qty: 1 on 09/20/2025 by Jeremy Rincon MD at [facility] Stent N/A: Stomach [employer] [id number] 07/17/2026 [id number] / / [id number] Stent Biliary Advanix Naviflex 10fr 3cm 1 Noris To Noris 4.2mm - [id number] Implanted:Qty: 1 on 09/20/2025 by Jeremy Rincon MD at [facility] Stent N/A: Bile Duct [employer] [id number] 05/08/2027 [id number] / / [id number] Explanted Type Area Network Cabler Device Identifier Shelf Expiration Date Model / Serial / Lot [id number] Stent Biliary Advanix 10fr 5cm Rx Temp Taper Tip Plastic - [id number] Implanted:Qty : 1 on 05/25/2025 by Jeremy Rincon MD at [facility] Explanted:Qty : 1 on 09/20/2025 by Jeremy Rincon MD at [facility] Stent N/A: Bile Duct [employer] [id number] 02/19/2027 [id number] / / [id number] Procedures Procedure Name Priority Date/Time Associated Diagnosis Comments ENDOSCOPY UPPER 09/20/2025 1:52 PM EST Choledocholithia sis Common bile duct (CBD) stricture (HCC) CHG CHOLANGIO&/PANCREATOG JERARDO ADDL SET INTRAOP RS 09/20/2025 1:52 PM EST Choledocholithia sis Common bile duct (CBD) stricture (HCC) PATHOLOGY REPORT Routine 07/27/2025 12:37 PM EDT [place] CHOLANGIOGRAM IN OR-1ST Routine 07/27/2025 12:20 PM EDT ANES LINE - PERIPHERAL, SINGLE LUMEN Routine 07/27/2025 10:37 AM EDT ANES LINE - PERIPHERAL, SINGLE LUMEN Routine 07/27/2025 10:37 AM EDT ANES INTUBATION Routine 07/27/2025 10:36 AM EDT [place] LAPAROSCOPY SURG CHOLECYSTECTOMY 07/27/2025 9:46 AM EDT [...] Francesco-en-Y gastric bypass Elevated CA 19-9 level from Last 3 Months Results * Pathology (07/27/2025 12:37 PM EDT) Report [facility] [id number] CLIA ID [id number] [address] [place] [phone] Surgical Pathology Report PATIENT NAME: BERRY LEE REC NUMBER: [id number] (AGE): 1955 (Age: 69) SPECIMEN NUMBER: [id number] DATE OBTAINED: 07/27/2025 DIAGNOSIS CHOLECYSTECTOMY: ACUTE AND CHRONIC CHOLECYSTITIS WITH HYPERPLASTIC CHANGES AND CHOLELITHIASIS. tv/08/16/2025 Electronically Signed Out ELDA SANCHEZ MD Signout Facility: [address] CLIA #: [id number] COMMENT [id number] Clinical Information and History: Gallstone pancreatitis, biliary [...] 0.2 x 0.3 cm. The specimen is help desk representative submitted in two cassettes as follows: A1: Cystic duct margin with possible polypoid neck lesion A2: Stylist Apprentice body and fundus [facility] Tissue Tissue specimen from gallbladder / [...] 10:37 AM EDT) Only the most recent of2 [...] Patient pre-procedure mental status: anesthetized Single lumen givn-rvc-sartnv catheter system, 20 g, 1 in length, in left wrist Insertion attempts: 1 Juan Jose Gonzalez MD [place] ANESTHESIA Final Result * ANES INTUBATION (07/27/2025 10:36 AM EDT) Elli Saucedo CRNA - 07/27/2025 10:36 AM [...] no complications us Juan Jose Gonzalez MD [place] ANESTHESIA Final Result * CA 19-9 (07/02/2025 12:45 PM EDT) [facility] CA 19-9 10 <34 U/mL [facility] Comment: This test was performed using the [...] LAB BLOOD ORDERABLES Final Re sult [facility] [address] [place] [phone] * COMPLETE BLOOD COUNT, WITHOUT DIFFERENTIAL (07/02/2025 12:45 PM EDT) [facility] White Blood Cell Count 7.6 3.8 - 10.8 Thousand/u L [facility] Red Blood Cell Count 4.21 3.80 - 5.10 Million/uL [facility] Hemoglobin 12.1 11.7 - 15.5 g/dL [facility] Hematocrit 37.5 35.0 - 45.0 % [facility] MCV 89.1 80.0 - 100.0 fL [facility] MCH 28.7 27.0 - 33.0 pg [facility] MCHC 32.3 32.0 - 36.0 g/dL [facility] Comment: For adults, a slight decrease in the calculated MCHC value (in the range of 30 to 32 g/dL) is most likely not clinically significant; however, it should be interpreted with caution in correlation with other red cell parameters and the patient's clinical condition. RDW 15.0 11.0 - 15.0 % [facility] Platelet Count 279 140 - 400 Thousand/u L [facility] MPV 11.6 7.5 - 12.5 fL [facility] Blood Blood specimen / Unknown 07/02/2025 12:45 PM EDT 07/02/2025 12:46 PM EDT Narrative [employer] - 07/03/2025 9:18 AM EDT FASTING:NO FASTING: NO Anita Kumar MD LAB BLOOD ORDERABLES Final Re sult Performing Organization Address [facility] Co de Phone Number [facility] [address] [place] [phone] * LIPASE (07/02/2025 12:45 PM EDT) Lipase 45 7 - 60 U/L [facility] Blood Blood specimen / Unknown 07/02/2025 12:45 PM EDT 07/02/2025 12:46 PM EDT Narrative [employer] - 07/03/2025 9:18 AM EDT FASTING:NO FASTING: NO Anita Kumar MD LAB BLOOD ORDERABLES Final Re sult Performing Organization Address [facility] de Phone Number [facility] [address] [place] [phone] * (ABNORMAL) HEPATIC FUNCTION PANEL (07/02/2025 12:45 PM EDT) Protein, Total 6.8 6.1 - 8.1 g/dL [facility] Albumin 4.1 3.6 - 5.1 g/dL [facility] Globulin 2.7 1.9 - 3.7 g/dL (calc) [facility] Albumin/Globulin Ratio 1.5 1.0 - 2.5 (calc) [facility] Bilirubin, Total 0.9 0.2 - 1.2 mg/dL [facility] Bilirubin, Direct 0.3(H) < OR = 0.2 mg/dL [facility] Bilirubin, Indirect 0.6 0.2 - 1.2 mg/dL (calc) [facility] Alkaline Phosphatase 207(H) 37 - 153 U/L [facility] Aspartate Aminotrans (AST) 27 10 - 35 U/L [facility] Alanine Aminotrans (ALT) 22 6 - 29 U/L [facility] Blood Blood specimen / Unknown 07/02/2025 12:45 PM EDT 07/02/2025 12:46 PM EDT Narrative [facility] - 07/03/2025 9:18 AM EDT FASTING:NO FASTING: NO us Anita Kumar MD LAB BLOOD ORDERABLES Final Re sult [facility] [address] [place] [phone] * Basic Metabolic Panel (07/02/2025 12:45 PM EDT) Pathologist [facility] Glucose 95 65 - 139 mg/dL [facility] Comment: Non-fasting reference interval Blood Urea Nitrogen (BUN) 13 7 - 25 mg/dL [facility] Creatinine 0.56 0.50 - 1.05 mg/dL [facility] Creatinine w/ eGFR 99 > OR = 60 mL/min/1. 73m2 [facility] BUN/Creatinine Ratio SEE NOTE: 6 - 22 (calc) [facility] Comment: Not Reported: BUN and Creatinine are within reference range. Sodium 142 135 - 146 mmol/L [facility] Potassium 3.9 3.5 - 5.3 mmol/L [facility] Chloride 107 98 - 110 mmol/L [facility] CO2 27 20 - 32 mmol/L [facility] Calcium 9.0 8.6 - 10.4 mg/dL [facility] Blood Blood specimen / Unknown 07/02/2025 12:45 PM EDT 07/02/2025 12:46 PM EDT Narrative [facility] - 07/03/2025 9:18 AM EDT FASTING:NO FASTING: NO Anita Kumar MD LAB BLOOD ORDERABLES Final Re sult [facility] [address] [place] [phone] from Last 3 Months Insurance MEDICARE MEDICARE MEDICARE Advance Directives * Full Code (Latest Code Status on File) Date Activated Date Inactivated Comments 07/27/2025 9:33 AM 09/20/2025 12:29 PM * Full Code Date Activated Date Inactivated Comments 05/24/2025 6:30 PM 06/12/2025 7:39 AM Care Teams Detail Drafter Relationship Specialty Start Date End Date Harry Chun MD [address] [place] [address], [place] [address] PCP - General Internal Medicine 05/26/25 Anita Kumar MD [address] [place] [address] Surgical Oncology 07/02/25 Jeremy Rincon MD [address] [place] [address] Gastroenterology 07/02/25
== END 2025-09-24 17:56 | disposition home or self-care (01) ==
LOC: HO.HMCH 16:27
PROVIDERS: PCP Internal Medicine; Visit Provider Internal Medicine
DX: Z98.84 Bariatric surgery status (principal); E66.01 Morbid (severe) obesity due to excess calories; Z68.41 Body mass index [BMI] 40.0-44.9, adult; K21.9 Gastro-esophageal reflux disease without esophagitis; D64.9 Anemia, unspecified; J45.20 Mild intermittent asthma, uncomplicated; G47.00 Insomnia, unspecified; Z90.49 Acquired absence of other specified parts of digestive tract; K59.00 Constipation, unspecified

== ENCOUNTER 2025-10-09 09:43 | Outpatient (REF) | payer OTHER, SELFPAY ==
--- NOTE | ~2025-10-09 | US_ITS ---
CLINICAL HISTORY: R79.89 - Other specified abnormal findings of blood chemistry US abdomen complete Comparison: CT abdomen 05/23/2025 Findings: Visualized pancreas is normal. Aorta and inferior vena cava are normal caliber. The liver is normal in size and echotexture. Right lobe length is 13.1 cm. There is no intrahepatic bile duct dilatation. The common duct is 3 mm in diameter. The gallbladder is surgically absent. There is no sonographic Walker sign. The main portal vein is antegrade The right kidney is normal, 10.4 cm in length. A simple lower pole cyst measuring 19 x 20 x 14 mm is present. The left kidney is normal, 11.2 cm in length. The spleen is normal, 9.5 cm in length. Impression: 1. Interval cholecystectomy since prior CT exam. Small right renal cyst. 2. Otherwise, unremarkable complete abdominal ultrasound This document has been electronically signed by: Vu Pop MD on 10/10/2025 17:52:16
--- OUTSIDE RECORDS SUMMARY | 2025-10-09 12:32 | XMS_ITS | Clinical Summary ---
Author Organization [facility] Address [address] [place] [address] Care Team Providers Care Humid System Operator Name Role Phone Harry Chun MD Primary Care Provider [phone] Anita Kumar MD Unavailable [phone] Jeremy Rincon MD Unavailable [phone] Allergies Active Allergy Reactions Criticality Noted Date [...] - ID continues to follow - Contacted [facility] microbiology, patient blood culture positive for vibrio Cholerae, sensitivities were sent and pending - Patient switched to oral levofloxacin 750 mg as per ID Assessment & Plan (05/28/2025 4:03 PM EDT): - ID continues to follow - Patient continues on IV Zosyn - Contacted [facility] microbiology, patient blood culture positive for [...] Care Team Description 09/21/2025 Prep for Surgery [address] [place] [address] Jeremy Rincon MD 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) 09/20/2025 1:55 PM EST Anesthesia Event [facility] [address] [place] [address] Erlin Finnegan MD Gordon, Jennifer L, PA-C 09/20/2025 1:38 PM EST - 09/20/2025 2:38 PM EST Surgery [facility] [address] [place] [address] Jeremy Rincon MD ERCP 09/20/2025 12:29 PM EST - 09/20/2025 5:20 PM EST Hospital Encounter [facility] [address] [place] [phone] Jeremy Rincon MD Discharge Disposition: Home or Self Care 08/10/2025 10:30 AM EDT Office Visit [facility] [place] [place] Surgical Oncology [address] [place] [phone] Consuelo Roberts APRN Post-operative state (Primary Dx); S/P cholecystectomy 07/27/2025 10:30 AM EDT - 07/27/2025 1:15 PM EDT Surgery [facility] [address] [place] [phone] Anita Kumar MD ROBOTIC CHOLECYSTECTOMY, INTRAOPERATIVE CHOLANGIOGRAM (IOC), (XI), LYSIS OF ADHESIONS 07/27/2025 10:02 AM EDT Anesthesia Event [facility] [address] [place] [phone] Juan Jose Gonzalez MD Edison, Amanda C, PA-C 07/27/2025 9:17 AM EDT - 07/27/2025 3:09 PM EDT Hospital Encounter [facility] [address] [place] [phone] Anita Kumar MD Acute cholecystitis (Primary Dx) Discharge Disposition: Home or Self Care from [...] oz pur e alcohol) drinks on weekends [facility] Utilities Answer Date Recorded In [...] any time in the past 12 m [facility], were you homeless or living in a fpc (including now)? 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 Not on [...] Info) Description 10/13/2025 9:00 AM EST Appointment [facility] Radiology [facility] [address] [place] [address] Jeremy Rincon MD [address] [place] [address] Health Maintenance Due Date Last Done Comments [...] 2021 Influenza Vaccine 05/11/2025 07/17/2023 COVID-19 Vaccine (2024-2 6 season) 2025 Hepatitis B Vaccines Aged Out No long er eligible based on patient's age to complete this topic Medical Devices Implanted Type Area Crop Nutrition Scientist Device Identifier Shelf Expiration Date Model / Serial / Lot [id number] Stent Pancreatic 20mm 10mm Axs Sterl Lf Disp Electrocautery - [id number] Implanted:Qty: 1 on 05/25/2025 by Jeremy Rincon MD at [facility] Stent N/A: Stomach [employer] [id number] 02/01/2026 [id number] / / [id number] Stent Pancreatic 5fr 5cm Pigtail Curve Radopq Push Cath - [id number] Implanted:Qty: 1 on 05/25/2025 by Jeremy Rincon MD at [facility] Stent N/A: Bile Duct [employer] [id number] 04/02/2028 [id number] / / [id number] Stent Biliary Wallflex 10mm 8.5fr 60mm Delivery Sys Full - [id number] Implanted:Qty: 1 on 09/20/2025 by Jeremy Rincon MD at [facility] Stent N/A: Bile Duct [employer] [id number] 04/27/2027 [id number] / / [id number] Stent Pancreatic 20mm 10mm Axs Sterl Lf Disp Electrocautery - [id number] Implanted:Qty: 1 on 09/20/2025 by Jeremy Rincon MD at [facility] Stent N/A: Stomach [employer]HER [id number] 07/17/2026 [id number] / / [id number] Stent Biliary Advanix Naviflex 10fr 3cm 1 Noris To Noris 4.2mm - [id number] Implanted:Qty: 1 on 09/20/2025 by Jeremy Rincon MD at [facility] Stent N/A: Bile Duct [employer] [id number] 05/08/2027 [id number] / / [id number] Explanted Type Area Crop Nutrition Scientist Device Identifier Shelf Expiration Date Model / Serial / Lot [id number] Stent Biliary Advanix 10fr 5cm Rx Temp Taper Tip Plastic - [id number] Implanted:Qty : 1 on 05/25/2025 by Jeremy Rincon MD at [facility] Explanted:Qty : 1 on 09/20/2025 by Jeremy Rincon MD at [facility] Stent N/A: Bile Duct [employer] CHRISTOPHER [id number] 02/19/2027 [id number] / / [id number] Procedures Procedure Name Priority Date/Time Associated Diagnosis Comments LIPASE Routine 09/24/2025 1:37 PM EST HXAMB TEST AUTHORIZATION Routine 09/24/2025 1:37 PM EST COMPREHENSIVE METABOLIC PANEL Routine 09/24/2025 1:37 PM EST Common bile duct (CBD) stricture (HCC) COMPLETE BLOOD COUNT, WITHOUT DIFFERENTIAL Routine 09/24/2025 1:37 PM EST Common bile duct (CBD) stricture (HCC) CEA Routine 09/24/2025 1:37 PM EST Common bile duct (CBD) stricture (HCC) CA 19-9 Routine 09/24/2025 1:37 PM EST Common bile duct (CBD) stricture (HCC) FL ERCP BILIARY AND PANCREATIC Routine 09/20/2025 2:25 PM EST ENDOSCOPY UPPER 09/20/2025 1:52 PM EST Choledocholithia [...] ANES INTUBATION Routine 07/27/2025 10:36 AM EDT [place] LAPAROSCOPY SURG CHOLECYSTECTOMY 07/27/2025 9:46 AM EDT Gallstone pancreatitis Biliary stricture (HCC) Special Needs CONSENT FOR BLOCK IF [employer] AVAILABLE from Last 3 Months Results * Test Authorization (09/24/2025 1:37 PM EST) Test(s) Ordered on Requisition LIPASE [facility] Test Code 606SB [facility] Client Contact MARLENY ELDRIDGE [facility] Report Always Message Signature [facility] Comment: The laboratory testing on this patient was verbally requested or confirmed by the ordering physician or his or her authorized guest service representative after contact with an employee of [email or web address]. Federal regulations require that we maintain on file written authorization for all laboratory testing. Accordingly we are asking that the ordering physician or his or her authorized guest service representative sign a copy of this report and promptly return it to the client services associate. Signature: Comment [facility] Comment: Please fax this signed form to [phone]. Please do not attempt to return this document by other methods. Documents will not be viewed by a guest service representative. Please do not use this fax number for other service requests. 09/24/2025 1:37 PM EST 09/24/2025 1:38 PM EST Narrative [facility] - 09/25/2025 6:22 PM EST FASTING:NO FASTING: NO us Jeremy Rincon MD HX LAB Final Resu lt [facility] [address] [place] [address] * (ABNORMAL) CA 19-9 (09/24/2025 1:37 PM EST) Pathologist [facility] [place] CA 19-9 58(H) <34 U/mL [facility] Comment: This test was performed using the Siemens chemiluminescent method. Values obtained from different assay methods cannot be used interchangeably. CA 19-9 levels, regardless of value, should not be interpreted as absolute evidence of the presence or absence of disease. Blood Blood specimen / Unknown 09/24/2025 1:37 PM EST 09/24/2025 1:38 PM EST Narrative [facility] - 09/25/2025 6:22 PM EST FASTING:NO FASTING: NO Jeremy Rincon MD LAB BLOOD ORDERABLES Final Result Performing Organization Address [facility] de Phone Number [facility] [address] [place] [phone] * Complete Blood Count, without Differential (09/24/2025 1:37 PM EST) [facility] White Blood Cell Count 6.0 3.8 - 10.8 Thousand/u L [facility] Red Blood Cell Count 4.05 3.80 - 5.10 Million/uL [facility] Hemoglobin 11.9 11.7 - 15.5 g/dL [facility] Hematocrit 36.6 35.9 - 46.0 % [facility] MCV 90.4 81.4 - 101.7 fL [facility] MCH 29.4 27.0 - 33.0 pg [facility] MCHC 32.5 31.6 - 35.4 g/dL [facility] RDW 13.6 11.0 - 15.0 % [facility] Platelet Count 296 140 - 400 Thousand/u L [facility] MPV 11.3 7.5 - 12.5 fL [facility] Blood Blood specimen / Unknown 09/24/2025 1:37 PM EST 09/24/2025 1:38 PM EST Narrative [facility] - 09/25/2025 6:22 PM EST FASTING:NO FASTING: NO Result [facility] Jeremy Rincon MD LAB BLOOD ORDERABLES Final Result Performing Organization Address [facility] de Phone Number [facility] [address] [place] [phone] * (ABNORMAL) LIPASE (09/24/2025 1:37 PM EST) Lipase 73(H) 7 - 60 U/L [facility] 09/24/2025 1:37 PM EST 09/24/2025 1:38 PM EST Narrative [facility] - 09/25/2025 6:22 PM EST FASTING:NO FASTING: NO Result [facility] Jeremy Rincon MD LAB BLOOD ORDERABLES Final Result Performing Organization Address [facility] Phone Number [facility] [address] [place] [phone] * CEA (09/24/2025 1:37 PM EST) Pathologist [facility] [place] CEA (Jake) <2.0 See Note: ng/mL [facility] Comment: Reference Range: Non-Smoker: <2.5 Smoker: <5.0 This test was performed using the Siemens chemiluminescent method. Values obtained from different assay methods cannot be used interchangeably. CEA levels, regardless of value, should not be interpreted as absolute evidence of the presence or absence of disease. Blood Blood specimen / Unknown 09/24/2025 1:37 PM EST 09/24/2025 1:38 PM EST Narrative [facility] - 09/25/2025 6:22 PM EST FASTING:NO FASTING: NO Result [facility] Jeremy Rincon MD LAB BLOOD ORDERABLES Final Result Performing Organization Address [facility] de Phone Number [facility] [address] [place] [phone] * Comprehensive Metabolic Panel (09/24/2025 1:37 PM EST) [facility] Glucose 90 65 - 139 mg/dL [facility] Comment: Non-fasting reference interval Blood Urea Nitrogen (BUN) 20 7 - 25 mg/dL [facility] Creatinine 0.67 0.50 - 1.05 mg/dL [facility] Creatinine w/ eGFR 95 > OR = 60 mL/min/1. 73m2 [facility] BUN/Creatinine Ratio SEE NOTE: 6 - 22 (calc) [facility] Comment: Not Reported: BUN and Creatinine are within reference range. Sodium 139 135 - 146 mmol/L [facility] Potassium 4.2 3.5 - 5.3 mmol/L [facility] Chloride 104 98 - 110 mmol/L [facility] CO2 27 20 - 32 mmol/L [facility] Calcium 9.4 8.6 - 10.4 mg/dL [facility] Protein, Total 6.7 6.1 - 8.1 g/dL [facility] Albumin 3.9 3.6 - 5.1 g/dL [facility] Globulin 2.8 1.9 - 3.7 g/dL (calc) [facility] Albumin/Globuli n Ratio 1.4 1.0 - 2.5 (calc) [facility] Bilirubin, Total 0.7 0.2 - 1.2 mg/dL [facility] Alkaline Phosphatase 91 37 - 153 U/L [facility] Aspartate Aminotrans (AST) 18 10 - 35 U/L [facility] Alanine Aminotrans (ALT) 12 6 - 29 U/L [facility] Blood Blood specimen / Unknown 09/24/2025 1:37 PM EST 09/24/2025 1:38 PM EST Narrative [facility] - 09/25/2025 6:22 PM EST FASTING:NO FASTING: NO Jeremy Rincon MD LAB BLOOD ORDERABLES Final Result [facility] [address] [place] [phone] * FL ERCP (09/20/2025 2:25 PM EST) Anatomical Region Laterality Modality Abdomen Radio Fluoroscop y 09/20/2025 1:50 PM EST Impressions 10/01/2025 11:36 AM EST Fluoroscopy during procedure. Please see procedure report for additional information. Narrative 10/01/2025 11:36 AM EST EXAMINATION: FL ERCP BILIARY AND PANCREATIC CLINICAL INFORMATION: Bile duct stent removal. COMPARISON: None available. TECHNIQUE: Fluoroscopy during procedure. 4 mL of Omnipaque 350 was used. FINDINGS: CBD stent exchange FLUOROSCOPY TIME: 4.1 minutes DOSE AREA PRODUCT: 10.8 Gy-cm2 (mendez-centimeter squared) Procedure Note Bibi Camacho MD - 10/01/2025 EXAMINATION: FL ERCP BILIARY AND PANCREATIC CLINICAL INFORMATION: Bile duct stent removal. COMPARISON: None available. TECHNIQUE: Fluoroscopy during procedure. 4 mL of Omnipaque 350 was used. FINDINGS: CBD stent exchange FLUOROSCOPY TIME: 4.1 minutes DOSE AREA PRODUCT: 10.8 Gy-cm2 (mendez-centimeter squared) IMPRESSION: Fluoroscopy during procedure. Please see procedure report for additional information. Jeremy Rincon MD IMG FLUOROSCOPY ORDERABLES Final Result * Pathology (07/27/2025 12:37 PM EDT) Report [facility] [id number] CLIA ID [id number] [address] [place] [phone] Surgical Pathology Report PATIENT NAME: BERRY LEE [facility] REC NUMBER: [id number] (AGE): 1955 (Age: 69) SPECIMEN NUMBER: [id number] DATE OBTAINED: 07/27/2025 DIAGNOSIS CHOLECYSTECTOMY: ACUTE AND CHRONIC CHOLECYSTITIS WITH HYPERPLASTIC CHANGES AND CHOLELITHIASIS. /08/16/2025 Electronically Signed Out ELDA SANCHEZ MD Signout Facility: [address] CLIA #: [id number] COMMENT [id number] Clinical Information and History: Gallstone pancreatitis, biliary [...] 0.2 x 0.3 cm. The specimen is guest service representative submitted in two cassettes as follows: A1: Cystic duct margin with possible polypoid neck lesion A2: Medical Care Manager body and fundus [facility] Tissue Tissue specimen from gallbladder [...] Patient pre-procedure mental status: anesthetized Single lumen aiwr-[id number]-[id number] catheter system, 20 g, 1 in length, in left wrist Insertion attempts: 1 Juan Jose Gonzalez MD [place] ANESTHESIA Final Result * ANES INTUBATION (07/27/2025 [...] Dentition: same as baseline Complications: no complications Juan Jose Gonzalez MD [place] ANESTHESIA Final Result from Last 3 Months Insurance [facility] [place] [id number] [facility] Advance Directives * Full Code (Latest Code Status on File) Date Activated Date Inactivated Comments 07/27/2025 9:33 AM 09/20/2025 12:29 PM * Full Code Date Activated Date Inactivated Comments 05/24/2025 6:30 PM 06/12/2025 7:39 AM Care Teams Humid System Operator Relationship Specialty Start Date End Date Harry Chun MD [address] [place] [address] [place] [address] PCP - General Internal Medicine 05/26/25 Anita Kumar MD [address] [place] [address] Surgical Oncology 07/02/25 Jeremy Rincon MD [address] [place] [address] Gastroenterology 07/02/25
--- OUTSIDE RECORDS SUMMARY | 2025-10-09 12:32 | XMS_ITS | Patient Health Record ---
Author Organization [facility] Address [address] [place] [address] Care Team Providers Care Foam Molder Name Role Phone Harry Chun MD Primary Care Provider Kerwin Tang Jr Unavailable Allergies Allergen (clinical drug ingredient) [...] W/U Status Risk Notes Problem Epigastric pain (21906430) Epigastric pain (R10.13) Active confirmed Problem Disorder of biliary tract (816053425) Bile duct abnormality (K83.9) Active confirmed Problem Gastroesophageal reflux disease (847062906) Gastroesophageal reflux disease, unspecified whether esophagitis present [...] Date [employer] Medicare Advantage Plan [address] [address] [place] [address] [phone] [id number] BERRY LEE Self - patient is the insured Medical (General) History Medical History History ICD Code Elevated body mass index Osteoarthritis Gastroesophageal reflux disease Osteoporosis History of syphilis Insomnia Colonoscopy several years ago, records a re not available Surgical History Surgery Date(Month/Year) Gastric bypass surgery section Appendectomy Panniculectomy
== END 2025-10-09 09:44 ==
LOC: HO.US 09:43
PROVIDERS: PCP Internal Medicine; Visit Provider Internal Medicine
DX: R79.89 Other specified abnormal findings of blood chemistry (principal); R10.13 Epigastric pain; Z90.49 Acquired absence of other specified parts of digestive tract
CPT/HCPCS: 76700